=== PATIENT | male | born 1965 | race Two or more races ===

== ENCOUNTER 2018-02-15 05:41 | Emergency (ER) | payer BC, MEDICAID, SELFPAY ==
[~2018-02-15] VITALS: Ht 172.7 cm; Wt 65.0 kg
[~2018-02-15 05:41] MED LIST: ALPR0.257 PO; ATOR10TA70 PO; HYDR12.5 PO; OMEP20CA10 PO; THI100T PO
[2018-02-15 06:36] LABS: BASOPHILS # (AUTO) 0.1 X10'3 (0-0.2); BASOPHILS % (AUTO) 0.9 % (0-1); EOSINOPHILS # (AUTO) 0.3 X10'3 (0-0.9); EOSINOPHILS % (AUTO) 4.3 % (0-6); HEMATOCRIT 37.8 % (42.0-52.0); HEMOGLOBIN 12.8 g/dl (14.0-17.9); LYMPHOCYTES # (AUTO) 3.1 X10'3 (1.1-4.8); LYMPHOCYTES % (AUTO) 48.9 % (21-51); MEAN CORPUSCULAR HGB CONC 33.9 % (33.0-36.5); MEAN CORPUSCULAR VOLUME 88.7 FL (78-98); MEAN PLATELET VOLUME 7.3 FL (7.4-10.4); MONOCYTES # (AUTO) 0.5 X10'3 (0-0.9); MONOCYTES % (AUTO) 7.8 % (2-12); NEUTROPHILS # (AUTO) 2.4 X10'3 (1.8-7.7); NEUTROPHILS % (AUTO) 38.1 % (42-75); PLATELET COUNT 219 X10'3 (140-440); RED BLOOD COUNT 4.26 X10'6 (4.70-6.10); RED CELL DISTRIBUTION WIDTH 19.7 % (11.5-14.5); WHITE BLOOD COUNT 6.4 X10'3 (4.5-11.0)
[2018-02-15 06:38] LABS: CLARITY,URINE Clear (Clear); COLOR,URINE Yellow (Yellow); GLUCOSE, URINE Negative (Neg); KETONES,URINE Negative (Neg); LEUKOCYTE ESTERASE ,URINE Negative (Neg); NITRITES, URINE Negative (Neg); OCCULT BLOOD,URINE Negative (Neg); PROTEIN,URINE Negative (Neg); UROBILINOGEN,URINE 0.2 E.U/dL (0.2-1.0)
[2018-02-15 06:41] LABS: UA COLLECTION TYPE CLN CATCH MIDSTREAM
[2018-02-15 06:47] LABS: INR 1.1 INR
[2018-02-15 06:51] LABS: ALANINE AMINOTRANSFERASE 29 U/L (12-78); ALBUMIN 4.2 G/DL (3.4-5.0); ALBUMIN/GLOBULIN RATIO 1.1 (1.1-1.5); ALKALINE PHOSPHATASE 74 IU/L (46-116); ANION GAP 14 (8-16); ASPARTATE AMINO TRANSFERASE 50 U/L (10-37); BILIRUBIN,TOTAL 1.4 MG/DL (0.1-1.0); BLOOD UREA NITROGEN 5 MG/DL (7-18); BUN/CREATININE RATIO 5.1 (5.4-32.0); CHLORIDE 93 MMOL/L (99-107); CREATININE 0.98 MG/DL (0.60-1.10); ETHANOL 0.257 GM/DL (0.0-0.010); GLUCOSE 93 MG/DL (70-104); LIPASE 159 U/L (73-393); POTASSIUM 3.4 MMOL/L (3.5-5.1); SODIUM 132 MMOL/L (135-145); TOTAL CARBON DIOXIDE 25.4 MMOL/L (24-32); TOTAL PROTEIN 8.2 G/DL (6.4-8.2); eGFR 81 ML/MIN
[2018-02-15] MEDS ORDERED: normal saline 1000ML IV soln IVB ONE (07:10)
[2018-02-15] MEDS ORDERED: ondansetron/PF 4mg/2ml inj IV ONE (07:10)
[2018-02-15 07:54] LABS: ANISOCYTOSIS 2+; PLATELET ESTIMATE NORMAL
[2018-02-15] MEDS ORDERED: chlorproMAZINE 25mg/ml inj. IV ONE (08:05)
[2018-02-15] MEDS ORDERED: ONDA8TAB9 PO (08:31)
[2018-02-15 09:34] VITALS: BP 137/83
== END 2018-02-15 10:29 | disposition home or self-care (01) ==
LOC: ER 05:42
DX: F10.929 Alcohol use, unspecified with intoxication, unspecified (principal); R11.2 Nausea with vomiting, unspecified; R06.6 Hiccough; I10 Essential (primary) hypertension; E78.00 Pure hypercholesterolemia, unspecified; Z90.49 Acquired absence of other specified parts of digestive tract
CPT/HCPCS: 36415; 80053; 80320; 81003; 82948; 83690; 85025; 85610; 93005; 96361; 96374; 96375; 99285; J2405; J3230; J7030

== ENCOUNTER 2018-06-26 01:11 | Emergency (ER) | payer MEDICAID ==
[~2018-06-26] VITALS: Ht 167.6 cm; Wt 60.0 kg
[~2018-06-26 01:11] MED LIST changes: +ONDA8TAB9 PO
[2018-06-26 01:42] LABS: PARTIAL THROMBOPLASTIN TIME 27 SECONDS (22-32); PROTHROMBIN TIME 10.3 SECONDS (9.0-12.0)
[2018-06-26 01:43] LABS: ALANINE AMINOTRANSFERASE 59 U/L (12-78); ALBUMIN/GLOBULIN RATIO 0.9 (1.1-1.5); ALKALINE PHOSPHATASE 136 IU/L (46-116); ANION GAP 16 (8-16); ASPARTATE AMINO TRANSFERASE 78 U/L (10-37); BILIRUBIN,TOTAL 1.7 MG/DL (0.1-1.0); BLOOD UREA NITROGEN 9 MG/DL (7-18); BUN/CREATININE RATIO 9.1 (5.4-32.0); CALCIUM 8.4 MG/DL (8.5-10.1); CHLORIDE 87 MMOL/L (99-107); CREATININE 0.99 MG/DL (0.60-1.10); GLUCOSE 103 MG/DL (70-104); SODIUM 127 MMOL/L (135-145); TOTAL CARBON DIOXIDE 24.4 MMOL/L (24-32); TOTAL PROTEIN 8.4 G/DL (6.4-8.2); eGFR 80 ML/MIN
[2018-06-26 01:46] LABS: POTASSIUM 2.8 MMOL/L (3.5-5.1)
[2018-06-26 01:49] LABS: BASOPHILS % (AUTO) 0.2 % (0-1); EOSINOPHILS # (AUTO) 0.1 X10'3 (0-0.9); EOSINOPHILS % (AUTO) 0.9 % (0-6); HEMATOCRIT 37.3 % (42.0-52.0); HEMOGLOBIN 11.9 g/dl (14.0-17.9); LYMPHOCYTES # (AUTO) 2.4 X10'3 (1.1-4.8); LYMPHOCYTES % (AUTO) 25.3 % (21-51); MEAN CORPUSCULAR HEMOGLOBIN 26.6 PG (27.0-31.0); MEAN CORPUSCULAR HGB CONC 31.9 % (33.0-36.5); MEAN CORPUSCULAR VOLUME 83.4 FL (78-98); MEAN PLATELET VOLUME 7.7 FL (7.4-10.4); MONOCYTES % (AUTO) 10.4 % (2-12); NEUTROPHILS % (AUTO) 63.2 % (42-75); PLATELET COUNT 238 X10'3 (140-440); RED BLOOD COUNT 4.48 X10'6 (4.70-6.10); RED CELL DISTRIBUTION WIDTH 21.1 % (11.5-14.5); WHITE BLOOD COUNT 9.5 X10'3 (4.5-11.0)
[2018-06-26] MEDS ORDERED: magnesium 2GM in 50ml NS 50 ML IV ONE ×2 (02:00→05:10)
[2018-06-26] MEDS ORDERED: potassium 10mEq/100ml NS w/LIDOcaine (10mg/bag) IV ONE ×3 (02:00→05:10)
[2018-06-26 02:11] LABS: MAGNESIUM 1.8 MG/DL (1.5-2.4)
[2018-06-26 02:24] LABS: ETHANOL 0.341 GM/DL (0.0-0.010)
[2018-06-26] MEDS ORDERED: normal saline 1000ml 1,000 ML IV ONE (02:44)
[2018-06-26] MEDS ORDERED: normal saline 1000ML IV soln IVB ONE ×2 (02:45→05:10)
[2018-06-26 02:52] LABS: LIPASE 257 U/L (73-393)
--- NOTE | 2018-06-26 02:57 | NUR ---
PT PURPOSELY PULLED OUT SECOND IV FOR WHICH HE WAS GETTING POTASSIUM AND MAGNESIUM AND FLUIDS. BLOOD WAS FOUND ALL OVER PT AND OVER BED, DUE TO PT ERRATIC BEHAVIOR WILL NOT BE STARTING ANOTHER IV UNTIL PT IS ABLE TO FOLLOW COMMANDS.
--- NOTE | 2018-06-26 03:40 | NUR ---
IV RESTARTED AND SECURED, PT INFORMED OF NEED FOR IV FLUIDS AND ELECTROLYTE REPLACEMENT. PT INFORMED OF THE DETERMENTS OF PULLING OUT IVS.
[2018-06-26] MEDS ORDERED: PHE12.5T PO (05:10)
[2018-06-26] MEDS ORDERED: famotidine/PF 10 mg/ml inj IV ONE (05:10)
[2018-06-26] MEDS ORDERED: POTA20TA19 PO (05:10)
[2018-06-26 05:29] VITALS: BP 130/77
== END 2018-06-26 07:12 | disposition home or self-care (01) ==
LOC: ER 01:13
DX: K29.20 Alcoholic gastritis without bleeding (principal); F10.129 Alcohol abuse with intoxication, unspecified; E87.6 Hypokalemia; E78.00 Pure hypercholesterolemia, unspecified; I10 Essential (primary) hypertension; Z90.49 Acquired absence of other specified parts of digestive tract; Z79.899 Other long term (current) drug therapy; Y90.9 Presence of alcohol in blood, level not specified
CPT/HCPCS: 36415; 71045; 80053; 80320; 83690; 83735; 84484; 85025; 85610; 85730; 93005; 96365; 96366; 96368; 96375; 99284; J3475; J3480; J3490; J7030

== ENCOUNTER 2018-06-30 17:51 | Emergency (ER) | payer MEDICAID ==
[~2018-06-30] VITALS: Ht 172.7 cm; Wt 63.0 kg
[~2018-06-30 17:51] MED LIST changes: +PHE12.5T PO; +POTA20TA19 PO
[2018-06-30 17:56] VITALS: BP 140/89
[2018-06-30] MEDS ORDERED: thiamine 100mg tablet PO ONE (19:25)
[2018-06-30] MEDS ORDERED: dextrose 5%-normal saline 1,000 ML IV SCH (19:25)
[2018-06-30] MEDS ORDERED: multivitamins, therapeutics tablet PO ONE (19:25)
[2018-06-30] MEDS ORDERED: folic acid 1mg tablet PO ONE (19:25)
[2018-06-30] MEDS ORDERED: LORazepam 2 mg/ml vial IV ONE (19:25)
[2018-06-30 20:13] LABS: ALANINE AMINOTRANSFERASE 28 U/L (12-78); ALBUMIN 3.8 G/DL (3.4-5.0); ALKALINE PHOSPHATASE 102 IU/L (46-116); ANION GAP 13 (8-16); ASPARTATE AMINO TRANSFERASE 33 U/L (10-37); BILIRUBIN,TOTAL 0.5 MG/DL (0.1-1.0); BLOOD UREA NITROGEN 3 MG/DL (7-18); BUN/CREATININE RATIO 3.2 (5.4-32.0); CALCIUM 8.9 MG/DL (8.5-10.1); CHLORIDE 101 MMOL/L (99-107); CREATININE 0.94 MG/DL (0.60-1.10); ETHANOL < 0.010 GM/DL (0.0-0.010); GLUCOSE 120 MG/DL (70-104); POTASSIUM 3.4 MMOL/L (3.5-5.1); SODIUM 136 MMOL/L (135-145); TOTAL CARBON DIOXIDE 22.4 MMOL/L (24-32); TOTAL PROTEIN 7.8 G/DL (6.4-8.2); eGFR 85 ML/MIN
[2018-06-30 20:17] LABS: INR 1.1 INR; PROTHROMBIN TIME 10.7 SECONDS (9.0-12.0)
[2018-06-30 21:06] LABS: BASOPHILS % (AUTO) 0.1 % (0-1); EOSINOPHILS % (AUTO) 0 % (0-6); HEMOGLOBIN 11.8 g/dl (14.0-17.9); LYMPHOCYTES # (AUTO) 1.4 X10'3 (1.1-4.8); LYMPHOCYTES % (AUTO) 13.2 % (21-51); MEAN CORPUSCULAR HEMOGLOBIN 28.1 PG (27.0-31.0); MEAN CORPUSCULAR HGB CONC 32.8 % (33.0-36.5); MEAN CORPUSCULAR VOLUME 85.5 FL (78-98); MEAN PLATELET VOLUME 7.9 FL (7.4-10.4); MONOCYTES # (AUTO) 0.5 X10'3 (0-0.9); MONOCYTES % (AUTO) 5.1 % (2-12); NEUTROPHILS # (AUTO) 8.4 X10'3 (1.8-7.7); NEUTROPHILS % (AUTO) 81.6 % (42-75); PLATELET COUNT 219 X10'3 (140-440); RED BLOOD COUNT 4.21 X10'6 (4.70-6.10); RED CELL DISTRIBUTION WIDTH 23.2 % (11.5-14.5); WHITE BLOOD COUNT 10.3 X10'3 (4.5-11.0)
[2018-06-30 22:38] LABS: ANISOCYTOSIS 3+; PLATELET ESTIMATE NORMAL; TOTAL CELLS COUNTED 100
[2018-06-30 22:39] LABS: TARGET CELLS FEW
== END 2018-06-30 22:06 | disposition home or self-care (01) ==
LOC: ER 17:52
DX: E86.0 Dehydration (principal); K56.699 Other intestinal obstruction unspecified as to partial versus complete obstruction; F10.239 Alcohol dependence with withdrawal, unspecified; R53.83 Other fatigue; R10.13 Epigastric pain; F17.200 Nicotine dependence, unspecified, uncomplicated; E78.00 Pure hypercholesterolemia, unspecified; I10 Essential (primary) hypertension; Z90.49 Acquired absence of other specified parts of digestive tract; Z79.899 Other long term (current) drug therapy; Y90.9 Presence of alcohol in blood, level not specified
CPT/HCPCS: 36415; 80053; 80320; 84484; 85025; 85610; 93005; 96361; 96374; 99284; J2060; J7042

== ENCOUNTER 2019-01-30 13:56 | Inpatient (IN) | payer MEDICAID ==
[~2019-01-30] VITALS: Ht 172.7 cm; Wt 56.8 kg
[~2019-01-30 13:56] MED LIST changes: +AMYL1CAP62 PO; -ATOR10TA70 PO; +FOLI1TAB16 PO; -HYDR12.5 PO; +MULT-1179 PO; -OMEP20CA10 PO; -ONDA8TAB9 PO; +PANT40TA4 PO; -PHE12.5T PO; -POTA20TA19 PO; -THI100T PO; +thiamine tablet PO
[2019-01-30] MEDS ORDERED: diltiazem 5mg/ml 5ml inj. IV ONE ×3 (14:05→14:35)
[2019-01-30] MEDS ORDERED: aspirin 81mg tab.chew PO ONE (14:05)
[2019-01-30] MEDS ORDERED: LORazepam 2 mg/ml vial IV ONE ×3 (14:10→15:05)
[2019-01-30 14:18] LABS: BASOPHILS % (AUTO) 0.5 % (0-1); EOSINOPHILS % (AUTO) 0 % (0-6); HEMATOCRIT 41.9 % (42.0-52.0); HEMOGLOBIN 13.6 g/dl (14.0-17.9); LYMPHOCYTES # (AUTO) 1.4 X10'3 (1.1-4.8); LYMPHOCYTES % (AUTO) 19.8 % (21-51); MEAN CORPUSCULAR HEMOGLOBIN 28.6 PG (27.0-31.0); MEAN CORPUSCULAR HGB CONC 32.5 g/dL (33.0-36.5); MEAN PLATELET VOLUME 7.1 FL (7.4-10.4); MONOCYTES # (AUTO) 0.2 X10'3 (0-0.9); MONOCYTES % (AUTO) 3.5 % (2-12); NEUTROPHILS # (AUTO) 5.4 X10'3 (1.8-7.7); NEUTROPHILS % (AUTO) 76.2 % (42-75); PLATELET COUNT 364 X10'3 (140-440); RED BLOOD COUNT 4.77 X10'6 (4.70-6.10); RED CELL DISTRIBUTION WIDTH 19.6 % (11.5-14.5); WHITE BLOOD COUNT 7.1 X10'3 (4.5-11.0)
[2019-01-30] MEDS ORDERED: diltiazem-D5W 125mg/125ml 125 ML IV SCH ×2 (14:35→17:05)
[2019-01-30 14:40] LABS: ALANINE AMINOTRANSFERASE 139 U/L (12-78); ALBUMIN 4.4 G/DL (3.4-5.0); ALKALINE PHOSPHATASE 58 IU/L (46-116); ANION GAP 33 (8-16); ASPARTATE AMINO TRANSFERASE 283 U/L (10-37); BILIRUBIN,TOTAL 0.6 MG/DL (0.1-1.0); BLOOD UREA NITROGEN 16 MG/DL (7-18); BUN/CREATININE RATIO 12.5 (5.4-32.0); CALCIUM 8.9 MG/DL (8.5-10.1); CHLORIDE 97 MMOL/L (99-107); CREATININE 1.28 MG/DL (0.60-1.10); ETHANOL 0.138 GM/DL (0.0-0.010); GLUCOSE 74 MG/DL (70-104); MAGNESIUM 1.7 MG/DL (1.5-2.4); POTASSIUM 3.3 MMOL/L (3.5-5.1); SODIUM 138 MMOL/L (135-145); TOTAL PROTEIN 8.6 G/DL (6.4-8.2); eGFR 59 ML/MIN
[2019-01-30 14:44] LABS: TOTAL CARBON DIOXIDE 7.7 MMOL/L (24-32)
[2019-01-30] MEDS ORDERED: enoxaparin 100mg/ml syringe SUBCUT ONE (14:50)
[2019-01-30] MEDS ORDERED: potassium Cl 10 mEq/100mL bag IV ONE (14:55)
[2019-01-30] MEDS ORDERED: magnesium 2GM in 50ml NS 50 ML IV ONE (14:55)
[2019-01-30] MEDS ORDERED: etomidate 2mg/ml inj. IV ONE (15:00)
[2019-01-30] MEDS ORDERED: diltiazem-NS 100mg/100ml 100 ML IV ONE (15:00)
[2019-01-30] MEDS ORDERED: normal saline 1000ML IV soln IVB ONE (15:05)
[2019-01-30] MEDS ORDERED: fentaNYL/PF 50MCG/1 ML 2ML syringe IV ONE (15:45)
[2019-01-30] MEDS ORDERED: FOLI1TAB16 PO (15:56)
[2019-01-30] MEDS ORDERED: THIA100T73 PO (15:56)
[2019-01-30] MEDS ORDERED: AMYL1CAP62 PO (15:56)
[2019-01-30] MEDS ORDERED: MULT-1085 PO (15:58)
[2019-01-30] MEDS ORDERED: PANT-47 PO (15:58)
[2019-01-30] MEDS ORDERED: haloperidol 5mg tablet PO PRN (16:50)
[2019-01-30] MEDS ORDERED: magnesium 2GM in 50ml NS 50 ML IV PRN (16:50)
[2019-01-30] MEDS ORDERED: haloperidol lactate 5mg/ml inj IM PRN (16:50)
[2019-01-30] MEDS ORDERED: potassium Cl 20 mEq SR tablet PO PRN (16:50)
[2019-01-30] MEDS ORDERED: dextrose 50%-water 50ml dispensing syringe IV PRN (16:50)
[2019-01-30] MEDS ORDERED: magnesium 4gm in 100ml NS 100 ML IV PRN (16:50)
[2019-01-30] MEDS ORDERED: potassium CL 10mEq/100ml bag 100 ML IV PRN ×2 (16:50)
[2019-01-30] MEDS ORDERED: acetaminophen 325mg tablet PO PRN (16:50)
[2019-01-30] MEDS ORDERED: thiamine 100mg/ml 2ml inj. IV ONE (16:50)
[2019-01-30] MEDS ORDERED: magnesium Cl slow-release 64mg tablet PO PRN (16:50)
[2019-01-30] MEDS ORDERED: ondansetron/PF 4mg/2ml inj IV PRN (16:50)
[2019-01-30] MEDS ORDERED: diltiazem-NS 100mg/100ml 100 ML IV SCH (17:11)
[2019-01-30] MEDS: normal saline 1000ml 1,000 ML IV SCH (17:34)
[2019-01-30 17:54] LABS: ALBUMIN 3.8 G/DL (3.4-5.0); ANION GAP 24 (8-16); BLOOD UREA NITROGEN 13 MG/DL (7-18); CALCIUM 7.2 MG/DL (8.5-10.1); CHLORIDE 105 MMOL/L (99-107); CREATININE 1.18 MG/DL (0.60-1.10); GLUCOSE 67 MG/DL (70-104); POTASSIUM 4.9 MMOL/L (3.5-5.1); SODIUM 139 MMOL/L (135-145); eGFR 65 ML/MIN
[2019-01-30 18:03] LABS: TOTAL CARBON DIOXIDE 10.2 MMOL/L (24-32)
[2019-01-30 18:22] LABS: URINE AMPHETAMINE SCREEN NEGATIVE (Neg); URINE BARBITUATE SCREEN NEGATIVE (Neg); URINE BENZODIAZEPINES SCREEN NEGATIVE (Neg); URINE CANNABINOID SCREEN NEGATIVE (Neg); URINE COCAINE SCREEN NEGATIVE (Neg); URINE METHADONE SCREEN NEGATIVE (Neg); URINE OPIATE SCREEN NEGATIVE (Neg); URINE PHENCYCLIDINE SCREEN NEGATIVE (Neg)
[2019-01-30 19:00] VITALS: BP 117/71
--- NOTE | 2019-01-30 19:00 | NUR ---
Patient in room PCU 3027. I have received report from Valeria [facility]U (ER) and had the opportunity to ask questions and assume patient care. Patient is alert and oriented. He arrived by gurney and transported himself into bed. Oriented to room 3027B, Mobile bedside telemetry monitoring placed. Will continue to monitor closely.
[2019-01-30] MEDS: LORazepam 2 mg/ml vial IV PRN ×2 (19:54→22:20)
[2019-01-30 21:00] VITALS: BP 119/74
[2019-01-30] MEDS: diltiazem 30mg tablet PO SCH (22:20)
[2019-01-30 23:00] VITALS: BP 130/79
[2019-01-31] VITALS (8 sets, daily range): BP systolic 103–135; BP diastolic 73–87
[2019-01-31] MEDS: diltiazem 30mg tablet PO SCH ×4 (02:37→20:26)
[2019-01-31 02:42] LABS: BASOPHILS # (AUTO) 0.1 X10'3 (0-0.2); BASOPHILS % (AUTO) 0.7 % (0-1); EOSINOPHILS # (AUTO) 0.1 X10'3 (0-0.9); EOSINOPHILS % (AUTO) 0.8 % (0-6); HEMATOCRIT 31.8 % (42.0-52.0); HEMOGLOBIN 10.5 g/dl (14.0-17.9); LYMPHOCYTES # (AUTO) 3.1 X10'3 (1.1-4.8); MEAN CORPUSCULAR HEMOGLOBIN 28.7 PG (27.0-31.0); MEAN CORPUSCULAR HGB CONC 33.1 g/dL (33.0-36.5); MEAN CORPUSCULAR VOLUME 86.6 FL (78-98); MEAN PLATELET VOLUME 6.9 FL (7.4-10.4); MONOCYTES # (AUTO) 0.8 X10'3 (0-0.9); MONOCYTES % (AUTO) 11.7 % (2-12); NEUTROPHILS # (AUTO) 3.1 X10'3 (1.8-7.7); NEUTROPHILS % (AUTO) 42.8 % (42-75); PLATELET COUNT 262 X10'3 (140-440); RED BLOOD COUNT 3.67 X10'6 (4.70-6.10); WHITE BLOOD COUNT 7.1 X10'3 (4.5-11.0)
[2019-01-31 02:56] LABS: ALBUMIN 3.2 G/DL (3.4-5.0); ANION GAP 10 (8-16); BLOOD UREA NITROGEN 11 MG/DL (7-18); BUN/CREATININE RATIO 10.7 (5.4-32.0); CALCIUM 7.1 MG/DL (8.5-10.1); CHLORIDE 106 MMOL/L (99-107); CREATININE 1.03 MG/DL (0.60-1.10); GLUCOSE 151 MG/DL (70-104); MAGNESIUM 1.6 MG/DL (1.5-2.4); POTASSIUM 3.6 MMOL/L (3.5-5.1); SODIUM 138 MMOL/L (135-145); TOTAL CARBON DIOXIDE 22.4 MMOL/L (24-32); eGFR 76 ML/MIN
[2019-01-31 03:52] LABS: PLATELET ESTIMATE NORMAL
[2019-01-31 03:53] LABS: ANISOCYTOSIS 2+
--- NOTE | 2019-01-31 06:34 | NUR ---
Problems reprioritized. Patient report given, questions answered & plan of care reviewed with Keila SIU and Kay SIU.
[2019-01-31] MEDS: normal saline 1000ml 1,000 ML IV SCH ×3 (06:49→20:27)
--- NOTE | 2019-01-31 07:06 | NUR ---
Patient in room PCU 3027. I have received report from KINZA and had the opportunity to ask questions and assume patient care.
[2019-01-31] MEDS ORDERED: potassium Cl 20 mEq SR tablet PO STA (07:33)
[2019-01-31] MEDS ORDERED: magnesium 2GM in 50ml NS 50 ML IV ONE (07:35)
[2019-01-31] MEDS: K and/or MAG REPLACEMENT MC SCH (07:55)
[2019-01-31] MEDS ORDERED: pantoprazole 40 MG vial IV SCH (08:00)
[2019-01-31] MEDS: aspirin 81mg tablet.DR PO SCH (12:44)
[2019-01-31] MEDS: [UNRECOGNIZED DRUG - OTHER] PO SCH ×2 (13:00→17:46)
[2019-01-31] MEDS ORDERED: PROTEASE PO SCH (13:00)
[2019-01-31] MEDS ORDERED: AMYLASE PO SCH (13:00)
[2019-01-31] MEDS: PROTEASE PO SCH ×2 (13:00→17:46)
[2019-01-31] MEDS: LIPASE PO SCH ×2 (13:00→17:46)
[2019-01-31] MEDS ORDERED: LIPASE PO SCH (13:00)
[2019-01-31] MEDS: AMYLASE PO SCH ×2 (13:00→17:46)
[2019-01-31 14:31] LABS: % IRON SATURATION 93 % (11-46); IRON 348 UG/DL (53-167); TOTAL IRON BINDING CAPACITY 374 UG/DL (259-388)
--- NOTE | 2019-01-31 17:25 | NUR ---
Dr Dumont came to evaluate patient. Dr ordered to start cardizem CD 120mg PO daily starting tomorrow am, and to continue the 30mg cardizem POq6h through tonight and stop before am dose.
--- NOTE | 2019-01-31 18:52 | NUR ---
Problems reprioritized. Patient report given, questions answered & plan of care reviewed with Velia SIU.
[2019-02-01] MEDS: diltiazem 30mg tablet PO SCH (02:00)
[2019-02-01 03:00] VITALS: BP 113/79
[2019-02-01 06:00] VITALS: BP 119/85
[2019-02-01 06:02] LABS: BASOPHILS % (AUTO) 0.8 % (0-1); EOSINOPHILS # (AUTO) 0.1 X10'3 (0-0.9); HEMATOCRIT 30.2 % (42.0-52.0); HEMOGLOBIN 10.3 g/dl (14.0-17.9); LYMPHOCYTES % (AUTO) 43.8 % (21-51); MEAN CORPUSCULAR HEMOGLOBIN 29.1 PG (27.0-31.0); MEAN CORPUSCULAR VOLUME 85.5 FL (78-98); MEAN PLATELET VOLUME 6.9 FL (7.4-10.4); MONOCYTES # (AUTO) 0.5 X10'3 (0-0.9); MONOCYTES % (AUTO) 10.7 % (2-12); NEUTROPHILS # (AUTO) 1.9 X10'3 (1.8-7.7); NEUTROPHILS % (AUTO) 42.7 % (42-75); PLATELET COUNT 242 X10'3 (140-440); RED BLOOD COUNT 3.53 X10'6 (4.70-6.10); RED CELL DISTRIBUTION WIDTH 19.2 % (11.5-14.5); WHITE BLOOD COUNT 4.5 X10'3 (4.5-11.0)
[2019-02-01 06:07] LABS: ALBUMIN 3.2 G/DL (3.4-5.0); ANION GAP 9 (8-16); BLOOD UREA NITROGEN 2 MG/DL (7-18); BUN/CREATININE RATIO 2.8 (5.4-32.0); CALCIUM 7.5 MG/DL (8.5-10.1); CHLORIDE 108 MMOL/L (99-107); CREATININE 0.71 MG/DL (0.60-1.10); GLUCOSE 99 MG/DL (70-104); MAGNESIUM 1.5 MG/DL (1.5-2.4); SODIUM 141 MMOL/L (135-145); TOTAL CARBON DIOXIDE 23.7 MMOL/L (24-32); eGFR > 90 ML/MIN
--- NOTE | 2019-02-01 06:13 | NUR ---
Problems reprioritized. Patient report given, questions answered & plan of care reviewed with SALBADOR Delgado.
--- NOTE | 2019-02-01 06:14 | NUR ---
Patient in room PCU 3027. I have received report from SALBADOR Gunn and had the opportunity to ask questions and assume patient care.
--- NOTE | 2019-02-01 06:29 | NUR ---
Called Dr Narvaez about K of 3.0 will do protocol orders.
[2019-02-01] MEDS: normal saline 1000ml 1,000 ML IV SCH (07:06)
[2019-02-01] MEDS: aspirin 81mg tablet.DR PO SCH (07:14)
[2019-02-01] MEDS: potassium Cl 20 mEq SR tablet PO PRN ×2 (07:15→12:06)
[2019-02-01] MEDS: K and/or MAG REPLACEMENT MC SCH (07:20)
[2019-02-01] MEDS: LIPASE PO SCH (08:00)
[2019-02-01] MEDS ORDERED: multivitamins, therapeutics tablet PO SCH (08:00)
[2019-02-01] MEDS: [UNRECOGNIZED DRUG - OTHER] PO SCH (08:00)
[2019-02-01] MEDS ORDERED: diltiazem CD 120mg capsule (once-daily) PO SCH (08:00)
[2019-02-01] MEDS ORDERED: folic acid 1mg tablet PO SCH (08:00)
[2019-02-01] MEDS ORDERED: pantoprazole 40mg Tablet.DR PO SCH (08:00)
[2019-02-01] MEDS: AMYLASE PO SCH (08:00)
[2019-02-01] MEDS ORDERED: thiamine 100mg tablet PO SCH (08:00)
[2019-02-01] MEDS: PROTEASE PO SCH (08:00)
[2019-02-01] MEDS ORDERED: non-formulary drug (Multivitamin (Multi Vitamin Daily) 1 TAB) PO SCH (08:00)
[2019-02-01 11:00] VITALS: BP 132/89
[2019-02-01] MEDS ORDERED: CARCD120C PO (11:51)
[2019-02-01] MEDS ORDERED: ASPI-1071 PO (11:51)
--- NOTE | 2019-02-01 12:10 | NUR ---
Discussed patient's potassium level of 3.[address] Arboleda and that patient has received the second of the third dose [address] Arboleda said the patient is okay to discharg without finishing the 3rd dose.
--- NOTE | 2019-02-01 13:04 | NUR ---
Discharged IV and tele out. Educated on chest pain and medications. Stable for DC per MD.
--- NOTE | 2019-02-01 13:15 | NUR ---
Called in meds to [address]
[2019-02-01] MEDS ORDERED: LORazepam 1 MG tablet PO PRN (16:50)
[2019-02-01] MEDS ORDERED: LORazepam 2 mg/ml vial IV PRN (16:50)
[2019-02-03] MEDS ORDERED: LORazepam 2 mg/ml vial IV PRN (16:50)
[2019-02-03] MEDS ORDERED: LORazepam 1 MG tablet PO PRN (16:50)
== END 2019-02-01 13:05 | disposition home or self-care (01) | DRG 201 ==
LOC: ER 13:57 → PCU 3S 18:54 → CMPBEDREQ 19:44
PROVIDERS: ADMIT Internal Medicine; ATTEND Internal Medicine
PROC: 5A2204Z Restoration of Cardiac Rhythm, Single (ICD-10-PCS; principal; 2019-01-30)
DX: I48.91 Unspecified atrial fibrillation (principal); D64.9 Anemia, unspecified; E78.00 Pure hypercholesterolemia, unspecified; E78.5 Hyperlipidemia, unspecified; F10.20 Alcohol dependence, uncomplicated; F17.210 Nicotine dependence, cigarettes, uncomplicated; F41.9 Anxiety disorder, unspecified; I10 Essential (primary) hypertension; I48.92 Unspecified atrial flutter; K21.9 Gastro-esophageal reflux disease without esophagitis; Z79.82 Long term (current) use of aspirin; Z79.899 Other long term (current) drug therapy; Z82.49 Family history of ischemic heart disease and other diseases of the circulatory system; Z83.3 Family history of diabetes mellitus; Z90.49 Acquired absence of other specified parts of digestive tract; Z83.42 Family history of familial hypercholesterolemia; Z71.41 Alcohol abuse counseling and surveillance of alcoholic
CPT/HCPCS: 36415; 71045; 80048; 80053; 80305; 80320; 83540; 83550; 83735; 83880; 84484; 85025; 87081; 92960; 93005; 93306; 96365; 96366; 96368; 96372; 96375; 96376; 99152; 99291; C9113; G0378; J1650; J2060; J3010; J3411; J3475; J3480; J3490; J7030

== ENCOUNTER 2019-03-02 17:07 | Emergency (ER) | payer MEDICAID ==
[~2019-03-02] VITALS: Ht 172.7 cm; Wt 60.9 kg
[~2019-03-02 17:07] MED LIST changes: +ASPI-1071 PO; +CARCD120C PO; +MULT-1085 PO; -MULT-1179 PO; +PANT-47 PO; -PANT40TA4 PO; +THIA100T73 PO; -thiamine tablet PO
[2019-03-02] MEDS ORDERED: ketorolac trometh. 30mg/ml inj. IV ONE (18:00)
[2019-03-02] MEDS ORDERED: normal saline 1000ML IV soln IVB ONE ×2 (18:00→18:40)
[2019-03-02] MEDS ORDERED: LORazepam 2 mg/ml vial IV ONE (18:00)
[2019-03-02 18:17] LABS: CLARITY,URINE CLEAR (Clear); COLOR,URINE YELLOW (Yellow); GLUCOSE, URINE NEGATIVE (Neg); KETONES,URINE NEGATIVE (Neg); LEUKOCYTE ESTERASE ,URINE NEGATIVE (Neg); NITRITES, URINE NEGATIVE (Neg); OCCULT BLOOD,URINE NEGATIVE (Neg); PROTEIN,URINE NEGATIVE (Neg); UROBILINOGEN,URINE 0.2 E.U/dL (0.2-1.0)
[2019-03-02 18:19] LABS: UA COLLECTION TYPE VOIDED
[2019-03-02 18:28] LABS: BASOPHILS # (AUTO) 0.1 X10'3 (0-0.2); BASOPHILS % (AUTO) 1.3 % (0-1); EOSINOPHILS % (AUTO) 0.3 % (0-6); HEMATOCRIT 44.4 % (42.0-52.0); HEMOGLOBIN 14.7 g/dl (14.0-17.9); LYMPHOCYTES # (AUTO) 2.5 X10'3 (1.1-4.8); LYMPHOCYTES % (AUTO) 28.5 % (21-51); MEAN CORPUSCULAR HEMOGLOBIN 27.3 PG (27.0-31.0); MEAN CORPUSCULAR HGB CONC 33.2 g/dL (33.0-36.5); MEAN CORPUSCULAR VOLUME 82.3 FL (78-98); MEAN PLATELET VOLUME 8.3 FL (7.4-10.4); MONOCYTES # (AUTO) 0.5 X10'3 (0-0.9); MONOCYTES % (AUTO) 5.8 % (2-12); NEUTROPHILS # (AUTO) 5.6 X10'3 (1.8-7.7); NEUTROPHILS % (AUTO) 64.1 % (42-75); PLATELET COUNT 300 X10'3 (140-440); RED BLOOD COUNT 5.39 X10'6 (4.70-6.10); WHITE BLOOD COUNT 8.8 X10'3 (4.5-11.0)
[2019-03-02 18:33] LABS: ALANINE AMINOTRANSFERASE 42 U/L (12-78); ALBUMIN/GLOBULIN RATIO 1.2 (1.1-1.5); ALKALINE PHOSPHATASE 78 IU/L (46-116); ANION GAP 23 (8-16); ASPARTATE AMINO TRANSFERASE 60 U/L (10-37); BILIRUBIN,TOTAL 1.8 MG/DL (0.1-1.0); BLOOD UREA NITROGEN 17 MG/DL (7-18); BUN/CREATININE RATIO 11.8 (5.4-32.0); CALCIUM 9.6 MG/DL (8.5-10.1); CHLORIDE 90 MMOL/L (99-107); CREATININE 1.44 MG/DL (0.60-1.10); GLUCOSE 88 MG/DL (70-104); POTASSIUM 3.9 MMOL/L (3.5-5.1); SODIUM 132 MMOL/L (135-145); TOTAL CARBON DIOXIDE 18.8 MMOL/L (24-32); TOTAL PROTEIN 9.3 G/DL (6.4-8.2); eGFR 52 ML/MIN
[2019-03-02 18:37] LABS: LIPASE 91 U/L (73-393)
[2019-03-02 18:48] LABS: TROPONIN I < 0.04 NG/ML (0.0-0.05)
[2019-03-02 20:35] VITALS: BP 145/86
== END 2019-03-02 20:41 | disposition home or self-care (01) ==
LOC: ER 17:08
DX: R10.32 Left lower quadrant pain (principal); R10.31 Right lower quadrant pain; E86.0 Dehydration; M25.512 Pain in left shoulder; R00.0 Tachycardia, unspecified; E78.00 Pure hypercholesterolemia, unspecified; I10 Essential (primary) hypertension; F10.99 Alcohol use, unspecified with unspecified alcohol-induced disorder; Z90.49 Acquired absence of other specified parts of digestive tract; Z79.82 Long term (current) use of aspirin; Z79.899 Other long term (current) drug therapy; Y90.9 Presence of alcohol in blood, level not specified
CPT/HCPCS: 80053; 81003; 83690; 84145; 84484; 85025; 85610; 87081; 87880; 93005; 96361; 96374; 96375; 99284; J1885; J2060; J7030

== ENCOUNTER 2019-03-22 13:16 | Inpatient (IN) | payer MEDICAID ==
[~2019-03-22] VITALS: Ht 172.7 cm; Wt 56.9 kg
[2019-03-22] MEDS ORDERED: LORazepam 2 mg/ml vial IV ONE ×3 (14:15→14:55)
[2019-03-22] MEDS ORDERED: aspirin 81mg tab.chew PO ONE (14:20)
[2019-03-22] MEDS ORDERED: diltiazem 5mg/ml 5ml inj. IV ONE (14:20)
[2019-03-22] MEDS ORDERED: normal saline 1000ML IV soln IVB ONE (14:20)
[2019-03-22] MEDS ORDERED: thiamine inj. 100 MG, MVI, adult No.4 with vit. K 10 ML in dextrose 5% water 500ml 489 ML IV ONE ×3 (14:20)
[2019-03-22] MEDS ORDERED: MVI, adult No.4 with vit. K 10 ML in dextrose 5% water 500ml 490 ML IV ONE ×2 (14:24)
[2019-03-22] MEDS ORDERED: thiamine inj. 100 MG in normal saline 100ml IV soln 99 ML IV ONE (14:25)
[2019-03-22 14:30] LABS: HEMOGLOBIN 14.6 g/dl (14.0-17.9); MEAN PLATELET VOLUME 7.7 FL (7.4-10.4); RED CELL DISTRIBUTION WIDTH 22.9 % (11.5-14.5)
[2019-03-22 14:32] LABS: HEMATOCRIT 45.3 % (42.0-52.0); MEAN CORPUSCULAR HEMOGLOBIN 27.8 PG (27.0-31.0); MEAN CORPUSCULAR HGB CONC 32.2 g/dL (33.0-36.5); MEAN CORPUSCULAR VOLUME 86.4 FL (78-98); PLATELET COUNT 325 X10'3 (140-440); RED BLOOD COUNT 5.24 X10'6 (4.70-6.10); WHITE BLOOD COUNT 11.3 X10'3 (4.5-11.0)
[2019-03-22 14:46] LABS: PARTIAL THROMBOPLASTIN TIME 23 SECONDS (22-32)
[2019-03-22 15:05] LABS: TOTAL CELLS COUNTED 100
[2019-03-22 15:10] LABS: ANISOCYTOSIS 3+; PLATELET ESTIMATE NORMAL; STOMATOCYTES 1+; TOXIC VACUOLATION FEW
[2019-03-22 15:14] LABS: ALANINE AMINOTRANSFERASE 48 U/L (12-78); ALBUMIN 5.2 G/DL (3.4-5.0); ALKALINE PHOSPHATASE 72 IU/L (46-116); ANION GAP 44 (8-16); ASPARTATE AMINO TRANSFERASE 77 U/L (10-37); BILIRUBIN,TOTAL 1.7 MG/DL (0.1-1.0); BLOOD UREA NITROGEN 25 MG/DL (7-18); BUN/CREATININE RATIO 10.3 (5.4-32.0); CHLORIDE 78 MMOL/L (99-107); CREATININE 2.42 MG/DL (0.60-1.10); ETHANOL < 0.010 GM/DL (0.0-0.010); GLUCOSE 146 MG/DL (70-104); SODIUM 132 MMOL/L (135-145); TOTAL PROTEIN 10.3 G/DL (6.4-8.2); eGFR 28 ML/MIN
[2019-03-22 15:15] LABS: PHOSPHORUS 10.1 MG/DL (2.3-4.5); POTASSIUM 3.8 MMOL/L (3.5-5.1)
[2019-03-22 15:16] LABS: TOTAL CARBON DIOXIDE 10.2 MMOL/L (24-32)
--- NOTE | 2019-03-22 15:48 | NUR ---
PT REPORTS IMPROVEMENT IN CP AND SOB. TREMORS ARE NO LONGER VISIBLE. PT DENIOES ANY FEELING OF FEVER OR CHILLS.
[2019-03-22] MEDS ORDERED: haloperidol 5mg tablet PO PRN (15:50)
[2019-03-22] MEDS ORDERED: dicyclomine 10 MG capsule PO PRN (15:50)
[2019-03-22] MEDS ORDERED: LORazepam 2 mg/ml vial IV PRN (15:50)
[2019-03-22] MEDS ORDERED: thiamine 100mg/ml 2ml inj. IV ONE (15:50)
[2019-03-22] MEDS ORDERED: acetaminophen 325mg tablet PO PRN (15:50)
[2019-03-22] MEDS ORDERED: loperamide 2mg capsule PO PRN ×2 (15:50)
[2019-03-22] MEDS ORDERED: magnesium hydroxide 30ml (MOM) UD suspension PO PRN (15:50)
[2019-03-22] MEDS ORDERED: HYDROcodone/acetaminophen 5mg/325mg tablet PO PRN (15:50)
[2019-03-22] MEDS ORDERED: dextrose 50%-water 50ml dispensing syringe IV PRN (15:50)
[2019-03-22] MEDS ORDERED: mag hydrox/Alum hydrox/simeth 30ml oral suspension PO PRN ×2 (15:50)
[2019-03-22] MEDS ORDERED: haloperidol lactate 5mg/ml inj IM PRN (15:50)
[2019-03-22] MEDS ORDERED: morphine 2 MG/ML inj. syringe IV PRN ×2 (15:50)
[2019-03-22] MEDS ORDERED: ASPI-611 PO (15:50)
[2019-03-22] MEDS ORDERED: DILT120C91 PO (15:50)
[2019-03-22] MEDS ORDERED: ondansetron/PF 4mg/2ml inj IV PRN (15:50)
[2019-03-22 16:13] LABS: CREATINE KINASE 118 U/L (39-308); LIPASE 180 U/L (73-393)
[2019-03-22 18:00] VITALS: BP 116/83
--- NOTE | 2019-03-22 18:30 | NUR ---
Patient in room PCU 3027. I have received report from Ailin [facility] and had the opportunity to ask questions and assume patient care.
[2019-03-22] MEDS ORDERED: metoclopramide 5 mg/ml inj IV PRN (18:35)
--- NOTE | 2019-03-22 18:40 | NUR ---
Patient admitted to room PCU 3027 from ED. I have received report from salome and had the opportunity to ask questions and assume patient care. pt arrived at 1815, pt stable and tucked in to bed, gave report to Chantel SIU who will be taking over
[2019-03-22] MEDS ORDERED: MULT-1172 PO (19:08)
[2019-03-22] MEDS ORDERED: B12/1TAB3 PO (19:08)
[2019-03-22 20:00] VITALS: BP_SYST 107; BP_SYST 113; BP_SYST 115; BP_DIAS 72; BP_DIAS 77; BP_DIAS 82
[2019-03-22 22:00] VITALS: BP 115/77
[2019-03-23] VITALS (8 sets, daily range): BP systolic 104–119; BP diastolic 64–82
[2019-03-23 03:33] LABS: BASOPHILS # (AUTO) 0.1 X10'3 (0-0.2); BASOPHILS % (AUTO) 0.7 % (0-1); EOSINOPHILS % (AUTO) 0.2 % (0-6); HEMATOCRIT 35.2 % (42.0-52.0); HEMOGLOBIN 11.9 g/dl (14.0-17.9); LYMPHOCYTES # (AUTO) 2.5 X10'3 (1.1-4.8); LYMPHOCYTES % (AUTO) 33.9 % (21-51); MEAN CORPUSCULAR HEMOGLOBIN 28.1 PG (27.0-31.0); MEAN CORPUSCULAR HGB CONC 33.8 g/dL (33.0-36.5); MEAN PLATELET VOLUME 7.5 FL (7.4-10.4); MONOCYTES % (AUTO) 13.8 % (2-12); NEUTROPHILS # (AUTO) 3.8 X10'3 (1.8-7.7); NEUTROPHILS % (AUTO) 51.4 % (42-75); PLATELET COUNT 234 X10'3 (140-440); RED BLOOD COUNT 4.25 X10'6 (4.70-6.10); RED CELL DISTRIBUTION WIDTH 22.7 % (11.5-14.5); WHITE BLOOD COUNT 7.5 X10'3 (4.5-11.0)
[2019-03-23 03:38] LABS: ALANINE AMINOTRANSFERASE 34 U/L (12-78); ALBUMIN 4.1 G/DL (3.4-5.0); ALBUMIN/GLOBULIN RATIO 1.1 (1.1-1.5); ALKALINE PHOSPHATASE 57 IU/L (46-116); ANION GAP 11 (8-16); ASPARTATE AMINO TRANSFERASE 47 U/L (10-37); BILIRUBIN,TOTAL 3.2 MG/DL (0.1-1.0); BLOOD UREA NITROGEN 15 MG/DL (7-18); BUN/CREATININE RATIO 14.2 (5.4-32.0); CHLORIDE 94 MMOL/L (99-107); CREATININE 1.06 MG/DL (0.60-1.10); GLUCOSE 89 MG/DL (70-104); SODIUM 134 MMOL/L (135-145); TOTAL CARBON DIOXIDE 28.9 MMOL/L (24-32); TOTAL PROTEIN 7.8 G/DL (6.4-8.2); eGFR 74 ML/MIN
[2019-03-23 03:44] LABS: POTASSIUM 2.9 MMOL/L (3.5-5.1)
[2019-03-23] MEDS ORDERED: potassium CL 10mEq/100ml bag 100 ML IV PRN (04:05)
[2019-03-23] MEDS ORDERED: potassium Cl 20 mEq SR tablet PO PRN (04:05)
[2019-03-23] MEDS: potassium Cl 20 mEq SR tablet PO PRN ×4 (04:33→20:05)
--- NOTE | 2019-03-23 06:40 | NUR ---
Problems reprioritized. Patient report given, questions answered & plan of care reviewed with Ailin SIU.
[2019-03-23 07:07] LABS: ANISOCYTOSIS 3+; PLATELET ESTIMATE NORMAL
[2019-03-23 07:08] LABS: HYPOCHROMASIA 1+; STOMATOCYTES 2+
[2019-03-23] MEDS: multivitamins, therapeutics tablet PO SCH (07:13)
[2019-03-23] MEDS: thiamine 100mg tablet PO SCH (07:13)
[2019-03-23] MEDS: pantoprazole 40mg Tablet.DR PO SCH (07:13)
[2019-03-23] MEDS: potassium Cl 20mEq in NS 1,000 ML IV SCH ×2 (07:13→16:47)
[2019-03-23] MEDS: folic acid 1mg tablet PO SCH (07:13)
[2019-03-23] MEDS ORDERED: multivitamins, therapeutics tablet PO SCH (08:00)
[2019-03-23] MEDS ORDERED: folic acid 1mg tablet PO SCH (08:00)
[2019-03-23] MEDS ORDERED: thiamine 100mg tablet PO SCH (08:00)
[2019-03-23] MEDS ORDERED: baclofen 10mg tablet PO PRN (09:55)
--- NOTE | 2019-03-23 10:08 | NUR ---
received orders from dr. arroyo to start baclofen prn for hiccups
--- NOTE | 2019-03-23 13:11 | NUR ---
Malnutrition consult, patient presented to ED with c/o hiccupping for about 36 hours after trying to drink EtOH, reports unable to keep food down d/t hiccupping. History of EtOH, 2-4 drinks daily per H&P, takes thiamine, folic acid, and MVI at home. Drinking 100% of full liquid diet. Per documented scale weight history patient did lose a small amount of weight, 5% of body weight in four months, current scale weight 51.6 kg and weight in November was 54.4 kg, not a significant weight difference. Per recent MD note patient feels improved with no more hiccups and receiving treatment for acute SONJA r/t dehydration from poor PO intake form the hiccups, and lactic acidosis, likely discharge in 24 hours per hospitalist. No edema. Normal muscle strength despite low BMI. Does not have criteria met for malnutrition. Addendum: 03/23/19 at [address] Amended: Links added.
--- NOTE | 2019-03-23 18:00 | NUR ---
Patient in room PCU 3027. I have received report from Bonnie [facility]U and had the opportunity to ask questions and assume patient care.
--- NOTE | 2019-03-23 18:31 | NUR ---
Problems reprioritized. Patient report given, questions answered & plan of care reviewed with Ariella SIU.
[2019-03-24 02:00] VITALS: BP_SYST 118; BP_SYST 119; BP_DIAS 81; BP_DIAS 82; BP_DIAS 85
[2019-03-24] MEDS: potassium Cl 20mEq in NS 1,000 ML IV SCH (02:58)
[2019-03-24 06:00] VITALS: BP 117/80
--- NOTE | 2019-03-24 06:21 | NUR ---
Patient in room PCU 3027. I have received report from SALBADOR Krishnan and had the opportunity to ask questions and assume patient care.
--- NOTE | 2019-03-24 06:37 | NUR ---
Problems reprioritized. Patient report given, questions answered & plan of care reviewed with Nazia SIU.
[2019-03-24 06:42] LABS: BASOPHILS % (AUTO) 0.7 % (0-1); EOSINOPHILS # (AUTO) 0.1 X10'3 (0-0.9); EOSINOPHILS % (AUTO) 1.1 % (0-6); HEMATOCRIT 30.3 % (42.0-52.0); HEMOGLOBIN 10.1 g/dl (14.0-17.9); LYMPHOCYTES # (AUTO) 2.4 X10'3 (1.1-4.8); LYMPHOCYTES % (AUTO) 46.6 % (21-51); MEAN CORPUSCULAR HEMOGLOBIN 28.4 PG (27.0-31.0); MEAN CORPUSCULAR HGB CONC 33.3 g/dL (33.0-36.5); MEAN CORPUSCULAR VOLUME 85.3 FL (78-98); MEAN PLATELET VOLUME 7.5 FL (7.4-10.4); MONOCYTES # (AUTO) 0.5 X10'3 (0-0.9); MONOCYTES % (AUTO) 9.7 % (2-12); NEUTROPHILS # (AUTO) 2.1 X10'3 (1.8-7.7); NEUTROPHILS % (AUTO) 41.9 % (42-75); PLATELET COUNT 192 X10'3 (140-440); RED BLOOD COUNT 3.55 X10'6 (4.70-6.10); RED CELL DISTRIBUTION WIDTH 22.3 % (11.5-14.5); WHITE BLOOD COUNT 5.1 X10'3 (4.5-11.0)
[2019-03-24 06:54] LABS: ALANINE AMINOTRANSFERASE 34 U/L (12-78); ALBUMIN 3.3 G/DL (3.4-5.0); ALKALINE PHOSPHATASE 47 IU/L (46-116); ANION GAP 6 (8-16); ASPARTATE AMINO TRANSFERASE 51 U/L (10-37); BILIRUBIN,TOTAL 1.3 MG/DL (0.1-1.0); BLOOD UREA NITROGEN 3 MG/DL (7-18); CALCIUM 8.6 MG/DL (8.5-10.1); CHLORIDE 103 MMOL/L (99-107); GLUCOSE 91 MG/DL (70-104); POTASSIUM 4.5 MMOL/L (3.5-5.1); SODIUM 135 MMOL/L (135-145); TOTAL CARBON DIOXIDE 26.2 MMOL/L (24-32); TOTAL PROTEIN 6.5 G/DL (6.4-8.2)
[2019-03-24 07:01] LABS: CREATININE 0.83 MG/DL (0.60-1.10); eGFR > 90 ML/MIN
[2019-03-24 07:03] LABS: BUN/CREATININE RATIO 3.6 (5.4-32.0)
[2019-03-24 08:00] VITALS: BP_SYST 114; BP_SYST 116; BP_SYST 125; BP_DIAS 82; BP_DIAS 86; BP_DIAS 90
[2019-03-24] MEDS: multivitamins, therapeutics tablet PO SCH (08:19)
[2019-03-24] MEDS: folic acid 1mg tablet PO SCH (08:19)
[2019-03-24] MEDS: pantoprazole 40mg Tablet.DR PO SCH (08:19)
[2019-03-24] MEDS: thiamine 100mg tablet PO SCH (08:19)
[2019-03-24 11:00] VITALS: BP 125/86
--- NOTE | 2019-03-24 11:57 | NUR ---
Stable for discharge per MD orders. All discharge instructions reviewed with patient and all questions answered. No new prescriptions ordered. PIV and desk monitor discontinued. Belongings collected and sent with patient. Patient left in private vehicle with family member. Patient wheeled to lobby by PCT aide.
--- NOTE | 2019-03-24 12:10 | NUR ---
Orientee documentation: I have reviewed and agree with all interventions, assessments performed and documented by Rocio SIU. Addendum: 03/24/19 at 1211 by Alberta Story RN Orientnate Medication Administration: For this medication-pass time frame, all medication were reviewed, dispensed, administered and documented per hospital policy by Rocio SIU.
[2019-03-24] MEDS ORDERED: LORazepam 2 mg/ml vial IV PRN (15:50)
[2019-03-24] MEDS ORDERED: LORazepam 1 MG tablet PO PRN (15:50)
[2019-03-26] MEDS ORDERED: LORazepam 1 MG tablet PO PRN (15:50)
[2019-03-26] MEDS ORDERED: LORazepam 2 mg/ml vial IV PRN (15:50)
== END 2019-03-24 11:56 | disposition home or self-care (01) | DRG 422 ==
LOC: ER 13:17 → ED HOLD 15:46 → PCU 3S 18:28
PROVIDERS: ADMIT Internal Medicine; ATTEND Internal Medicine
DX: E86.0 Dehydration (principal); N17.9 Acute kidney failure, unspecified; E87.2 Acidosis; I48.0 Paroxysmal atrial fibrillation; K76.0 Fatty (change of) liver, not elsewhere classified; E78.00 Pure hypercholesterolemia, unspecified; E87.6 Hypokalemia; F10.20 Alcohol dependence, uncomplicated; K29.20 Alcoholic gastritis without bleeding; R06.6 Hiccough; I10 Essential (primary) hypertension; K21.9 Gastro-esophageal reflux disease without esophagitis; Z79.899 Other long term (current) drug therapy; Z83.3 Family history of diabetes mellitus; Z90.49 Acquired absence of other specified parts of digestive tract; Z83.42 Family history of familial hypercholesterolemia
CPT/HCPCS: 36415; 71045; 74176; 80053; 80320; 82550; 82948; 83605; 83690; 83735; 83880; 84100; 84145; 84484; 85025; 85610; 85730; 87040; 87081; 93005; 96361; 96374; 96375; 96376; 99285; G0378; J2060; J2765; J3411; J3480; J3490; J7060

== ENCOUNTER 2019-05-11 15:33 | Inpatient (IN) | payer MEDICAID ==
[~2019-05-11] VITALS: Ht 172.7 cm; Wt 44.9 kg
[~2019-05-11 15:33] MED LIST changes: -ALPR0.257 PO; -AMYL1CAP62 PO; -ASPI-1071 PO; +B12/1TAB3 PO; -CARCD120C PO; +DILT120C91 PO; +MULT-1172 PO; -THIA100T73 PO
[2019-05-11] MEDS ORDERED: normal saline 1000ML IV soln IVB ONE (16:05)
[2019-05-11] MEDS ORDERED: LORazepam 2 mg/ml vial IV ONE ×2 (16:05→19:10)
[2019-05-11 16:17] LABS: BASOPHILS # (AUTO) 0.1 X10'3 (0-0.2); BASOPHILS % (AUTO) 0.7 % (0-1); EOSINOPHILS % (AUTO) 0.2 % (0-6); HEMATOCRIT 41.2 % (42.0-52.0); HEMOGLOBIN 13.4 g/dl (14.0-17.9); LYMPHOCYTES % (AUTO) 12.6 % (21-51); MEAN CORPUSCULAR HEMOGLOBIN 27.5 PG (27.0-31.0); MEAN CORPUSCULAR HGB CONC 32.5 g/dL (33.0-36.5); MEAN CORPUSCULAR VOLUME 84.7 FL (78-98); MEAN PLATELET VOLUME 6.9 FL (7.4-10.4); MONOCYTES # (AUTO) 0.5 X10'3 (0-0.9); MONOCYTES % (AUTO) 2.9 % (2-12); NEUTROPHILS # (AUTO) 13.1 X10'3 (1.8-7.7); NEUTROPHILS % (AUTO) 83.6 % (42-75); PLATELET COUNT 469 X10'3 (140-440); RED BLOOD COUNT 4.87 X10'6 (4.70-6.10); RED CELL DISTRIBUTION WIDTH 23.1 % (11.5-14.5); WHITE BLOOD COUNT 15.7 X10'3 (4.5-11.0)
--- NOTE | 2019-05-11 16:17 | NUR ---
pt out to ct with driver/refuse collector via [facility]
--- NOTE | 2019-05-11 16:30 | NUR ---
pt returns from ct
[2019-05-11 16:33] LABS: PLATELET ESTIMATE INCREASED
[2019-05-11 16:34] LABS: ANISOCYTOSIS 3+
[2019-05-11 16:40] LABS: ALANINE AMINOTRANSFERASE 40 U/L (12-78); ALBUMIN 4.2 G/DL (3.4-5.0); ALKALINE PHOSPHATASE 70 IU/L (46-116); ANION GAP 26 (8-16); ASPARTATE AMINO TRANSFERASE 66 U/L (10-37); BILIRUBIN,TOTAL 0.6 MG/DL (0.1-1.0); BLOOD UREA NITROGEN 20 MG/DL (7-18); BUN/CREATININE RATIO 15.2 (5.4-32.0); CALCIUM 9.4 MG/DL (8.5-10.1); CHLORIDE 97 MMOL/L (99-107); CREATININE 1.32 MG/DL (0.60-1.10); ETHANOL 0.234 GM/DL (0.0-0.010); GLUCOSE 53 MG/DL (70-104); LIPASE 80 U/L (73-393); POTASSIUM 3.2 MMOL/L (3.5-5.1); SODIUM 138 MMOL/L (135-145); TOTAL PROTEIN 8.6 G/DL (6.4-8.2); eGFR 57 ML/MIN
[2019-05-11 16:41] LABS: TOTAL CARBON DIOXIDE 14.8 MMOL/L (24-32)
[2019-05-11] MEDS ORDERED: Dextrose 10%-water IV solution 1,000 ML IV ONE (16:43)
--- NOTE | 2019-05-11 16:44 | NUR ---
PT HAS RIDE HOME, CALL [phone]
[2019-05-11] MEDS ORDERED: potassium Cl 20 mEq SR tablet PO STA (16:48)
[2019-05-11] MEDS ORDERED: haloperidol 5mg tablet PO PRN (17:05)
[2019-05-11] MEDS ORDERED: HYDROcodone/acetaminophen 5mg/325mg tablet PO PRN (17:05)
[2019-05-11] MEDS ORDERED: metoclopramide 5 mg/ml inj IV PRN (17:05)
[2019-05-11] MEDS ORDERED: mag hydrox/Alum hydrox/simeth 30ml oral suspension PO PRN (17:05)
[2019-05-11] MEDS ORDERED: acetaminophen 325mg tablet PO PRN (17:05)
[2019-05-11] MEDS ORDERED: magnesium hydroxide 30ml (MOM) UD suspension PO PRN (17:05)
[2019-05-11] MEDS ORDERED: ondansetron/PF 4mg/2ml inj IV PRN (17:05)
[2019-05-11] MEDS ORDERED: thiamine 100mg/ml 2ml inj. IV ONE (17:05)
[2019-05-11] MEDS ORDERED: morphine 2 MG/ML inj. syringe IV PRN ×2 (17:05)
[2019-05-11] MEDS ORDERED: dextrose 50%-water 50ml dispensing syringe IV PRN ×2 (17:05→21:50)
[2019-05-11] MEDS ORDERED: haloperidol lactate 5mg/ml inj IM PRN (17:05)
--- NOTE | 2019-05-11 17:13 | NUR ---
PT IS SLEEPING, RESP EVEN AND UNLABORED
--- NOTE | 2019-05-11 17:25 | NUR ---
Note josé miguel in EDM - 05/11/19 at [address] Joshua regarding blood glucose of 37 mg/dL. Obtained verbal order for 1 amp of D50 once stat.
[2019-05-11] MEDS ORDERED: dextrose 50%-water 50ml dispensing syringe IV ONE (17:35)
[2019-05-11] MEDS: LORazepam 2 mg/ml vial IV PRN ×2 (18:55→20:15)
[2019-05-11] MEDS ORDERED: amiodarone 50MG/ML inj IV ONE (19:00)
--- NOTE | 2019-05-11 19:02 | NUR ---
v tach 160 2 mg ativan admin pt in vtach. 210 bpm ordered ekg ER MD notified vagal attemted 150 ml amiodarone 1905 EKG pads applied PT alert denies chest pain HR 175 after rolling patient O2 99%128/89
[2019-05-11] MEDS ORDERED: diltiazem 5mg/ml 5ml inj. IV ONE (19:15)
[2019-05-11] MEDS ORDERED: diltiazem-D5W 125mg/125ml 125 ML IV SCH ×2 (19:15→20:35)
[2019-05-11] MEDS ORDERED: diltiazem-NS 100mg/100ml 100 ML IV SCH (19:18)
--- NOTE | 2019-05-11 19:25 | NUR ---
PT MOVED TO ER BED 2 FROM BED 7. ACCUCHECK 325.
[2019-05-11 19:33] LABS: MAGNESIUM 1.8 MG/DL (1.5-2.4)
[2019-05-11] MEDS: diltiazem-NS 100mg/100ml 100 ML IV SCH (20:38)
--- NOTE | 2019-05-11 21:00 | NUR ---
Patient in room PCU 3023. I have received report from Felipe SIU and had the opportunity to ask questions and assume patient care.
--- NOTE | 2019-05-11 21:10 | NUR ---
Patient arrived to floor at 2110. Heart rate was elevated. EKG collected per MD order and taken to Dr Arboleda to read. MD ordered to keep cardizem drip at 15 and give patient a 250ml bolus of NS the continue NS at 100ml/hr. Vital signs otherwise stable. Patient place on mobile 62 for monitoring. Oriented to room, call light, meal times, medications times, and unit policies. Pt in bed resting comfortably with no distress noted at this time.
[2019-05-11 21:30] VITALS: BP 118/81
[2019-05-11] MEDS ORDERED: normal saline 250ml IV soln 250 ML IV ONE (21:35)
[2019-05-11] MEDS ORDERED: glucagon, human recombinant 1mg kit SUBCUT PRN (21:50)
[2019-05-11] MEDS ORDERED: insulin Lispro (HumaLOG) vial - multi-dose SQ SCH (21:50)
[2019-05-11] MEDS ORDERED: dextrose ORAL solution 15 GM/59 ML bottle PO PRN ×2 (21:50)
[2019-05-11] MEDS ORDERED: MESSAGE TO PHARMACY PO ONE (21:50)
[2019-05-11] MEDS: normal saline 1000ml 1,000 ML IV SCH (22:07)
[2019-05-11 22:41] LABS: HEMOGLOBIN A1C 5.5 % (4.5-6.2)
[2019-05-11 23:00] VITALS: BP 117/74
[2019-05-12] VITALS (8 sets, daily range): BP systolic 109–132; BP diastolic 66–92
[2019-05-12] MEDS: diltiazem-NS 100mg/100ml 100 ML IV SCH (02:16)
--- NOTE | 2019-05-12 02:23 | NUR ---
Pts heart rate was sustaining in the 80s. Called MD to notify her, MD ordered to decrease cardizem drip to 10ml/hr.
[2019-05-12 04:13] LABS: BASOPHILS # (AUTO) 0.1 X10'3 (0-0.2); EOSINOPHILS # (AUTO) 0.1 X10'3 (0-0.9); EOSINOPHILS % (AUTO) 1.3 % (0-6); HEMATOCRIT 34.1 % (42.0-52.0); HEMOGLOBIN 11.4 g/dl (14.0-17.9); LYMPHOCYTES # (AUTO) 2.6 X10'3 (1.1-4.8); MEAN CORPUSCULAR HEMOGLOBIN 27.8 PG (27.0-31.0); MEAN CORPUSCULAR HGB CONC 33.5 g/dL (33.0-36.5); MEAN PLATELET VOLUME 6.8 FL (7.4-10.4); MONOCYTES # (AUTO) 1.2 X10'3 (0-0.9); MONOCYTES % (AUTO) 11.3 % (2-12); NEUTROPHILS # (AUTO) 6.4 X10'3 (1.8-7.7); NEUTROPHILS % (AUTO) 61.4 % (42-75); PLATELET COUNT 371 X10'3 (140-440); RED BLOOD COUNT 4.11 X10'6 (4.70-6.10); RED CELL DISTRIBUTION WIDTH 22.1 % (11.5-14.5); WHITE BLOOD COUNT 10.4 X10'3 (4.5-11.0)
[2019-05-12 04:27] LABS: ALANINE AMINOTRANSFERASE 32 U/L (12-78); ALBUMIN 3.5 G/DL (3.4-5.0); ALBUMIN/GLOBULIN RATIO 0.9 (1.1-1.5); ALKALINE PHOSPHATASE 55 IU/L (46-116); ANION GAP 14 (8-16); ASPARTATE AMINO TRANSFERASE 47 U/L (10-37); BLOOD UREA NITROGEN 17 MG/DL (7-18); BUN/CREATININE RATIO 18.5 (5.4-32.0); CALCIUM 8.3 MG/DL (8.5-10.1); CHLORIDE 101 MMOL/L (99-107); CREATININE 0.92 MG/DL (0.60-1.10); GLUCOSE 69 MG/DL (70-104); SODIUM 137 MMOL/L (135-145); TOTAL CARBON DIOXIDE 22.3 MMOL/L (24-32); TOTAL PROTEIN 7.3 G/DL (6.4-8.2); eGFR 87 ML/MIN
--- NOTE | 2019-05-12 06:27 | NUR ---
Problems reprioritized. Patient report given, questions answered & plan of care reviewed with Pam SIU.
--- NOTE | 2019-05-12 06:30 | NUR ---
Patient in room PCU 3028X. I have received report from Karen SIU and had the opportunity to ask questions and assume patient care.
[2019-05-12] MEDS ORDERED: MVI, adult No.4 with vit. K 10 ML in dextrose 5% water 500ml 500 ML IV SCH ×2 (08:00)
[2019-05-12] MEDS ORDERED: folic acid 1mg tablet PO SCH (08:00)
[2019-05-12] MEDS ORDERED: folic acid inj. 2 MG, thiamine inj. 100 MG in dextrose 5% water 500ml 500 ML IV SCH (08:00)
[2019-05-12] MEDS: multivitamins, therapeutics tablet PO SCH (08:01)
[2019-05-12] MEDS: thiamine 100mg tablet PO SCH (08:02)
[2019-05-12] MEDS: normal saline 1000ml 1,000 ML IV SCH ×2 (08:03→18:00)
[2019-05-12 08:58] LABS: CREATINE KINASE 61 U/L (39-308)
[2019-05-12] MEDS: diltiazem CD 120mg capsule (once-daily) PO SCH (09:42)
--- NOTE | 2019-05-12 13:34 | NUR ---
Received in report that Dr Nkechi SENIOR told NOC nurse that the morning 0800 am blood glucose will be the first accucheck for the protocol. AM blood glucose 71, and 1200 was 160. Patient has not met protocol yet
--- NOTE | 2019-05-12 18:22 | NUR ---
Problems reprioritized. Patient report given, questions answered & plan of care reviewed with Kay SIU. Pt stable at time of discharge
--- NOTE | 2019-05-12 18:32 | NUR ---
Patient in room PCU 3023C. I have received report from SALBADOR Orozco and had the opportunity to ask questions and assume patient care. Patient awake for bedside report. NS infusing at 100 mL/hr per provider order. On mobile 62 and is in NSR. Will continue to monitor closely.
[2019-05-12] MEDS ORDERED: temazepam 15mg capsule PO PRN (19:30)
[2019-05-12] MEDS ORDERED: insulin glargine (Lantus) pen - multi-dose SQ SCH (21:00)
[2019-05-13 03:00] VITALS: BP 116/80
[2019-05-13] MEDS: normal saline 1000ml 1,000 ML IV SCH (03:45)
[2019-05-13 05:25] LABS: BASOPHILS % (AUTO) 0.7 % (0-1); EOSINOPHILS # (AUTO) 0.2 X10'3 (0-0.9); EOSINOPHILS % (AUTO) 2.4 % (0-6); HEMATOCRIT 32.2 % (42.0-52.0); HEMOGLOBIN 10.7 g/dl (14.0-17.9); LYMPHOCYTES # (AUTO) 2.2 X10'3 (1.1-4.8); MEAN CORPUSCULAR HEMOGLOBIN 27.7 PG (27.0-31.0); MEAN CORPUSCULAR HGB CONC 33.2 g/dL (33.0-36.5); MEAN CORPUSCULAR VOLUME 83.5 FL (78-98); MEAN PLATELET VOLUME 7.2 FL (7.4-10.4); MONOCYTES # (AUTO) 0.6 X10'3 (0-0.9); NEUTROPHILS # (AUTO) 3.7 X10'3 (1.8-7.7); NEUTROPHILS % (AUTO) 54.9 % (42-75); PLATELET COUNT 303 X10'3 (140-440); RED BLOOD COUNT 3.86 X10'6 (4.70-6.10); RED CELL DISTRIBUTION WIDTH 22.5 % (11.5-14.5); WHITE BLOOD COUNT 6.7 X10'3 (4.5-11.0)
[2019-05-13 05:38] LABS: ALANINE AMINOTRANSFERASE 21 U/L (12-78); ALBUMIN 3.3 G/DL (3.4-5.0); ALKALINE PHOSPHATASE 54 IU/L (46-116); ANION GAP 9 (8-16); ASPARTATE AMINO TRANSFERASE 30 U/L (10-37); BILIRUBIN,TOTAL 1.1 MG/DL (0.1-1.0); BLOOD UREA NITROGEN 6 MG/DL (7-18); BUN/CREATININE RATIO 7.2 (5.4-32.0); CALCIUM 8.8 MG/DL (8.5-10.1); CHLORIDE 104 MMOL/L (99-107); CREATININE 0.83 MG/DL (0.60-1.10); GLUCOSE 107 MG/DL (70-104); POTASSIUM 3.1 MMOL/L (3.5-5.1); SODIUM 139 MMOL/L (135-145); TOTAL CARBON DIOXIDE 26.4 MMOL/L (24-32); TOTAL PROTEIN 6.7 G/DL (6.4-8.2); eGFR > 90 ML/MIN
--- NOTE | 2019-05-13 06:25 | NUR ---
Problems reprioritized. Patient report given, questions answered & plan of care reviewed with SALBADOR Orozco.
--- NOTE | 2019-05-13 06:27 | NUR ---
Patient in room PCU 3022F. I have received report from Kay SIU and had the opportunity to ask questions and assume patient care. Pt is currently getting new IV placed by another RN
[2019-05-13 06:30] VITALS: BP 129/82
[2019-05-13] MEDS ORDERED: magnesium Cl slow-release 64mg tablet PO PRN (07:20)
[2019-05-13] MEDS ORDERED: potassium CL 10mEq/100ml bag 100 ML IV PRN (07:20)
[2019-05-13] MEDS ORDERED: potassium Cl 20 mEq SR tablet PO PRN ×2 (07:20)
[2019-05-13] MEDS ORDERED: magnesium 4gm in 100ml NS 100 ML IV PRN (07:20)
[2019-05-13] MEDS: diltiazem CD 120mg capsule (once-daily) PO SCH (07:28)
[2019-05-13] MEDS: thiamine 100mg tablet PO SCH (07:29)
[2019-05-13] MEDS: multivitamins, therapeutics tablet PO SCH (07:29)
[2019-05-13 08:00] VITALS: BP 118/80
[2019-05-13] MEDS ORDERED: multivitamins, therapeutics tablet PO SCH (08:00)
[2019-05-13] MEDS ORDERED: B6 PO SCH (08:00)
[2019-05-13] MEDS ORDERED: LEVOMEFOLATE CALCIUM PO SCH (08:00)
[2019-05-13] MEDS ORDERED: B12 PO SCH (08:00)
[2019-05-13] MEDS ORDERED: pantoprazole 40mg Tablet.DR PO SCH (08:00)
[2019-05-13] MEDS ORDERED: MULTIVIT-MIN/FERROUS GLUCONATE 9 MG/15 ML LIQUID PO SCH (08:00)
[2019-05-13] MEDS ORDERED: folic acid 1mg tablet PO SCH (08:00)
[2019-05-13] MEDS ORDERED: DILT120C91 PO (08:46)
[2019-05-13 09:27] LABS: ANISOCYTOSIS 3+; PLATELET ESTIMATE NORMAL
[2019-05-13 09:28] LABS: HYPOCHROMASIA 1+
[2019-05-13 09:30] LABS: POIKILOCYTOSIS FEW; POLYCHROMASIA FEW
--- NOTE | 2019-05-13 10:30 | NUR ---
Per MD, patient stable for discharge. Discharge packed printed and provided to patient. Discharge instructions given, and all questions answered. No new prescriptions written by MD. Patient disconnected from mobile and IV removed with catheter intact. Patient escorted via wheelchair out of hospital, accompanied by family and staff. Driven home via private vehicle
[2019-05-13] MEDS ORDERED: LORazepam 1 MG tablet PO PRN (17:05)
[2019-05-13] MEDS ORDERED: LORazepam 2 mg/ml vial IV PRN (17:05)
[2019-05-15] MEDS ORDERED: LORazepam 2 mg/ml vial IV PRN (17:05)
[2019-05-15] MEDS ORDERED: LORazepam 1 MG tablet PO PRN (17:05)
== END 2019-05-13 10:30 | disposition home or self-care (01) | DRG 422 ==
LOC: ER 15:34 → ED HOLD 17:10 → PCU 3S 20:56
PROVIDERS: ADMIT Internal Medicine; ATTEND Internal Medicine
DX: E86.0 Dehydration (principal); N17.9 Acute kidney failure, unspecified; E87.2 Acidosis; I48.0 Paroxysmal atrial fibrillation; E78.00 Pure hypercholesterolemia, unspecified; N28.1 Cyst of kidney, acquired; D64.9 Anemia, unspecified; E87.6 Hypokalemia; E16.2 Hypoglycemia, unspecified; F10.239 Alcohol dependence with withdrawal, unspecified; K21.9 Gastro-esophageal reflux disease without esophagitis; I10 Essential (primary) hypertension; N20.0 Calculus of kidney; Z79.899 Other long term (current) drug therapy; Z83.3 Family history of diabetes mellitus; Z90.49 Acquired absence of other specified parts of digestive tract; Z81.1 Family history of alcohol abuse and dependence; Z83.42 Family history of familial hypercholesterolemia
CPT/HCPCS: 36415; 71045; 74176; 80053; 80320; 82550; 82948; 83036; 83690; 83735; 84100; 84484; 85025; 87081; 93005; 96374; 99285; G0378; J0282; J1630; J1815; J2060; J3411; J3490; J7030; J7050; J7060

== ENCOUNTER 2019-08-21 10:33 | Inpatient (IN) | payer MEDICAID ==
[~2019-08-21] VITALS: Ht 162.6 cm; Wt 50.0 kg
[2019-08-21] VITALS (7 sets, daily range): BP systolic 123–139; BP diastolic 69–93
[~2019-08-21 10:33] MED LIST changes: +AMYL1CAP62 PO; +MAGN400C PO; -MULT-1085 PO
[2019-08-21] MEDS ORDERED: diltiazem-D5W 125mg/125ml 125 ML IV SCH (10:40)
[2019-08-21] MEDS ORDERED: aspirin 81mg tab.chew PO ONE (10:40)
[2019-08-21] MEDS ORDERED: diltiazem 5mg/ml 5ml inj. IV ONE (10:40)
--- NOTE | 2019-08-21 10:40 | NUR ---
Pt wretched to vomit, had an episode of SVT in the 190's. HR then went into sinus tach in the 120's with a pressure of 116/66.
[2019-08-21] MEDS: diltiazem-NS 100mg/100ml 100 ML IV SCH (10:43)
[2019-08-21] MEDS ORDERED: normal saline 1000ML IV soln IV ONE (11:45)
[2019-08-21] MEDS ORDERED: pantoprazole 40 MG vial IV ONE (11:45)
[2019-08-21] MEDS ORDERED: thiamine 100mg/ml 2ml inj. IV ONE ×2 (11:55→14:50)
[2019-08-21] MEDS ORDERED: folic acid 1mg/0.2ml inj IV ONE (11:55)
[2019-08-21 12:31] LABS: ALANINE AMINOTRANSFERASE 29 U/L (12-78); ALBUMIN 4.2 G/DL (3.4-5.0); ALBUMIN/GLOBULIN RATIO 1.1 (1.1-1.5); ALKALINE PHOSPHATASE 77 IU/L (46-116); ANION GAP 42 (8-16); ASPARTATE AMINO TRANSFERASE 56 U/L (10-37); BILIRUBIN,TOTAL 0.9 MG/DL (0.1-1.0); BLOOD UREA NITROGEN 25 MG/DL (7-18); BUN/CREATININE RATIO 7.4 (5.4-32.0); CALCIUM 8.2 MG/DL (8.5-10.1); CHLORIDE 92 MMOL/L (99-107); CREATININE 3.36 MG/DL (0.60-1.10); GLUCOSE 134 MG/DL (70-104); SODIUM 141 MMOL/L (135-145); TOTAL PROTEIN 8.2 G/DL (6.4-8.2); eGFR 19 ML/MIN
[2019-08-21 12:32] LABS: POTASSIUM 3.9 MMOL/L (3.5-5.1)
[2019-08-21 12:34] LABS: BASOPHILS % (AUTO) 0.4 % (0-1); EOSINOPHILS % (AUTO) 0 % (0-6); HEMATOCRIT 39.5 % (42.0-52.0); HEMOGLOBIN 12.4 g/dl (14.0-17.9); LYMPHOCYTES # (AUTO) 0.8 X10'3 (1.1-4.8); LYMPHOCYTES % (AUTO) 6.5 % (21-51); MEAN CORPUSCULAR HGB CONC 31.5 g/dL (33.0-36.5); MEAN PLATELET VOLUME 7.3 FL (7.4-10.4); MONOCYTES # (AUTO) 1.6 X10'3 (0-0.9); MONOCYTES % (AUTO) 12.7 % (2-12); NEUTROPHILS # (AUTO) 10.3 X10'3 (1.8-7.7); NEUTROPHILS % (AUTO) 80.4 % (42-75); PLATELET COUNT 263 X10'3 (140-440); RED CELL DISTRIBUTION WIDTH 21.6 % (11.5-14.5); WHITE BLOOD COUNT 12.8 X10'3 (4.5-11.0)
[2019-08-21 12:34] LABS: TOTAL CARBON DIOXIDE 7.4 MMOL/L (24-32)
[2019-08-21] MEDS ORDERED: pantoprazole 40MG/NS 100ML BAG 100 ML IV ONE (12:42)
--- NOTE | 2019-08-21 12:47 | NUR ---
Pt to GI lab
[2019-08-21 13:32] LABS: ANISOCYTOSIS 3+; PLATELET ESTIMATE NORMAL
[2019-08-21] MEDS ORDERED: LIDOcaine Viscous 15ml cup ONE (13:47)
[2019-08-21] MEDS ORDERED: fentaNYL/PF 50MCG/1 ML 2ML syringe ONE (13:47)
[2019-08-21] MEDS ORDERED: MIDAZolam 5mg/5ml vial ONE (13:47)
--- NOTE | 2019-08-21 14:05 | NUR ---
pt still in GI lab
[2019-08-21] MEDS ORDERED: normal saline 1000ml 1,000 ML IV SCH (14:46)
[2019-08-21] MEDS ORDERED: mag hydrox/Alum hydrox/simeth 30ml oral suspension PO PRN (14:50)
[2019-08-21] MEDS ORDERED: haloperidol 5mg tablet PO PRN (14:50)
[2019-08-21] MEDS ORDERED: HYDROcodone/acetaminophen 5mg/325mg tablet PO PRN (14:50)
[2019-08-21] MEDS ORDERED: ondansetron/PF 4mg/2ml inj IV PRN (14:50)
[2019-08-21] MEDS ORDERED: dextrose 50%-water 50ml dispensing syringe IV PRN (14:50)
[2019-08-21] MEDS ORDERED: morphine 2 MG/ML inj. syringe IV PRN ×2 (14:50)
[2019-08-21] MEDS ORDERED: magnesium hydroxide 30ml (MOM) UD suspension PO PRN (14:50)
[2019-08-21] MEDS ORDERED: LORazepam 2 mg/ml vial IV PRN (14:50)
[2019-08-21] MEDS ORDERED: haloperidol lactate 5mg/ml inj IM PRN (14:50)
[2019-08-21] MEDS ORDERED: acetaminophen 325mg tablet PO PRN ×2 (14:50)
[2019-08-21] MEDS: pantoprazole 40MG/NS 100ML BAG 100 ML IV SCH ×2 (14:58→20:07)
[2019-08-21] MEDS: metoclopramide 5 mg/ml inj IV SCH ×2 (14:59→20:07)
[2019-08-21 15:11] LABS: ABG BASE EXCESS -11.5 mmol/L (-2.0-3.0); ABG HCO3 12.4 mmol/L (22.0-26.0); ABG OXYGEN SATURATION 96.7 % (95-98); ABG PCO2 (T) 23.1 mmHg (35.0-45.0); ABG PH (T) 7.348 (7.350-7.450); ABG PO2 (T) 98.8 mmHg (83-108); ALLEN'S TEST POSITIVE; FCOHb 0.3 % (0.5-1.5); FMetHb 0.3 % (0.3-1.12); FO2Hb 96.1 % (94-100); TOTAL HEMOGLOBIN 11.4 G/dl (14.0-17.9)
--- NOTE | 2019-08-21 16:11 | NUR ---
Patient in room ED 8. I have received report from GHANSHYAM SIU and had the opportunity to ask questions and assume patient care.
[2019-08-21 16:25] LABS: HEMATOCRIT 33.7 % (42.0-52.0); MEAN CORPUSCULAR HEMOGLOBIN 27.4 PG (27.0-31.0); MEAN CORPUSCULAR HGB CONC 32.6 g/dL (33.0-36.5); MEAN CORPUSCULAR VOLUME 84.1 FL (78-98); MEAN PLATELET VOLUME 7.2 FL (7.4-10.4); PLATELET COUNT 203 X10'3 (140-440); RED BLOOD COUNT 4.01 X10'6 (4.70-6.10); RED CELL DISTRIBUTION WIDTH 20.9 % (11.5-14.5)
[2019-08-21 16:30] LABS: WHITE BLOOD COUNT 8.6 X10'3 (4.5-11.0)
--- NOTE | 2019-08-21 17:13 | NUR ---
LACTIC ACID 5.3 CRITICAL LAB CALLED AND ORDERS OBTAINED
[2019-08-21] MEDS ORDERED: normal saline 1000ml 1,000 ML IV ONE (17:15)
[2019-08-21] MEDS: normal saline 1000ml 1,000 ML IV SCH (18:10)
--- NOTE | 2019-08-21 18:29 | NUR ---
Problems reprioritized. Patient report given, questions answered & plan of care reviewed with TERESA SIU.
[2019-08-21] MEDS: pantoprazole 40mg Tablet.DR PO SCH (20:00)
[2019-08-21] MEDS: HYDROcodone/acetaminophen 10/325mg tab PO PRN (20:07)
[2019-08-21] MEDS: LIPASE/PROTEASE/AMYLASE 4,200 unit CAPSULE.DR PO SCH (20:07)
[2019-08-22] VITALS: BP 114/64
[2019-08-22] MEDS: pantoprazole 40MG/NS 100ML BAG 100 ML IV SCH ×2 (00:28→05:50)
[2019-08-22] MEDS: normal saline 1000ml 1,000 ML IV SCH ×4 (00:28→19:31)
[2019-08-22] MEDS: metoclopramide 5 mg/ml inj IV SCH ×4 (02:17→19:32)
[2019-08-22 06:07] LABS: BASOPHILS % (AUTO) 0.2 % (0-1); EOSINOPHILS % (AUTO) 0 % (0-6); HEMATOCRIT 24.5 % (42.0-52.0); HEMOGLOBIN 8.2 g/dl (14.0-17.9); LYMPHOCYTES # (AUTO) 1.4 X10'3 (1.1-4.8); LYMPHOCYTES % (AUTO) 23.2 % (21-51); MEAN CORPUSCULAR HEMOGLOBIN 27.6 PG (27.0-31.0); MEAN CORPUSCULAR HGB CONC 33.4 g/dL (33.0-36.5); MEAN CORPUSCULAR VOLUME 82.7 FL (78-98); MEAN PLATELET VOLUME 7.3 FL (7.4-10.4); MONOCYTES # (AUTO) 0.6 X10'3 (0-0.9); MONOCYTES % (AUTO) 10.4 % (2-12); NEUTROPHILS # (AUTO) 4.1 X10'3 (1.8-7.7); NEUTROPHILS % (AUTO) 66.2 % (42-75); PLATELET COUNT 139 X10'3 (140-440); RED BLOOD COUNT 2.96 X10'6 (4.70-6.10); RED CELL DISTRIBUTION WIDTH 20.8 % (11.5-14.5); WHITE BLOOD COUNT 6.2 X10'3 (4.5-11.0)
--- NOTE | 2019-08-22 06:37 | NUR ---
Problems reprioritized. Patient report given, questions answered & plan of care reviewed with SALBADOR Turner.
[2019-08-22] MEDS: diltiazem-NS 100mg/100ml 100 ML IV SCH (06:43)
--- NOTE | 2019-08-22 06:53 | NUR ---
Patient in room SYLVIA 357. I have received report from SALBADOR Hall and had the opportunity to ask questions and assume patient care.
[2019-08-22 07:19] LABS: BASOPHILS % (AUTO) 0.2 % (0-1); EOSINOPHILS % (AUTO) 0 % (0-6); HEMATOCRIT 23.8 % (42.0-52.0); HEMOGLOBIN 7.9 g/dl (14.0-17.9); LYMPHOCYTES # (AUTO) 1.7 X10'3 (1.1-4.8); LYMPHOCYTES % (AUTO) 27.4 % (21-51); MEAN CORPUSCULAR HEMOGLOBIN 27.4 PG (27.0-31.0); MEAN CORPUSCULAR HGB CONC 33.2 g/dL (33.0-36.5); MEAN CORPUSCULAR VOLUME 82.4 FL (78-98); MEAN PLATELET VOLUME 7.3 FL (7.4-10.4); MONOCYTES # (AUTO) 0.7 X10'3 (0-0.9); MONOCYTES % (AUTO) 11.7 % (2-12); NEUTROPHILS # (AUTO) 3.7 X10'3 (1.8-7.7); NEUTROPHILS % (AUTO) 60.7 % (42-75); PLATELET COUNT 133 X10'3 (140-440); RED BLOOD COUNT 2.89 X10'6 (4.70-6.10); RED CELL DISTRIBUTION WIDTH 20.8 % (11.5-14.5)
[2019-08-22 07:24] LABS: ALBUMIN 2.8 G/DL (3.4-5.0); ANION GAP 11 (8-16); BLOOD UREA NITROGEN 16 MG/DL (7-18); BUN/CREATININE RATIO 12.6 (5.4-32.0); CALCIUM 6.6 MG/DL (8.5-10.1); CHLORIDE 105 MMOL/L (99-107); CREATININE 1.27 MG/DL (0.60-1.10); GLUCOSE 112 MG/DL (70-104); SODIUM 139 MMOL/L (135-145); TOTAL CARBON DIOXIDE 23.4 MMOL/L (24-32); eGFR 60 ML/MIN
[2019-08-22 07:29] LABS: POTASSIUM 2.8 MMOL/L (3.5-5.1)
[2019-08-22 08:00] VITALS: BP_SYST 100; BP_SYST 102; BP_SYST 105; BP_SYST 94; BP_DIAS 56; BP_DIAS 62; BP_DIAS 64; BP_DIAS 66
[2019-08-22] MEDS ORDERED: B6 PO SCH (08:00)
[2019-08-22] MEDS ORDERED: LEVOMEFOLATE CALCIUM PO SCH (08:00)
[2019-08-22] MEDS ORDERED: B12 PO SCH (08:00)
[2019-08-22] MEDS ORDERED: magnesium Cl slow-release 64mg tablet PO PRN (08:30)
[2019-08-22] MEDS ORDERED: potassium Cl 20 mEq SR tablet PO PRN (08:30)
[2019-08-22] MEDS ORDERED: potassium CL 10mEq/100ml bag 100 ML IV PRN (08:30)
[2019-08-22] MEDS ORDERED: magnesium 2GM in 50ml NS 50 ML IV PRN (08:30)
[2019-08-22] MEDS ORDERED: magnesium 4gm in 100ml NS 100 ML IV PRN (08:30)
[2019-08-22] MEDS: thiamine 100mg tablet PO SCH (09:04)
[2019-08-22] MEDS: potassium Cl 20 mEq SR tablet PO PRN ×3 (09:04→17:25)
[2019-08-22] MEDS: multivitamins, therapeutics tablet PO SCH (09:05)
[2019-08-22] MEDS: pantoprazole 40mg Tablet.DR PO SCH ×2 (09:05→20:36)
[2019-08-22] MEDS: folic acid 1mg tablet PO SCH (09:05)
[2019-08-22] MEDS: LIPASE/PROTEASE/AMYLASE 4,200 unit CAPSULE.DR PO SCH ×3 (09:06→20:37)
[2019-08-22] MEDS: K and/or MAG REPLACEMENT MC SCH ×2 (09:13→20:00)
[2019-08-22 10:10] LABS: ANISOCYTOSIS 3+; MICROCYTOSIS 1+; PLATELET ESTIMATE DECREASED
[2019-08-22 11:04] LABS: ANISOCYTOSIS 3+; PLATELET ESTIMATE DECREASED
[2019-08-22 12:00] VITALS: BP 93/59
[2019-08-22] MEDS: baclofen 10mg tablet PO SCH ×2 (12:48→20:36)
[2019-08-22 18:16] LABS: HEMATOCRIT 24.2 % (42.0-52.0); HEMOGLOBIN 8.2 g/dl (14.0-17.9); MEAN CORPUSCULAR HGB CONC 33.7 g/dL (33.0-36.5); MEAN CORPUSCULAR VOLUME 83.1 FL (78-98); MEAN PLATELET VOLUME 7.1 FL (7.4-10.4); PLATELET COUNT 121 X10'3 (140-440); RED BLOOD COUNT 2.92 X10'6 (4.70-6.10); WHITE BLOOD COUNT 5.3 X10'3 (4.5-11.0)
--- NOTE | 2019-08-22 18:49 | NUR ---
Problems reprioritized. Patient report given, questions answered & plan of care reviewed with SALBADOR Law.
--- NOTE | 2019-08-22 18:50 | NUR ---
Patient in room SYLVIA 357. I have received report from ARVIN SIU and had the opportunity to ask questions and assume patient care.
[2019-08-22 20:00] VITALS: BP 99/69
[2019-08-22] MEDS: HYDROcodone/acetaminophen 10/325mg tab PO PRN (20:39)
[2019-08-23] VITALS: BP_SYST 102; BP_SYST 107; BP_SYST 109; BP_DIAS 70; BP_DIAS 71; BP_DIAS 72
[2019-08-23] MEDS: HYDROcodone/acetaminophen 10/325mg tab PO PRN ×2 (01:45→08:57)
[2019-08-23] MEDS: metoclopramide 5 mg/ml inj IV SCH ×2 (01:46→08:56)
[2019-08-23] MEDS: diltiazem-NS 100mg/100ml 100 ML IV SCH (02:43)
[2019-08-23] MEDS: normal saline 1000ml 1,000 ML IV SCH ×2 (03:46→09:15)
--- NOTE | 2019-08-23 06:21 | NUR ---
Problems reprioritized. Patient report given, questions answered & plan of care reviewed with TACO RN.
[2019-08-23 06:30] VITALS: BP 103/65
--- NOTE | 2019-08-23 06:30 | NUR ---
Patient in room SYLVIA 357. I have received report from Gayle Araujo RN and had the opportunity to ask questions and assume patient care.
[2019-08-23 06:59] LABS: BASOPHILS % (AUTO) 0.4 % (0-1); EOSINOPHILS % (AUTO) 0.5 % (0-6); HEMATOCRIT 24.4 % (42.0-52.0); HEMOGLOBIN 8.1 g/dl (14.0-17.9); LYMPHOCYTES # (AUTO) 2.5 X10'3 (1.1-4.8); LYMPHOCYTES % (AUTO) 46.1 % (21-51); MEAN CORPUSCULAR HEMOGLOBIN 27.7 PG (27.0-31.0); MEAN CORPUSCULAR HGB CONC 33.1 g/dL (33.0-36.5); MEAN CORPUSCULAR VOLUME 83.5 FL (78-98); MEAN PLATELET VOLUME 7.2 FL (7.4-10.4); MONOCYTES # (AUTO) 0.5 X10'3 (0-0.9); MONOCYTES % (AUTO) 8.7 % (2-12); NEUTROPHILS # (AUTO) 2.4 X10'3 (1.8-7.7); NEUTROPHILS % (AUTO) 44.3 % (42-75); PLATELET COUNT 119 X10'3 (140-440); RED BLOOD COUNT 2.92 X10'6 (4.70-6.10); WHITE BLOOD COUNT 5.4 X10'3 (4.5-11.0)
[2019-08-23 07:13] LABS: ALBUMIN 2.9 G/DL (3.4-5.0); ANION GAP 8 (8-16); BLOOD UREA NITROGEN 3 MG/DL (7-18); BUN/CREATININE RATIO 3.1 (5.4-32.0); CALCIUM 7.2 MG/DL (8.5-10.1); CHLORIDE 107 MMOL/L (99-107); CREATININE 0.98 MG/DL (0.60-1.10); GLUCOSE 91 MG/DL (70-104); SODIUM 141 MMOL/L (135-145); TOTAL CARBON DIOXIDE 26.4 MMOL/L (24-32); eGFR 80 ML/MIN
[2019-08-23 07:26] LABS: POTASSIUM 2.9 MMOL/L (3.5-5.1)
[2019-08-23] MEDS: K and/or MAG REPLACEMENT MC SCH (07:27)
[2019-08-23] MEDS: multivitamins, therapeutics tablet PO SCH (08:55)
[2019-08-23] MEDS: potassium Cl 20 mEq SR tablet PO PRN (08:55)
[2019-08-23] MEDS: pantoprazole 40mg Tablet.DR PO SCH (08:55)
[2019-08-23] MEDS: thiamine 100mg tablet PO SCH (08:56)
[2019-08-23] MEDS: baclofen 10mg tablet PO SCH (08:56)
[2019-08-23] MEDS: LIPASE/PROTEASE/AMYLASE 4,200 unit CAPSULE.DR PO SCH (08:56)
[2019-08-23] MEDS: folic acid 1mg tablet PO SCH (08:56)
[2019-08-23] MEDS ORDERED: METO5TAB85 PO (09:01)
[2019-08-23] MEDS ORDERED: PANT40TA4 PO (09:01)
[2019-08-23 10:08] LABS: ANISOCYTOSIS 3+; HYPOCHROMASIA 1+; PLATELET ESTIMATE DECREASED; POLYCHROMASIA FEW
[2019-08-23 10:09] LABS: STOMATOCYTES 1+
--- NOTE | 2019-08-23 11:00 | NUR ---
DC inst provided to pt. IV x2 DC'd, tips intact. All belongings sent w/pt. Pt ambulated to front lobby.
[2019-08-23] MEDS ORDERED: LORazepam 2 mg/ml vial IV PRN (14:50)
[2019-08-23] MEDS ORDERED: LORazepam 1 MG tablet PO PRN (14:50)
[2019-08-25] MEDS ORDERED: LORazepam 1 MG tablet PO PRN (14:50)
[2019-08-25] MEDS ORDERED: LORazepam 2 mg/ml vial IV PRN (14:50)
[2019-08-28 13:50] LABS: OCCULT BLOOD STOOL POSITIVE (Neg)
== END 2019-08-23 11:03 | disposition home or self-care (01) | DRG 242 ==
LOC: ER 10:34 → ED HOLD 14:46 → SUR 3N 16:22
PROVIDERS: ADMIT Internal Medicine; ATTEND Internal Medicine
PROC: 0DJ08ZZ Inspection of Upper Intestinal Tract, Via Natural or Artificial Opening Endoscopic (ICD-10-PCS; principal; 2019-08-21)
DX: K22.11 Ulcer of esophagus with bleeding (principal); N17.9 Acute kidney failure, unspecified; E87.2 Acidosis; D62 Acute posthemorrhagic anemia; I48.0 Paroxysmal atrial fibrillation; E86.0 Dehydration; E11.9 Type 2 diabetes mellitus without complications; K21.0 Gastro-esophageal reflux disease with esophagitis; E87.6 Hypokalemia; F10.20 Alcohol dependence, uncomplicated; E78.00 Pure hypercholesterolemia, unspecified; E78.5 Hyperlipidemia, unspecified; I10 Essential (primary) hypertension; Z83.3 Family history of diabetes mellitus
CPT/HCPCS: 36415; 36600; 43235; 71045; 80048; 80053; 82272; 82803; 83605; 83880; 84484; 85018; 85025; 85027; 85610; 86885; 86900; 86901; 86920; 87081; 93005; 96361; 96374; 96375; 99152; 99285; A4620; C9113; G0378; J2250; J2270; J2405; J2765; J3010; J3411; J3490; J7030

== ENCOUNTER 2019-09-25 15:58 | Inpatient (IN) | payer MEDICAID ==
[~2019-09-25] VITALS: Ht 172.7 cm; Wt 51.9 kg
[~2019-09-25 15:58] MED LIST changes: -DILT120C91 PO; -MAGN400C PO; +METO5TAB85 PO; -PANT-47 PO; +PANT40TA4 PO
[2019-09-25] MEDS ORDERED: ondansetron/PF 4mg/2ml inj IV ONE (16:30)
[2019-09-25] MEDS ORDERED: ketorolac trometh. 30mg/ml inj. IV ONE (16:30)
[2019-09-25] MEDS ORDERED: normal saline 1000ML IV soln IVB ONE ×2 (16:30→17:25)
[2019-09-25 16:57] LABS: BASOPHILS % (AUTO) 0.4 % (0-1); EOSINOPHILS % (AUTO) 0.4 % (0-6); HEMATOCRIT 37.5 % (42.0-52.0); HEMOGLOBIN 12.2 g/dl (14.0-17.9); LYMPHOCYTES # (AUTO) 1.5 X10'3 (1.1-4.8); LYMPHOCYTES % (AUTO) 15.5 % (21-51); MEAN CORPUSCULAR HGB CONC 32.5 g/dL (33.0-36.5); MEAN CORPUSCULAR VOLUME 86.2 FL (78-98); MONOCYTES # (AUTO) 0.6 X10'3 (0-0.9); MONOCYTES % (AUTO) 6.2 % (2-12); NEUTROPHILS # (AUTO) 7.7 X10'3 (1.8-7.7); NEUTROPHILS % (AUTO) 77.5 % (42-75); PLATELET COUNT 242 X10'3 (140-440); RED BLOOD COUNT 4.35 X10'6 (4.70-6.10); RED CELL DISTRIBUTION WIDTH 22.8 % (11.5-14.5); WHITE BLOOD COUNT 9.9 X10'3 (4.5-11.0)
[2019-09-25 17:07] LABS: ALANINE AMINOTRANSFERASE 24 U/L (12-78); ALBUMIN 4.2 G/DL (3.4-5.0); ALBUMIN/GLOBULIN RATIO 0.9 (1.1-1.5); ALKALINE PHOSPHATASE 62 IU/L (46-116); ANION GAP 23 (8-16); ASPARTATE AMINO TRANSFERASE 33 U/L (10-37); BILIRUBIN,TOTAL 1.3 MG/DL (0.1-1.0); BLOOD UREA NITROGEN 10 MG/DL (7-18); BUN/CREATININE RATIO 8.8 (5.4-32.0); CALCIUM 8.7 MG/DL (8.5-10.1); CHLORIDE 96 MMOL/L (99-107); CREATININE 1.13 MG/DL (0.60-1.10); GLUCOSE 117 MG/DL (70-104); LIPASE 1376 U/L (73-393); POTASSIUM 3.4 MMOL/L (3.5-5.1); SODIUM 137 MMOL/L (135-145); TOTAL PROTEIN 8.7 G/DL (6.4-8.2); eGFR 68 ML/MIN
[2019-09-25] MEDS ORDERED: HYDROcodone/acetaminophen 5mg/325mg tablet PO ONE (17:25)
[2019-09-25 17:33] LABS: ANISOCYTOSIS 3+; PLATELET ESTIMATE NORMAL
[2019-09-25 17:34] LABS: HYPOCHROMASIA 1+; POLYCHROMASIA 1+
[2019-09-25 17:35] LABS: ELLIPTOCYTES FEW
[2019-09-25 17:36] LABS: TARGET CELLS FEW
[2019-09-25 17:49] LABS: CLARITY,URINE CLEAR (Clear); COLOR,URINE YELLOW (Yellow); GLUCOSE, URINE NEGATIVE (Neg); KETONES,URINE 15 mg/dl (Neg); LEUKOCYTE ESTERASE ,URINE NEGATIVE (Neg); NITRITES, URINE NEGATIVE (Neg); OCCULT BLOOD,URINE NEGATIVE (Neg); PH,URINE 6.5 (4.8-8.0); PROTEIN,URINE NEGATIVE (Neg); UROBILINOGEN,URINE 0.2 E.U/dL (0.2-1.0)
[2019-09-25 17:51] LABS: UA COLLECTION TYPE VOIDED
[2019-09-25] MEDS ORDERED: dextrose 5%-1/2 normal saline 1,000 ML IV ONE (18:00)
--- NOTE | 2019-09-25 18:40 | NUR ---
Patient is resting in bed and is in no distress. Patient updated on POC.
--- NOTE | 2019-09-25 19:15 | NUR ---
DR. WHEELER VERBALIZED PATIENT CAN HAVE ICE CHIPS PRIOR TO HOSPITALIST ASSESSMENT FOR ADMITTING PATIENT
[2019-09-25] MEDS ORDERED: magnesium 4gm in 100ml NS 100 ML IV PRN (19:40)
[2019-09-25] MEDS ORDERED: potassium Cl 20 mEq SR tablet PO PRN ×2 (19:40)
[2019-09-25] MEDS ORDERED: HYDROcodone/acetaminophen 5mg/325mg tablet PO PRN (19:40)
[2019-09-25] MEDS ORDERED: thiamine 100mg/ml 2ml inj. IV ONE (19:40)
[2019-09-25] MEDS ORDERED: potassium CL 10mEq/100ml bag 100 ML IV PRN (19:40)
[2019-09-25] MEDS ORDERED: magnesium 2GM in 50ml NS 50 ML IV PRN (19:40)
[2019-09-25] MEDS ORDERED: ondansetron/PF 4mg/2ml inj IV PRN (19:40)
[2019-09-25] MEDS ORDERED: dextrose 50%-water 50ml dispensing syringe IV PRN (19:40)
[2019-09-25] MEDS ORDERED: magnesium Cl slow-release 64mg tablet PO PRN (19:40)
--- NOTE | 2019-09-25 20:10 | NUR ---
Received report from Bernabe SIU from ED. Patient up to floor via gurney. Patient able to walk to bed with assistance. Bed locked & low, call light placed within reach.
[2019-09-25 20:45] VITALS: BP 121/81
[2019-09-25] MEDS: morphine 2 MG/ML inj. syringe IV PRN (21:15)
[2019-09-25] MEDS: normal saline 1000ml 1,000 ML IV SCH (21:50)
[2019-09-25] MEDS: potassium CL 10mEq/100ml bag 100 ML IV PRN ×2 (21:55→23:50)
[2019-09-25] MEDS: K and/or MAG REPLACEMENT MC SCH (21:55)
[2019-09-25] MEDS: pantoprazole 40 MG vial IV SCH (23:05)
[2019-09-25] MEDS: HYDROmorphone 1 mg/ml syringe IV PRN (23:06)
[2019-09-26] MEDS: potassium CL 10mEq/100ml bag 100 ML IV PRN ×2 (00:51→01:51)
[2019-09-26 02:00] VITALS: BP 149/83
[2019-09-26] MEDS: HYDROmorphone 1 mg/ml syringe IV PRN ×5 (02:45→23:42)
[2019-09-26] MEDS: normal saline 1000ml 1,000 ML IV SCH ×3 (04:43→17:14)
[2019-09-26 05:57] LABS: BASOPHILS % (AUTO) 0.1 % (0-1); EOSINOPHILS % (AUTO) 0.1 % (0-6); HEMATOCRIT 30.6 % (42.0-52.0); HEMOGLOBIN 10.1 g/dl (14.0-17.9); LYMPHOCYTES # (AUTO) 0.9 X10'3 (1.1-4.8); LYMPHOCYTES % (AUTO) 8.4 % (21-51); MEAN CORPUSCULAR HEMOGLOBIN 28.2 PG (27.0-31.0); MEAN CORPUSCULAR VOLUME 85.6 FL (78-98); MONOCYTES # (AUTO) 0.9 X10'3 (0-0.9); NEUTROPHILS # (AUTO) 9.2 X10'3 (1.8-7.7); NEUTROPHILS % (AUTO) 83.4 % (42-75); PLATELET COUNT 188 X10'3 (140-440); RED BLOOD COUNT 3.57 X10'6 (4.70-6.10); RED CELL DISTRIBUTION WIDTH 22.4 % (11.5-14.5)
[2019-09-26 06:00] VITALS: BP 150/99
[2019-09-26 06:24] LABS: ALANINE AMINOTRANSFERASE 19 U/L (12-78); ALBUMIN 3.5 G/DL (3.4-5.0); ALKALINE PHOSPHATASE 57 IU/L (46-116); ANION GAP 16 (8-16); ASPARTATE AMINO TRANSFERASE 29 U/L (10-37); BILIRUBIN,TOTAL 1.4 MG/DL (0.1-1.0); BLOOD UREA NITROGEN 7 MG/DL (7-18); CALCIUM 7.8 MG/DL (8.5-10.1); CHLORIDE 100 MMOL/L (99-107); CREATININE 0.88 MG/DL (0.60-1.10); GLUCOSE 117 MG/DL (70-104); MAGNESIUM 1.2 MG/DL (1.5-2.4); POTASSIUM 3.7 MMOL/L (3.5-5.1); SODIUM 136 MMOL/L (135-145); TOTAL CARBON DIOXIDE 19.9 MMOL/L (24-32); TOTAL PROTEIN 6.9 G/DL (6.4-8.2); eGFR > 90 ML/MIN
--- NOTE | 2019-09-26 06:29 | NUR ---
Problems reprioritized. Patient report given, questions answered & plan of care reviewed with Chantale SIU.
[2019-09-26 07:07] LABS: ANISOCYTOSIS 3+; PLATELET ESTIMATE NORMAL
[2019-09-26] MEDS: K and/or MAG REPLACEMENT MC SCH ×2 (08:00→20:00)
[2019-09-26] MEDS ORDERED: thiamine 100mg tablet PO SCH (08:00)
[2019-09-26] MEDS ORDERED: folic acid 1mg tablet PO SCH (08:00)
[2019-09-26] MEDS ORDERED: multivitamins, therapeutics tablet PO SCH (08:00)
[2019-09-26] MEDS: pantoprazole 40 MG vial IV SCH (08:16)
--- NOTE | 2019-09-26 10:16 | NUR ---
Pt with low BMI. Pt denies wt loss or decreased appetite in malnutrition risk screen with RN. Current scaled wt is stable with scaled wt hx. Pt currently NPO. Pt with no documented decrease in muscle strength or edema. No concerns for malnutrition at this time. Will continue to follow. Addendum: 09/26/19 at [address] Amended: Links added.
[2019-09-26 11:00] VITALS: BP 155/99
[2019-09-26] MEDS ORDERED: MVI, adult No.4 with vit. K 10 ML in dextrose 5% water 500ml 500 ML IV SCH ×2 (12:00)
[2019-09-26] MEDS ORDERED: folic acid 1mg/0.2ml inj IV SCH (12:00)
[2019-09-26] MEDS ORDERED: thiamine inj. 100 MG in normal saline 100ml IV soln 100 ML IV SCH (12:00)
[2019-09-26 15:00] VITALS: BP 135/97
[2019-09-26 18:00] VITALS: BP 120/73
--- NOTE | 2019-09-26 18:39 | NUR ---
Patient in room PCU 3012. I have received report from SALBADOR Kenyon and had the opportunity to ask questions and assume patient care.
[2019-09-26 22:00] VITALS: BP 122/86
[2019-09-27] MEDS: normal saline 1000ml 1,000 ML IV SCH ×4 (01:14→20:40)
[2019-09-27 02:00] VITALS: BP 126/63
[2019-09-27] MEDS: morphine 2 MG/ML inj. syringe IV PRN (03:11)
[2019-09-27 06:00] VITALS: BP 126/84
--- NOTE | 2019-09-27 06:00 | NUR ---
Patient in room PCU 3012. I have received report from Fiona SIU and had the opportunity to ask questions and assume patient care.
[2019-09-27 06:07] LABS: BASOPHILS % (AUTO) 0.3 % (0-1); EOSINOPHILS # (AUTO) 0.1 X10'3 (0-0.9); EOSINOPHILS % (AUTO) 1.3 % (0-6); HEMATOCRIT 30.6 % (42.0-52.0); HEMOGLOBIN 9.9 g/dl (14.0-17.9); LYMPHOCYTES # (AUTO) 1.7 X10'3 (1.1-4.8); LYMPHOCYTES % (AUTO) 20.3 % (21-51); MEAN CORPUSCULAR HGB CONC 32.4 g/dL (33.0-36.5); MEAN CORPUSCULAR VOLUME 86.5 FL (78-98); MEAN PLATELET VOLUME 7.3 FL (7.4-10.4); MONOCYTES # (AUTO) 0.6 X10'3 (0-0.9); MONOCYTES % (AUTO) 7.7 % (2-12); NEUTROPHILS % (AUTO) 70.4 % (42-75); PLATELET COUNT 172 X10'3 (140-440); RED BLOOD COUNT 3.54 X10'6 (4.70-6.10); RED CELL DISTRIBUTION WIDTH 22.2 % (11.5-14.5); WHITE BLOOD COUNT 8.5 X10'3 (4.5-11.0)
--- NOTE | 2019-09-27 06:18 | NUR ---
Problems reprioritized. Patient report given, questions answered & plan of care reviewed with SALBADOR Kenyon.
[2019-09-27 06:21] LABS: ALANINE AMINOTRANSFERASE 13 U/L (12-78); ALBUMIN 3.3 G/DL (3.4-5.0); ALBUMIN/GLOBULIN RATIO 0.9 (1.1-1.5); ALKALINE PHOSPHATASE 55 IU/L (46-116); ANION GAP 10 (8-16); ASPARTATE AMINO TRANSFERASE 23 U/L (10-37); BILIRUBIN,TOTAL 1.2 MG/DL (0.1-1.0); CALCIUM 7.5 MG/DL (8.5-10.1); CHLORIDE 103 MMOL/L (99-107); GLUCOSE 98 MG/DL (70-104); MAGNESIUM 2.5 MG/DL (1.5-2.4); SODIUM 139 MMOL/L (135-145); TOTAL PROTEIN 6.8 G/DL (6.4-8.2)
[2019-09-27 06:31] LABS: BLOOD UREA NITROGEN 3 MG/DL (7-18); BUN/CREATININE RATIO 3.7 (5.4-32.0); CREATININE 0.82 MG/DL (0.60-1.10); eGFR > 90 ML/MIN
[2019-09-27] MEDS: K and/or MAG REPLACEMENT MC SCH ×2 (08:00→20:00)
[2019-09-27] MEDS: HYDROmorphone 1 mg/ml syringe IV PRN ×2 (08:13→20:33)
[2019-09-27] MEDS: pantoprazole 40 MG vial IV SCH (08:13)
[2019-09-27] MEDS: potassium CL 10mEq/100ml bag 100 ML IV PRN (08:15)
[2019-09-27 11:00] VITALS: BP 105/85
[2019-09-27] MEDS ORDERED: folic acid 1mg tablet PO SCH ×2 (12:36)
[2019-09-27] MEDS ORDERED: multivitamins, therapeutics tablet PO SCH (12:39)
[2019-09-27] MEDS ORDERED: thiamine 100mg tablet PO SCH (12:40)
[2019-09-27 15:00] VITALS: BP 140/93
[2019-09-27 18:00] VITALS: BP 138/84
--- NOTE | 2019-09-27 18:32 | NUR ---
Patient in room PCU 3012. I have received report from Tyson, and had the opportunity to ask questions and assume patient care.
--- NOTE | 2019-09-27 18:50 | NUR ---
Problems reprioritized. Patient report given, questions answered & plan of care reviewed with Javon SIU.
--- NOTE | 2019-09-27 19:24 | NUR ---
Called Dr. Richardson regarding the patient complaining of Insomnia. Got the order for Temazepam 15 mg PO Once. No other orders were given at this time.
[2019-09-27] MEDS ORDERED: temazepam 15mg capsule PO ONE (19:25)
[2019-09-27 22:00] VITALS: BP 137/93
[2019-09-28] MEDS: HYDROmorphone 1 mg/ml syringe IV PRN ×2 (00:29→04:50)
[2019-09-28 02:00] VITALS: BP 138/89
[2019-09-28] MEDS: normal saline 1000ml 1,000 ML IV SCH (02:28)
[2019-09-28 06:00] VITALS: BP 142/89
[2019-09-28 06:01] LABS: BASOPHILS % (AUTO) 0.4 % (0-1); EOSINOPHILS # (AUTO) 0.2 X10'3 (0-0.9); EOSINOPHILS % (AUTO) 3.2 % (0-6); HEMATOCRIT 27.1 % (42.0-52.0); HEMOGLOBIN 8.8 g/dl (14.0-17.9); LYMPHOCYTES # (AUTO) 2.1 X10'3 (1.1-4.8); MEAN CORPUSCULAR HEMOGLOBIN 28.5 PG (27.0-31.0); MEAN CORPUSCULAR HGB CONC 32.4 g/dL (33.0-36.5); MEAN CORPUSCULAR VOLUME 87.9 FL (78-98); MEAN PLATELET VOLUME 7.4 FL (7.4-10.4); MONOCYTES # (AUTO) 0.5 X10'3 (0-0.9); MONOCYTES % (AUTO) 8.4 % (2-12); NEUTROPHILS # (AUTO) 3.6 X10'3 (1.8-7.7); PLATELET COUNT 151 X10'3 (140-440); RED BLOOD COUNT 3.08 X10'6 (4.70-6.10); RED CELL DISTRIBUTION WIDTH 22.7 % (11.5-14.5); WHITE BLOOD COUNT 6.5 X10'3 (4.5-11.0)
--- NOTE | 2019-09-28 06:11 | NUR ---
Problems reprioritized. Patient report given Tyson, questions answered & plan of care reviewed with .
[2019-09-28 06:31] LABS: ANISOCYTOSIS 3+; HYPOCHROMASIA 1+; LARGE PLATELETS FEW; PLATELET ESTIMATE NORMAL; POLYCHROMASIA FEW
[2019-09-28 06:40] LABS: ALANINE AMINOTRANSFERASE 12 U/L (12-78); ALBUMIN 2.8 G/DL (3.4-5.0); ALBUMIN/GLOBULIN RATIO 0.8 (1.1-1.5); ALKALINE PHOSPHATASE 48 IU/L (46-116); ANION GAP 8 (8-16); ASPARTATE AMINO TRANSFERASE 15 U/L (10-37); BILIRUBIN,TOTAL 0.5 MG/DL (0.1-1.0); BLOOD UREA NITROGEN 5 MG/DL (7-18); BUN/CREATININE RATIO 5.8 (5.4-32.0); CALCIUM 8.5 MG/DL (8.5-10.1); CHLORIDE 107 MMOL/L (99-107); CREATININE 0.86 MG/DL (0.60-1.10); GLUCOSE 115 MG/DL (70-104); MAGNESIUM 1.6 MG/DL (1.5-2.4); POTASSIUM 3.8 MMOL/L (3.5-5.1); SODIUM 139 MMOL/L (135-145); TOTAL PROTEIN 6.3 G/DL (6.4-8.2); eGFR > 90 ML/MIN
--- NOTE | 2019-09-28 06:45 | NUR ---
Patient in room PCU 3012. I have received report from Javon SIU and had the opportunity to ask questions and assume patient care.
[2019-09-28] MEDS: K and/or MAG REPLACEMENT MC SCH (07:25)
[2019-09-28] MEDS ORDERED: pantoprazole 40mg Tablet.DR PO SCH (07:30)
[2019-09-28] MEDS ORDERED: thiamine tablet PO (09:25)
[2019-09-28] MEDS ORDERED: HYDR-4383 PO (09:25)
[2019-09-28] MEDS ORDERED: PANT40TA4 PO (09:25)
[2019-09-28 11:00] VITALS: BP 151/89
--- NOTE | 2019-09-28 12:00 | NUR ---
Per MD orders, patient stable for discharge home. Discharge packet reviewed with patient at bedside and all questions answered to patient satisfaction. All belongings sent with patient. New prescriptions called in to pharmacy of preference. PIV discontinued; cannula intact. Ambulated to private vehicle accompanied by aide.
--- NOTE | 2019-09-28 14:48 | NUR ---
Attempted x2 to call patient regarding written prescription for [place] 5/325. Inbox is full.
--- NOTE | 2019-09-28 14:52 | NUR ---
PAGER ID: [phone] MESSAGE: [id number] Jaida Roth Left without written prescription for [place] . Unable to contact and voicemail is full. Can we send an e-script to Colby Luque on [employer]? Dana [phone]
== END 2019-09-28 12:11 | disposition home or self-care (01) | DRG 282 ==
LOC: ER 15:59 → ED HOLD 19:37 → PCU 3S 20:33
PROVIDERS: ADMIT Internal Medicine; ATTEND Internal Medicine
DX: K85.90 Acute pancreatitis without necrosis or infection, unspecified (principal); E87.2 Acidosis; E78.00 Pure hypercholesterolemia, unspecified; I48.0 Paroxysmal atrial fibrillation; K86.1 Other chronic pancreatitis; F10.20 Alcohol dependence, uncomplicated; I10 Essential (primary) hypertension; K21.9 Gastro-esophageal reflux disease without esophagitis; Z90.49 Acquired absence of other specified parts of digestive tract; Z79.899 Other long term (current) drug therapy
CPT/HCPCS: 36415; 80053; 81003; 82948; 83605; 83690; 83735; 85025; 87081; 96361; 96374; 96375; 99285; C9113; G0378; J1170; J1885; J2270; J2405; J3411; J3475; J3480; J3490; J7030; J7060

== ENCOUNTER 2019-10-24 21:55 | Inpatient (IN) | payer MEDICAID ==
[~2019-10-24] VITALS: Ht 172.7 cm; Wt 55.5 kg
[~2019-10-24 21:55] MED LIST changes: -B12/1TAB3 PO; +HYDR-4383 PO; -METO5TAB85 PO; +thiamine tablet PO
[2019-10-24] MEDS ORDERED: ondansetron/PF 4mg/2ml inj IV ONE (22:30)
[2019-10-24] MEDS ORDERED: normal saline 1000ML IV soln IVB ONE (22:30)
[2019-10-24 22:54] LABS: BASOPHILS # (AUTO) 0.1 X10'3 (0-0.2); BASOPHILS % (AUTO) 0.5 % (0-1); EOSINOPHILS % (AUTO) 0 % (0-6); HEMATOCRIT 37.7 % (42.0-52.0); LYMPHOCYTES # (AUTO) 2.2 X10'3 (1.1-4.8); LYMPHOCYTES % (AUTO) 18.4 % (21-51); MEAN CORPUSCULAR HEMOGLOBIN 27.2 PG (27.0-31.0); MEAN CORPUSCULAR HGB CONC 31.8 g/dL (33.0-36.5); MEAN CORPUSCULAR VOLUME 85.8 FL (78-98); MONOCYTES # (AUTO) 0.7 X10'3 (0-0.9); MONOCYTES % (AUTO) 5.5 % (2-12); NEUTROPHILS # (AUTO) 9.1 X10'3 (1.8-7.7); NEUTROPHILS % (AUTO) 75.6 % (42-75); PLATELET COUNT 391 X10'3 (140-440); RED CELL DISTRIBUTION WIDTH 22.8 % (11.5-14.5); WHITE BLOOD COUNT 12.1 X10'3 (4.5-11.0)
[2019-10-24] MEDS: morphine 4 MG/ML inj SYRINge IV PRN (23:00)
[2019-10-24 23:06] LABS: ALANINE AMINOTRANSFERASE 32 U/L (12-78); ALBUMIN 4.6 G/DL (3.4-5.0); ALBUMIN/GLOBULIN RATIO 1.1 (1.1-1.5); ALKALINE PHOSPHATASE 71 IU/L (46-116); ANION GAP 33 (8-16); ASPARTATE AMINO TRANSFERASE 38 U/L (10-37); BILIRUBIN,TOTAL 1.2 MG/DL (0.1-1.0); BLOOD UREA NITROGEN 21 MG/DL (7-18); CALCIUM 9.8 MG/DL (8.5-10.1); CHLORIDE 92 MMOL/L (99-107); GLUCOSE 60 MG/DL (70-104); LIPASE 60 U/L (73-393); POTASSIUM 3.4 MMOL/L (3.5-5.1); SODIUM 133 MMOL/L (135-145); TOTAL PROTEIN 8.7 G/DL (6.4-8.2); eGFR 53 ML/MIN
[2019-10-24 23:11] LABS: TOTAL CARBON DIOXIDE 7.8 MMOL/L (24-32)
[2019-10-24] MEDS ORDERED: metroNIDAZOLE-Flagyl 500mg/NS 100 ML IV STA (23:13)
[2019-10-24 23:15] LABS: PLATELET ESTIMATE NORMAL
[2019-10-24 23:17] LABS: ANISOCYTOSIS 2+; POLYCHROMASIA 1+
[2019-10-25] VITALS (8 sets, daily range): BP systolic 110–134; BP diastolic 71–92
[2019-10-25] MEDS ORDERED: dextrose 50%-water 50ml dispensing syringe IV ONE (00:50)
[2019-10-25] MEDS ORDERED: ciprofloxacin lact 400MG/200ML 200 ML IV SCH (00:51)
[2019-10-25 01:15] LABS: CLARITY,URINE CLEAR (Clear); COLOR,URINE STRAW (Yellow); GLUCOSE, URINE NEGATIVE (Neg); KETONES,URINE 15 mg/dl (Neg); LEUKOCYTE ESTERASE ,URINE NEGATIVE (Neg); NITRITES, URINE NEGATIVE (Neg); OCCULT BLOOD,URINE TRACE-INTACT (Neg); PH,URINE 5.5 (4.8-8.0); PROTEIN,URINE NEGATIVE (Neg); UROBILINOGEN,URINE 0.2 E.U/dL (0.2-1.0)
[2019-10-25 01:20] LABS: UA COLLECTION TYPE FOLEY CATH
[2019-10-25 01:22] LABS: RBC,URINE NONE SEEN /HPF (0-2); WBC,URINE 0-4 /HPF (0-4)
[2019-10-25 01:23] LABS: BACTERIA,URINE NONE SEEN /HPF (Neg); SQUAMOUS EPITHELIAL CELL,UR FEW /LPF (FEW); TRANSITIONAL EPI CELLS,URINE MODERATE /HPF; YEAST MANY /HPF (NEGATIVE)
[2019-10-25] MEDS ORDERED: dextrose 50%-water 50ml dispensing syringe IV PRN ×3 (03:00→21:15)
[2019-10-25] MEDS ORDERED: HYDROcodone/acetaminophen 5mg/325mg tablet PO PRN (03:00)
[2019-10-25] MEDS ORDERED: cloNIDine 0.1 mg tablet PO PRN (03:00)
[2019-10-25] MEDS ORDERED: haloperidol 5mg tablet PO PRN (03:00)
[2019-10-25] MEDS ORDERED: dicyclomine 10 MG capsule PO PRN (03:00)
[2019-10-25] MEDS ORDERED: thiamine 100mg/ml 2ml inj. IV ONE (03:00)
[2019-10-25] MEDS ORDERED: acetaminophen 325mg tablet PO PRN ×2 (03:00)
[2019-10-25] MEDS ORDERED: morphine 2 MG/ML inj. syringe IV PRN ×2 (03:00)
[2019-10-25] MEDS ORDERED: loperamide 2mg capsule PO PRN ×2 (03:00)
[2019-10-25] MEDS ORDERED: mag hydrox/Alum hydrox/simeth 30ml oral suspension PO PRN ×2 (03:00)
[2019-10-25] MEDS ORDERED: ondansetron/PF 4mg/2ml inj IV PRN (03:00)
[2019-10-25] MEDS ORDERED: magnesium hydroxide 30ml (MOM) UD suspension PO PRN (03:00)
[2019-10-25] MEDS ORDERED: haloperidol lactate 5mg/ml inj IM PRN (03:00)
[2019-10-25] MEDS ORDERED: LORazepam 2 mg/ml vial IV PRN (03:00)
[2019-10-25] MEDS: normal saline 1000ml 1,000 ML IV SCH ×4 (03:13→23:55)
[2019-10-25] MEDS: morphine 4 MG/ML inj SYRINge IV PRN (03:14)
--- NOTE | 2019-10-25 03:30 | NUR ---
Patient in room PCU 3025. I have received report from Gina SIU and had the opportunity to ask questions and assume patient care.
--- NOTE | 2019-10-25 06:15 | NUR ---
Problems reprioritized. Patient report given, questions answered & plan of care reviewed with Fatou SIU.
--- NOTE | 2019-10-25 06:20 | NUR ---
Patient in room PCU 3025. I have received report from SALBADOR Jones and had the opportunity to ask questions and assume patient care. Patient resting comfortably, introduced myself, asked if he needed anything, nothing needed at this time, and informed I will be back to check on him.
[2019-10-25] MEDS: thiamine 100mg tablet PO SCH (07:41)
[2019-10-25] MEDS: folic acid 1mg tablet PO SCH (07:41)
[2019-10-25] MEDS: LIPASE/PROTEASE/AMYLASE 4,200 unit CAPSULE.DR PO SCH ×3 (07:41→19:36)
[2019-10-25] MEDS: pantoprazole 40mg Tablet.DR PO SCH (07:41)
[2019-10-25] MEDS: multivitamins, therapeutics tablet PO SCH (07:41)
[2019-10-25] MEDS: HYDROcodone/acetaminophen 10/325mg tab PO PRN ×4 (07:49→23:44)
--- NOTE | 2019-10-25 08:56 | NUR ---
Paged Respiratory regarding ABG ordered Re: Fabiana Roth Rm [id number] Pt has ABG ordered. Thank you [phone]
[2019-10-25 09:26] LABS: ABG BASE EXCESS -6.7 mmol/L (-2.0-3.0); ABG HCO3 17.9 mmol/L (22.0-26.0); ABG OXYGEN SATURATION 96.2 % (95-98); ABG PCO2 (T) 32.3 mmHg (35.0-45.0); ABG PH (T) 7.362 (7.350-7.450); ALLEN'S TEST POSITIVE; FCOHb 0.2 % (0.5-1.5); FMetHb 0.3 % (0.3-1.12); FO2Hb 95.7 % (94-100); TOTAL HEMOGLOBIN 9.7 G/dl (14.0-17.9)
--- NOTE | 2019-10-25 10:22 | NUR ---
Pt with low BMI of 17.4 however current scaled weight is stable with scaled weight hx, and even +7 kg since April of last year. Pt just admitted today, pending physical assessment and completion of malnutrition risk screen with RN. At last visit pt denied wt loss or decreased appetite during malnutrition risk screen 09/24 and was with 100% PO intake, though on a clear liquid diet. Pt currently on a full liquid diet, pending first meal. Pt with EtOH hx, currently receiving routine Thiamine, Folic acid, and MVI. Will continue to follow and monitor need for nutrition intervention. Addendum: 10/25/19 at [address] Amended: Links added.
[2019-10-25] MEDS ORDERED: magnesium 4gm in 100ml NS 100 ML IV PRN (13:50)
[2019-10-25] MEDS ORDERED: potassium Cl 20 mEq SR tablet PO PRN (13:50)
[2019-10-25] MEDS ORDERED: magnesium Cl slow-release 64mg tablet PO PRN (13:50)
[2019-10-25] MEDS ORDERED: potassium CL 10mEq/100ml bag 100 ML IV PRN ×2 (13:50)
[2019-10-25] MEDS ORDERED: magnesium 2GM in 50ml NS 50 ML IV PRN (13:50)
[2019-10-25] MEDS: potassium Cl 20 mEq SR tablet PO PRN ×3 (15:04→23:45)
--- NOTE | 2019-10-25 18:43 | NUR ---
Problems reprioritized. Patient report given, questions answered & plan of care reviewed with SALBADOR Puentes. All patient needs met at this time.
--- NOTE | 2019-10-25 18:43 | NUR ---
Patient in room PCU 3025. I have received report from Fatou Gee RN and had the opportunity to ask questions and assume patient care.
[2019-10-25] MEDS: K and/or MAG REPLACEMENT MC SCH (19:45)
[2019-10-25] MEDS ORDERED: pneumococcal 23-VAL P-sac vacc 25 mcg/0.5ml vial IMVAC ONE (20:00)
--- NOTE | 2019-10-25 21:06 | NUR ---
PAGER ID: [phone] MESSAGE: [phone] Gonzalez R: Dx : abdominal pain; hx chronic alcoholism, chronic pancreatitis. Pt is not yet in Hyperglycemic protocol. Do you want to order accucheck q6h? Thanks!
[2019-10-25] MEDS ORDERED: dextrose ORAL solution 15 GM/59 ML bottle PO PRN ×2 (21:15)
[2019-10-25] MEDS ORDERED: glucagon, human recombinant 1mg kit SUBCUT PRN (21:15)
[2019-10-25] MEDS ORDERED: insulin Lispro (HumaLOG) vial - multi-dose SQ SCH (21:15)
[2019-10-25 21:44] LABS: HEMOGLOBIN A1C 6.7 % (4.5-6.2)
[2019-10-26 02:00] VITALS: BP 123/82
[2019-10-26] MEDS: HYDROcodone/acetaminophen 10/325mg tab PO PRN ×3 (05:03→13:50)
[2019-10-26] MEDS: normal saline 1000ml 1,000 ML IV SCH (05:06)
[2019-10-26 06:00] VITALS: BP 136/74
[2019-10-26 06:25] LABS: HEMATOCRIT 26.7 % (42.0-52.0); HEMOGLOBIN 8.6 g/dl (14.0-17.9); MEAN CORPUSCULAR HEMOGLOBIN 27.2 PG (27.0-31.0); MEAN CORPUSCULAR VOLUME 84.5 FL (78-98); MONOCYTES # (AUTO) 0.3 X10'3 (0-0.9); MONOCYTES % (AUTO) 6.1 % (2-12); WHITE BLOOD COUNT 4.7 X10'3 (4.5-11.0)
[2019-10-26 06:27] LABS: BASOPHILS % (AUTO) 0.6 % (0-1); EOSINOPHILS # (AUTO) 0.3 X10'3 (0-0.9); EOSINOPHILS % (AUTO) 5.5 % (0-6); LYMPHOCYTES # (AUTO) 1.9 X10'3 (1.1-4.8); LYMPHOCYTES % (AUTO) 41.2 % (21-51); MEAN CORPUSCULAR HGB CONC 32.1 g/dL (33.0-36.5); NEUTROPHILS # (AUTO) 2.2 X10'3 (1.8-7.7); NEUTROPHILS % (AUTO) 46.6 % (42-75); PLATELET COUNT 245 X10'3 (140-440); RED BLOOD COUNT 3.15 X10'6 (4.70-6.10); RED CELL DISTRIBUTION WIDTH 22.5 % (11.5-14.5)
--- NOTE | 2019-10-26 06:39 | NUR ---
Problems reprioritized. Patient report given, questions answered & plan of care reviewed with SALBADOR Pedraza.
[2019-10-26 06:41] LABS: ALBUMIN 2.9 G/DL (3.4-5.0); ANION GAP 8 (8-16); BLOOD UREA NITROGEN 6 MG/DL (7-18); BUN/CREATININE RATIO 7.1 (5.4-32.0); CALCIUM 8.1 MG/DL (8.5-10.1); CHLORIDE 108 MMOL/L (99-107); CREATININE 0.85 MG/DL (0.60-1.10); GLUCOSE 108 MG/DL (70-104); MAGNESIUM 1.3 MG/DL (1.5-2.4); POTASSIUM 3.9 MMOL/L (3.5-5.1); SODIUM 140 MMOL/L (135-145); TOTAL CARBON DIOXIDE 24.1 MMOL/L (24-32); eGFR > 90 ML/MIN
[2019-10-26] MEDS: pantoprazole 40mg Tablet.DR PO SCH (07:32)
[2019-10-26] MEDS: folic acid 1mg tablet PO SCH (07:32)
[2019-10-26] MEDS: thiamine 100mg tablet PO SCH (07:32)
[2019-10-26] MEDS: LIPASE/PROTEASE/AMYLASE 4,200 unit CAPSULE.DR PO SCH ×2 (07:32→13:50)
[2019-10-26] MEDS: multivitamins, therapeutics tablet PO SCH (07:32)
[2019-10-26] MEDS: K and/or MAG REPLACEMENT MC SCH (08:00)
[2019-10-26] MEDS ORDERED: HYDR-4383 PO (12:41)
[2019-10-26] MEDS ORDERED: insulin glargine (Lantus) pen - multi-dose SQ SCH (21:00)
[2019-10-27] MEDS ORDERED: LORazepam 1 MG tablet PO PRN (03:00)
[2019-10-27] MEDS ORDERED: LORazepam 2 mg/ml vial IV PRN (03:00)
[2019-10-29] MEDS ORDERED: LORazepam 1 MG tablet PO PRN (03:00)
[2019-10-29] MEDS ORDERED: LORazepam 2 mg/ml vial IV PRN (03:00)
== END 2019-10-26 16:25 | disposition home or self-care (01) | DRG 243 ==
LOC: ER 21:57 → PCU 3S 10-25 02:57 → UNDOADMIN 10-25 03:06 → ED HOLD 10-25 03:06 → PCU 3S 10-25 03:50
PROVIDERS: ADMIT Internal Medicine; ATTEND Family Medicine
DX: K21.0 Gastro-esophageal reflux disease with esophagitis (principal); N17.9 Acute kidney failure, unspecified; E87.2 Acidosis; I48.0 Paroxysmal atrial fibrillation; K86.1 Other chronic pancreatitis; E87.1 Hypo-osmolality and hyponatremia; E86.0 Dehydration; E78.00 Pure hypercholesterolemia, unspecified; I10 Essential (primary) hypertension; E87.6 Hypokalemia; Z83.3 Family history of diabetes mellitus; Z90.49 Acquired absence of other specified parts of digestive tract
CPT/HCPCS: 36415; 36600; 74176; 80048; 80053; 81001; 82803; 82948; 83036; 83605; 83690; 83735; 85018; 85025; 87040; 87081; 87088; 90732; 99285; G0378; J0744; J1815; J2060; J2270; J2405; J3411; J3490; J7030

== ENCOUNTER 2019-11-19 11:44 | Emergency (ER) | payer MEDICAID ==
[~2019-11-19] VITALS: Ht 172.7 cm; Wt 70.0 kg
[2019-11-19 12:38] LABS: BASOPHILS # (AUTO) 0.1 X10'3 (0-0.2); BASOPHILS % (AUTO) 1.2 % (0-1); EOSINOPHILS # (AUTO) 0.1 X10'3 (0-0.9); EOSINOPHILS % (AUTO) 0.9 % (0-6); HEMATOCRIT 38.1 % (42.0-52.0); HEMOGLOBIN 11.8 g/dl (14.0-17.9); LYMPHOCYTES # (AUTO) 2.1 X10'3 (1.1-4.8); MEAN CORPUSCULAR HEMOGLOBIN 25.2 PG (27.0-31.0); MEAN CORPUSCULAR HGB CONC 31.1 g/dL (33.0-36.5); MEAN PLATELET VOLUME 7.2 FL (7.4-10.4); MONOCYTES # (AUTO) 0.4 X10'3 (0-0.9); MONOCYTES % (AUTO) 5.9 % (2-12); NEUTROPHILS # (AUTO) 3.8 X10'3 (1.8-7.7); PLATELET COUNT 382 X10'3 (140-440); RED BLOOD COUNT 4.71 X10'6 (4.70-6.10); WHITE BLOOD COUNT 6.5 X10'3 (4.5-11.0)
[2019-11-19 13:00] LABS: ALANINE AMINOTRANSFERASE 39 U/L (12-78); ALBUMIN 4.7 G/DL (3.4-5.0); ALBUMIN/GLOBULIN RATIO 1.1 (1.1-1.5); ALKALINE PHOSPHATASE 65 IU/L (46-116); ANION GAP 25 (8-16); ASPARTATE AMINO TRANSFERASE 52 U/L (10-37); BILIRUBIN,TOTAL 2.1 MG/DL (0.1-1.0); BLOOD UREA NITROGEN 18 MG/DL (7-18); BUN/CREATININE RATIO 12.9 (5.4-32.0); CALCIUM 9.9 MG/DL (8.5-10.1); CHLORIDE 92 MMOL/L (99-107); GLUCOSE 142 MG/DL (70-104); LIPASE 63 U/L (73-393); POTASSIUM 3.7 MMOL/L (3.5-5.1); SODIUM 133 MMOL/L (135-145); TOTAL CARBON DIOXIDE 15.9 MMOL/L (24-32); TOTAL PROTEIN 8.9 G/DL (6.4-8.2); eGFR 53 ML/MIN
[2019-11-19 13:05] LABS: ANISOCYTOSIS 3+; PLATELET ESTIMATE NORMAL
[2019-11-19] MEDS ORDERED: ondansetron/PF 4mg/2ml inj IV ONE (13:15)
[2019-11-19] MEDS ORDERED: normal saline 1000ML IV soln IVB ONE (13:15)
[2019-11-19] MEDS: morphine 4 MG/ML inj SYRINge IV PRN ×2 (13:40→14:49)
[2019-11-19 15:01] VITALS: BP 142/92
== END 2019-11-19 15:03 | disposition home or self-care (01) ==
LOC: ER 11:45
DX: K86.1 Other chronic pancreatitis (principal); K29.20 Alcoholic gastritis without bleeding; F10.10 Alcohol abuse, uncomplicated; G89.29 Other chronic pain; E78.00 Pure hypercholesterolemia, unspecified; I10 Essential (primary) hypertension; Z90.49 Acquired absence of other specified parts of digestive tract; Z79.899 Other long term (current) drug therapy; Y90.0 Blood alcohol level of less than 20 mg/100 ml
CPT/HCPCS: 36415; 80053; 80320; 83690; 85025; 96361; 96374; 96375; 96376; 99284; J2270; J2405; J7030

== ENCOUNTER 2019-12-11 02:00 | Inpatient (IN) | payer MEDICAID ==
[~2019-12-11] VITALS: Ht 172.7 cm; Wt 55.9 kg
[2019-12-11] MEDS ORDERED: normal saline 1000ml 1,000 ML IV ONE ×2 (02:35→03:15)
[2019-12-11] MEDS ORDERED: LIDOcaine Viscous 15ml cup MM ONE (02:35)
[2019-12-11] MEDS ORDERED: mag hydrox/Alum hydrox/simeth 30ml oral suspension PO ONE (02:35)
[2019-12-11] MEDS ORDERED: ondansetron/PF 4mg/2ml inj IV ONE (02:35)
[2019-12-11] MEDS ORDERED: famotidine/PF 10 mg/ml inj IV ONE (02:35)
[2019-12-11 02:36] LABS: BASOPHILS % (AUTO) 0.2 % (0-1); EOSINOPHILS % (AUTO) 0.4 % (0-6); HEMATOCRIT 37.2 % (42.0-52.0); HEMOGLOBIN 11.6 g/dl (14.0-17.9); LYMPHOCYTES # (AUTO) 0.9 X10'3 (1.1-4.8); LYMPHOCYTES % (AUTO) 11.6 % (21-51); MEAN CORPUSCULAR HEMOGLOBIN 25.3 PG (27.0-31.0); MEAN CORPUSCULAR HGB CONC 31.3 g/dL (33.0-36.5); MEAN PLATELET VOLUME 6.7 FL (7.4-10.4); MONOCYTES # (AUTO) 0.5 X10'3 (0-0.9); MONOCYTES % (AUTO) 6.3 % (2-12); NEUTROPHILS # (AUTO) 6.7 X10'3 (1.8-7.7); NEUTROPHILS % (AUTO) 81.5 % (42-75); PLATELET COUNT 277 X10'3 (140-440); RED BLOOD COUNT 4.59 X10'6 (4.70-6.10); RED CELL DISTRIBUTION WIDTH 25.4 % (11.5-14.5); WHITE BLOOD COUNT 8.2 X10'3 (4.5-11.0)
[2019-12-11 02:37] LABS: CLARITY,URINE CLEAR (Clear); COLOR,URINE YELLOW (Yellow); GLUCOSE, URINE NEGATIVE (Neg); KETONES,URINE >=80 mg/dl (Neg); LEUKOCYTE ESTERASE ,URINE NEGATIVE (Neg); NITRITES, URINE NEGATIVE (Neg); OCCULT BLOOD,URINE TRACE-INTACT (Neg); PROTEIN,URINE TRACE mg/dl (Neg); UROBILINOGEN,URINE 0.2 E.U/dL (0.2-1.0)
[2019-12-11 02:41] LABS: UA COLLECTION TYPE CLN CATCH MIDSTREAM
[2019-12-11 02:42] LABS: BACTERIA,URINE NONE SEEN /HPF (Neg); RBC,URINE 0-2 /HPF (0-2); SQUAMOUS EPITHELIAL CELL,UR FEW /LPF (FEW); WBC,URINE NONE SEEN /HPF (0-4)
[2019-12-11 02:52] LABS: ALANINE AMINOTRANSFERASE 24 U/L (12-78); ALBUMIN/GLOBULIN RATIO 1.1 (1.1-1.5); ALKALINE PHOSPHATASE 62 IU/L (46-116); AMYLASE 145 U/L (25-115); ANION GAP 25 (8-16); ASPARTATE AMINO TRANSFERASE 39 U/L (10-37); BILIRUBIN,TOTAL 1.8 MG/DL (0.1-1.0); BLOOD UREA NITROGEN 12 MG/DL (7-18); BUN/CREATININE RATIO 8.9 (5.4-32.0); CALCIUM 9.5 MG/DL (8.5-10.1); CHLORIDE 90 MMOL/L (99-107); CREATININE 1.35 MG/DL (0.60-1.10); ETHANOL < 0.010 GM/DL (0.0-0.010); GLUCOSE 125 MG/DL (70-104); LIPASE 1405 U/L (73-393); POTASSIUM 3.5 MMOL/L (3.5-5.1); SODIUM 131 MMOL/L (135-145); TOTAL CARBON DIOXIDE 16.3 MMOL/L (24-32); TOTAL PROTEIN 9.6 G/DL (6.4-8.2); eGFR 55 ML/MIN
[2019-12-11 03:09] LABS: ANISOCYTOSIS 3+; PLATELET ESTIMATE NORMAL
[2019-12-11] MEDS ORDERED: morphine 4 MG/ML inj SYRINge IV ONE (03:15)
[2019-12-11] MEDS ORDERED: potassium CL 10mEq/100ml bag 100 ML IV PRN ×2 (03:55)
[2019-12-11] MEDS ORDERED: thiamine inj. 100 MG in normal saline 100ml IV soln 100 ML IV ONE (03:55)
[2019-12-11] MEDS ORDERED: magnesium 4gm in 100ml NS 100 ML IV PRN (03:55)
[2019-12-11] MEDS ORDERED: haloperidol lactate 5mg/ml inj IM PRN (03:55)
[2019-12-11] MEDS ORDERED: haloperidol 5mg tablet PO PRN (03:55)
[2019-12-11] MEDS ORDERED: magnesium Cl slow-release 64mg tablet PO PRN (03:55)
[2019-12-11] MEDS ORDERED: magnesium 2GM in 50ml NS 50 ML IV PRN (03:55)
[2019-12-11] MEDS ORDERED: THIA100T73 PO (04:06)
[2019-12-11] MEDS ORDERED: PANT-47 PO (04:09)
[2019-12-11] MEDS: ondansetron/PF 4mg/2ml inj IV PRN ×3 (04:33→20:01)
[2019-12-11] MEDS: normal saline 1000ml 1,000 ML IV SCH ×3 (04:34→20:05)
[2019-12-11 05:19] VITALS: BP 136/89
[2019-12-11] MEDS: LORazepam 2 mg/ml vial IV PRN ×3 (05:31→21:44)
--- NOTE | 2019-12-11 06:13 | NUR ---
Patient in room ORTHO 4011. I have received report from SALBADOR Fuentes and had the opportunity to ask questions and assume patient care.
--- NOTE | 2019-12-11 06:27 | NUR ---
Problems reprioritized. Patient report given, questions answered & plan of care reviewed with SALBADOR Sullivan.
[2019-12-11 07:00] VITALS: BP 139/87
[2019-12-11] MEDS: pantoprazole 40 MG vial IV SCH (07:49)
[2019-12-11] MEDS ORDERED: folic acid inj. 2 MG, thiamine inj. 100 MG, MVI, adult No.4 with vit. K 10 ML in dextro... IV SCH ×4 (08:00)
[2019-12-11] MEDS: LIPASE/PROTEASE/AMYLASE 4,200 unit CAPSULE.DR PO SCH ×3 (08:00→20:24)
[2019-12-11] MEDS: folic acid 1mg tablet PO SCH (08:00)
[2019-12-11] MEDS ORDERED: multivitamins, therapeutics tablet PO SCH (08:00)
[2019-12-11] MEDS: multivitamins, therapeutics tablet PO SCH (08:00)
[2019-12-11] MEDS: thiamine 100mg tablet PO SCH (08:00)
[2019-12-11] MEDS: K and/or MAG REPLACEMENT MC SCH ×2 (08:00→19:10)
[2019-12-11] MEDS: morphine 2 MG/ML inj. syringe IV PRN ×2 (08:57→20:25)
[2019-12-11] MEDS: proCHLORperazine 10 MG/2 ml inj IV PRN ×2 (08:58→15:17)
--- NOTE | 2019-12-11 09:33 | NUR ---
During physical assessment patient reported that he has not voided "since last night" when assessing genitourinary assessment. Patient denies urge to void or bladder discomfort. Bladder scan shows patient has 895ML in bladder. Dr Cotton paged: [phone]- Gonzalez, R- patient has not voided since last night. has no urge to void or bladder discomfort but bladder scan shows 895ml. Ok to straight cath? thank you- vikki [phone]
[2019-12-11 10:49] VITALS: BP 147/88
--- NOTE | 2019-12-11 11:17 | NUR ---
Encouraged patient to ambulate and to try to void. Patient able to void 650ml bladder scanner shows post void residual or 431ml. Patient requesting to wait another "hour or two" and trying to void again before straight cath.
--- NOTE | 2019-12-11 15:19 | NUR ---
Patient able to void 450ml.
[2019-12-11 18:00] VITALS: BP 146/86
--- NOTE | 2019-12-11 18:25 | NUR ---
Patient in room ORTHO 4011. I have received report from Laurie SIU and had the opportunity to ask questions and assume patient care.
--- NOTE | 2019-12-11 18:33 | NUR ---
Problems reprioritized. Patient report given, questions answered & plan of care reviewed with SALBADOR Meaz.
--- NOTE | 2019-12-11 21:25 | NUR ---
Holly called for ELLA Noble in 190's. see rapid report
[2019-12-11] MEDS ORDERED: diltiazem 5mg/ml 5ml inj. IV ONE (21:30)
[2019-12-11] MEDS ORDERED: metoprolol tartrate 25mg tablet PO ONE (21:30)
[2019-12-12 06:00] VITALS: BP 131/78
--- NOTE | 2019-12-12 06:25 | NUR ---
Problems reprioritized. Patient report given, questions answered & plan of care reviewed with Randa SIU.
--- NOTE | 2019-12-12 07:06 | NUR ---
Patient in room ORTHO 4011. I have received report from Ellie SIU and had the opportunity to ask questions and assume patient care.
[2019-12-12 07:40] LABS: BASOPHILS % (AUTO) 0.2 % (0-1); EOSINOPHILS % (AUTO) 0.3 % (0-6); HEMOGLOBIN 9.7 g/dl (14.0-17.9); LYMPHOCYTES # (AUTO) 0.9 X10'3 (1.1-4.8); LYMPHOCYTES % (AUTO) 14.4 % (21-51); MEAN CORPUSCULAR HEMOGLOBIN 25.7 PG (27.0-31.0); MEAN CORPUSCULAR HGB CONC 32.3 g/dL (33.0-36.5); MEAN CORPUSCULAR VOLUME 79.6 FL (78-98); MEAN PLATELET VOLUME 6.9 FL (7.4-10.4); MONOCYTES # (AUTO) 0.6 X10'3 (0-0.9); MONOCYTES % (AUTO) 9.7 % (2-12); NEUTROPHILS # (AUTO) 4.9 X10'3 (1.8-7.7); NEUTROPHILS % (AUTO) 75.4 % (42-75); PLATELET COUNT 194 X10'3 (140-440); RED BLOOD COUNT 3.77 X10'6 (4.70-6.10); RED CELL DISTRIBUTION WIDTH 25.1 % (11.5-14.5); WHITE BLOOD COUNT 6.5 X10'3 (4.5-11.0)
[2019-12-12] MEDS: K and/or MAG REPLACEMENT MC SCH ×2 (08:00→20:00)
[2019-12-12 08:10] LABS: ALANINE AMINOTRANSFERASE 14 U/L (12-78); ALBUMIN 3.5 G/DL (3.4-5.0); ALBUMIN/GLOBULIN RATIO 0.9 (1.1-1.5); ALKALINE PHOSPHATASE 45 IU/L (46-116); ANION GAP 13 (8-16); ASPARTATE AMINO TRANSFERASE 20 U/L (10-37); BLOOD UREA NITROGEN 2 MG/DL (7-18); BUN/CREATININE RATIO 2.2 (5.4-32.0); CALCIUM 8.7 MG/DL (8.5-10.1); CHLORIDE 100 MMOL/L (99-107); GLUCOSE 124 MG/DL (70-104); MAGNESIUM 1.7 MG/DL (1.5-2.4); SODIUM 133 MMOL/L (135-145); TOTAL CARBON DIOXIDE 20.2 MMOL/L (24-32); TOTAL PROTEIN 7.3 G/DL (6.4-8.2); eGFR 89 ML/MIN
[2019-12-12 08:11] LABS: PHOSPHORUS 0.7 MG/DL (2.3-4.5); POTASSIUM 2.7 MMOL/L (3.5-5.1)
[2019-12-12] MEDS: folic acid 1mg tablet PO SCH (08:11)
[2019-12-12] MEDS: thiamine 100mg tablet PO SCH (08:11)
[2019-12-12] MEDS: pantoprazole 40 MG vial IV SCH (08:11)
[2019-12-12] MEDS: multivitamins, therapeutics tablet PO SCH (08:11)
[2019-12-12] MEDS: LIPASE/PROTEASE/AMYLASE 4,200 unit CAPSULE.DR PO SCH ×3 (08:12→20:14)
[2019-12-12] MEDS: LORazepam 2 mg/ml vial IV PRN ×3 (08:27→20:15)
[2019-12-12] MEDS: potassium Cl 20 mEq SR tablet PO PRN ×3 (08:31→20:14)
[2019-12-12 09:22] LABS: ANISOCYTOSIS 3+; MICROCYTOSIS 1+; PLATELET ESTIMATE NORMAL
[2019-12-12 09:24] LABS: HYPOCHROMASIA 2+
[2019-12-12 09:25] LABS: ELLIPTOCYTES FEW; SCHISTOCYTES FEW
[2019-12-12 10:00] VITALS: BP 116/78
[2019-12-12] MEDS: Neutra Phos packet PO PRN ×2 (14:01→20:14)
[2019-12-12] MEDS: normal saline 1000ml 1,000 ML IV SCH ×3 (14:03→22:33)
[2019-12-12 18:00] VITALS: BP_SYST 125; BP_SYST 128; BP_DIAS 89
--- NOTE | 2019-12-12 18:10 | NUR ---
Problems reprioritized. Patient report given, questions answered & plan of care reviewed with Ellie SIU.
--- NOTE | 2019-12-12 18:15 | NUR ---
Patient in room ORTHO 4011. I have received report from Randa SIU and had the opportunity to ask questions and assume patient care.
[2019-12-12 22:00] VITALS: BP 124/82
[2019-12-12] MEDS: morphine 2 MG/ML inj. syringe IV PRN (22:27)
[2019-12-13] MEDS: LORazepam 2 mg/ml vial IV PRN (03:25)
[2019-12-13] MEDS ORDERED: LORazepam 1 MG tablet PO PRN (03:55)
[2019-12-13] MEDS ORDERED: LORazepam 2 mg/ml vial IV PRN (03:55)
[2019-12-13] MEDS: Neutra Phos packet PO PRN ×2 (04:58→08:37)
[2019-12-13 06:00] VITALS: BP 124/90
--- NOTE | 2019-12-13 06:20 | NUR ---
Patient in room ORTHO 4011A. I have received report from SALBADOR GALAN and had the opportunity to ask questions and assume patient care.
--- NOTE | 2019-12-13 06:22 | NUR ---
Problems reprioritized. Patient report given, questions answered & plan of care reviewed with Kassandra SIU.
[2019-12-13 06:44] LABS: BASOPHILS % (AUTO) 0.4 % (0-1); EOSINOPHILS # (AUTO) 0.1 X10'3 (0-0.9); EOSINOPHILS % (AUTO) 1.7 % (0-6); HEMATOCRIT 28.5 % (42.0-52.0); HEMOGLOBIN 9.1 g/dl (14.0-17.9); LYMPHOCYTES # (AUTO) 1.6 X10'3 (1.1-4.8); LYMPHOCYTES % (AUTO) 31.3 % (21-51); MEAN CORPUSCULAR HEMOGLOBIN 25.4 PG (27.0-31.0); MEAN CORPUSCULAR VOLUME 79.6 FL (78-98); MONOCYTES # (AUTO) 0.5 X10'3 (0-0.9); MONOCYTES % (AUTO) 10.3 % (2-12); NEUTROPHILS # (AUTO) 2.8 X10'3 (1.8-7.7); NEUTROPHILS % (AUTO) 56.3 % (42-75); PLATELET COUNT 183 X10'3 (140-440); RED BLOOD COUNT 3.58 X10'6 (4.70-6.10); RED CELL DISTRIBUTION WIDTH 25.6 % (11.5-14.5)
[2019-12-13 06:58] LABS: ALANINE AMINOTRANSFERASE 13 U/L (12-78); ALBUMIN 3.2 G/DL (3.4-5.0); ALBUMIN/GLOBULIN RATIO 0.9 (1.1-1.5); ALKALINE PHOSPHATASE 44 IU/L (46-116); ANION GAP 9 (8-16); ASPARTATE AMINO TRANSFERASE 19 U/L (10-37); BILIRUBIN,TOTAL 0.7 MG/DL (0.1-1.0); BLOOD UREA NITROGEN 2 MG/DL (7-18); BUN/CREATININE RATIO 2.7 (5.4-32.0); CALCIUM 9.2 MG/DL (8.5-10.1); CHLORIDE 104 MMOL/L (99-107); CREATININE 0.75 MG/DL (0.60-1.10); GLUCOSE 132 MG/DL (70-104); MAGNESIUM 1.5 MG/DL (1.5-2.4); PHOSPHORUS 1.4 MG/DL (2.3-4.5); POTASSIUM 3.3 MMOL/L (3.5-5.1); SODIUM 137 MMOL/L (135-145); TOTAL CARBON DIOXIDE 24.1 MMOL/L (24-32); TOTAL PROTEIN 6.8 G/DL (6.4-8.2); eGFR > 90 ML/MIN
[2019-12-13 07:37] LABS: ANISOCYTOSIS 3+; MICROCYTOSIS 1+; PLATELET ESTIMATE NORMAL
[2019-12-13 07:38] LABS: HYPOCHROMASIA 1+
[2019-12-13 07:39] LABS: ELLIPTOCYTES FEW; SCHISTOCYTES FEW
[2019-12-13] MEDS: K and/or MAG REPLACEMENT MC SCH (08:00)
[2019-12-13] MEDS: normal saline 1000ml 1,000 ML IV SCH (08:33)
[2019-12-13] MEDS: pantoprazole 40 MG vial IV SCH (08:35)
[2019-12-13] MEDS: thiamine 100mg tablet PO SCH (08:35)
[2019-12-13] MEDS: multivitamins, therapeutics tablet PO SCH (08:36)
[2019-12-13] MEDS: folic acid 1mg tablet PO SCH (08:37)
[2019-12-13] MEDS: LIPASE/PROTEASE/AMYLASE 4,200 unit CAPSULE.DR PO SCH ×2 (08:37→12:53)
[2019-12-13] MEDS: potassium Cl 20 mEq SR tablet PO PRN (08:38)
[2019-12-13] MEDS: morphine 2 MG/ML inj. syringe IV PRN (08:38)
[2019-12-13] MEDS: ondansetron/PF 4mg/2ml inj IV PRN (08:54)
[2019-12-13 10:00] VITALS: BP 127/82
[2019-12-13] MEDS ORDERED: HYDROcodone/acetaminophen 5mg/325mg tablet PO PRN (11:25)
--- NOTE | 2019-12-13 15:20 | NUR ---
PATIENT APPROPRIATE AND STABLE FOR DISCHARGE, IV TAKEN OUT, TELE REMOVED, EDUCATION GIVEN, ALL BELONGINGS SENT WITH PATIENT, PATIENT TAKEN TO LOBBY TO AN AWAITING CAR WHERE FAMILY MEMBER WILL TAKE PATIENT HOME
[2019-12-14] MEDS ORDERED: pantoprazole 40mg Tablet.DR PO SCH (07:30)
[2019-12-15] MEDS ORDERED: LORazepam 1 MG tablet PO PRN (03:55)
[2019-12-15] MEDS ORDERED: LORazepam 2 mg/ml vial IV PRN (03:55)
== END 2019-12-13 15:27 | disposition home or self-care (01) | DRG 282 ==
LOC: ER 02:00 → ED HOLD 03:55 → UNDOADMIN 03:55 → ORTHO 4S 05:00 → ED HOLD 05:00
PROVIDERS: ADMIT Family Medicine; ATTEND Family Medicine
DX: K85.90 Acute pancreatitis without necrosis or infection, unspecified (principal); E87.8 Other disorders of electrolyte and fluid balance, not elsewhere classified; E83.39 Other disorders of phosphorus metabolism; K86.1 Other chronic pancreatitis; F10.10 Alcohol abuse, uncomplicated; Y90.9 Presence of alcohol in blood, level not specified; E78.00 Pure hypercholesterolemia, unspecified; E78.5 Hyperlipidemia, unspecified; E87.6 Hypokalemia; I10 Essential (primary) hypertension; Z90.49 Acquired absence of other specified parts of digestive tract; Z82.49 Family history of ischemic heart disease and other diseases of the circulatory system; Z83.3 Family history of diabetes mellitus
CPT/HCPCS: 36415; 80053; 80320; 81001; 82150; 82948; 83605; 83690; 83735; 84100; 85025; 87081; 96361; 96374; 96375; 97116; 97161; 97530; 99285; C9113; G0378; J0780; J2060; J2270; J2405; J3411; J3490; J7030; J7060

== ENCOUNTER 2019-12-20 18:16 | Inpatient (IN) | payer MEDICAID ==
[~2019-12-20] VITALS: Ht 172.7 cm; Wt 53.0 kg
[~2019-12-20 18:16] MED LIST changes: -HYDR-4383 PO; +PANT-47 PO; -PANT40TA4 PO; +THIA100T73 PO; -thiamine tablet PO
[2019-12-20 18:54] LABS: BASOPHILS # (AUTO) 0.1 X10'3 (0-0.2); BASOPHILS % (AUTO) 1.6 % (0-1); EOSINOPHILS # (AUTO) 0.1 X10'3 (0-0.9); EOSINOPHILS % (AUTO) 1.5 % (0-6); HEMATOCRIT 36.3 % (42.0-52.0); HEMOGLOBIN 11.7 g/dl (14.0-17.9); LYMPHOCYTES # (AUTO) 2.2 X10'3 (1.1-4.8); LYMPHOCYTES % (AUTO) 48.9 % (21-51); MEAN CORPUSCULAR HEMOGLOBIN 25.7 PG (27.0-31.0); MEAN CORPUSCULAR HGB CONC 32.2 g/dL (33.0-36.5); MEAN CORPUSCULAR VOLUME 79.9 FL (78-98); MONOCYTES # (AUTO) 0.7 X10'3 (0-0.9); MONOCYTES % (AUTO) 15.6 % (2-12); NEUTROPHILS # (AUTO) 1.5 X10'3 (1.8-7.7); NEUTROPHILS % (AUTO) 32.4 % (42-75); PLATELET COUNT 297 X10'3 (140-440); RED BLOOD COUNT 4.54 X10'6 (4.70-6.10); RED CELL DISTRIBUTION WIDTH 26.2 % (11.5-14.5); WHITE BLOOD COUNT 4.5 X10'3 (4.5-11.0)
[2019-12-20] MEDS ORDERED: normal saline 1000ML IV soln IV ONE (18:55)
[2019-12-20] MEDS ORDERED: LORazepam 2 mg/ml vial IV ONE ×3 (18:55→19:40)
--- NOTE | 2019-12-20 19:02 | NUR ---
HAVING A DIFFICULT TIME GETTING EKG R/T TREMORS. PT MEDICATED.
[2019-12-20 19:06] LABS: PARTIAL THROMBOPLASTIN TIME 25 SECONDS (22-32)
[2019-12-20 19:08] LABS: ALANINE AMINOTRANSFERASE 22 U/L (12-78); ALBUMIN 4.6 G/DL (3.4-5.0); ALKALINE PHOSPHATASE 57 IU/L (46-116); ANION GAP 18 (8-16); ASPARTATE AMINO TRANSFERASE 34 U/L (10-37); BILIRUBIN,TOTAL 0.9 MG/DL (0.1-1.0); BLOOD UREA NITROGEN 12 MG/DL (7-18); BUN/CREATININE RATIO 10.7 (5.4-32.0); CALCIUM 9.7 MG/DL (8.5-10.1); CHLORIDE 93 MMOL/L (99-107); CREATININE 1.12 MG/DL (0.60-1.10); ETHANOL 0.149 GM/DL (0.0-0.010); GLUCOSE 112 MG/DL (70-104); LIPASE 145 U/L (73-393); MAGNESIUM 1.5 MG/DL (1.5-2.4); POTASSIUM 3.6 MMOL/L (3.5-5.1); SODIUM 131 MMOL/L (135-145); eGFR 69 ML/MIN
--- NOTE | 2019-12-20 19:29 | NUR ---
SECOND LITER OF NS STARTED. FIRST LITER OF NS INFUSED. PT IS STILL SHAKING PRN.
[2019-12-20 19:45] LABS: ABG BASE EXCESS -8.4 mmol/L (-2.0-2.0); ABG HCO3 16.6 mmol/L (22.0-26.0); ABG OXYGEN SATURATION 96.4 % (94-97); ABG PCO2 (T) 31.5 mmHg (35.0-48.0); ABG PO2 (T) 96.8 mmHg (75.0-100.0); ALLEN'S TEST POSITIVE; FMetHb 0.2 % (0.0-1.5); FO2Hb 94.3 % (94-97); PATIENT TEMPERATURE 36.4; TOTAL HEMOGLOBIN 10.6 G/dl (14.0-18.0)
[2019-12-20 19:46] LABS: ANISOCYTOSIS 3+; ELLIPTOCYTES FEW; HYPOCHROMASIA 1+; MICROCYTOSIS 1+; PLATELET ESTIMATE NORMAL; SCHISTOCYTES FEW; TEAR DROP CELLS FEW
--- NOTE | 2019-12-20 19:46 | NUR ---
DR FOLEY WAS IN THE ROOM WHEN I ADM THE ATIVAN, AT THAT TIME THE PATIENT WAS SHAKING BADLY AND SO THE PT DID RECEIVE ATIVAN 2 MG TOTAL THE MD SAID TO GIVE 2 MG TOTAL. 3 WARMED BLANKETS WERE PLACED ONTO THE PATIENT. CURRENTLY, THE PT IS ASLEEP AND NO TREMORS. WILL CONTINUE TO MONITOR.
[2019-12-20] MEDS: normal saline 1000ml 1,000 ML IV SCH (20:21)
[2019-12-20] MEDS ORDERED: ondansetron/PF 4mg/2ml inj IV PRN (20:25)
[2019-12-20] MEDS ORDERED: potassium CL 10mEq/100ml bag 100 ML IV PRN ×2 (20:25)
[2019-12-20] MEDS ORDERED: mag hydrox/Alum hydrox/simeth 30ml oral suspension PO PRN (20:25)
[2019-12-20] MEDS ORDERED: potassium Cl 20 mEq SR tablet PO PRN (20:25)
[2019-12-20] MEDS ORDERED: magnesium hydroxide 30ml (MOM) UD suspension PO PRN (20:25)
[2019-12-20] MEDS ORDERED: acetaminophen 325mg tablet PO PRN (20:25)
[2019-12-20] MEDS ORDERED: thiamine inj. 100 MG in normal saline 100ml IV soln 100 ML IV ONE (20:25)
[2019-12-20] MEDS ORDERED: thiamine inj. 100 MG, magnesium sulf injection 2 GM, MVI, adult No.4 with vit. K 10 ML ... IV ONE ×4 (20:30)
[2019-12-20 20:31] LABS: CLARITY,URINE CLEAR (Clear); COLOR,URINE YELLOW (Yellow); GLUCOSE, URINE NEGATIVE (Neg); KETONES,URINE NEGATIVE (Neg); LEUKOCYTE ESTERASE ,URINE NEGATIVE (Neg); NITRITES, URINE NEGATIVE (Neg); OCCULT BLOOD,URINE NEGATIVE (Neg); PH,URINE 6.5 (4.8-8.0); PROTEIN,URINE NEGATIVE (Neg); UROBILINOGEN,URINE 0.2 E.U/dL (0.2-1.0)
--- NOTE | 2019-12-20 20:45 | NUR ---
Received report from Yolie SIU from ED. Patient arrived at 2054 on gurney, saline locked, room air, vss, no signs of distress will continue to monitor
[2019-12-20 20:46] LABS: UA COLLECTION TYPE CLN CATCH MIDSTREAM
[2019-12-20] MEDS: LIPASE/PROTEASE/AMYLASE 16,800 UNIT CAPSULE.DR PO SCH (21:26)
[2019-12-20 21:36] VITALS: BP 120/87
[2019-12-21] VITALS: BP 150/60
[2019-12-21] MEDS: LORazepam 2 mg/ml vial IV PRN ×3 (04:44→12:51)
[2019-12-21 04:52] LABS: BASOPHILS % (AUTO) 0.5 % (0-1); EOSINOPHILS % (AUTO) 0.6 % (0-6); HEMATOCRIT 28.3 % (42.0-52.0); LYMPHOCYTES # (AUTO) 0.7 X10'3 (1.1-4.8); LYMPHOCYTES % (AUTO) 12.2 % (21-51); MEAN CORPUSCULAR HEMOGLOBIN 25.3 PG (27.0-31.0); MEAN CORPUSCULAR HGB CONC 31.8 g/dL (33.0-36.5); MEAN CORPUSCULAR VOLUME 79.4 FL (78-98); MEAN PLATELET VOLUME 6.3 FL (7.4-10.4); MONOCYTES # (AUTO) 0.4 X10'3 (0-0.9); MONOCYTES % (AUTO) 7.5 % (2-12); NEUTROPHILS # (AUTO) 4.4 X10'3 (1.8-7.7); NEUTROPHILS % (AUTO) 79.2 % (42-75); PLATELET COUNT 224 X10'3 (140-440); RED BLOOD COUNT 3.56 X10'6 (4.70-6.10); RED CELL DISTRIBUTION WIDTH 25.9 % (11.5-14.5); WHITE BLOOD COUNT 5.6 X10'3 (4.5-11.0)
[2019-12-21] MEDS: normal saline 1000ml 1,000 ML IV SCH ×2 (05:42→15:15)
--- NOTE | 2019-12-21 06:00 | NUR ---
Patient in room SYLVIA 346. I have received report from SALBADOR Jorge and had the opportunity to ask questions and assume patient care.
--- NOTE | 2019-12-21 06:24 | NUR ---
Problems reprioritized. Patient report given, questions answered & plan of care reviewed with Cas SIU.
[2019-12-21] MEDS: heparin, porcine 5000 units/ml vial SQ SCH ×2 (06:41→19:49)
--- NOTE | 2019-12-21 06:42 | NUR ---
Ge held, patient h&h dropping, will address with . Addendum: 12/21/19 at 1820 by Cas Olivia RN was made aware and okayed.
[2019-12-21 07:00] VITALS: BP 113/65
[2019-12-21] MEDS: pantoprazole 40mg Tablet.DR PO SCH (07:14)
[2019-12-21] MEDS: LIPASE/PROTEASE/AMYLASE 16,800 UNIT CAPSULE.DR PO SCH ×3 (07:14→20:22)
[2019-12-21] MEDS: thiamine 100mg tablet PO SCH (07:14)
[2019-12-21 07:54] LABS: ALANINE AMINOTRANSFERASE 19 U/L (12-78); ALBUMIN 3.4 G/DL (3.4-5.0); ALBUMIN/GLOBULIN RATIO 0.9 (1.1-1.5); ALKALINE PHOSPHATASE 44 IU/L (46-116); ANION GAP 12 (8-16); ASPARTATE AMINO TRANSFERASE 25 U/L (10-37); BLOOD UREA NITROGEN 7 MG/DL (7-18); BUN/CREATININE RATIO 7.2 (5.4-32.0); CHLORIDE 100 MMOL/L (99-107); CREATININE 0.97 MG/DL (0.60-1.10); GLUCOSE 127 MG/DL (70-104); POTASSIUM 3.1 MMOL/L (3.5-5.1); SODIUM 134 MMOL/L (135-145); TOTAL CARBON DIOXIDE 21.6 MMOL/L (24-32); eGFR 81 ML/MIN
[2019-12-21] MEDS: K and/or MAG REPLACEMENT MC SCH ×2 (08:43→20:00)
[2019-12-21 11:00] VITALS: BP 95/58
--- NOTE | 2019-12-21 11:00 | NUR ---
Pt with low BMI of 17.8 however current scaled weight is stable with scaled weight hx, documented with scaled weights of 51.9 kg taken 09/24 and 55 kg taken 10/24. Pt just admitted today, pending completion of malnutrition risk screen with RN. At last visit pt denied wt loss or decreased appetite during malnutrition risk screen 12/10 and was with 100% PO intake, on liquid and regular diet. No documented decrease in muscle strength or edema. Pt currently on a clear liquid diet, pending first meal. Pt with EtOH and pancreatitis hx, currently receiving routine Thiamine, Folic acid, MVI, and Pancreaze. Will continue to follow closely and monitor need for nutrition intervention. Addendum: 12/21/19 at [address] Amended: Links added.
[2019-12-21] MEDS: potassium Cl 20 mEq SR tablet PO PRN ×2 (12:51→23:58)
[2019-12-21 18:00] VITALS: BP 119/70
--- NOTE | 2019-12-21 18:00 | NUR ---
Patient in room SYLVIA 346. I have received report from Cas SIU and had the opportunity to ask questions and assume patient care.
[2019-12-21] MEDS: HYDROcodone/acetaminophen 5mg/325mg tablet PO PRN (21:13)
[2019-12-22 00:08] VITALS: BP 106/72
[2019-12-22] MEDS: normal saline 1000ml 1,000 ML IV SCH ×2 (01:08→11:18)
[2019-12-22] MEDS: HYDROcodone/acetaminophen 5mg/325mg tablet PO PRN ×6 (01:10→23:48)
[2019-12-22] MEDS: potassium Cl 20 mEq SR tablet PO PRN ×4 (04:01→21:40)
[2019-12-22 05:21] LABS: BASOPHILS % (AUTO) 0.4 % (0-1); EOSINOPHILS # (AUTO) 0.1 X10'3 (0-0.9); EOSINOPHILS % (AUTO) 1.5 % (0-6); HEMATOCRIT 27.2 % (42.0-52.0); HEMOGLOBIN 8.5 g/dl (14.0-17.9); LYMPHOCYTES # (AUTO) 2.4 X10'3 (1.1-4.8); LYMPHOCYTES % (AUTO) 29.4 % (21-51); MEAN CORPUSCULAR HEMOGLOBIN 25.3 PG (27.0-31.0); MEAN CORPUSCULAR HGB CONC 31.3 g/dL (33.0-36.5); MEAN CORPUSCULAR VOLUME 80.8 FL (78-98); MEAN PLATELET VOLUME 7.2 FL (7.4-10.4); MONOCYTES # (AUTO) 0.6 X10'3 (0-0.9); MONOCYTES % (AUTO) 6.9 % (2-12); NEUTROPHILS # (AUTO) 4.9 X10'3 (1.8-7.7); NEUTROPHILS % (AUTO) 61.8 % (42-75); PLATELET COUNT 217 X10'3 (140-440); RED BLOOD COUNT 3.37 X10'6 (4.70-6.10)
[2019-12-22 05:46] LABS: ALANINE AMINOTRANSFERASE 14 U/L (12-78); ALBUMIN 2.8 G/DL (3.4-5.0); ALBUMIN/GLOBULIN RATIO 0.8 (1.1-1.5); ALKALINE PHOSPHATASE 44 IU/L (46-116); ANION GAP 8 (8-16); ASPARTATE AMINO TRANSFERASE 16 U/L (10-37); BLOOD UREA NITROGEN 2 MG/DL (7-18); BUN/CREATININE RATIO 2.1 (5.4-32.0); CALCIUM 8.3 MG/DL (8.5-10.1); CHLORIDE 104 MMOL/L (99-107); CREATININE 0.97 MG/DL (0.60-1.10); GLUCOSE 103 MG/DL (70-104); POTASSIUM 3.3 MMOL/L (3.5-5.1); SODIUM 137 MMOL/L (135-145); TOTAL CARBON DIOXIDE 25.5 MMOL/L (24-32); TOTAL PROTEIN 6.2 G/DL (6.4-8.2); eGFR 81 ML/MIN
[2019-12-22 05:50] LABS: ANISOCYTOSIS 3+; PLATELET ESTIMATE NORMAL
[2019-12-22 05:51] LABS: HYPOCHROMASIA 1+
[2019-12-22 05:52] LABS: MICROCYTOSIS 1+
--- NOTE | 2019-12-22 05:53 | NUR ---
Problems reprioritized. Patient report given, questions answered & plan of care reviewed with Cas SIU.
--- NOTE | 2019-12-22 06:00 | NUR ---
Patient in room SYLVIA 346. I have received report from SALBADOR Jorge and had the opportunity to ask questions and assume patient care.
[2019-12-22] MEDS: K and/or MAG REPLACEMENT MC SCH ×2 (06:48→19:51)
[2019-12-22 07:00] VITALS: BP 126/77
[2019-12-22] MEDS: thiamine 100mg tablet PO SCH (07:22)
[2019-12-22] MEDS: pantoprazole 40mg Tablet.DR PO SCH (07:23)
[2019-12-22] MEDS: LIPASE/PROTEASE/AMYLASE 16,800 UNIT CAPSULE.DR PO SCH ×3 (07:23→20:12)
[2019-12-22] MEDS: heparin, porcine 5000 units/ml vial SQ SCH ×2 (07:24→20:13)
[2019-12-22 11:00] VITALS: BP 133/86
[2019-12-22] MEDS ORDERED: multivitamins, therapeutics tablet PO ONE (12:10)
[2019-12-22] MEDS ORDERED: folic acid 1mg tablet PO ONE (12:10)
[2019-12-22] MEDS: dextrose 5%-normal saline 1,000 ML IV SCH ×2 (12:27→21:23)
[2019-12-22 12:37] LABS: LIPASE 85 U/L (73-393)
--- NOTE | 2019-12-22 18:18 | NUR ---
Patient in room SYLVIA 346. I have received report from Cas SIU and had the opportunity to ask questions and assume patient care.
--- NOTE | 2019-12-22 18:39 | NUR ---
Problems reprioritized. Patient report given, questions answered & plan of care reviewed with SALBADOR Schwartz.
[2019-12-22 20:00] VITALS: BP 127/79
[2019-12-22] MEDS ORDERED: LORazepam 1 MG tablet PO PRN (20:25)
[2019-12-22] MEDS ORDERED: LORazepam 2 mg/ml vial IV PRN (20:25)
[2019-12-22 22:00] VITALS: BP 127/79
[2019-12-23] VITALS: BP 125/83
--- NOTE | 2019-12-23 06:08 | NUR ---
Problems reprioritized. Patient report given, questions answered & plan of care reviewed with Yuliana SIU.
--- NOTE | 2019-12-23 06:10 | NUR ---
Patient in room SYLVIA 346. I have received report from SALBADOR FREEDMAN and had the opportunity to ask questions and assume patient care.
[2019-12-23 06:12] LABS: BASOPHILS % (AUTO) 0.7 % (0-1); EOSINOPHILS # (AUTO) 0.1 X10'3 (0-0.9); EOSINOPHILS % (AUTO) 2.4 % (0-6); HEMATOCRIT 25.5 % (42.0-52.0); HEMOGLOBIN 8.1 g/dl (14.0-17.9); LYMPHOCYTES # (AUTO) 2.6 X10'3 (1.1-4.8); LYMPHOCYTES % (AUTO) 42.3 % (21-51); MEAN CORPUSCULAR HGB CONC 31.8 g/dL (33.0-36.5); MEAN CORPUSCULAR VOLUME 81.6 FL (78-98); MEAN PLATELET VOLUME 7.1 FL (7.4-10.4); MONOCYTES # (AUTO) 0.3 X10'3 (0-0.9); MONOCYTES % (AUTO) 5.3 % (2-12); NEUTROPHILS % (AUTO) 49.3 % (42-75); PLATELET COUNT 228 X10'3 (140-440); RED BLOOD COUNT 3.12 X10'6 (4.70-6.10); RED CELL DISTRIBUTION WIDTH 26.6 % (11.5-14.5); WHITE BLOOD COUNT 6.1 X10'3 (4.5-11.0)
[2019-12-23 06:43] LABS: ALANINE AMINOTRANSFERASE 11 U/L (12-78); ALBUMIN 2.6 G/DL (3.4-5.0); ALBUMIN/GLOBULIN RATIO 0.7 (1.1-1.5); ALKALINE PHOSPHATASE 39 IU/L (46-116); ANION GAP 8 (8-16); ASPARTATE AMINO TRANSFERASE 14 U/L (10-37); BILIRUBIN,TOTAL 0.3 MG/DL (0.1-1.0); BLOOD UREA NITROGEN 1 MG/DL (7-18); BUN/CREATININE RATIO 1.2 (5.4-32.0); CALCIUM 8.6 MG/DL (8.5-10.1); CHLORIDE 106 MMOL/L (99-107); CREATININE 0.85 MG/DL (0.60-1.10); GLUCOSE 135 MG/DL (70-104); POTASSIUM 3.8 MMOL/L (3.5-5.1); SODIUM 139 MMOL/L (135-145); TOTAL CARBON DIOXIDE 24.8 MMOL/L (24-32); TOTAL PROTEIN 6.3 G/DL (6.4-8.2); eGFR > 90 ML/MIN
[2019-12-23 06:57] LABS: ANISOCYTOSIS 2+; ELLIPTOCYTES 1+; HYPOCHROMASIA 1+; PLATELET ESTIMATE NORMAL
[2019-12-23 07:00] VITALS: BP 122/76
[2019-12-23] MEDS: K and/or MAG REPLACEMENT MC SCH (08:00)
[2019-12-23] MEDS ORDERED: folic acid 1mg tablet PO SCH (08:00)
[2019-12-23] MEDS ORDERED: multivitamins, therapeutics tablet PO SCH (08:00)
[2019-12-23] MEDS: LIPASE/PROTEASE/AMYLASE 16,800 UNIT CAPSULE.DR PO SCH (08:15)
[2019-12-23] MEDS: pantoprazole 40mg Tablet.DR PO SCH (08:16)
[2019-12-23] MEDS: heparin, porcine 5000 units/ml vial SQ SCH (08:16)
[2019-12-23] MEDS: thiamine 100mg tablet PO SCH (08:16)
[2019-12-23] MEDS: dextrose 5%-normal saline 1,000 ML IV SCH (08:20)
[2019-12-23] MEDS: HYDROcodone/acetaminophen 5mg/325mg tablet PO PRN (08:21)
[2019-12-23] MEDS ORDERED: LORA-269 PO (10:49)
[2019-12-23 11:00] VITALS: BP 133/90
--- NOTE | 2019-12-23 12:34 | NUR ---
PATIENT STABLE AND APPROPRIATE FOR DISCHARGE, IV TAKEN OUT, EDUCATION GIVEN, INFORMATION ABOUT ALCOHOL REHAB GIVEN BY PAYLOADER OPERATOR, MEDS E-SCRIPTED TO PREFERRED PHARMACY, ALL BELONGINGS SENT WITH PATIENT,PATIENT TAKEN TO LOBBY BY WHEELCHAIR TO AN AWAITING CAR WHERE FAMILY MEMBER WILL TAKE PATIENT HOME
[2019-12-24] MEDS ORDERED: LORazepam 1 MG tablet PO PRN (20:25)
== END 2019-12-23 12:41 | disposition home or self-care (01) | DRG 422 ==
LOC: ER 18:17 → ED HOLD 20:21 → SUR 3N 20:50
PROVIDERS: ADMIT Internal Medicine; ATTEND Family Medicine
DX: E86.0 Dehydration (principal); I10 Essential (primary) hypertension; I48.91 Unspecified atrial fibrillation; E78.00 Pure hypercholesterolemia, unspecified; E87.6 Hypokalemia; K86.1 Other chronic pancreatitis; F10.239 Alcohol dependence with withdrawal, unspecified; E87.2 Acidosis; Z90.49 Acquired absence of other specified parts of digestive tract; Z71.41 Alcohol abuse counseling and surveillance of alcoholic
CPT/HCPCS: 36415; 36600; 71045; 80053; 80320; 81003; 82803; 82948; 83605; 83690; 83735; 84100; 84145; 84484; 85018; 85025; 85610; 85730; 87081; 93005; 99285; G0378; J1644; J2060; J3411; J3475; J7030; J7042; J7060

== ENCOUNTER 2019-12-30 23:36 | Inpatient (IN) | payer MEDICAID ==
[~2019-12-30] VITALS: Ht 172.7 cm; Wt 43.5 kg
[~2019-12-30 23:36] MED LIST changes: +LORA-269 PO
[2019-12-31 00:05] LABS: BASOPHILS # (AUTO) 0.1 X10'3 (0-0.2); EOSINOPHILS # (AUTO) 0.1 X10'3 (0-0.9); EOSINOPHILS % (AUTO) 1.6 % (0-6); HEMATOCRIT 39.6 % (42.0-52.0); HEMOGLOBIN 12.9 g/dl (14.0-17.9); LYMPHOCYTES # (AUTO) 2.6 X10'3 (1.1-4.8); LYMPHOCYTES % (AUTO) 49.1 % (21-51); MEAN CORPUSCULAR HEMOGLOBIN 25.6 PG (27.0-31.0); MEAN CORPUSCULAR HGB CONC 32.4 g/dL (33.0-36.5); MEAN CORPUSCULAR VOLUME 79.1 FL (78-98); MEAN PLATELET VOLUME 6.7 FL (7.4-10.4); MONOCYTES # (AUTO) 0.5 X10'3 (0-0.9); MONOCYTES % (AUTO) 9.5 % (2-12); NEUTROPHILS % (AUTO) 38.8 % (42-75); PLATELET COUNT 457 X10'3 (140-440); RED BLOOD COUNT 5.01 X10'6 (4.70-6.10); RED CELL DISTRIBUTION WIDTH 26.8 % (11.5-14.5); WHITE BLOOD COUNT 5.3 X10'3 (4.5-11.0)
[2019-12-31 00:26] LABS: ANISOCYTOSIS 2+; ELLIPTOCYTES FEW; HYPOCHROMASIA 1+; PLATELET ESTIMATE NORMAL
[2019-12-31 00:31] LABS: ALANINE AMINOTRANSFERASE 34 U/L (12-78); ALBUMIN 4.3 G/DL (3.4-5.0); ALBUMIN/GLOBULIN RATIO 0.9 (1.1-1.5); ALKALINE PHOSPHATASE 57 IU/L (46-116); ANION GAP 18 (8-16); ASPARTATE AMINO TRANSFERASE 42 U/L (10-37); BILIRUBIN,TOTAL 0.9 MG/DL (0.1-1.0); BLOOD UREA NITROGEN 14 MG/DL (7-18); BUN/CREATININE RATIO 10.4 (5.4-32.0); CALCIUM 9.3 MG/DL (8.5-10.1); CHLORIDE 99 MMOL/L (99-107); CREATININE 1.35 MG/DL (0.60-1.10); GLUCOSE 139 MG/DL (70-104); LIPASE 100 U/L (73-393); POTASSIUM 3.7 MMOL/L (3.5-5.1); SODIUM 138 MMOL/L (135-145); TOTAL CARBON DIOXIDE 20.8 MMOL/L (24-32); TOTAL PROTEIN 9.1 G/DL (6.4-8.2); eGFR 55 ML/MIN
[2019-12-31] MEDS ORDERED: normal saline 1000ML IV soln IVB ONE ×2 (00:50→01:30)
[2019-12-31] MEDS ORDERED: ondansetron/PF 4mg/2ml inj IV ONE (00:50)
[2019-12-31] MEDS: morphine 4 MG/ML inj SYRINge IV PRN ×8 (01:10→19:56)
[2019-12-31] MEDS ORDERED: magnesium hydroxide 30ml (MOM) UD suspension PO PRN (02:10)
[2019-12-31] MEDS ORDERED: mag hydrox/Alum hydrox/simeth 30ml oral suspension PO PRN (02:10)
[2019-12-31] MEDS ORDERED: potassium CL 10mEq/100ml bag 100 ML IV PRN ×2 (02:10)
[2019-12-31] MEDS ORDERED: LORazepam 2 mg/ml vial IV PRN (02:10)
[2019-12-31] MEDS ORDERED: thiamine 100mg/ml 2ml inj. IV ONE (02:10)
[2019-12-31] MEDS ORDERED: metoclopramide 5 mg/ml inj IV PRN (02:10)
[2019-12-31] MEDS ORDERED: potassium Cl 20 mEq SR tablet PO PRN ×2 (02:10)
[2019-12-31] MEDS ORDERED: haloperidol lactate 5mg/ml inj IM PRN (02:10)
[2019-12-31] MEDS ORDERED: acetaminophen 325mg tablet PO PRN (02:10)
[2019-12-31] MEDS ORDERED: dextrose 50%-water 50ml dispensing syringe IV PRN (02:10)
[2019-12-31] MEDS ORDERED: haloperidol 5mg tablet PO PRN (02:10)
[2019-12-31] MEDS ORDERED: ondansetron/PF 4mg/2ml inj IV PRN (02:10)
[2019-12-31] MEDS ORDERED: LORA-269 PO (02:18)
[2019-12-31] MEDS: normal saline 1000ml 1,000 ML IV SCH ×3 (03:39→21:09)
[2019-12-31] MEDS: pantoprazole 40 MG vial IV SCH ×2 (03:45→08:14)
[2019-12-31 04:06] LABS: CLARITY,URINE CLEAR (Clear); COLOR,URINE YELLOW (Yellow); GLUCOSE, URINE NEGATIVE (Neg); KETONES,URINE NEGATIVE (Neg); LEUKOCYTE ESTERASE ,URINE NEGATIVE (Neg); NITRITES, URINE NEGATIVE (Neg); OCCULT BLOOD,URINE NEGATIVE (Neg); PROTEIN,URINE NEGATIVE (Neg); UROBILINOGEN,URINE 0.2 E.U/dL (0.2-1.0)
[2019-12-31 04:08] LABS: UA COLLECTION TYPE URINAL
--- NOTE | 2019-12-31 05:00 | NUR ---
Received report from SALBADOR Puente.
[2019-12-31 05:11] VITALS: BP 118/82
--- NOTE | 2019-12-31 05:35 | NUR ---
PAGER ID: [phone] MESSAGE: [phone] pt Gonzalez BAUMAN there is no diet order, should he get breakfast?
--- NOTE | 2019-12-31 06:13 | NUR ---
Problems reprioritized. Patient report given, questions answered & plan of care reviewed with SALBADOR Patten.
--- NOTE | 2019-12-31 06:42 | NUR ---
Patient in room PCU 3027. I have received report from Pilar SIU and had the opportunity to ask questions and assume patient care.
[2019-12-31 07:00] VITALS: BP 119/81
--- NOTE | 2019-12-31 07:13 | NUR ---
To Sulema PAGER ID: [phone] MESSAGE: Patient Gonzalez [phone]. Critical Lab - Lactic 5.5, improving from prior 7.6, 6.5. Thx Earline VEGA [phone]
[2019-12-31] MEDS: LIPASE/PROTEASE/AMYLASE 16,800 UNIT CAPSULE.DR PO SCH ×3 (08:08→21:08)
[2019-12-31] MEDS: metoclopramide 5 mg/ml inj IV SCH ×3 (08:14→19:55)
[2019-12-31] MEDS: thiamine inj. 100 MG, magnesium sulf injection 2 GM, MVI, adult No.4 with vit. K 10 ML ... IV SCH ×4 (08:15)
[2019-12-31] MEDS: K and/or MAG REPLACEMENT MC SCH ×2 (08:20→20:00)
[2019-12-31 11:00] VITALS: BP 122/77
[2019-12-31 15:00] VITALS: BP 130/88
[2019-12-31 18:00] VITALS: BP 146/82
--- NOTE | 2019-12-31 18:20 | NUR ---
Patient in room PCU 3027. I have received report from Earline SIU and had the opportunity to ask questions and assume patient care.
--- NOTE | 2019-12-31 18:50 | NUR ---
Problems reprioritized. Patient report given, questions answered & plan of care reviewed with SALBADOR Mera. Patient stable at transfer of care.
[2019-12-31] MEDS ORDERED: temazepam 15mg capsule PO PRN (21:00)
[2019-12-31 22:00] VITALS: BP 132/89
[2020-01-01] MEDS: morphine 4 MG/ML inj SYRINge IV PRN ×2 (00:07→08:43)
[2020-01-01] MEDS: metoclopramide 5 mg/ml inj IV SCH ×2 (01:32→08:13)
[2020-01-01 02:00] VITALS: BP 123/83
[2020-01-01 05:29] LABS: BASOPHILS % (AUTO) 0.4 % (0-1); EOSINOPHILS # (AUTO) 0.2 X10'3 (0-0.9); EOSINOPHILS % (AUTO) 2.2 % (0-6); HEMATOCRIT 26.9 % (42.0-52.0); HEMOGLOBIN 8.6 g/dl (14.0-17.9); LYMPHOCYTES # (AUTO) 2.5 X10'3 (1.1-4.8); LYMPHOCYTES % (AUTO) 31.1 % (21-51); MEAN CORPUSCULAR HEMOGLOBIN 25.7 PG (27.0-31.0); MEAN CORPUSCULAR HGB CONC 31.9 g/dL (33.0-36.5); MEAN CORPUSCULAR VOLUME 80.4 FL (78-98); MEAN PLATELET VOLUME 6.9 FL (7.4-10.4); MONOCYTES # (AUTO) 0.6 X10'3 (0-0.9); MONOCYTES % (AUTO) 7.3 % (2-12); NEUTROPHILS # (AUTO) 4.7 X10'3 (1.8-7.7); PLATELET COUNT 294 X10'3 (140-440); RED BLOOD COUNT 3.35 X10'6 (4.70-6.10); RED CELL DISTRIBUTION WIDTH 25.8 % (11.5-14.5); WHITE BLOOD COUNT 7.9 X10'3 (4.5-11.0)
[2020-01-01 05:44] LABS: ALANINE AMINOTRANSFERASE 22 U/L (12-78); ALBUMIN 2.9 G/DL (3.4-5.0); ALBUMIN/GLOBULIN RATIO 0.9 (1.1-1.5); ALKALINE PHOSPHATASE 42 IU/L (46-116); ANION GAP 9 (8-16); ASPARTATE AMINO TRANSFERASE 28 U/L (10-37); BILIRUBIN,TOTAL 1.1 MG/DL (0.1-1.0); BLOOD UREA NITROGEN 4 MG/DL (7-18); BUN/CREATININE RATIO 4.8 (5.4-32.0); CALCIUM 7.6 MG/DL (8.5-10.1); CHLORIDE 106 MMOL/L (99-107); CREATININE 0.83 MG/DL (0.60-1.10); GLUCOSE 110 MG/DL (70-104); POTASSIUM 3.2 MMOL/L (3.5-5.1); SODIUM 139 MMOL/L (135-145); TOTAL CARBON DIOXIDE 23.6 MMOL/L (24-32); TOTAL PROTEIN 6.1 G/DL (6.4-8.2); eGFR > 90 ML/MIN
--- NOTE | 2020-01-01 06:17 | NUR ---
Patient in room PCU 3027. I have received report from Ines SIU and had the opportunity to ask questions and assume patient care.
--- NOTE | 2020-01-01 06:20 | NUR ---
Problems reprioritized. Patient report given, questions answered & plan of care reviewed with Melinda SIU.
[2020-01-01 06:37] LABS: ANISOCYTOSIS 3+; HYPOCHROMASIA 1+; PLATELET ESTIMATE NORMAL
[2020-01-01 07:00] VITALS: BP 119/72
[2020-01-01] MEDS: K and/or MAG REPLACEMENT MC SCH (08:00)
[2020-01-01] MEDS: thiamine inj. 100 MG, magnesium sulf injection 2 GM, MVI, adult No.4 with vit. K 10 ML ... IV SCH ×4 (08:13)
[2020-01-01] MEDS: pantoprazole 40 MG vial IV SCH (08:13)
[2020-01-01] MEDS: normal saline 1000ml 1,000 ML IV SCH (08:14)
[2020-01-01] MEDS: LIPASE/PROTEASE/AMYLASE 16,800 UNIT CAPSULE.DR PO SCH (08:14)
[2020-01-01] MEDS ORDERED: METO-292 PO (09:24)
--- NOTE | 2020-01-01 10:38 | NUR ---
Patient was discharged to home. He was picked up by his brother. His PIV was removed with cannula intact. RX was called into [facility] on [address] in [place]. Discharge instructions were reviewed with the patient he verbalized understanding of all instructions. He was advised to quit drinking. Patient was alert, oriented and appropriate at time of discharge.
[2020-01-02] MEDS ORDERED: LORazepam 2 mg/ml vial IV PRN (02:10)
[2020-01-02] MEDS ORDERED: LORazepam 1 MG tablet PO PRN (02:10)
[2020-01-04] MEDS ORDERED: LORazepam 2 mg/ml vial IV PRN (02:10)
[2020-01-04] MEDS ORDERED: LORazepam 1 MG tablet PO PRN (02:10)
== END 2020-01-01 10:30 | disposition home or self-care (01) | DRG 282 ==
LOC: ER 23:37 → ED HOLD 12-31 02:08 → PCU 3S 12-31 04:49
PROVIDERS: ADMIT Family Medicine; ATTEND Internal Medicine
DX: K85.90 Acute pancreatitis without necrosis or infection, unspecified (principal); E11.9 Type 2 diabetes mellitus without complications; E78.00 Pure hypercholesterolemia, unspecified; E87.2 Acidosis; F10.20 Alcohol dependence, uncomplicated; I10 Essential (primary) hypertension; I48.0 Paroxysmal atrial fibrillation; N17.9 Acute kidney failure, unspecified; K21.9 Gastro-esophageal reflux disease without esophagitis; R06.6 Hiccough; E86.0 Dehydration
CPT/HCPCS: 36415; 80053; 81003; 83605; 83690; 85025; 87081; 96374; 96375; 97116; 97161; 97530; 99285; C9113; G0378; J2270; J2405; J2765; J3411; J3475; J7030; J7060

== ENCOUNTER 2020-01-16 01:33 | Emergency (ER) | payer MEDICAID ==
[~2020-01-16] VITALS: Ht 172.7 cm; Wt 55.9 kg
[~2020-01-16 01:33] MED LIST changes: +METO-292 PO
[2020-01-16 02:18] LABS: BASOPHILS # (AUTO) 0.1 X10'3 (0-0.2); EOSINOPHILS # (AUTO) 0.1 X10'3 (0-0.9); LYMPHOCYTES # (AUTO) 2.8 X10'3 (1.1-4.8); NEUTROPHILS # (AUTO) 1.2 X10'3 (1.8-7.7)
[2020-01-16 02:20] LABS: BASOPHILS % (AUTO) 1.8 % (0-1); EOSINOPHILS % (AUTO) 2.7 % (0-6); HEMATOCRIT 37.4 % (42.0-52.0); LYMPHOCYTES % (AUTO) 58.6 % (21-51); MEAN CORPUSCULAR HEMOGLOBIN 25.3 PG (27.0-31.0); MEAN CORPUSCULAR HGB CONC 32.2 g/dL (33.0-36.5); MEAN CORPUSCULAR VOLUME 78.6 FL (78-98); MONOCYTES # (AUTO) 0.5 X10'3 (0-0.9); MONOCYTES % (AUTO) 11.4 % (2-12); NEUTROPHILS % (AUTO) 25.5 % (42-75); PLATELET COUNT 315 X10'3 (140-440); RED BLOOD COUNT 4.76 X10'6 (4.70-6.10); RED CELL DISTRIBUTION WIDTH 26.5 % (11.5-14.5); WHITE BLOOD COUNT 4.7 X10'3 (4.5-11.0)
[2020-01-16 02:34] LABS: ALANINE AMINOTRANSFERASE 36 U/L (12-78); ALBUMIN 4.2 G/DL (3.4-5.0); ALBUMIN/GLOBULIN RATIO 0.9 (1.1-1.5); ALKALINE PHOSPHATASE 54 IU/L (46-116); ANION GAP 22 (8-16); ASPARTATE AMINO TRANSFERASE 59 U/L (10-37); BLOOD UREA NITROGEN 12 MG/DL (7-18); CALCIUM 9.1 MG/DL (8.5-10.1); CHLORIDE 97 MMOL/L (99-107); CREATININE 1.09 MG/DL (0.60-1.10); GLUCOSE 128 MG/DL (70-104); POTASSIUM 3.3 MMOL/L (3.5-5.1); SODIUM 137 MMOL/L (135-145); TOTAL CARBON DIOXIDE 17.6 MMOL/L (24-32); TOTAL PROTEIN 8.8 G/DL (6.4-8.2); eGFR 71 ML/MIN
[2020-01-16 02:42] LABS: LIPASE 72 U/L (73-393); TROPONIN I < 0.04 NG/ML (0.0-0.05)
[2020-01-16 02:46] LABS: ETHANOL 0.303 GM/DL (0.0-0.010)
[2020-01-16] MEDS ORDERED: normal saline 1000ML IV soln IVB ONE ×2 (03:05→06:40)
[2020-01-16] MEDS ORDERED: morphine 4 MG/ML inj SYRINge IV ONE (03:05)
[2020-01-16] MEDS ORDERED: ondansetron/PF 4mg/2ml inj IV ONE (03:05)
[2020-01-16] MEDS ORDERED: pantoprazole 40 MG vial IV ONE (03:05)
[2020-01-16] MEDS ORDERED: phenobarbital inj 260 MG in normal saline 100ml IV soln 100 ML IV ONE (06:40)
[2020-01-16] MEDS ORDERED: thiamine 100mg tablet PO ONE (06:40)
[2020-01-16] MEDS ORDERED: magnesium oxide 400mg tablet PO ONE (06:40)
[2020-01-16 06:54] LABS: ALBUMIN 3.3 G/DL (3.4-5.0); ANION GAP 16 (8-16); BLOOD UREA NITROGEN 12 MG/DL (7-18); CALCIUM 7.8 MG/DL (8.5-10.1); CHLORIDE 104 MMOL/L (99-107); CREATININE 0.86 MG/DL (0.60-1.10); GLUCOSE 117 MG/DL (70-104); POTASSIUM 3.5 MMOL/L (3.5-5.1); SODIUM 139 MMOL/L (135-145); TOTAL CARBON DIOXIDE 19.5 MMOL/L (24-32); eGFR > 90 ML/MIN
[2020-01-16 08:54] VITALS: BP 129/85
== END 2020-01-16 08:56 | disposition home or self-care (01) ==
LOC: ER 01:34
DX: R10.12 Left upper quadrant pain (principal); R11.10 Vomiting, unspecified; K86.0 Alcohol-induced chronic pancreatitis; I48.91 Unspecified atrial fibrillation; E78.00 Pure hypercholesterolemia, unspecified; I10 Essential (primary) hypertension; Z90.49 Acquired absence of other specified parts of digestive tract; Z72.89 Other problems related to lifestyle; Z79.899 Other long term (current) drug therapy
CPT/HCPCS: 36415; 71045; 80048; 80053; 80320; 83690; 83880; 84484; 85025; 93005; 96361; 96374; 96375; 99285; C9113; J2270; J2405; J7030

== ENCOUNTER 2020-02-05 19:52 | Emergency (ER) | payer MEDICAID ==
[~2020-02-05] VITALS: Ht 172.7 cm; Wt 55.0 kg
[2020-02-05 20:25] LABS: EOSINOPHILS # (AUTO) 0.1 X10'3 (0-0.9); EOSINOPHILS % (AUTO) 2.1 % (0-6); MEAN PLATELET VOLUME 6.8 FL (7.4-10.4); RED CELL DISTRIBUTION WIDTH 25.4 % (11.5-14.5)
[2020-02-05 20:27] LABS: BASOPHILS % (AUTO) 0.5 % (0-1); HEMATOCRIT 40.1 % (42.0-52.0); HEMOGLOBIN 12.6 g/dl (14.0-17.9); LYMPHOCYTES # (AUTO) 2.9 X10'3 (1.1-4.8); LYMPHOCYTES % (AUTO) 55.9 % (21-51); MEAN CORPUSCULAR HEMOGLOBIN 24.9 PG (27.0-31.0); MEAN CORPUSCULAR HGB CONC 31.6 g/dL (33.0-36.5); MEAN CORPUSCULAR VOLUME 79.1 FL (78-98); MONOCYTES # (AUTO) 0.4 X10'3 (0-0.9); MONOCYTES % (AUTO) 8.1 % (2-12); NEUTROPHILS # (AUTO) 1.7 X10'3 (1.8-7.7); NEUTROPHILS % (AUTO) 33.4 % (42-75); PLATELET COUNT 321 X10'3 (140-440); RED BLOOD COUNT 5.07 X10'6 (4.70-6.10); WHITE BLOOD COUNT 5.2 X10'3 (4.5-11.0)
[2020-02-05] MEDS ORDERED: LORazepam 2 mg/ml vial IV ONE (20:30)
[2020-02-05] MEDS ORDERED: ondansetron/PF 4mg/2ml inj IV ONE (20:30)
[2020-02-05] MEDS ORDERED: folic acid 1mg/0.2ml inj IV ONE (20:30)
[2020-02-05] MEDS ORDERED: thiamine 100mg/ml 2ml inj. IV ONE (20:30)
[2020-02-05] MEDS ORDERED: normal saline 1000ML IV soln IVB ONE ×2 (20:30→23:00)
[2020-02-05] MEDS ORDERED: potassium Cl 10 mEq/100mL bag IV ONE (20:30)
[2020-02-05 20:41] LABS: ALANINE AMINOTRANSFERASE 26 U/L (12-78); ALBUMIN 4.5 G/DL (3.4-5.0); ALBUMIN/GLOBULIN RATIO 0.9 (1.1-1.5); ALKALINE PHOSPHATASE 57 IU/L (46-116); ANION GAP 21 (8-16); ASPARTATE AMINO TRANSFERASE 55 U/L (10-37); BLOOD UREA NITROGEN 13 MG/DL (7-18); BUN/CREATININE RATIO 11.6 (5.4-32.0); CALCIUM 9.2 MG/DL (8.5-10.1); CHLORIDE 95 MMOL/L (99-107); CREATININE 1.12 MG/DL (0.60-1.10); GLUCOSE 117 MG/DL (70-104); POTASSIUM 3.2 MMOL/L (3.5-5.1); SODIUM 136 MMOL/L (135-145); TOTAL CARBON DIOXIDE 20.4 MMOL/L (24-32); TOTAL PROTEIN 9.6 G/DL (6.4-8.2); eGFR 69 ML/MIN
[2020-02-05 20:46] LABS: ANISOCYTOSIS 3+; ELLIPTOCYTES FEW; PLATELET ESTIMATE NORMAL; TOTAL CELLS COUNTED 100
[2020-02-05 20:48] LABS: LIPASE 64 U/L (73-393); TROPONIN I < 0.04 NG/ML (0.0-0.05)
--- NOTE | 2020-02-05 20:55 | NUR ---
LA 7.7, WENDY VIVAR AND RN,JUSTINA, UPDATED.
--- NOTE | 2020-02-05 21:13 | NUR ---
relieving RN for break, pt is resting quietly on gurney, resp even and unlabored,1st liter NS infusing w/o
[2020-02-05 22:26] LABS: ABG BASE EXCESS -8.4 mmol/L (-2.0-2.0); ABG OXYGEN SATURATION 95.3 % (94-97); ABG PCO2 (T) 29.7 mmHg (35.0-48.0); ABG PO2 (T) 94.8 mmHg (75.0-100.0); FCOHb 0.7 % (0.0-3.9); FMetHb 0.2 % (0.0-1.5); FO2Hb 94.4 % (94-97); PATIENT TEMPERATURE 37.1; TOTAL HEMOGLOBIN 10.4 G/dl (14.0-18.0)
--- NOTE | 2020-02-05 23:20 | NUR ---
pt back from ct
--- NOTE | 2020-02-06 01:08 | NUR ---
LA 6.8, DR. RAY AND PRIMARY RN, ERLIN, AWARE
--- NOTE | 2020-02-06 02:53 | NUR ---
PATIENT PO CHALLENGE WAS ABLE TO DRINK 240mL OF WATER WITHOUT N,V VERBALIZED " THIS IS GOOD."
[2020-02-06 03:06] VITALS: BP 136/94
== END 2020-02-06 03:12 | disposition home or self-care (01) ==
LOC: ER 19:52
DX: F10.129 Alcohol abuse with intoxication, unspecified (principal); K29.20 Alcoholic gastritis without bleeding; R11.2 Nausea with vomiting, unspecified; I48.91 Unspecified atrial fibrillation; E78.00 Pure hypercholesterolemia, unspecified; I10 Essential (primary) hypertension; Z90.49 Acquired absence of other specified parts of digestive tract; Z79.899 Other long term (current) drug therapy; Y90.0 Blood alcohol level of less than 20 mg/100 ml
CPT/HCPCS: 36415; 36600; 71045; 74176; 80053; 80320; 82803; 83605; 83690; 83880; 84484; 85007; 85018; 85025; 93005; 96365; 96366; 96375; 99285; J2060; J2405; J3411; J3480; J3490; J7030

== ENCOUNTER 2020-02-15 14:28 | Inpatient (IN) | payer MEDICAID ==
[~2020-02-15] VITALS: Ht 172.7 cm; Wt 55.9 kg
[~2020-02-15 14:28] MED LIST changes: -AMYL1CAP62 PO; -METO-292 PO; -PANT-47 PO
[2020-02-15 15:38] LABS: BASOPHILS % (AUTO) 0.8 % (0-1); EOSINOPHILS % (AUTO) 0 % (0-6); HEMATOCRIT 37.7 % (42.0-52.0); HEMOGLOBIN 11.8 g/dl (14.0-17.9); LYMPHOCYTES # (AUTO) 1.3 X10'3 (1.1-4.8); LYMPHOCYTES % (AUTO) 23.1 % (21-51); MEAN CORPUSCULAR HEMOGLOBIN 25.2 PG (27.0-31.0); MEAN CORPUSCULAR HGB CONC 31.2 g/dL (33.0-36.5); MEAN CORPUSCULAR VOLUME 80.6 FL (78-98); MEAN PLATELET VOLUME 7.2 FL (7.4-10.4); MONOCYTES # (AUTO) 0.3 X10'3 (0-0.9); MONOCYTES % (AUTO) 4.7 % (2-12); NEUTROPHILS # (AUTO) 3.9 X10'3 (1.8-7.7); NEUTROPHILS % (AUTO) 71.4 % (42-75); PLATELET COUNT 304 X10'3 (140-440); RED BLOOD COUNT 4.68 X10'6 (4.70-6.10); RED CELL DISTRIBUTION WIDTH 24.7 % (11.5-14.5); WHITE BLOOD COUNT 5.4 X10'3 (4.5-11.0)
[2020-02-15 15:53] LABS: ALANINE AMINOTRANSFERASE 23 U/L (12-78); ALBUMIN 4.4 G/DL (3.4-5.0); ALKALINE PHOSPHATASE 56 IU/L (46-116); ANION GAP 30 (8-16); ASPARTATE AMINO TRANSFERASE 47 U/L (10-37); BILIRUBIN,TOTAL 0.9 MG/DL (0.1-1.0); BLOOD UREA NITROGEN 16 MG/DL (7-18); BUN/CREATININE RATIO 14.5 (5.4-32.0); CALCIUM 9.2 MG/DL (8.5-10.1); CHLORIDE 88 MMOL/L (99-107); GLUCOSE 71 MG/DL (70-104); LIPASE 69 U/L (73-393); POTASSIUM 3.1 MMOL/L (3.5-5.1); SODIUM 132 MMOL/L (135-145); TOTAL PROTEIN 8.8 G/DL (6.4-8.2); eGFR 70 ML/MIN
[2020-02-15 15:57] LABS: ANISOCYTOSIS 3+; HYPOCHROMASIA 1+; MICROCYTOSIS 1+; PLATELET ESTIMATE NORMAL
[2020-02-15 16:03] LABS: TOTAL CARBON DIOXIDE 13.7 MMOL/L (24-32)
[2020-02-15] MEDS ORDERED: potassium Cl 20 mEq SR tablet PO ONE (16:15)
[2020-02-15] MEDS ORDERED: acetaminophen 1,000mg/100ml IV 100 ML IV STA (16:17)
[2020-02-15] MEDS ORDERED: pantoprazole 40 MG vial IV ONE (16:20)
[2020-02-15] MEDS ORDERED: normal saline 1000ML IV soln IVB ONE (16:20)
[2020-02-15] MEDS ORDERED: ondansetron/PF 4mg/2ml inj IV ONE (16:20)
--- NOTE | 2020-02-15 16:20 | NUR ---
called pharmacy about tylenol iv, requested to speak with dr greene. dr greene spoke with pharmacist. awaiting medication
[2020-02-15 18:05] LABS: PO2 MIXED VENOUS (TEMP COR) 41.4 mmHg (35-46)
[2020-02-15 18:50] LABS: CLARITY,URINE CLEAR (Clear); COLOR,URINE YELLOW (Yellow); GLUCOSE, URINE NEGATIVE (Neg); KETONES,URINE 40 mg/dl (Neg); LEUKOCYTE ESTERASE ,URINE NEGATIVE (Neg); NITRITES, URINE NEGATIVE (Neg); OCCULT BLOOD,URINE NEGATIVE (Neg); PROTEIN,URINE NEGATIVE (Neg); UROBILINOGEN,URINE 0.2 E.U/dL (0.2-1.0)
[2020-02-15 18:51] LABS: UA COLLECTION TYPE URINAL
--- NOTE | 2020-02-15 19:14 | NUR ---
dr Rangel received venous blood gas results
[2020-02-15] MEDS ORDERED: potassium CL 10mEq/100ml bag 100 ML IV PRN ×2 (19:40)
[2020-02-15] MEDS ORDERED: acetaminophen 325mg tablet PO PRN (19:40)
[2020-02-15] MEDS ORDERED: magnesium 4gm in 100ml NS 100 ML IV PRN (19:40)
[2020-02-15] MEDS ORDERED: magnesium 2GM in 50ml NS 50 ML IV PRN (19:40)
[2020-02-15] MEDS ORDERED: mag hydrox/Alum hydrox/simeth 30ml oral suspension PO PRN (19:40)
[2020-02-15] MEDS ORDERED: magnesium Cl slow-release 64mg tablet PO PRN (19:40)
[2020-02-15] MEDS ORDERED: potassium Cl 20 mEq SR tablet PO PRN ×2 (19:40)
[2020-02-15] MEDS ORDERED: ondansetron/PF 4mg/2ml inj IV PRN (19:40)
[2020-02-15] MEDS: K and/or MAG REPLACEMENT MC SCH (20:00)
[2020-02-15] MEDS: docusate sod 100mg capsule PO SCH (20:00)
[2020-02-15] MEDS ORDERED: HYDR-3686 PO (20:04)
[2020-02-15] MEDS ORDERED: HYDR12.55 PO (20:04)
[2020-02-15] MEDS ORDERED: MAGN250T29 PO (20:04)
[2020-02-15] MEDS ORDERED: POTA8CAP20 PO (20:04)
[2020-02-15] MEDS ORDERED: ATOR10TA PO (20:04)
[2020-02-15] MEDS: normal saline 1000ml 1,000 ML IV SCH (20:14)
--- NOTE | 2020-02-16 | NUR ---
PT AMBULATED TO BATHROOM FOR BOWEL MOVEMENT, EH ACCOUNT SERVICES ASSOCIATE ASSISTED
[2020-02-16] MEDS: normal saline 1000ml 1,000 ML IV SCH ×5 (00:37→20:06)
[2020-02-16] MEDS ORDERED: hydrOXYzine 25 MG tablet PO PRN (03:05)
[2020-02-16] MEDS ORDERED: pantoprazole 40 MG vial IV ONE (03:05)
[2020-02-16] MEDS ORDERED: morphine 4 MG/ML inj SYRINge IV ONE (05:45)
[2020-02-16] MEDS ORDERED: morphine 2 MG/ML inj. syringe IV ONE (05:50)
[2020-02-16 07:49] LABS: BASOPHILS % (AUTO) 0.8 % (0-1); EOSINOPHILS # (AUTO) 0.1 X10'3 (0-0.9); EOSINOPHILS % (AUTO) 1.6 % (0-6); HEMATOCRIT 27.4 % (42.0-52.0); HEMOGLOBIN 8.7 g/dl (14.0-17.9); LYMPHOCYTES # (AUTO) 1.7 X10'3 (1.1-4.8); MEAN CORPUSCULAR HEMOGLOBIN 25.2 PG (27.0-31.0); MEAN CORPUSCULAR HGB CONC 31.7 g/dL (33.0-36.5); MEAN CORPUSCULAR VOLUME 79.5 FL (78-98); MEAN PLATELET VOLUME 6.9 FL (7.4-10.4); MONOCYTES # (AUTO) 0.7 X10'3 (0-0.9); NEUTROPHILS # (AUTO) 2.4 X10'3 (1.8-7.7); NEUTROPHILS % (AUTO) 47.6 % (42-75); PLATELET COUNT 227 X10'3 (140-440); RED BLOOD COUNT 3.45 X10'6 (4.70-6.10); RED CELL DISTRIBUTION WIDTH 23.7 % (11.5-14.5)
[2020-02-16 07:52] LABS: ALBUMIN 3.4 G/DL (3.4-5.0); ANION GAP 14 (8-16); BLOOD UREA NITROGEN 8 MG/DL (7-18); BUN/CREATININE RATIO 9.1 (5.4-32.0); CALCIUM 7.8 MG/DL (8.5-10.1); CHLORIDE 101 MMOL/L (99-107); CREATININE 0.88 MG/DL (0.60-1.10); GLUCOSE 74 MG/DL (70-104); MAGNESIUM 1.5 MG/DL (1.5-2.4); POTASSIUM 3.6 MMOL/L (3.5-5.1); SODIUM 134 MMOL/L (135-145); TOTAL CARBON DIOXIDE 18.6 MMOL/L (24-32); eGFR > 90 ML/MIN
[2020-02-16] MEDS: K and/or MAG REPLACEMENT MC SCH ×2 (08:00→20:00)
[2020-02-16] MEDS: docusate sod 100mg capsule PO SCH ×2 (08:07→20:00)
[2020-02-16] MEDS: thiamine 100mg tablet PO SCH (08:07)
[2020-02-16] MEDS: atorvastatin 10mg tablet PO SCH (08:07)
[2020-02-16] MEDS: magnesium oxide 400mg tablet PO SCH (08:07)
[2020-02-16] MEDS: multivitamins, therapeutics tablet PO SCH (08:08)
[2020-02-16] MEDS: folic acid 1mg tablet PO SCH (08:08)
[2020-02-16] MEDS ORDERED: thiamine inj. 100 MG in normal saline 100ml IV soln 100 ML IV ONE (08:10)
[2020-02-16] MEDS ORDERED: haloperidol lactate 5mg/ml inj IM PRN (08:10)
[2020-02-16] MEDS ORDERED: haloperidol 5mg tablet PO PRN (08:10)
[2020-02-16] MEDS ORDERED: LORazepam 2 mg/ml vial IV PRN (08:10)
[2020-02-16 08:26] LABS: TOTAL CELLS COUNTED 100
[2020-02-16 08:28] LABS: ANISOCYTOSIS 3+; HYPOCHROMASIA 1+; MICROCYTOSIS 1+; PLATELET ESTIMATE NORMAL; POLYCHROMASIA FEW; STOMATOCYTES FEW
[2020-02-16 08:46] LABS: ABG BASE EXCESS -9.1 mmol/L (-2.0-2.0); ABG HCO3 14.8 mmol/L (22.0-26.0); ABG OXYGEN SATURATION 96.6 % (94-97); ABG PCO2 (T) 25.7 mmHg (35.0-48.0); ALLEN'S TEST POSITIVE; FCOHb 0.5 % (0.0-3.9); FMetHb 0.3 % (0.0-1.5); FO2Hb 95.8 % (94-97); TOTAL HEMOGLOBIN 10.1 G/dl (14.0-18.0)
[2020-02-16 13:33] LABS: HEMATOCRIT 28.8 % (42.0-52.0); HEMOGLOBIN 9.1 g/dl (14.0-17.9); MEAN CORPUSCULAR HEMOGLOBIN 25.1 PG (27.0-31.0); MEAN CORPUSCULAR HGB CONC 31.6 g/dL (33.0-36.5); MEAN CORPUSCULAR VOLUME 79.5 FL (78-98); MEAN PLATELET VOLUME 7.2 FL (7.4-10.4); PLATELET COUNT 244 X10'3 (140-440); RED BLOOD COUNT 3.62 X10'6 (4.70-6.10); RED CELL DISTRIBUTION WIDTH 24.3 % (11.5-14.5); WHITE BLOOD COUNT 5.1 X10'3 (4.5-11.0)
[2020-02-16 15:00] VITALS: BP 123/79
--- NOTE | 2020-02-16 15:36 | NUR ---
Page Sent promotional table spacer PAGER ID: [phone] MESSAGE: [id number] Gonzalez. Patient c/o 9/10 abdominal pain, NO pain meds ordered. Patient requesting medication. Melinda [id number]
[2020-02-16] MEDS ORDERED: HYDROmorphone inj. 0.5 MG/0.5 ML DISP.SYRIN IV PRN (15:40)
[2020-02-16] MEDS: HYDROmorphone 1 mg/ml syringe IV PRN ×2 (16:00→20:02)
[2020-02-16] MEDS: diatr meglu/diatrizoate 30ml oral sol.-(3 dose) bottle PO SCH ×3 (16:00→21:58)
[2020-02-16 17:29] LABS: HEMATOCRIT 26.7 % (42.0-52.0); HEMOGLOBIN 8.6 g/dl (14.0-17.9); MEAN CORPUSCULAR HEMOGLOBIN 25.6 PG (27.0-31.0); MEAN CORPUSCULAR HGB CONC 32.2 g/dL (33.0-36.5); MEAN CORPUSCULAR VOLUME 79.4 FL (78-98); MEAN PLATELET VOLUME 6.9 FL (7.4-10.4); PLATELET COUNT 224 X10'3 (140-440); RED BLOOD COUNT 3.37 X10'6 (4.70-6.10); RED CELL DISTRIBUTION WIDTH 23.8 % (11.5-14.5); WHITE BLOOD COUNT 3.9 X10'3 (4.5-11.0)
[2020-02-16 18:00] VITALS: BP 123/76
--- NOTE | 2020-02-16 18:00 | NUR ---
Problems reprioritized. Patient report given, questions answered & plan of care reviewed with Mary SIU.
--- NOTE | 2020-02-16 18:49 | NUR ---
Patient in room PCU 3018. I have received report from JOAN SIU and had the opportunity to ask questions and assume patient care.
[2020-02-16] MEDS ORDERED: iohexol 300mg/ml 100ml inj. ONE (21:55)
[2020-02-16 22:00] VITALS: BP 122/80
--- NOTE | 2020-02-16 22:02 | NUR ---
TO CT FOR ABDOMENAL SCAN ORDERED VIA W/C
[2020-02-17] MEDS: HYDROmorphone 1 mg/ml syringe IV PRN ×3 (00:03→12:16)
[2020-02-17] MEDS: normal saline 1000ml 1,000 ML IV SCH ×2 (01:33→07:06)
[2020-02-17 02:00] VITALS: BP 117/71
[2020-02-17 06:00] VITALS: BP 127/90
[2020-02-17 06:01] LABS: BASOPHILS % (AUTO) 0.9 % (0-1); EOSINOPHILS # (AUTO) 0.1 X10'3 (0-0.9); EOSINOPHILS % (AUTO) 3.4 % (0-6); HEMATOCRIT 26.1 % (42.0-52.0); HEMOGLOBIN 8.4 g/dl (14.0-17.9); LYMPHOCYTES % (AUTO) 45.6 % (21-51); MEAN CORPUSCULAR HEMOGLOBIN 25.6 PG (27.0-31.0); MEAN PLATELET VOLUME 7.2 FL (7.4-10.4); MONOCYTES # (AUTO) 0.4 X10'3 (0-0.9); MONOCYTES % (AUTO) 10.2 % (2-12); NEUTROPHILS # (AUTO) 1.7 X10'3 (1.8-7.7); NEUTROPHILS % (AUTO) 39.9 % (42-75); PLATELET COUNT 221 X10'3 (140-440); RED BLOOD COUNT 3.27 X10'6 (4.70-6.10); WHITE BLOOD COUNT 4.3 X10'3 (4.5-11.0)
[2020-02-17 06:13] LABS: ALANINE AMINOTRANSFERASE 15 U/L (12-78); ALBUMIN 3.1 G/DL (3.4-5.0); ALKALINE PHOSPHATASE 42 IU/L (46-116); ANION GAP 9 (8-16); ASPARTATE AMINO TRANSFERASE 32 U/L (10-37); BILIRUBIN,TOTAL 1.3 MG/DL (0.1-1.0); BLOOD UREA NITROGEN 2 MG/DL (7-18); BUN/CREATININE RATIO 2.9 (5.4-32.0); CALCIUM 8.3 MG/DL (8.5-10.1); CHLORIDE 106 MMOL/L (99-107); CREATININE 0.69 MG/DL (0.60-1.10); GLUCOSE 102 MG/DL (70-104); LIPASE 75 U/L (73-393); MAGNESIUM 1.4 MG/DL (1.5-2.4); PHOSPHORUS 1.5 MG/DL (2.3-4.5); SODIUM 139 MMOL/L (135-145); TOTAL CARBON DIOXIDE 23.7 MMOL/L (24-32); TOTAL PROTEIN 6.3 G/DL (6.4-8.2); eGFR > 90 ML/MIN
[2020-02-17 06:23] LABS: POTASSIUM 3.2 MMOL/L (3.5-5.1)
--- NOTE | 2020-02-17 06:29 | NUR ---
Problems reprioritized. Patient report given, questions answered & plan of care reviewed with LILLY SIU.
[2020-02-17] MEDS: magnesium oxide 400mg tablet PO SCH (07:11)
[2020-02-17] MEDS: folic acid 1mg tablet PO SCH (07:11)
[2020-02-17] MEDS: atorvastatin 10mg tablet PO SCH (07:11)
[2020-02-17] MEDS: thiamine 100mg tablet PO SCH (07:12)
[2020-02-17] MEDS: multivitamins, therapeutics tablet PO SCH (07:12)
[2020-02-17 07:14] LABS: PLATELET ESTIMATE NORMAL
[2020-02-17 07:15] LABS: ANISOCYTOSIS 2+
[2020-02-17] MEDS: K and/or MAG REPLACEMENT MC SCH (07:47)
[2020-02-17] MEDS: docusate sod 100mg capsule PO SCH (07:47)
[2020-02-17] MEDS ORDERED: folic acid inj. 2 MG, thiamine inj. 100 MG, MVI, adult No.4 with vit. K 10 ML in dextro... IV SCH ×4 (08:00)
[2020-02-17] MEDS ORDERED: phenazopyridine 100mg tablet PO SCH (09:55)
[2020-02-17] MEDS ORDERED: tamsulosin 0.4mg capsule PO ONE (09:55)
[2020-02-17 10:00] VITALS: BP 139/87
[2020-02-17] MEDS ORDERED: POTA8CAP20 PO (11:16)
[2020-02-17] MEDS ORDERED: PHEN-716 PO (11:16)
--- NOTE | 2020-02-17 12:27 | NUR ---
Patient stable for discharge per MD orders. All discharge instructions and education reviewed with patient and all questions answered. New prescriptions e-transmitted to preferred pharmacy. PIV discontinued, dressing CDI, patient tolerated well, tip intact. Tele monitor #53 removed and returned to [employer]. All known belongings sent with patient. Patient wheeled to PMV driven by family.
[2020-02-18] MEDS ORDERED: LORazepam 1 MG tablet PO PRN (08:10)
[2020-02-18] MEDS ORDERED: LORazepam 2 mg/ml vial IV PRN (08:10)
[2020-02-20] MEDS ORDERED: LORazepam 1 MG tablet PO PRN (08:10)
[2020-02-20] MEDS ORDERED: LORazepam 2 mg/ml vial IV PRN (08:10)
== END 2020-02-17 12:27 | disposition home or self-care (01) | DRG 425 ==
LOC: ER 14:29 → ED HOLD 19:37 → UNDOADMIN 19:37 → ED HOLD 02-16 08:04 → PCU 3S 02-16 11:45
PROVIDERS: ADMIT Family Medicine; ATTEND Family Medicine
PROC: BW211ZZ Computerized Tomography (CT Scan) of Abdomen and Pelvis using Low Osmolar Contrast (ICD-10-PCS; principal; 2020-02-16)
DX: E87.2 Acidosis (principal); E78.5 Hyperlipidemia, unspecified; F41.9 Anxiety disorder, unspecified; Z79.899 Other long term (current) drug therapy; Z87.442 Personal history of urinary calculi; I48.0 Paroxysmal atrial fibrillation; E87.1 Hypo-osmolality and hyponatremia; N28.1 Cyst of kidney, acquired; F10.10 Alcohol abuse, uncomplicated; Y90.9 Presence of alcohol in blood, level not specified
CPT/HCPCS: 36415; 36600; 74177; 80048; 80053; 81003; 82800; 82803; 82810; 82948; 83605; 83690; 83735; 84100; 85007; 85008; 85018; 85025; 85027; 85610; 87081; 99285; C9113; G0378; J0131; J1170; J2270; J2405; J3411; J7030; Q9963; Q9967

== ENCOUNTER 2020-03-04 11:52 | Inpatient (IN) | payer MEDICAID ==
[~2020-03-04] VITALS: Ht 172.7 cm; Wt 56.8 kg
[~2020-03-04 11:52] MED LIST changes: +ATOR10TA PO; +HYDR-3686 PO; -LORA-269 PO; +MAGN250T29 PO; +PHEN-716 PO; +POTA8CAP20 PO
[2020-03-04 13:34] LABS: ALANINE AMINOTRANSFERASE 23 U/L (12-78); ALBUMIN 4.5 G/DL (3.4-5.0); ALKALINE PHOSPHATASE 57 IU/L (46-116); ANION GAP 23 (8-16); ASPARTATE AMINO TRANSFERASE 41 U/L (10-37); BILIRUBIN,TOTAL 1.4 MG/DL (0.1-1.0); BLOOD UREA NITROGEN 16 MG/DL (7-18); BUN/CREATININE RATIO 16.3 (5.4-32.0); CHLORIDE 96 MMOL/L (99-107); CREATININE 0.98 MG/DL (0.60-1.10); GLUCOSE 86 MG/DL (70-104); LIPASE < 50 U/L (73-393); POTASSIUM 3.4 MMOL/L (3.5-5.1); SODIUM 138 MMOL/L (135-145); TOTAL CARBON DIOXIDE 19.5 MMOL/L (24-32); TOTAL PROTEIN 8.9 G/DL (6.4-8.2); eGFR 80 ML/MIN
[2020-03-04 14:00] LABS: CALCIUM 9.2 MG/DL (8.5-10.1)
[2020-03-04 14:23] LABS: BASOPHILS # (AUTO) 0.1 X10'3 (0-0.2); BASOPHILS % (AUTO) 1.2 % (0-1); EOSINOPHILS % (AUTO) 0.6 % (0-6); HEMATOCRIT 36.2 % (42.0-52.0); HEMOGLOBIN 11.3 g/dl (14.0-17.9); LYMPHOCYTES # (AUTO) 1.6 X10'3 (1.1-4.8); LYMPHOCYTES % (AUTO) 24.6 % (21-51); MEAN CORPUSCULAR HEMOGLOBIN 24.9 PG (27.0-31.0); MEAN CORPUSCULAR HGB CONC 31.3 g/dL (33.0-36.5); MEAN CORPUSCULAR VOLUME 79.7 FL (78-98); MEAN PLATELET VOLUME 6.8 FL (7.4-10.4); MONOCYTES # (AUTO) 0.4 X10'3 (0-0.9); MONOCYTES % (AUTO) 5.8 % (2-12); NEUTROPHILS # (AUTO) 4.3 X10'3 (1.8-7.7); NEUTROPHILS % (AUTO) 67.8 % (42-75); PLATELET COUNT 284 X10'3 (140-440); RED BLOOD COUNT 4.54 X10'6 (4.70-6.10); RED CELL DISTRIBUTION WIDTH 26.6 % (11.5-14.5); WHITE BLOOD COUNT 6.4 X10'3 (4.5-11.0)
[2020-03-04 14:52] LABS: ANISOCYTOSIS 3+; MICROCYTOSIS 1+; PLATELET ESTIMATE NORMAL
[2020-03-04 14:53] LABS: LARGE PLATELETS FEW; POLYCHROMASIA FEW
[2020-03-04] MEDS ORDERED: ondansetron/PF 4mg/2ml inj IV ONE (15:05)
[2020-03-04] MEDS ORDERED: morphine 4 MG/ML inj SYRINge IV ONE (15:05)
[2020-03-04] MEDS ORDERED: normal saline 1000ml 1,000 ML IV ONE ×3 (15:05→16:10)
[2020-03-04] MEDS ORDERED: folic acid 1mg/0.2ml inj IV ONE (15:20)
[2020-03-04] MEDS ORDERED: LORazepam 2 mg/ml vial IV ONE (15:20)
[2020-03-04] MEDS ORDERED: thiamine 100mg/ml 2ml inj. IV ONE (15:20)
--- NOTE | 2020-03-04 15:45 | NUR ---
PT IS RESTING QUIETLY ON GURNEY, RESP EVEN AND UNLABORED
--- NOTE | 2020-03-04 16:02 | NUR ---
pt to CT
[2020-03-04 16:06] LABS: ABG BASE EXCESS -11.7 mmol/L (-2.0-2.0); ABG HCO3 13.3 mmol/L (22.0-26.0); ABG OXYGEN SATURATION 94.3 % (94-97); ABG PCO2 (T) 27.5 mmHg (35.0-48.0); ABG PO2 (T) 88.5 mmHg (75.0-100.0); ALLEN'S TEST POSITIVE; FCOHb 1.3 % (0.0-3.9); FMetHb 0.3 % (0.0-1.5); FO2Hb 92.8 % (94-97); TOTAL HEMOGLOBIN 10.9 G/dl (14.0-18.0)
--- NOTE | 2020-03-04 16:31 | NUR ---
pt moved to Room 10, report to Ryann SIU
[2020-03-04] MEDS ORDERED: magnesium hydroxide 30ml (MOM) UD suspension PO PRN (17:50)
[2020-03-04] MEDS ORDERED: haloperidol lactate 5mg/ml inj IM PRN (17:50)
[2020-03-04] MEDS ORDERED: magnesium 4gm in 100ml NS 100 ML IV PRN (17:50)
[2020-03-04] MEDS ORDERED: ondansetron/PF 4mg/2ml inj IV PRN (17:50)
[2020-03-04] MEDS ORDERED: thiamine inj. 100 MG in normal saline 100ml IV soln 100 ML IV ONE (17:50)
[2020-03-04] MEDS ORDERED: LORazepam 2 mg/ml vial IV PRN (17:50)
[2020-03-04] MEDS ORDERED: mag hydrox/Alum hydrox/simeth 30ml oral suspension PO PRN (17:50)
[2020-03-04] MEDS ORDERED: haloperidol 5mg tablet PO PRN (17:50)
[2020-03-04] MEDS ORDERED: potassium CL 10mEq/100ml bag 100 ML IV PRN ×2 (17:50)
[2020-03-04] MEDS: K and/or MAG REPLACEMENT MC SCH (20:00)
[2020-03-04] MEDS ORDERED: phenazopyridine 100mg tablet PO SCH (21:00)
[2020-03-04] MEDS: enoxaparin 40mg/0.4ml syringe SQ SCH (21:20)
[2020-03-04] MEDS: acetaminophen 325mg tablet PO PRN (21:21)
[2020-03-04] MEDS: sodium bicarbonate (8.4%) inj. 100 MEQ in dextrose 5%-water 1,000 ML IV SCH (21:22)
[2020-03-04 22:00] VITALS: BP_SYST 125; BP_SYST 136; BP_DIAS 74; BP_DIAS 80
[2020-03-05 02:00] VITALS: BP 132/77
[2020-03-05] MEDS: sodium bicarbonate (8.4%) inj. 100 MEQ in dextrose 5%-water 1,000 ML IV SCH ×2 (04:50→08:31)
[2020-03-05 05:34] LABS: BASOPHILS % (AUTO) 0.9 % (0-1); EOSINOPHILS # (AUTO) 0.1 X10'3 (0-0.9); EOSINOPHILS % (AUTO) 2.2 % (0-6); LYMPHOCYTES # (AUTO) 1.8 X10'3 (1.1-4.8); LYMPHOCYTES % (AUTO) 38.5 % (21-51); MEAN CORPUSCULAR HEMOGLOBIN 25.1 PG (27.0-31.0); MEAN CORPUSCULAR HGB CONC 31.8 g/dL (33.0-36.5); MEAN CORPUSCULAR VOLUME 78.9 FL (78-98); MEAN PLATELET VOLUME 6.8 FL (7.4-10.4); MONOCYTES # (AUTO) 0.5 X10'3 (0-0.9); MONOCYTES % (AUTO) 9.7 % (2-12); NEUTROPHILS # (AUTO) 2.3 X10'3 (1.8-7.7); NEUTROPHILS % (AUTO) 48.7 % (42-75); PLATELET COUNT 212 X10'3 (140-440); RED BLOOD COUNT 3.17 X10'6 (4.70-6.10); WHITE BLOOD COUNT 4.7 X10'3 (4.5-11.0)
[2020-03-05 06:15] LABS: ALANINE AMINOTRANSFERASE 20 U/L (12-78); ALBUMIN 3.2 G/DL (3.4-5.0); ALKALINE PHOSPHATASE 38 IU/L (46-116); ANION GAP 10 (8-16); ASPARTATE AMINO TRANSFERASE 25 U/L (10-37); BILIRUBIN,TOTAL 1.6 MG/DL (0.1-1.0); BLOOD UREA NITROGEN 10 MG/DL (7-18); BUN/CREATININE RATIO 11.6 (5.4-32.0); CALCIUM 7.4 MG/DL (8.5-10.1); CHLORIDE 100 MMOL/L (99-107); CREATININE 0.86 MG/DL (0.60-1.10); GLUCOSE 105 MG/DL (70-104); LIPASE < 50 U/L (73-393); MAGNESIUM 1.1 MG/DL (1.5-2.4); PHOSPHORUS 1.8 MG/DL (2.3-4.5); SODIUM 135 MMOL/L (135-145); TOTAL CARBON DIOXIDE 24.7 MMOL/L (24-32); TOTAL PROTEIN 6.3 G/DL (6.4-8.2); eGFR > 90 ML/MIN
--- NOTE | 2020-03-05 06:15 | NUR ---
Patient in room MED 310. I have received report from SALBADOR Jorge and had the opportunity to ask questions and assume patient care.
[2020-03-05 06:24] LABS: POTASSIUM 2.9 MMOL/L (3.5-5.1)
[2020-03-05 07:00] VITALS: BP 134/87
[2020-03-05 07:12] LABS: ANISOCYTOSIS 3+; LARGE PLATELETS FEW; MICROCYTOSIS 1+; PLATELET ESTIMATE NORMAL; POLYCHROMASIA FEW; SCHISTOCYTES FEW
[2020-03-05] MEDS: thiamine inj. 100 MG, MVI, adult No.4 with vit. K 10 ML in dextrose 5% water 500ml 500 ML IV SCH ×3 (08:00)
[2020-03-05] MEDS ORDERED: magnesium oxide 400mg tablet PO SCH (08:00)
[2020-03-05] MEDS ORDERED: folic acid 1mg/0.2ml inj IV SCH (08:00)
[2020-03-05] MEDS: K and/or MAG REPLACEMENT MC SCH ×2 (08:35→20:00)
[2020-03-05] MEDS: folic acid 1mg tablet PO SCH (08:36)
[2020-03-05] MEDS: atorvastatin 10mg tablet PO SCH (08:36)
[2020-03-05] MEDS: thiamine 100mg tablet PO SCH (08:36)
[2020-03-05] MEDS: multivitamins, therapeutics tablet PO SCH (08:36)
[2020-03-05] MEDS: potassium Cl 20 mEq SR tablet PO PRN ×3 (08:37→21:12)
[2020-03-05 11:00] VITALS: BP 139/89
--- NOTE | 2020-03-05 12:32 | NUR ---
Malnutrition consult. Pt admitted with EtOH, receiving withdrawal protocol, abdominal pain with bilateral nephrolithiasis, h/o HTN, Chronic pancreatitis (lipase normal), hypokalemia receiving replacement, lactic acidosis per H&P note. First malnutrition consult patient declined loss in wt or appetite, then states 2-13 lb recent wt loss and poor appetite. Poor appetite likely r/t nausea and abdominal pain. Current weight 56.82 kg standing scale. Per documented wt history, no recent weight loss. No edema. No malnutrition at this time. Will follow. Addendum: 03/05/20 at [address] Amended: Links added.
[2020-03-05 15:00] VITALS: BP 128/90
[2020-03-05] MEDS: acetaminophen 325mg tablet PO PRN (16:25)
[2020-03-05 18:00] VITALS: BP 144/94
--- NOTE | 2020-03-05 18:30 | NUR ---
Problems reprioritized. Patient report given, questions answered & plan of care reviewed edwin Gilliam .
[2020-03-05] MEDS: tamsulosin 0.4mg capsule PO SCH ×2 (18:40→21:14)
[2020-03-05] MEDS ORDERED: CefTRIAXone 2gm/D5W 50ml 50 ML IV ONE (18:45)
--- NOTE | 2020-03-05 19:00 | NUR ---
Patient in room MED 310. I have received report from Destinee SIU and had the opportunity to ask questions and assume patient care.
[2020-03-05] MEDS: enoxaparin 40mg/0.4ml syringe SQ SCH (20:00)
--- NOTE | 2020-03-05 20:00 | NUR ---
CALLED MD FOR LACTIC ACID RESULTS, CRITICAL AT 4.3, NS ORDERED AT 100, LACTIC ACID LEVEL AT 0001 03/06
[2020-03-05] MEDS: magnesium 2GM in 50ml NS 50 ML IV PRN (21:12)
[2020-03-05] MEDS ORDERED: normal saline 1000ml 1,000 ML IV SCH (21:20)
--- NOTE | 2020-03-05 21:41 | NUR ---
PAGER ID: [phone] MESSAGE: [id number] ROBERT-HAS ONGOING ABDOMINAL/VISCERAL PAIN, ONLY ACETAMINOPHEN FOR PAIN. MAY WE GET ADDITIONAL PAIN MED FOR 8/9 OF 10 PAIN? CAN WE ALSO GET SLEEP MED AND/OR ATIVAN FOR ANXIETY/SLEEP? MICHAEL WARE ACCE [phone]
[2020-03-05] MEDS ORDERED: LORazepam 1 MG tablet PO PRN (21:45)
[2020-03-05] MEDS ORDERED: LORazepam 2 mg/ml vial IV PRN ×4 (21:45)
[2020-03-05 22:00] VITALS: BP 135/86
[2020-03-05] MEDS ORDERED: morphine 2 MG/ML inj. syringe IV PRN (22:05)
[2020-03-05] MEDS: morphine 2 MG/ML inj. syringe IV PRN (23:05)
--- NOTE | 2020-03-05 23:05 | NUR ---
Scanner not working at all, for all med administrations on this patient. had to submit unscheduled administration to document. informed rechargerSALBADOR Schwartz.
[2020-03-06 01:37] LABS: ALANINE AMINOTRANSFERASE 19 U/L (12-78); ALBUMIN 3.3 G/DL (3.4-5.0); ALKALINE PHOSPHATASE 42 IU/L (46-116); ANION GAP 10 (8-16); ASPARTATE AMINO TRANSFERASE 22 U/L (10-37); BILIRUBIN,TOTAL 1.2 MG/DL (0.1-1.0); BLOOD UREA NITROGEN 3 MG/DL (7-18); BUN/CREATININE RATIO 3.9 (5.4-32.0); CALCIUM 8.6 MG/DL (8.5-10.1); CHLORIDE 102 MMOL/L (99-107); CREATININE 0.76 MG/DL (0.60-1.10); GLUCOSE 97 MG/DL (70-104); LIPASE < 50 U/L (73-393); MAGNESIUM 1.2 MG/DL (1.5-2.4); PHOSPHORUS 1.3 MG/DL (2.3-4.5); POTASSIUM 3.2 MMOL/L (3.5-5.1); SODIUM 137 MMOL/L (135-145); TOTAL CARBON DIOXIDE 25.5 MMOL/L (24-32); TOTAL PROTEIN 6.6 G/DL (6.4-8.2); eGFR > 90 ML/MIN
[2020-03-06 02:00] VITALS: BP 125/80
[2020-03-06] MEDS: morphine 2 MG/ML inj. syringe IV PRN (03:22)
[2020-03-06 05:50] LABS: BASOPHILS % (AUTO) 0.8 % (0-1); EOSINOPHILS # (AUTO) 0.2 X10'3 (0-0.9); EOSINOPHILS % (AUTO) 4.6 % (0-6); HEMATOCRIT 27.4 % (42.0-52.0); HEMOGLOBIN 8.8 g/dl (14.0-17.9); LYMPHOCYTES # (AUTO) 1.6 X10'3 (1.1-4.8); LYMPHOCYTES % (AUTO) 36.7 % (21-51); MEAN CORPUSCULAR HEMOGLOBIN 25.6 PG (27.0-31.0); MEAN CORPUSCULAR HGB CONC 32.1 g/dL (33.0-36.5); MEAN CORPUSCULAR VOLUME 79.9 FL (78-98); MONOCYTES # (AUTO) 0.3 X10'3 (0-0.9); MONOCYTES % (AUTO) 6.6 % (2-12); NEUTROPHILS # (AUTO) 2.2 X10'3 (1.8-7.7); NEUTROPHILS % (AUTO) 51.3 % (42-75); PLATELET COUNT 206 X10'3 (140-440); RED BLOOD COUNT 3.44 X10'6 (4.70-6.10); RED CELL DISTRIBUTION WIDTH 25.9 % (11.5-14.5); WHITE BLOOD COUNT 4.4 X10'3 (4.5-11.0)
[2020-03-06 06:00] VITALS: BP 132/79
--- NOTE | 2020-03-06 06:24 | NUR ---
Patient in room MED 310. I have received report from edwin perales and had the opportunity to ask questions and assume patient care.
--- NOTE | 2020-03-06 07:01 | NUR ---
Problems reprioritized. Patient report given, questions answered & plan of care reviewed with kelechi SIU.
[2020-03-06] MEDS: K and/or MAG REPLACEMENT MC SCH (07:19)
[2020-03-06 07:56] LABS: ANISOCYTOSIS 3+; MICROCYTOSIS 1+; PLATELET ESTIMATE NORMAL; POLYCHROMASIA FEW
[2020-03-06 07:57] LABS: HYPOCHROMASIA 1+; LARGE PLATELETS FEW; POIKILOCYTOSIS FEW
[2020-03-06] MEDS: thiamine inj. 100 MG, MVI, adult No.4 with vit. K 10 ML in dextrose 5% water 500ml 500 ML IV SCH ×3 (08:00)
[2020-03-06] MEDS: atorvastatin 10mg tablet PO SCH (08:11)
[2020-03-06] MEDS: folic acid 1mg tablet PO SCH (08:11)
[2020-03-06] MEDS: thiamine 100mg tablet PO SCH (08:12)
[2020-03-06] MEDS: multivitamins, therapeutics tablet PO SCH (08:12)
[2020-03-06] MEDS: potassium Cl 20 mEq SR tablet PO PRN ×2 (08:13→13:28)
[2020-03-06 10:00] VITALS: BP 128/87
[2020-03-06] MEDS ORDERED: tamsulosin capsule PO (13:01)
[2020-03-06] MEDS ORDERED: PHOS250T2 PO (13:02)
[2020-03-06] MEDS ORDERED: CIPR-259 PO (13:02)
[2020-03-06] MEDS: magnesium 2GM in 50ml NS 50 ML IV PRN (13:28)
[2020-03-06 14:00] VITALS: BP 140/87
--- NOTE | 2020-03-06 15:45 | NUR ---
reviewed all discharge instructions with pt,prescriptions confirmed at [facility] in [place],written information provided on all new meds,SL dc'd from [facility],site clear,pt aware of need to f/u with PMD pt given information on AAA,pt dc'd via w/c with all belongings
[2020-03-06] MEDS ORDERED: LORazepam 2 mg/ml vial IV PRN (17:50)
[2020-03-06] MEDS ORDERED: LORazepam 1 MG tablet PO PRN (17:50)
[2020-03-07] MEDS ORDERED: LORazepam 1 MG tablet PO PRN (21:45)
[2020-03-07] MEDS ORDERED: LORazepam 2 mg/ml vial IV PRN (21:45)
[2020-03-08] MEDS ORDERED: LORazepam 2 mg/ml vial IV PRN (17:50)
[2020-03-08] MEDS ORDERED: LORazepam 1 MG tablet PO PRN (17:50)
[2020-03-09] MEDS ORDERED: LORazepam 2 mg/ml vial IV PRN (21:45)
[2020-03-09] MEDS ORDERED: LORazepam 1 MG tablet PO PRN (21:45)
== END 2020-03-06 16:53 | disposition home or self-care (01) | DRG 463 ==
LOC: ER 11:53 → ED HOLD 17:48 → MED 3N 19:45
PROVIDERS: ADMIT Family Medicine; ATTEND Family Medicine
DX: N30.20 Other chronic cystitis without hematuria (principal); E11.9 Type 2 diabetes mellitus without complications; E78.00 Pure hypercholesterolemia, unspecified; E78.5 Hyperlipidemia, unspecified; E83.39 Other disorders of phosphorus metabolism; E83.42 Hypomagnesemia; E87.2 Acidosis; E87.6 Hypokalemia; F10.20 Alcohol dependence, uncomplicated; I10 Essential (primary) hypertension; I48.20 Chronic atrial fibrillation, unspecified; K86.1 Other chronic pancreatitis; Z82.49 Family history of ischemic heart disease and other diseases of the circulatory system; Z83.3 Family history of diabetes mellitus; Z87.442 Personal history of urinary calculi
CPT/HCPCS: 36415; 36600; 74176; 80053; 80320; 82803; 82948; 83605; 83690; 83735; 84100; 85008; 85018; 85025; 85610; 87081; 93005; 97116; 97161; 97530; 99285; G0378; J0696; J1650; J2060; J2270; J2405; J3411; J3475; J3490; J7030; J7060

== ENCOUNTER 2020-04-24 14:34 | Emergency (ER) | payer MEDICAID ==
[~2020-04-24] VITALS: Ht 172.7 cm; Wt 55.9 kg
[~2020-04-24 14:34] MED LIST changes: -PHEN-716 PO; +PHOS250T2 PO; -POTA8CAP20 PO; +tamsulosin capsule PO
[2020-04-24] MEDS ORDERED: ibuprofen tablet 400 MG TABLET PO ONE (16:40)
[2020-04-24] MEDS ORDERED: dicyclomine 10 MG capsule PO ONE (16:40)
[2020-04-24] MEDS ORDERED: LIDOcaine Viscous 15ml cup MM ONE (16:40)
[2020-04-24] MEDS ORDERED: mag hydrox/Alum hydrox/simeth 30ml oral suspension PO ONE (16:40)
[2020-04-24] MEDS ORDERED: pantoprazole 40mg Tablet.DR PO ONE (16:40)
[2020-04-24] MEDS ORDERED: ondansetron 4mg rapidly disintigrating tab PO ONE (16:40)
[2020-04-24 17:40] LABS: BASOPHILS # (AUTO) 0.1 X10'3 (0-0.2); BASOPHILS % (AUTO) 0.6 % (0-1); EOSINOPHILS % (AUTO) 0 % (0-6); LYMPHOCYTES # (AUTO) 2.7 X10'3 (1.1-4.8); LYMPHOCYTES % (AUTO) 16.6 % (21-51); MEAN PLATELET VOLUME 7.2 FL (7.4-10.4); MONOCYTES % (AUTO) 6.1 % (2-12); NEUTROPHILS # (AUTO) 12.6 X10'3 (1.8-7.7); NEUTROPHILS % (AUTO) 76.7 % (42-75); PLATELET COUNT 354 X10'3 (140-440); WHITE BLOOD COUNT 16.4 X10'3 (4.5-11.0)
[2020-04-24 17:54] LABS: ALANINE AMINOTRANSFERASE 18 U/L (12-78); ALBUMIN 4.6 G/DL (3.4-5.0); ALKALINE PHOSPHATASE 102 IU/L (46-116); ANION GAP 27 (8-16); ASPARTATE AMINO TRANSFERASE 31 U/L (10-37); CHLORIDE 93 MMOL/L (99-107); CREATININE 1.37 MG/DL (0.60-1.10); GLUCOSE 91 MG/DL (70-104); LIPASE < 50 U/L (73-393); POTASSIUM 3.5 MMOL/L (3.5-5.1); SODIUM 135 MMOL/L (135-145); TOTAL PROTEIN 9.2 G/DL (6.4-8.2); eGFR 55 ML/MIN
[2020-04-24 17:55] LABS: BUN/CREATININE RATIO 13.1 (5.4-32.0)
[2020-04-24 17:57] LABS: HEMATOCRIT 39.1 % (42.0-52.0); HEMOGLOBIN 12.1 g/dl (14.0-17.9); MEAN CORPUSCULAR HEMOGLOBIN 22.7 PG (27.0-31.0); MEAN CORPUSCULAR HGB CONC 30.8 g/dL (33.0-36.5); MEAN CORPUSCULAR VOLUME 73.7 FL (78-98)
[2020-04-24 18:12] LABS: BLOOD UREA NITROGEN 18 MG/DL (7-18); TOTAL CARBON DIOXIDE 14.6 MMOL/L (24-32)
[2020-04-24] MEDS ORDERED: normal saline 1000ML IV soln IVB ONE (18:20)
[2020-04-24 18:48] LABS: ANISOCYTOSIS 3+; MICROCYTOSIS 1+; PLATELET ESTIMATE NORMAL
[2020-04-24 18:49] LABS: HYPOCHROMASIA 1+
[2020-04-24 19:11] LABS: ABG BASE EXCESS -8.7 mmol/L (-2.0-2.0); ABG HCO3 13.2 mmol/L (22.0-26.0); ABG OXYGEN SATURATION 97.2 % (94-97); ABG PCO2 (T) 19.6 mmHg (35.0-48.0); ABG PO2 (T) 99.8 mmHg (75.0-100.0); FCOHb 1.2 % (0.0-3.9); FMetHb 0.3 % (0.0-1.5); FO2Hb 95.7 % (94-97); TOTAL HEMOGLOBIN 11.8 G/dl (14.0-18.0)
[2020-04-24 21:52] LABS: ALBUMIN 3.7 G/DL (3.4-5.0); ANION GAP 17 (8-16); CALCIUM 8.4 MG/DL (8.5-10.1); CHLORIDE 96 MMOL/L (99-107); CREATININE 0.95 MG/DL (0.60-1.10); GLUCOSE 112 MG/DL (70-104); POTASSIUM 3.6 MMOL/L (3.5-5.1); SODIUM 133 MMOL/L (135-145); TOTAL CARBON DIOXIDE 20.5 MMOL/L (24-32); eGFR 83 ML/MIN
[2020-04-24 21:54] LABS: BLOOD UREA NITROGEN 19 MG/DL (7-18)
[2020-04-24 22:20] VITALS: BP 144/81
== END 2020-04-24 22:17 | disposition home or self-care (01) ==
LOC: ER 14:35
DX: R10.13 Epigastric pain (principal); F10.129 Alcohol abuse with intoxication, unspecified; R22.2 Localized swelling, mass and lump, trunk; E78.00 Pure hypercholesterolemia, unspecified; I10 Essential (primary) hypertension; I48.91 Unspecified atrial fibrillation; I49.9 Cardiac arrhythmia, unspecified; K85.90 Acute pancreatitis without necrosis or infection, unspecified; Z79.899 Other long term (current) drug therapy; Y90.9 Presence of alcohol in blood, level not specified
CPT/HCPCS: 36415; 36600; 71045; 80048; 80053; 80320; 82803; 83690; 84484; 85018; 85025; 93005; 96360; 96361; 99285; J7030; 85008

== ENCOUNTER 2020-05-14 12:34 | Emergency (ER) | payer MEDICAID ==
[~2020-05-14] VITALS: Ht 172.7 cm; Wt 55.9 kg
[2020-05-14 13:29] LABS: BASOPHILS # (AUTO) 0.1 X10'3 (0-0.2); BASOPHILS % (AUTO) 1.3 % (0-1); EOSINOPHILS # (AUTO) 0.1 X10'3 (0-0.9); EOSINOPHILS % (AUTO) 0.6 % (0-6); LYMPHOCYTES # (AUTO) 2.5 X10'3 (1.1-4.8); LYMPHOCYTES % (AUTO) 29.5 % (21-51); MEAN PLATELET VOLUME 7.1 FL (7.4-10.4); MONOCYTES # (AUTO) 0.7 X10'3 (0-0.9); MONOCYTES % (AUTO) 8.8 % (2-12); NEUTROPHILS # (AUTO) 5.1 X10'3 (1.8-7.7); NEUTROPHILS % (AUTO) 59.8 % (42-75); PLATELET COUNT 365 X10'3 (140-440); RED BLOOD COUNT 4.78 X10'6 (4.70-6.10); RED CELL DISTRIBUTION WIDTH 26.4 % (11.5-14.5); WHITE BLOOD COUNT 8.5 X10'3 (4.5-11.0)
[2020-05-14 13:49] LABS: ALANINE AMINOTRANSFERASE 32 U/L (12-78); ALBUMIN 4.1 G/DL (3.4-5.0); ALKALINE PHOSPHATASE 82 IU/L (46-116); ANION GAP 26 (8-16); ASPARTATE AMINO TRANSFERASE 53 U/L (10-37); BILIRUBIN,TOTAL 0.9 MG/DL (0.1-1.0); BLOOD UREA NITROGEN 19 MG/DL (7-18); BUN/CREATININE RATIO 17.3 (5.4-32.0); CHLORIDE 99 MMOL/L (99-107); GLUCOSE 75 MG/DL (70-104); SODIUM 142 MMOL/L (135-145); TOTAL CARBON DIOXIDE 17.1 MMOL/L (24-32); TOTAL PROTEIN 8.2 G/DL (6.4-8.2); eGFR 70 ML/MIN
[2020-05-14 13:54] LABS: POTASSIUM 2.9 MMOL/L (3.5-5.1)
[2020-05-14 13:57] LABS: HEMATOCRIT 32.5 % (42.0-52.0); HEMOGLOBIN 10.4 g/dl (14.0-17.9); MEAN CORPUSCULAR HEMOGLOBIN 23.4 PG (27.0-31.0); MEAN CORPUSCULAR VOLUME 73.2 FL (78-98)
[2020-05-14] MEDS ORDERED: potassium 10mEq/100ml NS w/LIDOcaine (10mg/bag) IV ONE (14:10)
[2020-05-14] MEDS ORDERED: potassium Cl 10 mEq/100mL bag IV ONE (14:15)
[2020-05-14] MEDS ORDERED: magnesium oxide 400mg tablet PO ONE (14:15)
[2020-05-14] MEDS ORDERED: POTA20TA19 PO (14:23)
[2020-05-14 14:48] LABS: ANISOCYTOSIS 3+; ELLIPTOCYTES FEW; MICROCYTOSIS 1+
[2020-05-14 14:50] LABS: HYPOCHROMASIA 1+; PLATELET ESTIMATE NORMAL
[2020-05-14 14:51] LABS: POLYCHROMASIA FEW; ROULEAUX 1+
[2020-05-14 14:52] LABS: SCHISTOCYTES FEW
[2020-05-14] MEDS ORDERED: mag hydrox/Alum hydrox/simeth 30ml oral suspension PO ONE (15:15)
[2020-05-14] MEDS ORDERED: sucralfate 1gm/10ml UD suspension PO ONE (15:15)
[2020-05-14] MEDS ORDERED: LIDOcaine Viscous 15ml cup MM ONE (15:15)
[2020-05-14] MEDS ORDERED: ondansetron/PF 4mg/2ml inj IV ONE (16:05)
[2020-05-14 16:24] VITALS: BP 124/75
--- NOTE | 2020-05-14 17:33 | NUR ---
PTS BROTHER CALLED STATING PT LEFT RX HERE UPON DC. K-DUR 20MEQ 1 PO BID #6 NO REFILL PER PRINTED RX FROM DR Mark CALLED TO [facility] ON [address].
[2020-05-15] MEDS ORDERED: ONDA4TAB6 PO (02:45)
[2020-05-15] MEDS ORDERED: POTA10TA36 PO (03:07)
== END 2020-05-14 16:14 | disposition home or self-care (01) ==
LOC: ER 12:34
DX: G89.29 Other chronic pain (principal); R10.9 Unspecified abdominal pain; R07.89 Other chest pain; E87.6 Hypokalemia; K86.0 Alcohol-induced chronic pancreatitis; I48.91 Unspecified atrial fibrillation; E78.00 Pure hypercholesterolemia, unspecified; I10 Essential (primary) hypertension; Z90.49 Acquired absence of other specified parts of digestive tract; Z72.89 Other problems related to lifestyle; Z79.899 Other long term (current) drug therapy
CPT/HCPCS: 36415; 71045; 80053; 83880; 84484; 85008; 85025; 93005; 96365; 96375; 99285; J2405; J3480

== ENCOUNTER 2020-05-14 20:14 | Emergency (ER) | payer MEDICAID ==
[~2020-05-14] VITALS: Ht 172.7 cm; Wt 53.8 kg
[~2020-05-14 20:14] MED LIST changes: +POTA20TA19 PO
[2020-05-14] MEDS ORDERED: famotidine/PF 10 mg/ml inj IV ONE (22:15)
[2020-05-14] MEDS ORDERED: normal saline 1000ML IV soln IVB ONE ×2 (22:15→23:15)
[2020-05-14] MEDS ORDERED: metoclopramide 5 mg/ml inj IV ONE (22:15)
[2020-05-14] MEDS ORDERED: LORazepam 2 mg/ml vial IV ONE (22:15)
[2020-05-14 22:47] LABS: MEAN PLATELET VOLUME 7.4 FL (7.4-10.4)
[2020-05-14 22:48] LABS: BASOPHILS # (AUTO) 0.1 X10'3 (0-0.2); BASOPHILS % (AUTO) 0.5 % (0-1); EOSINOPHILS % (AUTO) 0 % (0-6); LYMPHOCYTES # (AUTO) 1.4 X10'3 (1.1-4.8); LYMPHOCYTES % (AUTO) 10.4 % (21-51); MONOCYTES # (AUTO) 1.1 X10'3 (0-0.9); MONOCYTES % (AUTO) 7.7 % (2-12); NEUTROPHILS # (AUTO) 11.2 X10'3 (1.8-7.7); NEUTROPHILS % (AUTO) 81.4 % (42-75); PLATELET COUNT 364 X10'3 (140-440)
[2020-05-14 23:01] LABS: ALANINE AMINOTRANSFERASE 31 U/L (12-78); ALBUMIN 4.6 G/DL (3.4-5.0); ALKALINE PHOSPHATASE 97 IU/L (46-116); ANION GAP 32 (8-16); ASPARTATE AMINO TRANSFERASE 59 U/L (10-37); BLOOD UREA NITROGEN 24 MG/DL (7-18); BUN/CREATININE RATIO 15.3 (5.4-32.0); CALCIUM 9.3 MG/DL (8.5-10.1); CHLORIDE 98 MMOL/L (99-107); CREATININE 1.57 MG/DL (0.60-1.10); GLUCOSE 150 MG/DL (70-104); LIPASE < 50 U/L (73-393); POTASSIUM 4.3 MMOL/L (3.5-5.1); SODIUM 140 MMOL/L (135-145); TOTAL PROTEIN 9.1 G/DL (6.4-8.2); eGFR 47 ML/MIN
[2020-05-14 23:02] LABS: HEMOGLOBIN 11.7 g/dl (14.0-17.9); RED BLOOD COUNT 4.91 X10'6 (4.70-6.10); WHITE BLOOD COUNT 13.4 X10'3 (4.5-11.0)
[2020-05-14 23:03] LABS: MEAN CORPUSCULAR HEMOGLOBIN 23.9 PG (27.0-31.0); MEAN CORPUSCULAR HGB CONC 31.6 g/dL (33.0-36.5); MEAN CORPUSCULAR VOLUME 75.5 FL (78-98)
[2020-05-14 23:04] LABS: ANISOCYTOSIS 3+; ELLIPTOCYTES FEW; HYPOCHROMASIA 1+; PLATELET ESTIMATE NORMAL; TOTAL CARBON DIOXIDE 10.5 MMOL/L (24-32)
--- NOTE | 2020-05-15 01:40 | NUR ---
po challenge given. pt tolerated approx half cup water with no vomiting but had some retching after
[2020-05-15 01:42] VITALS: BP 141/91
[2020-05-15] MEDS ORDERED: ONDA4TAB6 PO (02:45)
[2020-05-15] MEDS ORDERED: ondansetron/PF 4mg/2ml inj IV ONE (02:55)
[2020-05-15] MEDS ORDERED: POTA10TA36 PO (03:07)
== END 2020-05-15 03:13 | disposition home or self-care (01) ==
LOC: ER 20:14
DX: R10.13 Epigastric pain (principal); R11.10 Vomiting, unspecified; I48.91 Unspecified atrial fibrillation; I10 Essential (primary) hypertension; E78.00 Pure hypercholesterolemia, unspecified; Z90.49 Acquired absence of other specified parts of digestive tract; Z79.899 Other long term (current) drug therapy
CPT/HCPCS: 36415; 80053; 83690; 85008; 85025; 96361; 96374; 96375; 99285; J2060; J2405; J2765; J3490; J7030

== ENCOUNTER 2020-06-02 23:12 | Inpatient (IN) | payer MEDICAID ==
[~2020-06-02] VITALS: Ht 172.7 cm; Wt 65.0 kg
[~2020-06-02 23:12] MED LIST changes: +ONDA4TAB6 PO; +POTA10TA36 PO; -POTA20TA19 PO
[2020-06-02] MEDS ORDERED: folic acid 1mg/0.2ml inj IV ONE (23:30)
[2020-06-02] MEDS ORDERED: thiamine 100mg/ml 2ml inj. IV ONE (23:30)
[2020-06-02] MEDS ORDERED: magnesium 2GM in 50ml NS 50 ML IV ONE (23:30)
[2020-06-02] MEDS ORDERED: LORazepam 2 mg/ml vial IV ONE (23:30)
[2020-06-03 00:07] LABS: BASOPHILS # (AUTO) 0.1 X10'3 (0-0.2); BASOPHILS % (AUTO) 1.4 % (0-1); EOSINOPHILS % (AUTO) 0.1 % (0-6); HEMATOCRIT 31.8 % (42.0-52.0); LYMPHOCYTES # (AUTO) 2.2 X10'3 (1.1-4.8); LYMPHOCYTES % (AUTO) 37.9 % (21-51); MEAN CORPUSCULAR HGB CONC 31.4 g/dL (33.0-36.5); MEAN CORPUSCULAR VOLUME 73.4 FL (78-98); MEAN PLATELET VOLUME 7.1 FL (7.4-10.4); MONOCYTES % (AUTO) 16.6 % (2-12); NEUTROPHILS # (AUTO) 2.5 X10'3 (1.8-7.7); PLATELET COUNT 430 X10'3 (140-440); RED BLOOD COUNT 4.32 X10'6 (4.70-6.10); WHITE BLOOD COUNT 5.8 X10'3 (4.5-11.0)
[2020-06-03 00:30] LABS: ALANINE AMINOTRANSFERASE 15 U/L (12-78); ALBUMIN 3.7 G/DL (3.4-5.0); ALBUMIN/GLOBULIN RATIO 0.9 (1.1-1.5); ALKALINE PHOSPHATASE 70 IU/L (46-116); ANION GAP 25 (8-16); ASPARTATE AMINO TRANSFERASE 24 U/L (10-37); BILIRUBIN,TOTAL 0.5 MG/DL (0.1-1.0); BLOOD UREA NITROGEN 13 MG/DL (7-18); BUN/CREATININE RATIO 7.6 (5.4-32.0); CALCIUM 8.9 MG/DL (8.5-10.1); CHLORIDE 99 MMOL/L (99-107); CREATININE 1.72 MG/DL (0.60-1.10); ETHANOL 0.208 GM/DL (0.0-0.010); GLUCOSE 194 MG/DL (70-104); MAGNESIUM 1.5 MG/DL (1.5-2.4); PHOSPHORUS 2.4 MG/DL (2.3-4.5); SODIUM 138 MMOL/L (135-145); eGFR 42 ML/MIN
[2020-06-03 00:32] LABS: POTASSIUM 2.8 MMOL/L (3.5-5.1)
[2020-06-03 00:33] LABS: TOTAL CARBON DIOXIDE 14.2 MMOL/L (24-32)
[2020-06-03] MEDS ORDERED: potassium 10mEq/100ml NS w/LIDOcaine (10mg/bag) IV SCH (00:35)
[2020-06-03] MEDS ORDERED: potassium Cl 20 mEq SR tablet PO ONE (00:35)
[2020-06-03] MEDS ORDERED: normal saline 1000ML IV soln IVB ONE (00:35)
--- NOTE | 2020-06-03 00:40 | NUR ---
edmd rebecca made aware of pt blood pressure trending low at 81/44 and 84/40. per rebecca, new orders will be placed for fluid recuscitation and admission
[2020-06-03] MEDS: potassium Cl 20mEq in NS 1,000 ML IV SCH ×2 (00:45→13:42)
[2020-06-03] MEDS ORDERED: magnesium hydroxide 30ml (MOM) UD suspension PO PRN (00:45)
[2020-06-03] MEDS ORDERED: potassium Cl 20 mEq SR tablet PO PRN ×2 (00:45)
[2020-06-03] MEDS ORDERED: HYDROmorphone inj. 0.5 MG/0.5 ML DISP.SYRIN IV PRN (00:45)
[2020-06-03] MEDS ORDERED: haloperidol 5mg tablet PO PRN (00:45)
[2020-06-03] MEDS ORDERED: LORazepam 2 mg/ml vial IV PRN (00:45)
[2020-06-03] MEDS ORDERED: potassium Cl 40MEQ/1/2NS 520ml 520 ML IV PRN ×2 (00:45)
[2020-06-03] MEDS ORDERED: mag hydrox/Alum hydrox/simeth 30ml oral suspension PO PRN (00:45)
[2020-06-03] MEDS ORDERED: dextrose 50%-water 50ml dispensing syringe IV PRN (00:45)
[2020-06-03] MEDS ORDERED: magnesium Cl slow-release 64mg tablet PO PRN (00:45)
[2020-06-03] MEDS ORDERED: magnesium 4gm in 100ml NS 100 ML IV PRN (00:45)
[2020-06-03] MEDS ORDERED: haloperidol lactate 5mg/ml inj IM PRN (00:45)
[2020-06-03] MEDS ORDERED: ondansetron/PF 4mg/2ml inj IV PRN (00:45)
[2020-06-03] MEDS ORDERED: acetaminophen 325mg tablet PO PRN ×2 (00:45)
[2020-06-03] MEDS ORDERED: magnesium 2GM in 50ml NS 50 ML IV PRN (00:45)
[2020-06-03] MEDS: potassium CL 10mEq/100ml bag 100 ML IV SCH ×2 (00:56→03:17)
[2020-06-03 00:58] LABS: HYPOCHROMASIA 1+; PLATELET ESTIMATE NORMAL; POIKILOCYTOSIS 3+; TOTAL CELLS COUNTED 100
[2020-06-03 01:04] LABS: LIPASE 94 U/L (73-393)
--- NOTE | 2020-06-03 01:08 | NUR ---
TRIED TO CALL REPORT AND THEY HAVE TO FIND A RN THAT IS TAKING PT WILL CALL BACK
[2020-06-03 01:11] LABS: ABG BASE EXCESS -8.9 mmol/L (-2.0-2.0); ABG HCO3 12.6 mmol/L (22.0-26.0); ABG OXYGEN SATURATION 97.9 % (94-97); ABG PCO2 (T) 17.2 mmHg (35.0-48.0); ABG PO2 (T) 117.5 mmHg (75.0-100.0); ALLEN'S TEST POSITIVE; FCOHb 0.4 % (0.0-3.9); FMetHb 0.2 % (0.0-1.5); FO2Hb 97.3 % (94-97); TOTAL HEMOGLOBIN 9.7 G/dl (14.0-18.0)
--- NOTE | 2020-06-03 01:20 | NUR ---
Patient transferred from ED on [facility] Transferred to bed. Safety measures in place, bed in low and locked position. Call light and personal items within reach. Will continue to monitor for remainder of shift.
[2020-06-03] MEDS ORDERED: fentaNYL/PF 50MCG/1 ML 2ML syringe IV ONE (01:40)
[2020-06-03 02:15] VITALS: BP 94/51
--- NOTE | 2020-06-03 06:41 | NUR ---
Problems reprioritized. Patient report given, questions answered & plan of care reviewed with SALBADOR Caputo. VSS. Medications adminsitered as ordered. Safety measures in place, bed in low and locked position. Call light and personal items within reach. Will continue to monitor for remainder of shift.
[2020-06-03 07:00] VITALS: BP 108/71
[2020-06-03 07:28] LABS: BASOPHILS % (AUTO) 0.2 % (0-1); EOSINOPHILS % (AUTO) 0 % (0-6); HEMATOCRIT 27.4 % (42.0-52.0); HEMOGLOBIN 8.6 g/dl (14.0-17.9); LYMPHOCYTES # (AUTO) 1.5 X10'3 (1.1-4.8); LYMPHOCYTES % (AUTO) 15.7 % (21-51); MEAN CORPUSCULAR HEMOGLOBIN 23.2 PG (27.0-31.0); MEAN CORPUSCULAR HGB CONC 31.4 g/dL (33.0-36.5); MEAN CORPUSCULAR VOLUME 73.8 FL (78-98); MEAN PLATELET VOLUME 7.2 FL (7.4-10.4); MONOCYTES # (AUTO) 0.6 X10'3 (0-0.9); MONOCYTES % (AUTO) 6.9 % (2-12); NEUTROPHILS # (AUTO) 7.2 X10'3 (1.8-7.7); NEUTROPHILS % (AUTO) 77.2 % (42-75); PLATELET COUNT 311 X10'3 (140-440); RED BLOOD COUNT 3.71 X10'6 (4.70-6.10); RED CELL DISTRIBUTION WIDTH 28.9 % (11.5-14.5); WHITE BLOOD COUNT 9.4 X10'3 (4.5-11.0)
[2020-06-03 07:36] LABS: ALANINE AMINOTRANSFERASE 12 U/L (12-78); ALBUMIN/GLOBULIN RATIO 0.8 (1.1-1.5); ALKALINE PHOSPHATASE 55 IU/L (46-116); ANION GAP 16 (8-16); ASPARTATE AMINO TRANSFERASE 14 U/L (10-37); BILIRUBIN,TOTAL 0.4 MG/DL (0.1-1.0); BLOOD UREA NITROGEN 12 MG/DL (7-18); BUN/CREATININE RATIO 8.8 (5.4-32.0); CALCIUM 8.1 MG/DL (8.5-10.1); CHLORIDE 106 MMOL/L (99-107); CREATININE 1.36 MG/DL (0.60-1.10); GLUCOSE 203 MG/DL (70-104); MAGNESIUM 2.5 MG/DL (1.5-2.4); POTASSIUM 3.8 MMOL/L (3.5-5.1); SODIUM 138 MMOL/L (135-145); TOTAL CARBON DIOXIDE 15.6 MMOL/L (24-32); TOTAL PROTEIN 6.6 G/DL (6.4-8.2); eGFR 55 ML/MIN
[2020-06-03] MEDS: pantoprazole 40 MG vial IV SCH (07:37)
[2020-06-03] MEDS: famotidine 20mg tablet PO SCH ×2 (07:38→20:17)
[2020-06-03] MEDS: folic acid 1mg tablet PO SCH (07:38)
[2020-06-03] MEDS: multivitamins, therapeutics tablet PO SCH (07:38)
[2020-06-03] MEDS: HYDROcodone/acetaminophen 10/325mg tab PO PRN ×3 (07:39→20:18)
[2020-06-03] MEDS: K and/or MAG REPLACEMENT MC SCH ×2 (08:00→19:27)
[2020-06-03] MEDS: thiamine 100mg tablet PO SCH (08:00)
[2020-06-03] MEDS ORDERED: thiamine inj. 100 MG, MVI, adult No.4 with vit. K 10 ML in dextrose 5% water 500ml 500 ML IV SCH ×3 (08:00)
[2020-06-03] MEDS ORDERED: thiamine inj. 100 MG, magnesium sulf injection 2 GM, MVI, adult No.4 with vit. K 10 ML ... IV SCH ×8 (08:00→21:52)
[2020-06-03 10:01] LABS: ELLIPTOCYTES FEW; HYPOCHROMASIA 1+; MICROCYTOSIS 1+; PLATELET ESTIMATE NORMAL; POIKILOCYTOSIS 3+
--- NOTE | 2020-06-03 12:35 | NUR ---
Malnutrition consult, multiple previous admission for EtOH drinking 1/2 vodka daily. No weight loss per documented wt history. no edema. Having n/v, clear liquid diet, not eating well at the current time r/t emesis. Admitted with SONJA, EtOH gastritis, h/o chronic pancreatitis. Confused, unable for bedside interview. Per previous admission usually begins eating well after n/v has resolved. Addendum: 06/03/20 at [address] Amended: Links added.
--- NOTE | 2020-06-03 13:06 | NUR ---
PAGER ID: [phone] MESSAGE: [id number]. would you like the patient to have the fluids with K running? K was 3.8, Thanks, Patito
[2020-06-03 17:00] VITALS: BP 151/98
[2020-06-03 18:00] VITALS: BP 137/91
[2020-06-03 22:00] VITALS: BP 134/96
--- NOTE | 2020-06-03 22:16 | NUR ---
Patient in room PCU 3017. I have received report from SALBADOR Caputo and had the opportunity to ask questions and assume patient care.
[2020-06-04] MEDS: potassium Cl 20mEq in NS 1,000 ML IV SCH ×2 (00:25→06:45)
[2020-06-04] MEDS: temazepam 15mg capsule PO PRN ×2 (00:33→21:30)
[2020-06-04] MEDS: HYDROcodone/acetaminophen 10/325mg tab PO PRN ×4 (00:33→20:02)
[2020-06-04 02:00] VITALS: BP 141/94
--- NOTE | 2020-06-04 02:55 | NUR ---
Paged Dr. Wagoner. RE: Fabiana Roth RM [id number]. I - 7 beat run of [facility]. Asymptomatic. Jaxon [phone]
--- NOTE | 2020-06-04 06:19 | NUR ---
Problems reprioritized. Patient report given, questions answered & plan of care reviewed with SALBADOR Caputo. VSS. Care plan followed, safety measures in place. Bed in low and locked position. Call light and personal items within reach. Will continue to monitor for remainder of shift.
[2020-06-04 06:51] VITALS: BP 129/82
[2020-06-04] MEDS: pantoprazole 40 MG vial IV SCH (07:03)
[2020-06-04] MEDS: famotidine 20mg tablet PO SCH ×2 (07:04→19:14)
[2020-06-04] MEDS: folic acid 1mg tablet PO SCH (07:04)
[2020-06-04] MEDS: multivitamins, therapeutics tablet PO SCH (07:04)
[2020-06-04] MEDS: thiamine 100mg tablet PO SCH (07:05)
[2020-06-04 07:34] LABS: BASOPHILS % (AUTO) 0.9 % (0-1); EOSINOPHILS # (AUTO) 0.1 X10'3 (0-0.9); EOSINOPHILS % (AUTO) 1.1 % (0-6); HEMATOCRIT 23.6 % (42.0-52.0); HEMOGLOBIN 7.3 g/dl (14.0-17.9); LYMPHOCYTES # (AUTO) 2.6 X10'3 (1.1-4.8); LYMPHOCYTES % (AUTO) 54.3 % (21-51); MEAN CORPUSCULAR HEMOGLOBIN 23.1 PG (27.0-31.0); MEAN CORPUSCULAR HGB CONC 31.2 g/dL (33.0-36.5); MEAN PLATELET VOLUME 7.2 FL (7.4-10.4); MONOCYTES # (AUTO) 0.3 X10'3 (0-0.9); MONOCYTES % (AUTO) 6.3 % (2-12); NEUTROPHILS # (AUTO) 1.8 X10'3 (1.8-7.7); NEUTROPHILS % (AUTO) 37.4 % (42-75); PLATELET COUNT 268 X10'3 (140-440); RED BLOOD COUNT 3.18 X10'6 (4.70-6.10); RED CELL DISTRIBUTION WIDTH 27.5 % (11.5-14.5); WHITE BLOOD COUNT 4.8 X10'3 (4.5-11.0)
[2020-06-04 07:45] LABS: ALANINE AMINOTRANSFERASE 13 U/L (12-78); ALBUMIN 2.8 G/DL (3.4-5.0); ALBUMIN/GLOBULIN RATIO 0.8 (1.1-1.5); ALKALINE PHOSPHATASE 59 IU/L (46-116); ANION GAP 9 (8-16); ASPARTATE AMINO TRANSFERASE 17 U/L (10-37); BILIRUBIN,TOTAL 0.8 MG/DL (0.1-1.0); BLOOD UREA NITROGEN 6 MG/DL (7-18); BUN/CREATININE RATIO 5.7 (5.4-32.0); CALCIUM 8.2 MG/DL (8.5-10.1); CHLORIDE 108 MMOL/L (99-107); CREATININE 1.06 MG/DL (0.60-1.10); GLUCOSE 132 MG/DL (70-104); MAGNESIUM 1.6 MG/DL (1.5-2.4); PHOSPHORUS 2.5 MG/DL (2.3-4.5); POTASSIUM 4.2 MMOL/L (3.5-5.1); SODIUM 138 MMOL/L (135-145); TOTAL CARBON DIOXIDE 20.9 MMOL/L (24-32); TOTAL PROTEIN 6.1 G/DL (6.4-8.2); eGFR 73 ML/MIN
[2020-06-04] MEDS: K and/or MAG REPLACEMENT MC SCH ×2 (08:00→19:16)
[2020-06-04 11:00] VITALS: BP 143/101
[2020-06-04 12:39] LABS: BANDS% (MANUAL) 0 % (0-10); TOTAL CELLS COUNTED 200
[2020-06-04 12:40] LABS: BASOPHILS % (MANUAL) 0 % (0-1); PLATELET ESTIMATE NORMAL
[2020-06-04 12:43] LABS: ANISOCYTOSIS 3+; HYPOCHROMASIA 1+; MICROCYTOSIS 1+
[2020-06-04 12:44] LABS: ELLIPTOCYTES 1+; POLYCHROMASIA FEW; SCHISTOCYTES FEW; STOMATOCYTES FEW; TEAR DROP CELLS FEW
[2020-06-04 12:46] LABS: SMUDGE CELLS 1+
[2020-06-04] MEDS ORDERED: hyDRALAzine 10mg tablet PO SCH (13:00)
[2020-06-04 13:29] LABS: % IRON SATURATION 35 % (11-46); IRON 128 UG/DL (53-167); TOTAL IRON BINDING CAPACITY 366 UG/DL (259-388)
[2020-06-04 15:00] VITALS: BP 133/85
[2020-06-04] MEDS: HYDROcodone/acetaminophen 5mg/325mg tablet PO PRN (15:53)
[2020-06-04 16:14] LABS: OCCULT BLOOD STOOL NEGATIVE (Neg)
[2020-06-04 18:00] VITALS: BP 140/85
--- NOTE | 2020-06-04 18:37 | NUR ---
Patient in room PCU 3017. I have received report from Patito SIU and had the opportunity to ask questions and assume patient care.
[2020-06-04] MEDS: hyDRALAzine 10mg tablet PO SCH (19:15)
[2020-06-04 22:00] VITALS: BP 140/83
[2020-06-05] MEDS: HYDROcodone/acetaminophen 5mg/325mg tablet PO PRN ×2 (00:08→04:09)
[2020-06-05] MEDS ORDERED: LORazepam 2 mg/ml vial IV PRN (00:45)
[2020-06-05] MEDS ORDERED: LORazepam 1 MG tablet PO PRN (00:45)
[2020-06-05 02:00] VITALS: BP 139/85
[2020-06-05 02:31] LABS: BASOPHILS % (AUTO) 0.9 % (0-1); EOSINOPHILS # (AUTO) 0.2 X10'3 (0-0.9); EOSINOPHILS % (AUTO) 3.6 % (0-6); HEMATOCRIT 24.5 % (42.0-52.0); HEMOGLOBIN 7.4 g/dl (14.0-17.9); LYMPHOCYTES # (AUTO) 2.5 X10'3 (1.1-4.8); LYMPHOCYTES % (AUTO) 48.1 % (21-51); MEAN CORPUSCULAR HEMOGLOBIN 22.4 PG (27.0-31.0); MEAN CORPUSCULAR HGB CONC 30.5 g/dL (33.0-36.5); MEAN CORPUSCULAR VOLUME 73.4 FL (78-98); MEAN PLATELET VOLUME 7.1 FL (7.4-10.4); MONOCYTES # (AUTO) 0.3 X10'3 (0-0.9); MONOCYTES % (AUTO) 6.5 % (2-12); NEUTROPHILS # (AUTO) 2.1 X10'3 (1.8-7.7); NEUTROPHILS % (AUTO) 40.9 % (42-75); PLATELET COUNT 304 X10'3 (140-440); RED BLOOD COUNT 3.33 X10'6 (4.70-6.10); RED CELL DISTRIBUTION WIDTH 27.7 % (11.5-14.5); WHITE BLOOD COUNT 5.1 X10'3 (4.5-11.0)
[2020-06-05 02:47] LABS: ALANINE AMINOTRANSFERASE 14 U/L (12-78); ALBUMIN/GLOBULIN RATIO 0.9 (1.1-1.5); ALKALINE PHOSPHATASE 63 IU/L (46-116); ANION GAP 8 (8-16); ASPARTATE AMINO TRANSFERASE 19 U/L (10-37); BILIRUBIN,TOTAL 0.5 MG/DL (0.1-1.0); BLOOD UREA NITROGEN 5 MG/DL (7-18); BUN/CREATININE RATIO 5.1 (5.4-32.0); CALCIUM 8.7 MG/DL (8.5-10.1); CHLORIDE 106 MMOL/L (99-107); CREATININE 0.99 MG/DL (0.60-1.10); GLUCOSE 126 MG/DL (70-104); MAGNESIUM 1.6 MG/DL (1.5-2.4); POTASSIUM 4.1 MMOL/L (3.5-5.1); SODIUM 138 MMOL/L (135-145); TOTAL CARBON DIOXIDE 24.1 MMOL/L (24-32); TOTAL PROTEIN 6.4 G/DL (6.4-8.2); eGFR 79 ML/MIN
[2020-06-05 04:02] LABS: ANISOCYTOSIS 3+; MICROCYTOSIS 1+; PLATELET ESTIMATE NORMAL
[2020-06-05 04:05] LABS: HYPOCHROMASIA 1+
[2020-06-05 04:06] LABS: ELLIPTOCYTES 1+; POLYCHROMASIA FEW; TEAR DROP CELLS FEW
[2020-06-05 06:00] VITALS: BP 139/88
--- NOTE | 2020-06-05 06:35 | NUR ---
Problems reprioritized. Patient report given, questions answered & plan of care reviewed with Mari SIU.
--- NOTE | 2020-06-05 06:36 | NUR ---
Patient in room PCU 3017. I have received report from An SIU and had the opportunity to ask questions and assume patient care.
[2020-06-05] MEDS: K and/or MAG REPLACEMENT MC SCH (08:00)
[2020-06-05] MEDS: multivitamins, therapeutics tablet PO SCH (08:50)
[2020-06-05] MEDS: thiamine 100mg tablet PO SCH (08:50)
[2020-06-05] MEDS: folic acid 1mg tablet PO SCH (08:50)
[2020-06-05] MEDS: famotidine 20mg tablet PO SCH (08:51)
[2020-06-05] MEDS: hyDRALAzine 10mg tablet PO SCH ×2 (08:51→13:43)
[2020-06-05] MEDS: HYDROcodone/acetaminophen 10/325mg tab PO PRN (08:58)
[2020-06-05 11:00] VITALS: BP 142/92
[2020-06-05] MEDS ORDERED: NALT50TA PO (12:16)
[2020-06-05] MEDS ORDERED: naltrexone 50mg tablet PO ONE (12:20)
[2020-06-05] MEDS ORDERED: PANT-47 PO (12:22)
[2020-06-05 13:43] VITALS: BP_SYST 142
--- NOTE | 2020-06-05 14:00 | NUR ---
PT REFUSED REGULAR FOOD TRAY.
--- NOTE | 2020-06-05 14:15 | NUR ---
phoned Pharmacy again. Pt needs Naltrexone prior to d/c. They will bring up now.
--- NOTE | 2020-06-05 15:52 | NUR ---
PT STABLE AND APPROPRIATE FOR D/C. PIV D/C'D WITH CANNULA INTACT. REVIEWED WITH PT ALL D/C INSTRUCTIONS/MEDS WITH PT GIVEN OPPORTUNITY TO ASK QUESTIONS, ANSWERS PROVIDED AND PT VERBALIZING UNDERSTANDING. PRESCRIPTIONS ESCRIPTED TO PHARMACY OF CHOICE. PT TO CALL PCP AND SCHEDLE F/U APPT FOR 2 WEEKS. PT TO CALL PCP WITH ANY QUESTIONS/CONCERNS OR S/SX OF COMPLICATIONS OR RETURN TO NEAREST ED. ESCORTED TO FRONT LOBBY BY HOSPITAL STAFF WITH ALL PERSONAL BELONGINGS. D/C'D HOME IN PRIVATE VEHICLE DRIVE BY FRIEND.
[2020-06-07] MEDS ORDERED: LORazepam 1 MG tablet PO PRN (00:45)
[2020-06-07] MEDS ORDERED: LORazepam 2 mg/ml vial IV PRN (00:45)
== END 2020-06-05 15:25 | disposition home or self-care (01) | DRG 469 ==
LOC: ER 23:13 → ED HOLD 06-03 00:43 → PCU 3S 06-03 01:55
PROVIDERS: ADMIT Family Medicine; ATTEND Internal Medicine
DX: N17.9 Acute kidney failure, unspecified (principal); E87.6 Hypokalemia; D63.8 Anemia in other chronic diseases classified elsewhere; E11.22 Type 2 diabetes mellitus with diabetic chronic kidney disease; E78.00 Pure hypercholesterolemia, unspecified; E78.5 Hyperlipidemia, unspecified; E87.2 Acidosis; F10.239 Alcohol dependence with withdrawal, unspecified; I12.9 Hypertensive chronic kidney disease with stage 1 through stage 4 chronic kidney disease, or unspecified chronic kidney disease; I48.0 Paroxysmal atrial fibrillation; K21.00 Gastro-esophageal reflux disease with esophagitis, without bleeding; K86.1 Other chronic pancreatitis; N18.9 Chronic kidney disease, unspecified; Z82.49 Family history of ischemic heart disease and other diseases of the circulatory system
CPT/HCPCS: 36415; 36600; 71045; 80053; 80320; 82272; 82803; 82948; 83540; 83550; 83690; 83735; 83880; 84100; 84484; 85007; 85008; 85018; 85025; 87081; 93005; 96374; 96375; 97116; 97161; 99285; C9113; G0378; J1170; J2060; J2405; J3411; J3475; J3480; J7030; J7060

== ENCOUNTER 2020-06-23 16:25 | Emergency (ER) | payer MEDICAID ==
[~2020-06-23] VITALS: Ht 172.7 cm; Wt 54.5 kg
[~2020-06-23 16:25] MED LIST changes: +NALT50TA PO; -ONDA4TAB6 PO; +PANT-47 PO; -tamsulosin capsule PO
[2020-06-23 18:55] LABS: BASOPHILS # (AUTO) 0.1 X10'3 (0-0.2); EOSINOPHILS % (AUTO) 0.2 % (0-6); HEMATOCRIT 38.5 % (42.0-52.0); HEMOGLOBIN 11.4 g/dl (14.0-17.9); LYMPHOCYTES # (AUTO) 2.7 X10'3 (1.1-4.8); LYMPHOCYTES % (AUTO) 21.5 % (21-51); MEAN CORPUSCULAR HEMOGLOBIN 21.3 PG (27.0-31.0); MEAN CORPUSCULAR HGB CONC 29.7 g/dL (33.0-36.5); MEAN CORPUSCULAR VOLUME 71.8 FL (78-98); MEAN PLATELET VOLUME 8.5 FL (7.4-10.4); MONOCYTES # (AUTO) 0.7 X10'3 (0-0.9); MONOCYTES % (AUTO) 5.8 % (2-12); NEUTROPHILS # (AUTO) 8.9 X10'3 (1.8-7.7); NEUTROPHILS % (AUTO) 71.5 % (42-75); PLATELET COUNT 351 X10'3 (140-440); RED BLOOD COUNT 5.36 X10'6 (4.70-6.10); RED CELL DISTRIBUTION WIDTH 28.3 % (11.5-14.5); WHITE BLOOD COUNT 12.4 X10'3 (4.5-11.0)
[2020-06-23] MEDS ORDERED: LORazepam 2 mg/ml vial IV ONE (19:05)
[2020-06-23 19:42] LABS: ALANINE AMINOTRANSFERASE 19 U/L (12-78); ALBUMIN 3.8 G/DL (3.4-5.0); ALBUMIN/GLOBULIN RATIO 0.7 (1.1-1.5); ALKALINE PHOSPHATASE 83 IU/L (46-116); ANION GAP 28 (8-16); ASPARTATE AMINO TRANSFERASE 30 U/L (10-37); BILIRUBIN,TOTAL 1.1 MG/DL (0.1-1.0); BLOOD UREA NITROGEN 23 MG/DL (7-18); BUN/CREATININE RATIO 21.1 (5.4-32.0); CALCIUM 10.7 MG/DL (8.5-10.1); CHLORIDE 98 MMOL/L (99-107); CREATININE 1.09 MG/DL (0.60-1.10); ETHANOL 0.153 GM/DL (0.0-0.010); GLUCOSE 85 MG/DL (70-104); LIPASE < 50 U/L (73-393); POTASSIUM 4.1 MMOL/L (3.5-5.1); SODIUM 141 MMOL/L (135-145); TOTAL CARBON DIOXIDE 15.5 MMOL/L (24-32); TOTAL PROTEIN 9.4 G/DL (6.4-8.2); eGFR 71 ML/MIN
--- NOTE | 2020-06-23 20:03 | NUR ---
ATTEMPTED IV X 2, DRYWALLER LOGAN AWARE
[2020-06-23] MEDS: ondansetron/PF 4mg/2ml inj IV ONE (20:19)
[2020-06-23] MEDS: morphine 10mg/ml inj. IV ONE (20:20)
[2020-06-23] MEDS: normal saline 1000ML IV soln IVB ONE ×2 (20:20→21:58)
[2020-06-23] MEDS: pantoprazole 40 MG vial IV ONE (20:45)
[2020-06-23] MEDS: diphenhydrAMINE 50 mg/ml inj IV ONE (20:46)
[2020-06-23] MEDS: haloperidol lactate 5mg/ml inj IM ONE (20:46)
[2020-06-23] MEDS: LORazepam 2 mg/ml vial IV ONE (20:47)
[2020-06-23] MEDS ORDERED: PROC-8 PO (20:58)
--- NOTE | 2020-06-23 22:05 | NUR ---
rahel wheat does not need a urine sample
--- NOTE | 2020-06-23 22:16 | NUR ---
discussed patient's current hr of 114 with rahel wheat. pa is ok with sending patient home with a hr in the one hundred teens, but not 122
[2020-06-23 22:47] VITALS: BP 125/75
== END 2020-06-23 22:30 | disposition home or self-care (01) ==
LOC: ER 16:25
DX: R10.12 Left upper quadrant pain (principal); R10.84 Generalized abdominal pain; F10.129 Alcohol abuse with intoxication, unspecified; I48.91 Unspecified atrial fibrillation; E78.00 Pure hypercholesterolemia, unspecified; I10 Essential (primary) hypertension; Z90.89 Acquired absence of other organs; Z72.89 Other problems related to lifestyle; Z79.899 Other long term (current) drug therapy; Y90.6 Blood alcohol level of 120-199 mg/100 ml
CPT/HCPCS: 36415; 74176; 80053; 80320; 83690; 85025; 96361; 96372; 96374; 96375; 99285; C9113; J1200; J1630; J2060; J2270; J2405; J7030

== ENCOUNTER 2020-07-06 23:53 | Emergency (ER) | payer MEDICAID ==
[~2020-07-06] VITALS: Ht 172.7 cm; Wt 65.9 kg
[~2020-07-06 23:53] MED LIST changes: +PROC-8 PO
[2020-07-07] MEDS ORDERED: ondansetron/PF 4mg/2ml inj IV ONE (00:10)
[2020-07-07] MEDS ORDERED: normal saline 1000ML IV soln IVB ONE (00:10)
[2020-07-07] MEDS: morphine 4 MG/ML inj SYRINge IV PRN ×2 (00:15→00:48)
[2020-07-07] MEDS ORDERED: sucralfate 1gm/10ml UD suspension PO STA (00:22)
[2020-07-07] MEDS ORDERED: LIDOcaine Viscous 15ml cup MM ONE (00:25)
[2020-07-07] MEDS ORDERED: mag hydrox/Alum hydrox/simeth 30ml oral suspension PO ONE (00:25)
[2020-07-07 00:38] LABS: LYMPHOCYTES # (AUTO) 2.7 X10'3 (1.1-4.8); WHITE BLOOD COUNT 4.4 X10'3 (4.5-11.0)
[2020-07-07 00:40] LABS: EOSINOPHILS % (AUTO) 0.6 % (0-6); LYMPHOCYTES % (AUTO) 61.9 % (21-51); MEAN CORPUSCULAR HEMOGLOBIN 21.7 PG (27.0-31.0); MEAN CORPUSCULAR HGB CONC 30.5 g/dL (33.0-36.5); MEAN CORPUSCULAR VOLUME 71.1 FL (78-98); MEAN PLATELET VOLUME 6.7 FL (7.4-10.4); MONOCYTES # (AUTO) 0.4 X10'3 (0-0.9); MONOCYTES % (AUTO) 8.8 % (2-12); NEUTROPHILS # (AUTO) 1.2 X10'3 (1.8-7.7); NEUTROPHILS % (AUTO) 27.7 % (42-75); PLATELET COUNT 323 X10'3 (140-440); RED BLOOD COUNT 4.63 X10'6 (4.70-6.10); RED CELL DISTRIBUTION WIDTH 29.4 % (11.5-14.5)
[2020-07-07 00:54] LABS: ALANINE AMINOTRANSFERASE 22 U/L (12-78); ALBUMIN 4.1 G/DL (3.4-5.0); ALKALINE PHOSPHATASE 75 IU/L (46-116); ANION GAP 16 (8-16); ANISOCYTOSIS 3+; ASPARTATE AMINO TRANSFERASE 42 U/L (10-37); BILIRUBIN,TOTAL 0.9 MG/DL (0.1-1.0); BLOOD UREA NITROGEN 12 MG/DL (7-18); BUN/CREATININE RATIO 11.3 (5.4-32.0); CALCIUM 8.9 MG/DL (8.5-10.1); CHLORIDE 105 MMOL/L (99-107); CREATININE 1.06 MG/DL (0.60-1.10); ELLIPTOCYTES 1+; GLUCOSE 120 MG/DL (70-104); LIPASE < 50 U/L (73-393); PLATELET ESTIMATE NORMAL; SCHISTOCYTES FEW; SODIUM 146 MMOL/L (135-145); TOTAL CARBON DIOXIDE 25.4 MMOL/L (24-32); TOTAL CELLS COUNTED 100; TOTAL PROTEIN 8.2 G/DL (6.4-8.2); eGFR 73 ML/MIN
[2020-07-07 00:56] LABS: ETHANOL 0.338 GM/DL (0.0-0.010)
[2020-07-07 01:41] LABS: TROPONIN I < 0.04 NG/ML (0.0-0.05)
[2020-07-07] MEDS ORDERED: POTASSIUM BICARB 20meq eff tab 20 MEQ TABLET.EFF PO ONE (03:15)
[2020-07-07 03:41] VITALS: BP 113/79
== END 2020-07-07 03:44 | disposition home or self-care (01) ==
LOC: ER 23:54
DX: F10.129 Alcohol abuse with intoxication, unspecified (principal); M79.18 Myalgia, other site; E87.6 Hypokalemia; R07.89 Other chest pain; R11.10 Vomiting, unspecified; R10.10 Upper abdominal pain, unspecified; I48.91 Unspecified atrial fibrillation; E78.00 Pure hypercholesterolemia, unspecified; I10 Essential (primary) hypertension; Z90.49 Acquired absence of other specified parts of digestive tract; Z72.89 Other problems related to lifestyle; Z79.899 Other long term (current) drug therapy; Y90.0 Blood alcohol level of less than 20 mg/100 ml
CPT/HCPCS: 36415; 71045; 80053; 80320; 83690; 84484; 85007; 85025; 93005; 96361; 96374; 96375; 96376; 99285; J2270; J2405; J7030

== ENCOUNTER 2020-07-22 19:05 | Emergency (ER) | payer MEDICAID ==
[~2020-07-22] VITALS: Ht 172.7 cm; Wt 59.1 kg
[2020-07-22 19:14] VITALS: BP 107/63
--- NOTE | 2020-07-22 19:58 | NUR ---
PT ABLE TO AMBULATED FROM W/C TO BED WITH NO DIFFICULTY AND NO ASSISTANCE.
[2020-07-22 20:34] LABS: ALANINE AMINOTRANSFERASE 20 U/L (12-78); ALBUMIN 4.3 G/DL (3.4-5.0); ALBUMIN/GLOBULIN RATIO 0.9 (1.1-1.5); ALKALINE PHOSPHATASE 83 IU/L (46-116); AMYLASE 92 U/L (25-115); ANION GAP 25 (8-16); ASPARTATE AMINO TRANSFERASE 30 U/L (10-37); BILIRUBIN,TOTAL 0.7 MG/DL (0.1-1.0); BLOOD UREA NITROGEN 21 MG/DL (7-18); BUN/CREATININE RATIO 17.2 (5.4-32.0); CALCIUM 9.7 MG/DL (8.5-10.1); CHLORIDE 94 MMOL/L (99-107); CREATININE 1.22 MG/DL (0.60-1.10); GLUCOSE 87 MG/DL (70-104); LIPASE < 50 U/L (73-393); SODIUM 134 MMOL/L (135-145); TOTAL CARBON DIOXIDE 15.5 MMOL/L (24-32); TOTAL PROTEIN 9.2 G/DL (6.4-8.2); eGFR 62 ML/MIN
[2020-07-22] MEDS ORDERED: ONDA4TAB6 PO (20:58)
[2020-07-22] MEDS ORDERED: ondansetron/PF 4mg/2ml inj IV ONE (21:00)
[2020-07-22] MEDS ORDERED: normal saline 1000ML IV soln IVB ONE (21:00)
[2020-07-22 21:14] LABS: ETHANOL 0.175 GM/DL (0.0-0.010); MAGNESIUM 1.9 MG/DL (1.5-2.4)
[2020-07-22] MEDS ORDERED: acetaminophen 325mg tablet PO ONE (21:15)
[2020-07-26] MEDS ORDERED: INSU100I31 SQ (12:04)
[2020-07-26] MEDS ORDERED: COR3.125T PO (12:04)
[2020-07-26] MEDS ORDERED: PEN1DIS.78 SQ (12:04)
[2020-07-26] MEDS ORDERED: PANT-47 PO (12:04)
== END 2020-07-22 22:22 | disposition home or self-care (01) ==
LOC: ER 19:06
DX: K52.9 Noninfective gastroenteritis and colitis, unspecified (principal); I13.10 Hypertensive heart and chronic kidney disease without heart failure, with stage 1 through stage 4 chronic kidney disease, or unspecified chronic kidney disease; N18.9 Chronic kidney disease, unspecified; Z90.49 Acquired absence of other specified parts of digestive tract; F10.129 Alcohol abuse with intoxication, unspecified; Y90.0 Blood alcohol level of less than 20 mg/100 ml; Z79.899 Other long term (current) drug therapy
CPT/HCPCS: 36415; 80053; 80320; 82150; 83690; 83735; 93005; 96361; 96374; 99284; J2405; J7030

== ENCOUNTER 2020-11-07 13:17 | Inpatient (IN) | payer MEDICAID ==
[~2020-11-07] VITALS: Ht 172.7 cm; Wt 52.9 kg
[~2020-11-07 13:17] MED LIST changes: +COR3.125T PO; +INSU100I31 SQ; -NALT50TA PO; +ONDA4TAB6 PO; +PEN1DIS.78 SQ; -PHOS250T2 PO; -POTA10TA36 PO; -PROC-8 PO
[2020-11-07 14:04] LABS: EOSINOPHILS # (AUTO) 0.1 X10'3 (0-0.9); EOSINOPHILS % (AUTO) 3.8 % (0-6); HEMOGLOBIN 9.2 g/dl (14.0-17.9); LYMPHOCYTES # (AUTO) 1.3 X10'3 (1.1-4.8); MEAN CORPUSCULAR HEMOGLOBIN 23.9 PG (27.0-31.0); MEAN CORPUSCULAR HGB CONC 31.7 g/dL (33.0-36.5); MEAN CORPUSCULAR VOLUME 75.4 FL (78-98); MEAN PLATELET VOLUME 6.7 FL (7.4-10.4); MONOCYTES # (AUTO) 0.3 X10'3 (0-0.9); MONOCYTES % (AUTO) 10.5 % (2-12); NEUTROPHILS # (AUTO) 1.6 X10'3 (1.8-7.7); NEUTROPHILS % (AUTO) 46.7 % (42-75); PLATELET COUNT 197 X10'3 (140-440); RED BLOOD COUNT 3.85 X10'6 (4.70-6.10); RED CELL DISTRIBUTION WIDTH 26.4 % (11.5-14.5); WHITE BLOOD COUNT 3.3 X10'3 (4.5-11.0)
[2020-11-07 14:12] LABS: ALANINE AMINOTRANSFERASE 17 U/L (12-78); ALBUMIN 3.9 G/DL (3.4-5.0); ALBUMIN/GLOBULIN RATIO 1.1 (1.1-1.5); ALKALINE PHOSPHATASE 52 IU/L (46-116); ANION GAP 19 (8-16); ASPARTATE AMINO TRANSFERASE 23 U/L (10-37); BILIRUBIN,TOTAL 0.8 MG/DL (0.1-1.0); BLOOD UREA NITROGEN 10 MG/DL (7-18); BUN/CREATININE RATIO 8.9 (5.4-32.0); CALCIUM 8.9 MG/DL (8.5-10.1); CHLORIDE 105 MMOL/L (99-107); CREATININE 1.12 MG/DL (0.60-1.10); GLUCOSE 97 MG/DL (70-104); LIPASE 371 U/L (73-393); POTASSIUM 3.2 MMOL/L (3.5-5.1); SODIUM 144 MMOL/L (135-145); TOTAL CARBON DIOXIDE 19.7 MMOL/L (24-32); TOTAL PROTEIN 7.4 G/DL (6.4-8.2); TROPONIN I < 0.04 NG/ML (0.0-0.05); eGFR 69 ML/MIN
[2020-11-07 14:19] LABS: ANISOCYTOSIS 3+; HYPOCHROMASIA 1+; PLATELET ESTIMATE NORMAL; POLYCHROMASIA FEW
[2020-11-07 14:20] LABS: ELLIPTOCYTES FEW; MICROCYTOSIS 1+; TEAR DROP CELLS 1+
[2020-11-07 14:23] LABS: CLARITY,URINE CLEAR (Clear); COLOR,URINE YELLOW (Yellow); GLUCOSE, URINE NEGATIVE (Neg); KETONES,URINE 15 mg/dl (Neg); LEUKOCYTE ESTERASE ,URINE NEGATIVE (Neg); NITRITES, URINE NEGATIVE (Neg); OCCULT BLOOD,URINE NEGATIVE (Neg); PROTEIN,URINE NEGATIVE (Neg); UROBILINOGEN,URINE 0.2 E.U/dL (0.2-1.0)
[2020-11-07] MEDS ORDERED: normal saline 1000ml 1,000 ML IV ONE ×3 (14:25→18:25)
[2020-11-07 14:26] LABS: UA COLLECTION TYPE CLN CATCH MIDSTREAM
[2020-11-07] MEDS ORDERED: oxyCODONE/APAP 5-325mg tablet PO ONE (14:35)
[2020-11-07] MEDS ORDERED: iohexol 300mg/ml 100ml inj. ONE (14:41)
[2020-11-07] MEDS: dextrose 5%-normal saline 1,000 ML IV SCH ×2 (15:25→17:05)
[2020-11-07] MEDS ORDERED: morphine 4 MG/ML inj SYRINge IV ONE ×3 (17:10→22:30)
[2020-11-07 22:14] LABS: ALBUMIN 3.6 G/DL (3.4-5.0); ANION GAP 14 (8-16); BLOOD UREA NITROGEN 7 MG/DL (7-18); CALCIUM 7.2 MG/DL (8.5-10.1); CHLORIDE 110 MMOL/L (99-107); GLUCOSE 87 MG/DL (70-104); POTASSIUM 3.5 MMOL/L (3.5-5.1); SODIUM 145 MMOL/L (135-145); TOTAL CARBON DIOXIDE 21.1 MMOL/L (24-32); eGFR 78 ML/MIN
[2020-11-07] MEDS ORDERED: HYDROcodone/acetaminophen 5mg/325mg tablet PO PRN (23:25)
[2020-11-07] MEDS ORDERED: LORazepam 2 mg/ml vial IV PRN (23:25)
[2020-11-07] MEDS ORDERED: potassium Cl 40MEQ/1/2NS 520ml 520 ML IV PRN ×2 (23:25)
[2020-11-07] MEDS: normal saline 1000ml 1,000 ML IV SCH (23:25)
[2020-11-07] MEDS ORDERED: morphine 2 MG/ML inj. syringe IV PRN (23:25)
[2020-11-07] MEDS ORDERED: magnesium 2GM in 50ml NS 50 ML IV PRN (23:25)
[2020-11-07] MEDS ORDERED: haloperidol 5mg tablet PO PRN (23:25)
[2020-11-07] MEDS ORDERED: mag hydrox/Alum hydrox/simeth 30ml oral suspension PO PRN (23:25)
[2020-11-07] MEDS ORDERED: ondansetron/PF 4mg/2ml inj IV PRN (23:25)
[2020-11-07] MEDS ORDERED: thiamine 100mg/ml 2ml inj. IV ONE (23:25)
[2020-11-07] MEDS ORDERED: haloperidol lactate 5mg/ml inj IM PRN (23:25)
[2020-11-07] MEDS ORDERED: magnesium hydroxide 30ml (MOM) UD suspension PO PRN (23:25)
[2020-11-07] MEDS ORDERED: magnesium 4gm in 100ml NS 100 ML IV PRN (23:25)
[2020-11-07] MEDS ORDERED: dextrose 50%-water 50ml dispensing syringe IV PRN (23:25)
[2020-11-07] MEDS ORDERED: acetaminophen 325mg tablet PO PRN ×2 (23:25)
--- NOTE | 2020-11-07 23:32 | NUR ---
relieving RN for break, pt is resting quietly in dark room, c/o LLQ abd pain 02/19, medicated per MD order
--- NOTE | 2020-11-07 23:36 | NUR ---
pt asking for water, he is aware of NPO status, offered pt mouth swab
[2020-11-08] MEDS ORDERED: metroNIDAZOLE-Flagyl 500mg/NS 100 ML IV SCH
[2020-11-08] MEDS ORDERED: METO-292 PO (00:43)
[2020-11-08] MEDS ORDERED: FLO0.4C PO (00:52)
--- NOTE | 2020-11-08 01:02 | NUR ---
Patient in room ED 3. I have received report from Gaby SIU and had the opportunity to ask questions and assume patient care.
[2020-11-08] MEDS: dextrose 5%-normal saline 1,000 ML IV SCH (01:45)
[2020-11-08] MEDS: metroNIDAZOLE-Flagyl 500mg/NS 100 ML IV SCH ×3 (01:49→16:52)
[2020-11-08 01:50] VITALS: BP 145/83
[2020-11-08] MEDS: morphine 2 MG/ML inj. syringe IV PRN ×4 (02:00→20:01)
[2020-11-08] MEDS: temazepam 15mg capsule PO PRN (03:50)
[2020-11-08 06:00] VITALS: BP 126/79
--- NOTE | 2020-11-08 06:08 | NUR ---
Patient in room ORTHO 4009. I have received report from Ania SIU and had the opportunity to ask questions and assume patient care.
--- NOTE | 2020-11-08 06:17 | NUR ---
Problems reprioritized. Patient report given, questions answered & plan of care reviewed with Randa SIU.
[2020-11-08] MEDS ORDERED: CARV3.122 PO (06:44)
[2020-11-08] MEDS ORDERED: PANT40TA54 PO (06:44)
[2020-11-08 07:00] LABS: BASOPHILS # (AUTO) 0.1 X10'3 (0-0.2); BASOPHILS % (AUTO) 1.3 % (0-1); EOSINOPHILS # (AUTO) 0.1 X10'3 (0-0.9); EOSINOPHILS % (AUTO) 3.1 % (0-6); HEMOGLOBIN 7.9 g/dl (14.0-17.9); LYMPHOCYTES # (AUTO) 1.7 X10'3 (1.1-4.8); LYMPHOCYTES % (AUTO) 42.6 % (21-51); MEAN CORPUSCULAR HEMOGLOBIN 24.2 PG (27.0-31.0); MEAN CORPUSCULAR HGB CONC 31.8 g/dL (33.0-36.5); MEAN CORPUSCULAR VOLUME 76.2 FL (78-98); MEAN PLATELET VOLUME 6.7 FL (7.4-10.4); MONOCYTES # (AUTO) 0.4 X10'3 (0-0.9); MONOCYTES % (AUTO) 9.4 % (2-12); NEUTROPHILS # (AUTO) 1.7 X10'3 (1.8-7.7); NEUTROPHILS % (AUTO) 43.6 % (42-75); PLATELET COUNT 158 X10'3 (140-440); RED BLOOD COUNT 3.28 X10'6 (4.70-6.10); RED CELL DISTRIBUTION WIDTH 25.1 % (11.5-14.5)
[2020-11-08 07:20] LABS: ALANINE AMINOTRANSFERASE 14 U/L (12-78); ALBUMIN 3.2 G/DL (3.4-5.0); ALKALINE PHOSPHATASE 42 IU/L (46-116); ANION GAP 16 (8-16); ASPARTATE AMINO TRANSFERASE 17 U/L (10-37); BILIRUBIN,TOTAL 0.9 MG/DL (0.1-1.0); BLOOD UREA NITROGEN 5 MG/DL (7-18); BUN/CREATININE RATIO 6.2 (5.4-32.0); CALCIUM 7.2 MG/DL (8.5-10.1); CHLORIDE 106 MMOL/L (99-107); CREATININE 0.81 MG/DL (0.60-1.10); GLUCOSE 91 MG/DL (70-104); MAGNESIUM 1.5 MG/DL (1.5-2.4); SODIUM 143 MMOL/L (135-145); TOTAL CARBON DIOXIDE 21.4 MMOL/L (24-32); TOTAL PROTEIN 6.4 G/DL (6.4-8.2); eGFR > 90 ML/MIN
[2020-11-08 07:23] LABS: POTASSIUM 2.9 MMOL/L (3.5-5.1)
--- NOTE | 2020-11-08 07:32 | NUR ---
PAGER ID: [phone] MESSAGE: Gonzalez Jung 9B- FYI Critical K 2.9 Thank you. Randa
[2020-11-08] MEDS: pantoprazole 40mg Tablet.DR PO SCH (07:40)
[2020-11-08] MEDS: potassium Cl 20 mEq SR tablet PO PRN ×3 (07:41→20:06)
[2020-11-08] MEDS: K and/or MAG REPLACEMENT MC SCH ×2 (08:00→21:28)
[2020-11-08] MEDS: heparin, porcine 5000 units/ml vial SQ SCH ×2 (08:00→20:01)
[2020-11-08] MEDS: normal saline 1000ml 1,000 ML IV SCH ×2 (09:25→20:00)
[2020-11-08] MEDS: ciprofloxacin lact 400MG/200ML 200 ML IV SCH ×2 (09:27→20:01)
[2020-11-08 11:00] VITALS: BP 127/81
--- NOTE | 2020-11-08 11:22 | NUR ---
Malnutrition Consult: Pt admit DX acute colitis, diarrhea, nausea, and HTN w/ hx chronic heavy etoh per EMR. Hx new DM DX July 2020 admit A1C 7.7; pending new A1C this admit w/ GLU WNL. AISLINN d/w RN regarding routine thiamin, folic, MVI for etoh if MD agreeable. Pt seen by RD reports unsure of UBW, unsure of wt loss vs wt loss timeline. Pt does have visible mild temporal wasting present however no further overt signs of muscle/fat wasting evident. Pt has no significant weakness, no edema, appears WD/WN per MD note, and has scaled wt hx fluctuating from 52-65kg past 6 months admits inconsistent. Pt lacks minimum two malnutrition criteria at this time. Will monitor for further criteria this admit. Addendum: 11/08/20 at [address] Amended: Links added.
[2020-11-08] MEDS ORDERED: FENO48TA9 PO (13:17)
[2020-11-08] MEDS: HYDROcodone/acetaminophen 10/325mg tab PO PRN ×2 (16:56→21:51)
[2020-11-08 18:00] VITALS: BP 130/91
--- NOTE | 2020-11-08 18:38 | NUR ---
Patient in room ORTHO 4009B. I have received report from SALBADOR Tolentino and had the opportunity to ask questions and assume patient care. Patient resting comfortably in bed with even and unlabored respirations. In no apparent distress. Call light and items of frequent use within reach.
--- NOTE | 2020-11-08 18:46 | NUR ---
Problems reprioritized. Patient report given, questions answered & plan of care reviewed with Yen SIU.
[2020-11-08 19:55] VITALS: BP 130/91
[2020-11-08 22:00] VITALS: BP 140/83
[2020-11-09] MEDS: metroNIDAZOLE-Flagyl 500mg/NS 100 ML IV SCH ×3 (00:27→15:46)
[2020-11-09] MEDS: morphine 2 MG/ML inj. syringe IV PRN ×6 (00:27→22:00)
[2020-11-09] MEDS: HYDROcodone/acetaminophen 10/325mg tab PO PRN ×4 (02:39→19:49)
[2020-11-09] MEDS: LORazepam 1 MG tablet PO PRN ×2 (04:38→21:59)
[2020-11-09 05:00] VITALS: BP 141/84
[2020-11-09 05:28] LABS: BASOPHILS % (AUTO) 1.4 % (0-1); EOSINOPHILS # (AUTO) 0.1 X10'3 (0-0.9); EOSINOPHILS % (AUTO) 3.9 % (0-6); HEMATOCRIT 27.4 % (42.0-52.0); HEMOGLOBIN 8.5 g/dl (14.0-17.9); LYMPHOCYTES # (AUTO) 1.7 X10'3 (1.1-4.8); LYMPHOCYTES % (AUTO) 48.1 % (21-51); MEAN CORPUSCULAR HEMOGLOBIN 24.2 PG (27.0-31.0); MEAN CORPUSCULAR HGB CONC 30.9 g/dL (33.0-36.5); MEAN CORPUSCULAR VOLUME 78.3 FL (78-98); MONOCYTES # (AUTO) 0.4 X10'3 (0-0.9); MONOCYTES % (AUTO) 10.4 % (2-12); NEUTROPHILS # (AUTO) 1.3 X10'3 (1.8-7.7); NEUTROPHILS % (AUTO) 36.2 % (42-75); PLATELET COUNT 140 X10'3 (140-440); RED BLOOD COUNT 3.49 X10'6 (4.70-6.10); WHITE BLOOD COUNT 3.6 X10'3 (4.5-11.0)
[2020-11-09 05:31] LABS: ALBUMIN 3.2 G/DL (3.4-5.0); ALKALINE PHOSPHATASE 45 IU/L (46-116); ANION GAP 9 (8-16); ASPARTATE AMINO TRANSFERASE 21 U/L (10-37); BILIRUBIN,TOTAL 0.8 MG/DL (0.1-1.0); BLOOD UREA NITROGEN 2 MG/DL (7-18); BUN/CREATININE RATIO 2.1 (5.4-32.0); CALCIUM 7.9 MG/DL (8.5-10.1); CHLORIDE 105 MMOL/L (99-107); CREATININE 0.95 MG/DL (0.60-1.10); GLUCOSE 123 MG/DL (70-104); MAGNESIUM 1.2 MG/DL (1.5-2.4); POTASSIUM 3.4 MMOL/L (3.5-5.1); SODIUM 138 MMOL/L (135-145); TOTAL CARBON DIOXIDE 24.5 MMOL/L (24-32); TOTAL PROTEIN 6.5 G/DL (6.4-8.2); eGFR 83 ML/MIN
[2020-11-09 05:42] LABS: ALANINE AMINOTRANSFERASE 13 U/L (12-78)
--- NOTE | 2020-11-09 06:15 | NUR ---
received report from edwin pritchard
--- NOTE | 2020-11-09 06:28 | NUR ---
Problems reprioritized. Patient report given, questions answered & plan of care reviewed with SALBADOR Silva.
[2020-11-09] MEDS: K and/or MAG REPLACEMENT MC SCH ×2 (08:00→19:49)
[2020-11-09 08:05] LABS: ANISOCYTOSIS 3+; MICROCYTOSIS 1+; PLATELET ESTIMATE NORMAL
[2020-11-09 08:06] LABS: ELLIPTOCYTES 1+
[2020-11-09 08:07] LABS: POLYCHROMASIA FEW
[2020-11-09] MEDS: ciprofloxacin lact 400MG/200ML 200 ML IV SCH ×2 (08:26→19:49)
[2020-11-09] MEDS: potassium Cl 20 mEq SR tablet PO PRN ×3 (08:28→16:35)
[2020-11-09] MEDS: magnesium Cl slow-release 64mg tablet PO PRN ×2 (08:28→12:35)
[2020-11-09] MEDS: pantoprazole 40mg Tablet.DR PO SCH (08:28)
[2020-11-09] MEDS: heparin, porcine 5000 units/ml vial SQ SCH ×2 (08:31→19:50)
[2020-11-09] MEDS: normal saline 1000ml 1,000 ML IV SCH ×2 (08:39→16:41)
[2020-11-09 10:00] VITALS: BP 138/83
[2020-11-09 17:00] VITALS: BP 139/94
--- NOTE | 2020-11-09 18:16 | NUR ---
gave report to edwin pritchard
--- NOTE | 2020-11-09 18:18 | NUR ---
Patient in room ORTHO 4009B. I have received report from SALBADOR Silva and had the opportunity to ask questions and assume patient care.
[2020-11-09 22:00] VITALS: BP 128/53
[2020-11-10] MEDS: metroNIDAZOLE-Flagyl 500mg/NS 100 ML IV SCH ×2 (00:28→08:01)
[2020-11-10] MEDS: HYDROcodone/acetaminophen 10/325mg tab PO PRN ×3 (01:22→10:38)
[2020-11-10] MEDS: temazepam 15mg capsule PO PRN (01:23)
[2020-11-10] MEDS: morphine 2 MG/ML inj. syringe IV PRN ×2 (03:48→07:53)
[2020-11-10] MEDS: normal saline 1000ml 1,000 ML IV SCH ×2 (03:51→11:25)
[2020-11-10 06:00] VITALS: BP 129/76
--- NOTE | 2020-11-10 06:13 | NUR ---
Problems reprioritized. Patient report given, questions answered & plan of care reviewed with SALBADOR Silva.
--- NOTE | 2020-11-10 06:15 | NUR ---
received report from edwin pritchard
[2020-11-10 06:50] LABS: BASOPHILS % (AUTO) 0.9 % (0-1); EOSINOPHILS # (AUTO) 0.2 X10'3 (0-0.9); EOSINOPHILS % (AUTO) 5.3 % (0-6); HEMATOCRIT 26.9 % (42.0-52.0); HEMOGLOBIN 8.4 g/dl (14.0-17.9); LYMPHOCYTES # (AUTO) 1.8 X10'3 (1.1-4.8); LYMPHOCYTES % (AUTO) 51.6 % (21-51); MEAN CORPUSCULAR HEMOGLOBIN 24.2 PG (27.0-31.0); MEAN CORPUSCULAR HGB CONC 31.3 g/dL (33.0-36.5); MEAN CORPUSCULAR VOLUME 77.4 FL (78-98); MONOCYTES # (AUTO) 0.4 X10'3 (0-0.9); MONOCYTES % (AUTO) 10.1 % (2-12); NEUTROPHILS # (AUTO) 1.1 X10'3 (1.8-7.7); NEUTROPHILS % (AUTO) 32.1 % (42-75); PLATELET COUNT 150 X10'3 (140-440); RED BLOOD COUNT 3.48 X10'6 (4.70-6.10); RED CELL DISTRIBUTION WIDTH 25.2 % (11.5-14.5); WHITE BLOOD COUNT 3.5 X10'3 (4.5-11.0)
[2020-11-10 07:12] LABS: ALANINE AMINOTRANSFERASE 10 U/L (12-78); ALBUMIN 3.2 G/DL (3.4-5.0); ALKALINE PHOSPHATASE 42 IU/L (46-116); ANION GAP 11 (8-16); ASPARTATE AMINO TRANSFERASE 17 U/L (10-37); BILIRUBIN,TOTAL 0.5 MG/DL (0.1-1.0); BLOOD UREA NITROGEN 1 MG/DL (7-18); BUN/CREATININE RATIO 1.1 (5.4-32.0); CALCIUM 8.5 MG/DL (8.5-10.1); CHLORIDE 106 MMOL/L (99-107); CREATININE 0.94 MG/DL (0.60-1.10); GLUCOSE 115 MG/DL (70-104); MAGNESIUM 1.3 MG/DL (1.5-2.4); POTASSIUM 3.9 MMOL/L (3.5-5.1); SODIUM 141 MMOL/L (135-145); TOTAL CARBON DIOXIDE 23.7 MMOL/L (24-32); TOTAL PROTEIN 6.5 G/DL (6.4-8.2); eGFR 84 ML/MIN
[2020-11-10 07:32] LABS: TOTAL CELLS COUNTED 100
[2020-11-10 07:34] LABS: ANISOCYTOSIS 3+; LARGE PLATELETS FEW; PLATELET ESTIMATE NORMAL
[2020-11-10 07:35] LABS: POLYCHROMASIA 1+
[2020-11-10] MEDS: magnesium Cl slow-release 64mg tablet PO PRN (07:55)
[2020-11-10] MEDS: pantoprazole 40mg Tablet.DR PO SCH (07:55)
[2020-11-10] MEDS: heparin, porcine 5000 units/ml vial SQ SCH (07:56)
[2020-11-10] MEDS: K and/or MAG REPLACEMENT MC SCH (08:00)
[2020-11-10] MEDS: ciprofloxacin lact 400MG/200ML 200 ML IV SCH (08:59)
[2020-11-10 10:00] VITALS: BP 141/82
[2020-11-10] MEDS ORDERED: CIPR-202 PO (10:37)
[2020-11-10] MEDS ORDERED: METR-159 PO (10:37)
--- NOTE | 2020-11-10 13:29 | NUR ---
PT D/C WITH INSTRUCTIONS, UNDERSTANDING OF INSTRUCTIONS, AND W/ALL BELONGINGS WALKING OUT TO PRIVATE VEHICLE TO GO HOME AND F/U W/PCP
[2020-11-10] MEDS ORDERED: HYDR-3965 PO (13:59)
== END 2020-11-10 13:15 | disposition home or self-care (01) | DRG 248 ==
LOC: ER 13:18 → ED HOLD 23:24 → ORTHO 4S 11-08 01:44
PROVIDERS: ADMIT Internal Medicine; ATTEND Family Medicine
PROC: BW211ZZ Computerized Tomography (CT Scan) of Abdomen and Pelvis using Low Osmolar Contrast (ICD-10-PCS; principal; 2020-11-07)
DX: A04.9 Bacterial intestinal infection, unspecified (principal); E87.2 Acidosis; K70.9 Alcoholic liver disease, unspecified; D63.8 Anemia in other chronic diseases classified elsewhere; E78.00 Pure hypercholesterolemia, unspecified; E78.5 Hyperlipidemia, unspecified; E87.6 Hypokalemia; F10.20 Alcohol dependence, uncomplicated; I10 Essential (primary) hypertension; I48.91 Unspecified atrial fibrillation; K86.0 Alcohol-induced chronic pancreatitis; M25.512 Pain in left shoulder; Z90.49 Acquired absence of other specified parts of digestive tract; Z81.1 Family history of alcohol abuse and dependence; Z83.42 Family history of familial hypercholesterolemia; Z71.41 Alcohol abuse counseling and surveillance of alcoholic
CPT/HCPCS: 36415; 74177; 80048; 80053; 81003; 82948; 83605; 83690; 83735; 84484; 85007; 85008; 85025; 87040; 87081; 93005; 97116; 97161; 97530; 99285; G0378; J0744; J1644; J2270; J3411; J3490; J7030; J7042; Q9967

== ENCOUNTER 2020-12-10 09:21 | Emergency (ER) | payer MEDICAID ==
[~2020-12-10] VITALS: Ht 167.6 cm; Wt 49.0 kg
[~2020-12-10 09:21] MED LIST changes: +CIPR-202 PO; -COR3.125T PO; +FENO48TA9 PO; +HYDR-3965 PO; -INSU100I31 SQ; +METR-159 PO; -ONDA4TAB6 PO; -PANT-47 PO; +PANT40TA54 PO; -PEN1DIS.78 SQ
[2020-12-10] MEDS ORDERED: normal saline 1000ml 1,000 ML IV ONE ×2 (10:15→11:25)
[2020-12-10] MEDS ORDERED: ondansetron/PF 4mg/2ml inj IV ONE ×2 (10:15→16:05)
[2020-12-10] MEDS ORDERED: morphine 4 MG/ML inj SYRINge IV ONE ×2 (10:15→16:05)
[2020-12-10 10:42] LABS: BASOPHILS # (AUTO) 0.1 X10'3 (0-0.2); BASOPHILS % (AUTO) 1.8 % (0-1); EOSINOPHILS # (AUTO) 0.1 X10'3 (0-0.9); EOSINOPHILS % (AUTO) 2.2 % (0-6); HEMOGLOBIN 9.8 g/dl (14.0-17.9); LYMPHOCYTES # (AUTO) 1.2 X10'3 (1.1-4.8); LYMPHOCYTES % (AUTO) 27.6 % (21-51); MEAN CORPUSCULAR HEMOGLOBIN 25.1 PG (27.0-31.0); MEAN CORPUSCULAR HGB CONC 31.5 g/dL (33.0-36.5); MEAN CORPUSCULAR VOLUME 79.8 FL (78-98); MEAN PLATELET VOLUME 6.8 FL (7.4-10.4); MONOCYTES # (AUTO) 0.4 X10'3 (0-0.9); MONOCYTES % (AUTO) 7.9 % (2-12); NEUTROPHILS # (AUTO) 2.7 X10'3 (1.8-7.7); NEUTROPHILS % (AUTO) 60.5 % (42-75); PLATELET COUNT 222 X10'3 (140-440); RED BLOOD COUNT 3.89 X10'6 (4.70-6.10); RED CELL DISTRIBUTION WIDTH 29.8 % (11.5-14.5); WHITE BLOOD COUNT 4.5 X10'3 (4.5-11.0)
[2020-12-10 10:53] LABS: PARTIAL THROMBOPLASTIN TIME 22 SECONDS (22-32)
[2020-12-10 11:01] LABS: ALANINE AMINOTRANSFERASE 19 U/L (12-78); ALBUMIN/GLOBULIN RATIO 1.1 (1.1-1.5); ALKALINE PHOSPHATASE 52 IU/L (46-116); ANION GAP 19 (8-16); ASPARTATE AMINO TRANSFERASE 37 U/L (10-37); BILIRUBIN,TOTAL 1.9 MG/DL (0.1-1.0); BLOOD UREA NITROGEN 13 MG/DL (7-18); BUN/CREATININE RATIO 14.9 (5.4-32.0); CALCIUM 8.1 MG/DL (8.5-10.1); CHLORIDE 101 MMOL/L (99-107); CREATININE 0.87 MG/DL (0.60-1.10); GLUCOSE 83 MG/DL (70-104); LIPASE 139 U/L (73-393); POTASSIUM 3.5 MMOL/L (3.5-5.1); SODIUM 139 MMOL/L (135-145); TOTAL CARBON DIOXIDE 18.8 MMOL/L (24-32); TOTAL PROTEIN 7.6 G/DL (6.4-8.2); eGFR > 90 ML/MIN
[2020-12-10 11:28] LABS: ANISOCYTOSIS 3+; PLATELET ESTIMATE NORMAL
[2020-12-10 11:29] LABS: HYPOCHROMASIA 1+; MICROCYTOSIS 1+; TARGET CELLS 1+
[2020-12-10 11:30] LABS: POLYCHROMASIA 1+
[2020-12-10] MEDS ORDERED: iohexol 350MG/ML 100ml bottle IV ONE (11:37)
[2020-12-10 11:42] LABS: ETHANOL 0.086 GM/DL (0.0-0.010)
[2020-12-10] MEDS ORDERED: dextrose 5%-1/2 normal saline 1,000 ML IV ONE (12:45)
[2020-12-10 13:16] LABS: ALBUMIN 3.7 G/DL (3.4-5.0); ANION GAP 19 (8-16); BLOOD UREA NITROGEN 11 MG/DL (7-18); BUN/CREATININE RATIO 14.3 (5.4-32.0); CALCIUM 7.4 MG/DL (8.5-10.1); CHLORIDE 104 MMOL/L (99-107); CREATININE 0.77 MG/DL (0.60-1.10); GLUCOSE 75 MG/DL (70-104); SODIUM 140 MMOL/L (135-145); TOTAL CARBON DIOXIDE 17.5 MMOL/L (24-32); eGFR > 90 ML/MIN
[2020-12-10 14:56] LABS: CLARITY,URINE CLEAR (Clear); COLOR,URINE STRAW (Yellow); GLUCOSE, URINE NEGATIVE (Neg); KETONES,URINE 15 mg/dl (Neg); LEUKOCYTE ESTERASE ,URINE NEGATIVE (Neg); NITRITES, URINE NEGATIVE (Neg); OCCULT BLOOD,URINE NEGATIVE (Neg); PROTEIN,URINE NEGATIVE (Neg); UROBILINOGEN,URINE 0.2 E.U/dL (0.2-1.0)
[2020-12-10 14:58] LABS: UA COLLECTION TYPE NON-SPECIFIED
[2020-12-10] MEDS ORDERED: ONDA4TAB6 PO (16:22)
[2020-12-10 16:43] VITALS: BP 146/76
== END 2020-12-10 16:45 | disposition home or self-care (01) ==
LOC: ER 09:21
DX: E87.2 Acidosis (principal); R10.9 Unspecified abdominal pain; R11.2 Nausea with vomiting, unspecified; F10.10 Alcohol abuse, uncomplicated; Y90.8 Blood alcohol level of 240 mg/100 ml or more; E78.00 Pure hypercholesterolemia, unspecified; I10 Essential (primary) hypertension; E11.9 Type 2 diabetes mellitus without complications; Z79.899 Other long term (current) drug therapy
CPT/HCPCS: 36415; 74174; 80048; 80053; 80320; 81003; 83605; 83690; 85008; 85025; 85610; 85730; 93005; 96361; 96365; 96366; 96375; 96376; 99285; J2270; J2405; J7030; Q9967

== ENCOUNTER → 2020-12-17 | Emergency (ER) | payer MEDICAID ==
[~2020-12-17] VITALS: Ht 172.7 cm; Wt 49.6 kg
[~2020-12-17] MED LIST changes: -CIPR-202 PO; -HYDR-3965 PO; -METR-159 PO; +ONDA4TAB6 PO
[2020-12-17 16:30] VITALS: BP 108/82
[2020-12-17 17:14] LABS: BASOPHILS # (AUTO) 0.1 X10'3 (0-0.2); BASOPHILS % (AUTO) 1.7 % (0-1); EOSINOPHILS # (AUTO) 0.2 X10'3 (0-0.9); EOSINOPHILS % (AUTO) 3.7 % (0-6); HEMATOCRIT 34.7 % (42.0-52.0); HEMOGLOBIN 10.9 g/dl (14.0-17.9); LYMPHOCYTES # (AUTO) 1.8 X10'3 (1.1-4.8); LYMPHOCYTES % (AUTO) 44.1 % (21-51); MEAN CORPUSCULAR HEMOGLOBIN 25.1 PG (27.0-31.0); MEAN CORPUSCULAR HGB CONC 31.3 g/dL (33.0-36.5); MEAN CORPUSCULAR VOLUME 80.1 FL (78-98); MEAN PLATELET VOLUME 7.1 FL (7.4-10.4); MONOCYTES # (AUTO) 0.2 X10'3 (0-0.9); MONOCYTES % (AUTO) 5.7 % (2-12); NEUTROPHILS # (AUTO) 1.8 X10'3 (1.8-7.7); NEUTROPHILS % (AUTO) 44.8 % (42-75); PLATELET COUNT 287 X10'3 (140-440); RED BLOOD COUNT 4.33 X10'6 (4.70-6.10); RED CELL DISTRIBUTION WIDTH 30.6 % (11.5-14.5); WHITE BLOOD COUNT 4.1 X10'3 (4.5-11.0)
[2020-12-17 17:34] LABS: ALANINE AMINOTRANSFERASE 35 U/L (12-78); ALBUMIN 4.3 G/DL (3.4-5.0); ALBUMIN/GLOBULIN RATIO 1.1 (1.1-1.5); ALKALINE PHOSPHATASE 52 IU/L (46-116); AMYLASE 88 U/L (25-115); ANION GAP 21 (8-16); ASPARTATE AMINO TRANSFERASE 77 U/L (10-37); BILIRUBIN,TOTAL 1.2 MG/DL (0.1-1.0); BLOOD UREA NITROGEN 13 MG/DL (7-18); BUN/CREATININE RATIO 13.7 (5.4-32.0); CALCIUM 8.2 MG/DL (8.5-10.1); CHLORIDE 102 MMOL/L (99-107); CREATININE 0.95 MG/DL (0.60-1.10); GLUCOSE 81 MG/DL (70-104); LIPASE 241 U/L (73-393); POTASSIUM 3.3 MMOL/L (3.5-5.1); SODIUM 141 MMOL/L (135-145); TOTAL CARBON DIOXIDE 17.7 MMOL/L (24-32); TOTAL PROTEIN 8.3 G/DL (6.4-8.2); eGFR 83 ML/MIN
[2020-12-17 17:48] LABS: TROPONIN I < 0.04 NG/ML (0.0-0.05)
[2020-12-17 17:49] LABS: ANISOCYTOSIS 3+; ELLIPTOCYTES FEW; HYPOCHROMASIA 1+; PLATELET ESTIMATE NORMAL; POLYCHROMASIA 1+
--- NOTE | 2020-12-17 19:56 | NUR ---
PT NOT IN LOBBY - CALLED NUMBER ON RECORD AND WAS TOLD THAT HE WAS "SLEEPING" ASKED INDIVIDUAL WHO ANSWERED THE PHONE TO PLEASE HAVE HIM CALL THE ER WHEN HE AWAKES.
== END | disposition left against medical advice (07) ==
LOC: ER 16:20
DX: R10.9 Unspecified abdominal pain (principal); Z53.21 Procedure and treatment not carried out due to patient leaving prior to being seen by health care provider
CPT/HCPCS: 36415; 80053; 82150; 83605; 83690; 84484; 85008; 85025

== ENCOUNTER 2020-12-31 20:15 | Inpatient (IN) | payer MEDICAID ==
[~2020-12-31] VITALS: Ht 172.7 cm; Wt 65.9 kg
[2020-12-31 20:51] LABS: BASOPHILS # (AUTO) 0.1 X10'3 (0-0.2); BASOPHILS % (AUTO) 1.3 % (0-1); EOSINOPHILS # (AUTO) 0.2 X10'3 (0-0.9); EOSINOPHILS % (AUTO) 1.4 % (0-6); HEMATOCRIT 36.4 % (42.0-52.0); HEMOGLOBIN 11.5 g/dl (14.0-17.9); LYMPHOCYTES # (AUTO) 2.9 X10'3 (1.1-4.8); LYMPHOCYTES % (AUTO) 27.7 % (21-51); MEAN CORPUSCULAR HGB CONC 31.7 g/dL (33.0-36.5); MEAN CORPUSCULAR VOLUME 82.1 FL (78-98); MEAN PLATELET VOLUME 6.8 FL (7.4-10.4); MONOCYTES # (AUTO) 0.6 X10'3 (0-0.9); MONOCYTES % (AUTO) 5.3 % (2-12); NEUTROPHILS # (AUTO) 6.7 X10'3 (1.8-7.7); NEUTROPHILS % (AUTO) 64.3 % (42-75); PLATELET COUNT 275 X10'3 (140-440); RED BLOOD COUNT 4.43 X10'6 (4.70-6.10); RED CELL DISTRIBUTION WIDTH 30.7 % (11.5-14.5); WHITE BLOOD COUNT 10.5 X10'3 (4.5-11.0)
[2020-12-31 21:17] LABS: ALANINE AMINOTRANSFERASE 26 U/L (12-78); ALBUMIN 4.6 G/DL (3.4-5.0); ALBUMIN/GLOBULIN RATIO 1.2 (1.1-1.5); ALKALINE PHOSPHATASE 55 IU/L (46-116); ANION GAP 31 (8-16); ASPARTATE AMINO TRANSFERASE 69 U/L (10-37); BILIRUBIN,TOTAL 0.9 MG/DL (0.1-1.0); BLOOD UREA NITROGEN 14 MG/DL (7-18); BUN/CREATININE RATIO 13.5 (5.4-32.0); CALCIUM 8.5 MG/DL (8.5-10.1); CHLORIDE 96 MMOL/L (99-107); CREATININE 1.04 MG/DL (0.60-1.10); GLUCOSE 59 MG/DL (70-104); LIPASE 405 U/L (73-393); SODIUM 139 MMOL/L (135-145); TOTAL PROTEIN 8.5 G/DL (6.4-8.2); eGFR 75 ML/MIN
[2020-12-31 21:24] LABS: TOTAL CARBON DIOXIDE 12.3 MMOL/L (24-32)
[2020-12-31] MEDS ORDERED: dextrose ORAL solution 15 GM/59 ML bottle ONE (21:27)
--- NOTE | 2020-12-31 21:37 | NUR ---
PT TAKEN TO ER BED 17 FOR CARE AFTER LAB CALLED WITH CRITICAL LEVELS, GLUCOSE OF 59. ACCUCHECK DONE, WAS 49. PT HAD ORAL GLUCOSE DOSE, IV BEING PLACED, MD NOTIFIED.
[2020-12-31] MEDS ORDERED: dextrose ORAL solution 15 GM/59 ML bottle PO ONE (21:40)
--- NOTE | 2020-12-31 21:50 | NUR ---
Pt vomiting glucose and juice given earlier. Md Sweet notified pt's condition
[2020-12-31] MEDS ORDERED: ondansetron/PF 4mg/2ml inj IV ONE (22:00)
[2020-12-31] MEDS ORDERED: dextrose 50%-water 50ml dispensing syringe IV ONE (22:00)
[2020-12-31] MEDS ORDERED: normal saline 1000ML IV soln IVB ONE ×2 (22:00→22:05)
--- NOTE | 2020-12-31 22:00 | NUR ---
Pt in room 17 for iv placement, attempt x4. Pt moved to room 8, report given to Anthony SUI. Md Sweet notified BS 49, orders placed. Md WHEELER at bedside & Kassandra SIU for US placement and assessment. Addendum: 12/31/20 at 2239 by PTROTTIER First interaction with pt in room 17 for iv placement, attempt x4. Pt moved to room 8, report given to Anthony SIU. Md Sweet notified BS 49, orders placed. Md WHEELER at bedside & Kassandra SIU for US placement and assessment.
[2020-12-31 22:38] LABS: ANISOCYTOSIS 3+; BURR CELLS 1+; HYPOCHROMASIA 2+; PLATELET ESTIMATE NORMAL; POIKILOCYTOSIS 1+; SCHISTOCYTES 1+
[2020-12-31] MEDS ORDERED: metoclopramide 5 mg/ml inj IV ONE (22:40)
[2020-12-31] MEDS ORDERED: diphenhydrAMINE 50 mg/ml inj IV ONE (22:40)
[2020-12-31] MEDS ORDERED: magnesium 2GM in 50ml NS 50 ML IV ONE (22:40)
[2020-12-31] MEDS ORDERED: LORazepam 2 mg/ml vial IV ONE (22:40)
[2020-12-31] MEDS: potassium CL 10mEq/100ml bag 100 ML IV SCH ×2 (22:40→23:40)
--- NOTE | 2020-12-31 22:44 | NUR ---
Md Ohlfs at bedside notified HR 155/ min. Orders placed and bedside RN Anthony notified.
--- NOTE | 2020-12-31 22:56 | NUR ---
Pt HR 200/min SVT, Ohlfs notified and at bedside at this time
[2020-12-31] MEDS ORDERED: diltiazem 5mg/ml 5ml inj. IV ONE (23:20)
[2020-12-31 23:23] LABS: MAGNESIUM 1.3 MG/DL (1.5-2.4); PHOSPHORUS 4.3 MG/DL (2.3-4.5)
--- NOTE | 2020-12-31 23:41 | NUR ---
5mg diltiazem administered SIVP. Dr. Reyes at bedside. No change in HR or rhythm. Verbal order received to give another 5 mg IV with same result. Verbal order to give another 5 mg received and administered, with no change. Final order received for another 10 of diltiazem, with no change in HR or rhythm.
[2021-01-01] MEDS ORDERED: adenosine 3mg/ml 2ml vial IV ONE (00:20)
[2021-01-01] MEDS ORDERED: diltiazem 5mg/ml 5ml inj. IV ONE ×2 (00:20→00:45)
[2021-01-01] MEDS ORDERED: dextrose 5%-1/2 normal saline 1,000 ML IV ONE ×2 (00:45→03:25)
[2021-01-01] MEDS ORDERED: metoprolol tartrate 1mg/ml inj IV ONE (01:10)
[2021-01-01] MEDS ORDERED: LORazepam 2 mg/ml vial IV ONE (01:10)
[2021-01-01] MEDS ORDERED: diphenhydrAMINE 50 mg/ml inj IV PRN (02:05)
[2021-01-01] MEDS ORDERED: potassium Cl 40MEQ/1/2NS 520ml 520 ML IV PRN ×2 (02:05)
[2021-01-01] MEDS ORDERED: acetaminophen 325mg tablet PO PRN ×2 (02:05)
[2021-01-01] MEDS ORDERED: magnesium hydroxide 30ml (MOM) UD suspension PO PRN (02:05)
[2021-01-01] MEDS ORDERED: dextrose 50%-water 50ml dispensing syringe IV PRN (02:05)
[2021-01-01] MEDS ORDERED: acetaminophen 650mg rectal suppository RC PRN (02:05)
[2021-01-01] MEDS ORDERED: thiamine 100mg/ml 2ml inj. IV ONE (02:05)
[2021-01-01] MEDS ORDERED: morphine 2 MG/ML inj. syringe IV PRN (02:05)
[2021-01-01] MEDS ORDERED: ondansetron 4mg rapidly disintigrating tab PO PRN (02:05)
[2021-01-01] MEDS ORDERED: ondansetron/PF 4mg/2ml inj IV PRN (02:05)
[2021-01-01] MEDS ORDERED: haloperidol lactate 5mg/ml inj IM PRN (02:05)
[2021-01-01] MEDS ORDERED: HYDROcodone/acetaminophen 5mg/325mg tablet PO PRN (02:05)
[2021-01-01] MEDS ORDERED: magnesium 2GM in 50ml NS 50 ML IV PRN (02:05)
[2021-01-01] MEDS: normal saline 1000ml 1,000 ML IV SCH ×3 (02:05→22:05)
[2021-01-01] MEDS ORDERED: diphenhydrAMINE 25mg capsule PO PRN (02:05)
[2021-01-01] MEDS ORDERED: magnesium 4gm in 100ml NS 100 ML IV PRN (02:05)
[2021-01-01] MEDS ORDERED: HYDROmorphone inj. 0.5 MG/0.5 ML DISP.SYRIN IV PRN (02:05)
[2021-01-01] MEDS ORDERED: bisacodyl 10mg suppository rectal RC PRN (02:05)
[2021-01-01] MEDS ORDERED: haloperidol 5mg tablet PO PRN (02:05)
[2021-01-01] MEDS ORDERED: heparin 10,000 units/1 ML INJ IV ONE (02:15)
[2021-01-01] MEDS ORDERED: heparin 10,000 units/1 ML INJ IV PRN (02:15)
[2021-01-01] MEDS ORDERED: heparin 25,000 UNIT/250ml bag 250 ML IV SCH (02:15)
--- NOTE | 2021-01-01 02:15 | NUR ---
Pt converted to NSR at this time. Pt denies any CP. Pt was asleep during conversion. Stated his chest feels different than earlier.
[2021-01-01 02:53] LABS: CLARITY,URINE CLEAR (Clear); COLOR,URINE YELLOW (Yellow); GLUCOSE, URINE NEGATIVE (Neg); KETONES,URINE 40 mg/dl (Neg); LEUKOCYTE ESTERASE ,URINE NEGATIVE (Neg); NITRITES, URINE NEGATIVE (Neg); OCCULT BLOOD,URINE TRACE-INTACT (Neg); PH,URINE 5.5 (4.8-8.0); PROTEIN,URINE NEGATIVE (Neg); UROBILINOGEN,URINE 0.2 E.U/dL (0.2-1.0)
[2021-01-01 03:03] LABS: ABG BASE EXCESS -19.1 mmol/L (-2.0-2.0); ABG OXYGEN SATURATION 94.9 % (94-97); ABG PCO2 (T) 23.1 mmHg (35.0-48.0); ABG PO2 (T) 97.8 mmHg (75.0-100.0); FCOHb 0.7 % (0.0-3.9); FMetHb 0.3 % (0.0-1.5); TOTAL HEMOGLOBIN 11.4 G/dl (14.0-18.0)
[2021-01-01 03:06] LABS: ETHANOL 0.111 GM/DL (0.0-0.010)
[2021-01-01 03:07] LABS: CREATINE KINASE 110 U/L (39-308); D-DIMER 1.88 MG/L FEU (0-0.50); PARTIAL THROMBOPLASTIN TIME 20 SECONDS (22-32)
--- NOTE | 2021-01-01 03:30 | NUR ---
Call placed to Dr. Jama about ABG results and critical lactic acid per lab. New order received for fluids with bicarb. Pharmacy aware.
[2021-01-01 03:38] LABS: UA COLLECTION TYPE CLN CATCH MIDSTREAM
[2021-01-01 03:39] LABS: BACTERIA,URINE NONE SEEN /HPF (Neg); RBC,URINE 0-2 /HPF (0-2); SQUAMOUS EPITHELIAL CELL,UR NONE SEEN /LPF (FEW); WBC,URINE NONE SEEN /HPF (0-4)
[2021-01-01 03:44] LABS: BASOPHILS # (AUTO) 0.1 X10'3 (0-0.2); EOSINOPHILS % (AUTO) 0 % (0-6); MEAN PLATELET VOLUME 7.6 FL (7.4-10.4); WHITE BLOOD COUNT 14.6 X10'3 (4.5-11.0)
[2021-01-01 03:51] LABS: BASOPHILS % (AUTO) 0.4 % (0-1); LYMPHOCYTES # (AUTO) 1.6 X10'3 (1.1-4.8); MONOCYTES % (AUTO) 6.8 % (2-12); NEUTROPHILS # (AUTO) 11.9 X10'3 (1.8-7.7); NEUTROPHILS % (AUTO) 81.8 % (42-75); PLATELET COUNT 244 X10'3 (140-440); RED CELL DISTRIBUTION WIDTH 30.2 % (11.5-14.5)
[2021-01-01] MEDS: SODIUM BICARBONATE IV SCH ×3 (04:12→20:57)
[2021-01-01] MEDS: DEXTROSE 5% IV SCH ×3 (04:12→20:57)
[2021-01-01] MEDS: 1/2 NORMAL SALINE IV SCH ×3 (04:12→20:57)
[2021-01-01 04:13] LABS: HEMATOCRIT 36.5 % (42.0-52.0); HEMOGLOBIN 11.4 g/dl (14.0-17.9)
[2021-01-01 04:14] LABS: MEAN CORPUSCULAR HEMOGLOBIN 26.6 PG (27.0-31.0); MEAN CORPUSCULAR HGB CONC 31.3 g/dL (33.0-36.5); MEAN CORPUSCULAR VOLUME 85.1 FL (78-98)
[2021-01-01 04:25] LABS: HEMOGLOBIN A1C 5.8 % (4.5-6.2)
[2021-01-01] MEDS ORDERED: LIDOcaine 2% 10ml TOPICAL JELLY (Urojet) TP ONE (04:45)
[2021-01-01 05:14] LABS: ALANINE AMINOTRANSFERASE 23 U/L (12-78); ALBUMIN 3.9 G/DL (3.4-5.0); ALKALINE PHOSPHATASE 54 IU/L (46-116); ANION GAP 28 (8-16); ASPARTATE AMINO TRANSFERASE 67 U/L (10-37); BILIRUBIN,TOTAL 0.6 MG/DL (0.1-1.0); BLOOD UREA NITROGEN 11 MG/DL (7-18); BUN/CREATININE RATIO 10.4 (5.4-32.0); CALCIUM 6.4 MG/DL (8.5-10.1); CHLORIDE 102 MMOL/L (99-107); CREATININE 1.06 MG/DL (0.60-1.10); GLUCOSE 90 MG/DL (70-104); POTASSIUM 4.4 MMOL/L (3.5-5.1); SODIUM 139 MMOL/L (135-145); TOTAL PROTEIN 7.7 G/DL (6.4-8.2); eGFR 73 ML/MIN
[2021-01-01 05:16] LABS: TOTAL CARBON DIOXIDE 9.1 MMOL/L (24-32)
--- NOTE | 2021-01-01 05:36 | NUR ---
Call placed to Dr. Jama about orders for NGT and snow, as well as the heparin drip. Pt refusing both NGT and snow until MD explained the reasons for both. Per Dr. Jama, just chart that pt refused. When asked about the heparin drip after pt had already converted, he stated "let the pharmacist decide what they want to do." Call placed to pharmacist. SQ heparin will be the treatment of choice at this time. Other orders dc'd by pharmacist.
[2021-01-01] MEDS ORDERED: sodium bicarbonate (8.4%) inj. 1 MEQ/ML ML IV ONE (05:50)
[2021-01-01] MEDS: LORazepam 2 mg/ml vial IV PRN (06:40)
[2021-01-01 07:15] VITALS: BP 147/83
[2021-01-01] MEDS: docusate sod 100mg capsule PO SCH ×2 (08:00→20:50)
[2021-01-01] MEDS: K and/or MAG REPLACEMENT MC SCH ×2 (08:00→20:00)
[2021-01-01] MEDS: pantoprazole 40 MG vial IV SCH ×2 (09:17→20:50)
[2021-01-01] MEDS: heparin, porcine 5000 units/ml vial SQ SCH ×2 (09:17→20:52)
[2021-01-01] MEDS ORDERED: METO25TA6 PO (10:39)
[2021-01-01] MEDS: morphine 2 MG/ML inj. syringe IV PRN ×3 (10:43→23:18)
[2021-01-01 11:00] VITALS: BP 145/87
--- NOTE | 2021-01-01 15:31 | NUR ---
DM/Malnutrition consults: Pt hx new DM DX July this year A1C 7.7 now down to 5 this admit not appropriate for DM ed. Pt has normal strength, no edema, and scaled wt hx +4.8kg since prior July admit this year. Does not meet minimum malnutrition criteria at this time. Will continue to monitor. Addendum: 01/01/21 at [address] Amended: Links added.
[2021-01-01 17:35] VITALS: BP 144/97
[2021-01-01 18:00] VITALS: BP 141/84
--- NOTE | 2021-01-01 18:39 | NUR ---
Problems reprioritized. Patient report given, questions answered & plan of care reviewed with prudence rn.
--- NOTE | 2021-01-01 18:58 | NUR ---
Patient in room PCU 3013. I have received report from CANDY SIU and had the opportunity to ask questions and assume patient care.
[2021-01-01 19:45] LABS: ALBUMIN 3.5 G/DL (3.4-5.0); ANION GAP 10 (8-16); BLOOD UREA NITROGEN 10 MG/DL (7-18); BUN/CREATININE RATIO 11.5 (5.4-32.0); CALCIUM 6.5 MG/DL (8.5-10.1); CHLORIDE 104 MMOL/L (99-107); CREATININE 0.87 MG/DL (0.60-1.10); GLUCOSE 150 MG/DL (70-104); SODIUM 140 MMOL/L (135-145); TOTAL CARBON DIOXIDE 26.3 MMOL/L (24-32); eGFR > 90 ML/MIN
[2021-01-01 19:49] LABS: POTASSIUM 2.8 MMOL/L (3.5-5.1)
[2021-01-01] MEDS: potassium Cl 20 mEq SR tablet PO PRN (20:50)
[2021-01-01] MEDS: HYDROcodone/acetaminophen 10/325mg tab PO PRN (20:50)
[2021-01-01] MEDS: temazepam 15mg capsule PO PRN (20:56)
[2021-01-01 22:00] VITALS: BP 148/81
[2021-01-02] MEDS: 1/2 NORMAL SALINE IV SCH ×2 (00:30→04:22)
[2021-01-02] MEDS: DEXTROSE 5% IV SCH ×2 (00:30→04:22)
[2021-01-02] MEDS: SODIUM BICARBONATE IV SCH ×2 (00:30→04:22)
[2021-01-02] MEDS: LORazepam 2 mg/ml vial IV PRN ×2 (01:59→20:42)
[2021-01-02] MEDS: HYDROcodone/acetaminophen 10/325mg tab PO PRN (01:59)
[2021-01-02 02:39] VITALS: BP 137/77
[2021-01-02] MEDS: potassium Cl 20 mEq SR tablet PO PRN ×4 (03:08→20:43)
[2021-01-02] MEDS: morphine 2 MG/ML inj. syringe IV PRN ×4 (04:22→18:48)
[2021-01-02 06:00] VITALS: BP 139/85
--- NOTE | 2021-01-02 06:04 | NUR ---
Problems reprioritized. Patient report given, questions answered & plan of care reviewed with CANDY SIU.
[2021-01-02] MEDS: K and/or MAG REPLACEMENT MC SCH ×2 (08:00→20:00)
[2021-01-02] MEDS: docusate sod 100mg capsule PO SCH ×2 (08:00→20:43)
[2021-01-02 08:03] LABS: BASOPHILS % (AUTO) 0.4 % (0-1); EOSINOPHILS # (AUTO) 0.1 X10'3 (0-0.9); EOSINOPHILS % (AUTO) 2.3 % (0-6); HEMATOCRIT 25.3 % (42.0-52.0); LYMPHOCYTES # (AUTO) 2.1 X10'3 (1.1-4.8); LYMPHOCYTES % (AUTO) 35.7 % (21-51); MEAN CORPUSCULAR HEMOGLOBIN 25.6 PG (27.0-31.0); MEAN CORPUSCULAR HGB CONC 31.7 g/dL (33.0-36.5); MEAN CORPUSCULAR VOLUME 80.8 FL (78-98); MEAN PLATELET VOLUME 6.7 FL (7.4-10.4); MONOCYTES # (AUTO) 0.3 X10'3 (0-0.9); MONOCYTES % (AUTO) 5.5 % (2-12); NEUTROPHILS # (AUTO) 3.3 X10'3 (1.8-7.7); NEUTROPHILS % (AUTO) 56.1 % (42-75); PLATELET COUNT 147 X10'3 (140-440); RED BLOOD COUNT 3.13 X10'6 (4.70-6.10); RED CELL DISTRIBUTION WIDTH 30.2 % (11.5-14.5)
--- NOTE | 2021-01-02 08:25 | NUR ---
PAGER ID: [phone] MESSAGE: [id number] diazchalo sampsondonis- Hgb 8.0 , dropped from 11.4. ivf 150/hr. lactic 1.2 this am. Ashley 1570
[2021-01-02] MEDS: pantoprazole 40 MG vial IV SCH ×2 (08:40→20:43)
[2021-01-02 08:42] LABS: ALANINE AMINOTRANSFERASE 15 U/L (12-78); ALKALINE PHOSPHATASE 41 IU/L (46-116); ANION GAP 9 (8-16); ASPARTATE AMINO TRANSFERASE 26 U/L (10-37); BLOOD UREA NITROGEN 4 MG/DL (7-18); BUN/CREATININE RATIO 5.2 (5.4-32.0); CALCIUM 6.5 MG/DL (8.5-10.1); CHLORIDE 106 MMOL/L (99-107); CREATININE 0.77 MG/DL (0.60-1.10); GLUCOSE 150 MG/DL (70-104); MAGNESIUM 1.2 MG/DL (1.5-2.4); POTASSIUM 3.2 MMOL/L (3.5-5.1); SODIUM 143 MMOL/L (135-145); TOTAL CARBON DIOXIDE 28.2 MMOL/L (24-32); eGFR > 90 ML/MIN
[2021-01-02 08:53] LABS: PLATELET ESTIMATE NORMAL; POLYCHROMASIA FEW
[2021-01-02 08:54] LABS: HYPOCHROMASIA 1+; TEAR DROP CELLS 1+
[2021-01-02 08:55] LABS: STOMATOCYTES 1+
--- NOTE | 2021-01-02 09:41 | NUR ---
pt c/o esophageal discomfort, raised hob. this is his main source of pain complaints.
[2021-01-02] MEDS ORDERED: metoclopramide 5 mg/ml inj IV SCH (10:10)
--- NOTE | 2021-01-02 10:20 | NUR ---
receive orders from MD Leone to check q8 hh , start reglan and hold heparin sq
[2021-01-02] MEDS ORDERED: morphine 4 MG/ML inj SYRINge IV PRN (10:55)
[2021-01-02] MEDS: mag hydrox/Alum hydrox/simeth 30ml oral suspension PO PRN ×3 (10:59→21:00)
[2021-01-02 11:00] VITALS: BP 140/92
[2021-01-02 11:01] LABS: HEMATOCRIT 25.3 % (42.0-52.0); HEMOGLOBIN 8.1 g/dl (14.0-17.9); MEAN CORPUSCULAR HEMOGLOBIN 26.2 PG (27.0-31.0); MEAN CORPUSCULAR VOLUME 81.9 FL (78-98); MEAN PLATELET VOLUME 6.3 FL (7.4-10.4); PLATELET COUNT 146 X10'3 (140-440); RED BLOOD COUNT 3.09 X10'6 (4.70-6.10); RED CELL DISTRIBUTION WIDTH 29.3 % (11.5-14.5); WHITE BLOOD COUNT 5.3 X10'3 (4.5-11.0)
[2021-01-02] MEDS: normal saline 1000ml 1,000 ML IV SCH ×2 (12:06→12:11)
[2021-01-02 15:00] VITALS: BP 131/81
[2021-01-02] MEDS: metoclopramide 5 mg/ml inj IV SCH ×2 (16:39→20:43)
--- NOTE | 2021-01-02 17:40 | NUR ---
noted pt doesn't have hiccups when sleeping but they start when he is awake- this has been consistent for last 2 days. he is not kept awake by them either. hiccups also subside on their own and he goes back to sleep.
[2021-01-02 18:00] VITALS: BP 157/91
--- NOTE | 2021-01-02 18:25 | NUR ---
Patient in room PCU 3013. I have received report from Rohan SIU and had the opportunity to ask questions and assume patient care.
[2021-01-02 18:39] LABS: HEMATOCRIT 27.6 % (42.0-52.0); HEMOGLOBIN 8.8 g/dl (14.0-17.9); MEAN CORPUSCULAR HEMOGLOBIN 26.2 PG (27.0-31.0); MEAN CORPUSCULAR HGB CONC 31.9 g/dL (33.0-36.5); MEAN CORPUSCULAR VOLUME 82.1 FL (78-98); MEAN PLATELET VOLUME 6.9 FL (7.4-10.4); PLATELET COUNT 148 X10'3 (140-440); RED BLOOD COUNT 3.36 X10'6 (4.70-6.10); RED CELL DISTRIBUTION WIDTH 29.7 % (11.5-14.5); WHITE BLOOD COUNT 4.9 X10'3 (4.5-11.0)
[2021-01-02] MEDS: magnesium Cl slow-release 64mg tablet PO PRN (20:43)
[2021-01-03 01:55] LABS: BASOPHILS # (AUTO) 0.1 X10'3 (0-0.2); BASOPHILS % (AUTO) 1.5 % (0-1); EOSINOPHILS # (AUTO) 0.2 X10'3 (0-0.9); EOSINOPHILS % (AUTO) 4.7 % (0-6); HEMATOCRIT 26.3 % (42.0-52.0); HEMOGLOBIN 8.3 g/dl (14.0-17.9); LYMPHOCYTES # (AUTO) 1.9 X10'3 (1.1-4.8); LYMPHOCYTES % (AUTO) 41.9 % (21-51); MEAN CORPUSCULAR HEMOGLOBIN 26.2 PG (27.0-31.0); MEAN CORPUSCULAR HGB CONC 31.6 g/dL (33.0-36.5); MONOCYTES # (AUTO) 0.3 X10'3 (0-0.9); MONOCYTES % (AUTO) 7.3 % (2-12); NEUTROPHILS % (AUTO) 44.6 % (42-75); PLATELET COUNT 143 X10'3 (140-440); RED BLOOD COUNT 3.17 X10'6 (4.70-6.10); RED CELL DISTRIBUTION WIDTH 29.7 % (11.5-14.5); WHITE BLOOD COUNT 4.6 X10'3 (4.5-11.0)
[2021-01-03] MEDS: LORazepam 2 mg/ml vial IV PRN (02:04)
[2021-01-03] MEDS ORDERED: LORazepam 1 MG tablet PO PRN (02:05)
[2021-01-03] MEDS ORDERED: LORazepam 2 mg/ml vial IV PRN (02:05)
[2021-01-03] MEDS: normal saline 1000ml 1,000 ML IV SCH ×2 (02:06→14:30)
[2021-01-03] MEDS: metoclopramide 5 mg/ml inj IV SCH ×4 (02:06→19:21)
[2021-01-03 02:10] LABS: ALANINE AMINOTRANSFERASE 16 U/L (12-78); ALBUMIN 3.2 G/DL (3.4-5.0); ALKALINE PHOSPHATASE 52 IU/L (46-116); ANION GAP 5 (8-16); ASPARTATE AMINO TRANSFERASE 23 U/L (10-37); BILIRUBIN,TOTAL 0.6 MG/DL (0.1-1.0); BLOOD UREA NITROGEN 2 MG/DL (7-18); BUN/CREATININE RATIO 2.7 (5.4-32.0); CALCIUM 7.2 MG/DL (8.5-10.1); CHLORIDE 108 MMOL/L (99-107); CREATININE 0.74 MG/DL (0.60-1.10); GLUCOSE 87 MG/DL (70-104); MAGNESIUM 1.3 MG/DL (1.5-2.4); POTASSIUM 3.6 MMOL/L (3.5-5.1); SODIUM 139 MMOL/L (135-145); TOTAL CARBON DIOXIDE 26.4 MMOL/L (24-32); TOTAL PROTEIN 6.3 G/DL (6.4-8.2); eGFR > 90 ML/MIN
[2021-01-03] MEDS: mag hydrox/Alum hydrox/simeth 30ml oral suspension PO PRN ×3 (02:11→14:05)
[2021-01-03 03:02] LABS: PLATELET ESTIMATE NORMAL
[2021-01-03 03:14] LABS: ANISOCYTOSIS 3+
--- NOTE | 2021-01-03 06:36 | NUR ---
Problems reprioritized. Patient report given, questions answered & plan of care reviewed with Rohan SIU.
[2021-01-03] MEDS: pantoprazole 40 MG vial IV SCH ×2 (07:58→19:21)
[2021-01-03] MEDS: docusate sod 100mg capsule PO SCH ×2 (07:59→19:28)
[2021-01-03] MEDS: magnesium Cl slow-release 64mg tablet PO PRN (07:59)
[2021-01-03] MEDS: K and/or MAG REPLACEMENT MC SCH ×2 (08:00→19:27)
[2021-01-03 10:57] LABS: HEMATOCRIT 26.3 % (42.0-52.0); HEMOGLOBIN 8.3 g/dl (14.0-17.9); MEAN CORPUSCULAR HEMOGLOBIN 25.9 PG (27.0-31.0); MEAN CORPUSCULAR HGB CONC 31.5 g/dL (33.0-36.5); MEAN CORPUSCULAR VOLUME 82.1 FL (78-98); PLATELET COUNT 147 X10'3 (140-440); RED CELL DISTRIBUTION WIDTH 29.8 % (11.5-14.5); WHITE BLOOD COUNT 3.4 X10'3 (4.5-11.0)
[2021-01-03] MEDS: morphine 2 MG/ML inj. syringe IV PRN ×3 (14:05→23:34)
--- NOTE | 2021-01-03 17:50 | NUR ---
REPORT RECIEVED FROM CANDY SIU. ALL QUESTIONS ANSWERED, I HAVE ASSUMED CARE OF PATIENT. PATIENT IN THE BATHROOM AT THE TIME OF REPORT.
[2021-01-03 18:00] VITALS: BP 147/94
[2021-01-03 18:33] LABS: HEMOGLOBIN 9.1 g/dl (14.0-17.9); MEAN CORPUSCULAR HEMOGLOBIN 26.2 PG (27.0-31.0); MEAN CORPUSCULAR HGB CONC 31.4 g/dL (33.0-36.5); MEAN CORPUSCULAR VOLUME 83.4 FL (78-98); MEAN PLATELET VOLUME 7.1 FL (7.4-10.4); PLATELET COUNT 156 X10'3 (140-440); RED BLOOD COUNT 3.47 X10'6 (4.70-6.10); RED CELL DISTRIBUTION WIDTH 29.3 % (11.5-14.5); WHITE BLOOD COUNT 3.7 X10'3 (4.5-11.0)
[2021-01-03 22:18] VITALS: BP 148/94
[2021-01-04] MEDS: mag hydrox/Alum hydrox/simeth 30ml oral suspension PO PRN (01:03)
[2021-01-04] MEDS: temazepam 15mg capsule PO PRN (01:06)
[2021-01-04] MEDS: metoclopramide 5 mg/ml inj IV SCH ×2 (01:45→08:00)
[2021-01-04 02:23] LABS: BASOPHILS % (AUTO) 0.8 % (0-1); EOSINOPHILS # (AUTO) 0.1 X10'3 (0-0.9); EOSINOPHILS % (AUTO) 4.1 % (0-6); HEMOGLOBIN 8.7 g/dl (14.0-17.9); LYMPHOCYTES # (AUTO) 1.7 X10'3 (1.1-4.8); LYMPHOCYTES % (AUTO) 45.6 % (21-51); MEAN CORPUSCULAR HEMOGLOBIN 25.8 PG (27.0-31.0); MEAN CORPUSCULAR HGB CONC 30.9 g/dL (33.0-36.5); MEAN CORPUSCULAR VOLUME 83.4 FL (78-98); MEAN PLATELET VOLUME 7.1 FL (7.4-10.4); MONOCYTES # (AUTO) 0.3 X10'3 (0-0.9); MONOCYTES % (AUTO) 8.3 % (2-12); NEUTROPHILS # (AUTO) 1.5 X10'3 (1.8-7.7); NEUTROPHILS % (AUTO) 41.2 % (42-75); PLATELET COUNT 148 X10'3 (140-440); RED BLOOD COUNT 3.36 X10'6 (4.70-6.10); WHITE BLOOD COUNT 3.6 X10'3 (4.5-11.0)
[2021-01-04 02:35] LABS: ALANINE AMINOTRANSFERASE 15 U/L (12-78); ALBUMIN 3.3 G/DL (3.4-5.0); ALBUMIN/GLOBULIN RATIO 0.9 (1.1-1.5); ALKALINE PHOSPHATASE 48 IU/L (46-116); ANION GAP 10 (8-16); ASPARTATE AMINO TRANSFERASE 23 U/L (10-37); BILIRUBIN,TOTAL 0.4 MG/DL (0.1-1.0); BLOOD UREA NITROGEN 2 MG/DL (7-18); BUN/CREATININE RATIO 2.7 (5.4-32.0); CALCIUM 8.8 MG/DL (8.5-10.1); CHLORIDE 103 MMOL/L (99-107); CREATININE 0.75 MG/DL (0.60-1.10); GLUCOSE 121 MG/DL (70-104); MAGNESIUM 1.4 MG/DL (1.5-2.4); POTASSIUM 3.4 MMOL/L (3.5-5.1); SODIUM 139 MMOL/L (135-145); TOTAL CARBON DIOXIDE 25.6 MMOL/L (24-32); TOTAL PROTEIN 6.8 G/DL (6.4-8.2); eGFR > 90 ML/MIN
[2021-01-04] MEDS: normal saline 1000ml 1,000 ML IV SCH (03:50)
--- NOTE | 2021-01-04 06:34 | NUR ---
Patient in room PCU 3013. I have received report from BERE SIU and had the opportunity to ask questions and assume patient care.
[2021-01-04 06:51] LABS: ANISOCYTOSIS 3+; PLATELET ESTIMATE NORMAL
[2021-01-04 06:52] LABS: HYPOCHROMASIA 1+; MICROCYTOSIS 1+
[2021-01-04 07:00] VITALS: BP 149/83
[2021-01-04] MEDS ORDERED: magnesium Cl slow-release 64mg tablet PO PRN (07:00)
[2021-01-04] MEDS ORDERED: potassium Cl 40MEQ/1/2NS 520ml 520 ML IV PRN (07:00)
[2021-01-04] MEDS ORDERED: magnesium 4gm in 100ml NS 100 ML IV PRN (07:00)
[2021-01-04] MEDS ORDERED: potassium Cl 20 mEq SR tablet PO PRN ×2 (07:00)
[2021-01-04] MEDS: pantoprazole 40 MG vial IV SCH (08:00)
[2021-01-04] MEDS: docusate sod 100mg capsule PO SCH (08:00)
[2021-01-04] MEDS: K and/or MAG REPLACEMENT MC SCH (08:00)
[2021-01-04] MEDS: morphine 2 MG/ML inj. syringe IV PRN (08:08)
[2021-01-04] MEDS ORDERED: METO5TAB85 PO (08:26)
[2021-01-04] MEDS ORDERED: HYDR-3965 PO (08:26)
[2021-01-04] MEDS ORDERED: PANT40TA54 PO (08:26)
--- NOTE | 2021-01-04 11:20 | NUR ---
Pt stable for discharge er MD order, all discharge instructions reviewed with patient and all questions answered. New precriptions faxed to pharmacy. PIV discontinued, cannula intact. Telemetry discontinued, telescope maintenance notified. Pt picked up in private vehicle by family member, wheeled to lobby by staff.
[2021-01-05] MEDS ORDERED: LORazepam 1 MG tablet PO PRN (02:05)
[2021-01-05] MEDS ORDERED: LORazepam 2 mg/ml vial IV PRN (02:05)
== END 2021-01-04 10:50 | disposition home or self-care (01) | DRG 241 ==
LOC: ER 20:17 → ED HOLD 01-01 02:04 → PCU 3S 01-01 07:18
PROVIDERS: ADMIT Family Medicine; ATTEND Family Medicine
DX: K29.20 Alcoholic gastritis without bleeding (principal); K85.20 Alcohol induced acute pancreatitis without necrosis or infection; E87.2 Acidosis; E83.42 Hypomagnesemia; I11.0 Hypertensive heart disease with heart failure; I50.32 Chronic diastolic (congestive) heart failure; K86.0 Alcohol-induced chronic pancreatitis; I48.0 Paroxysmal atrial fibrillation; E86.0 Dehydration; R71.0 Precipitous drop in hematocrit; E16.2 Hypoglycemia, unspecified; E78.00 Pure hypercholesterolemia, unspecified; E78.5 Hyperlipidemia, unspecified; E87.6 Hypokalemia; F10.229 Alcohol dependence with intoxication, unspecified; I48.92 Unspecified atrial flutter; K31.89 Other diseases of stomach and duodenum; K76.0 Fatty (change of) liver, not elsewhere classified; F41.9 Anxiety disorder, unspecified; R06.6 Hiccough; R33.9 Retention of urine, unspecified; Z79.899 Other long term (current) drug therapy; Z90.49 Acquired absence of other specified parts of digestive tract; Z83.3 Family history of diabetes mellitus; Z81.1 Family history of alcohol abuse and dependence; Z71.41 Alcohol abuse counseling and surveillance of alcoholic
CPT/HCPCS: 36415; 36600; 71045; 74176; 80048; 80053; 80320; 81001; 82550; 82803; 82948; 83036; 83605; 83690; 83735; 83880; 84100; 84145; 84443; 84484; 85008; 85018; 85025; 85027; 85379; 85610; 85730; 87040; 87081; 93005; 99285; C9113; G0378; J1200; J1644; J2060; J2270; J2405; J2765; J3411; J3475; J3480; J3490; J7030

== ENCOUNTER 2021-01-25 13:27 | Emergency (ER) | payer MEDICAID ==
[~2021-01-25] VITALS: Ht 172.7 cm; Wt 55.9 kg
[~2021-01-25 13:27] MED LIST changes: -FENO48TA9 PO; +HYDR-3965 PO; +METO25TA6 PO; +METO5TAB85 PO; -ONDA4TAB6 PO
[2021-01-25 13:47] VITALS: BP 120/77
[2021-01-25 14:31] LABS: BASOPHILS % (AUTO) 0.5 % (0-1); EOSINOPHILS % (AUTO) 0 % (0-6); HEMATOCRIT 36.3 % (42.0-52.0); LYMPHOCYTES # (AUTO) 1.5 X10'3 (1.1-4.8); LYMPHOCYTES % (AUTO) 16.1 % (21-51); MEAN CORPUSCULAR HGB CONC 30.3 g/dL (33.0-36.5); MEAN CORPUSCULAR VOLUME 82.5 FL (78-98); MEAN PLATELET VOLUME 7.2 FL (7.4-10.4); MONOCYTES # (AUTO) 0.7 X10'3 (0-0.9); MONOCYTES % (AUTO) 7.3 % (2-12); NEUTROPHILS % (AUTO) 76.1 % (42-75); PLATELET COUNT 329 X10'3 (140-440); RED CELL DISTRIBUTION WIDTH 28.4 % (11.5-14.5); WHITE BLOOD COUNT 9.3 X10'3 (4.5-11.0)
[2021-01-25 14:53] LABS: ALANINE AMINOTRANSFERASE 29 U/L (12-78); ALBUMIN 4.6 G/DL (3.4-5.0); ALBUMIN/GLOBULIN RATIO 1.1 (1.1-1.5); ALKALINE PHOSPHATASE 62 IU/L (46-116); ANION GAP 30 (8-16); ASPARTATE AMINO TRANSFERASE 63 U/L (10-37); BILIRUBIN,TOTAL 0.7 MG/DL (0.1-1.0); BLOOD UREA NITROGEN 13 MG/DL (7-18); BUN/CREATININE RATIO 10.3 (5.4-32.0); CALCIUM 8.4 MG/DL (8.5-10.1); CHLORIDE 94 MMOL/L (99-107); CREATININE 1.26 MG/DL (0.60-1.10); GLUCOSE 66 MG/DL (70-104); LIPASE 328 U/L (73-393); POTASSIUM 4.2 MMOL/L (3.5-5.1); SODIUM 133 MMOL/L (135-145); TOTAL PROTEIN 8.9 G/DL (6.4-8.2); TROPONIN I < 0.04 NG/ML (0.0-0.05); eGFR 60 ML/MIN
[2021-01-25 14:55] LABS: TOTAL CARBON DIOXIDE 8.8 MMOL/L (24-32)
[2021-01-25] MEDS ORDERED: normal saline 1000ML IV soln IV ONE (15:00)
[2021-01-25 15:25] LABS: ANISOCYTOSIS 3+; PLATELET ESTIMATE NORMAL
[2021-01-25 15:27] LABS: ELLIPTOCYTES FEW; HYPOCHROMASIA 1+; MICROCYTOSIS 1+
[2021-01-25] MEDS ORDERED: famotidine/PF 10 mg/ml inj IV ONE (15:45)
[2021-01-25] MEDS ORDERED: ketorolac trometh. 30mg/ml inj. IV ONE (15:45)
[2021-01-25] MEDS ORDERED: metoclopramide 5 mg/ml inj IV ONE (15:45)
== END 2021-01-25 18:12 | disposition home or self-care (01) ==
LOC: ER 13:28
DX: R11.2 Nausea with vomiting, unspecified (principal); E86.0 Dehydration; F10.129 Alcohol abuse with intoxication, unspecified; E78.00 Pure hypercholesterolemia, unspecified; I10 Essential (primary) hypertension; Z79.899 Other long term (current) drug therapy
CPT/HCPCS: 36415; 71045; 80053; 83690; 83880; 84484; 85008; 85025; 87635; 93005; 96361; 96374; 96375; 99285; C9803; J1885; J2765; J3490; J7030

== ENCOUNTER 2021-02-11 21:20 | Inpatient (IN) | payer MEDICAID ==
[~2021-02-11] VITALS: Ht 172.7 cm; Wt 55.9 kg
[~2021-02-11 21:20] MED LIST changes: -HYDR-3965 PO
[2021-02-11 21:52] LABS: BASOPHILS # (AUTO) 0.1 X10'3 (0-0.2); BASOPHILS % (AUTO) 0.9 % (0-1); EOSINOPHILS % (AUTO) 0.1 % (0-6); HEMATOCRIT 34.7 % (42.0-52.0); HEMOGLOBIN 10.6 g/dl (14.0-17.9); LYMPHOCYTES # (AUTO) 1.9 X10'3 (1.1-4.8); LYMPHOCYTES % (AUTO) 25.8 % (21-51); MEAN CORPUSCULAR HEMOGLOBIN 24.8 PG (27.0-31.0); MEAN CORPUSCULAR HGB CONC 30.6 g/dL (33.0-36.5); MEAN PLATELET VOLUME 7.3 FL (7.4-10.4); MONOCYTES # (AUTO) 0.5 X10'3 (0-0.9); MONOCYTES % (AUTO) 6.5 % (2-12); NEUTROPHILS # (AUTO) 4.9 X10'3 (1.8-7.7); NEUTROPHILS % (AUTO) 66.7 % (42-75); PLATELET COUNT 273 X10'3 (140-440); RED BLOOD COUNT 4.28 X10'6 (4.70-6.10); RED CELL DISTRIBUTION WIDTH 29.5 % (11.5-14.5); WHITE BLOOD COUNT 7.4 X10'3 (4.5-11.0)
[2021-02-11 22:20] LABS: ALANINE AMINOTRANSFERASE 24 U/L (12-78); ALBUMIN 4.2 G/DL (3.4-5.0); ALKALINE PHOSPHATASE 76 IU/L (46-116); ANION GAP 26 (8-16); ASPARTATE AMINO TRANSFERASE 37 U/L (10-37); BILIRUBIN,TOTAL 0.8 MG/DL (0.1-1.0); BLOOD UREA NITROGEN 10 MG/DL (7-18); BUN/CREATININE RATIO 10.6 (5.4-32.0); CALCIUM 8.6 MG/DL (8.5-10.1); CHLORIDE 98 MMOL/L (99-107); CREATININE 0.94 MG/DL (0.60-1.10); GLUCOSE 58 MG/DL (70-104); LIPASE 226 U/L (73-393); SODIUM 137 MMOL/L (135-145); TOTAL PROTEIN 8.3 G/DL (6.4-8.2); TROPONIN I < 0.04 NG/ML (0.0-0.05); eGFR 84 ML/MIN
[2021-02-11 22:31] LABS: TOTAL CARBON DIOXIDE 12.7 MMOL/L (24-32)
[2021-02-11 22:50] LABS: ANISOCYTOSIS 3+; PLATELET ESTIMATE NORMAL
--- NOTE | 2021-02-12 00:20 | NUR ---
PT WAS GIVEN JUICE TO DRINK FOR LOW BLOOD SUGAR, WILL BE TAKEN TO ROOM
[2021-02-12 01:14] LABS: ETHANOL 0.179 GM/DL (0.0-0.010); GLUCOSE 71 MG/DL (70-104)
[2021-02-12] MEDS ORDERED: normal saline 1000ML IV soln IV ONE (01:30)
[2021-02-12] MEDS ORDERED: sucralfate 1gm/10ml UD suspension PO STA (02:34)
[2021-02-12] MEDS ORDERED: mag hydrox/Alum hydrox/simeth 30ml oral suspension PO ONE (02:35)
[2021-02-12] MEDS ORDERED: LIDOcaine Viscous 15ml cup MM ONE (02:35)
[2021-02-12] MEDS ORDERED: sucralfate 1 gm tablet PO STA ×2 (02:37→02:44)
[2021-02-12] MEDS ORDERED: dextrose 5%-1/2 normal saline 1,000 ML IV ONE (03:20)
[2021-02-12 03:50] LABS: ABG BASE EXCESS -14.8 mmol/L (-2.0-2.0); ABG HCO3 10.5 mmol/L (22.0-26.0); ABG OXYGEN SATURATION 96.4 % (94-97); ABG PCO2 (T) 22.9 mmHg (35.0-48.0); FCOHb 0.3 % (0.0-3.9); FMetHb 0.2 % (0.0-1.5); FO2Hb 95.9 % (94-97); PATIENT TEMPERATURE 36.5; TOTAL HEMOGLOBIN 9.8 G/dl (14.0-18.0)
[2021-02-12] MEDS ORDERED: HYDROmorphone inj. 0.5 MG/0.5 ML DISP.SYRIN IV PRN (03:50)
[2021-02-12] MEDS ORDERED: mag hydrox/Alum hydrox/simeth 30ml oral suspension PO PRN (03:50)
[2021-02-12] MEDS ORDERED: HYDROcodone/acetaminophen 5mg/325mg tablet PO PRN (03:50)
[2021-02-12] MEDS ORDERED: diphenhydrAMINE 25mg capsule PO PRN (03:50)
[2021-02-12] MEDS ORDERED: ondansetron 4mg rapidly disintigrating tab PO PRN (03:50)
[2021-02-12] MEDS ORDERED: acetaminophen 650mg rectal suppository RC PRN (03:50)
[2021-02-12] MEDS ORDERED: diphenhydrAMINE 50 mg/ml inj IV PRN (03:50)
[2021-02-12] MEDS ORDERED: morphine 2 MG/ML inj. syringe IV PRN (03:50)
[2021-02-12] MEDS ORDERED: bisacodyl 10mg suppository rectal RC PRN (03:50)
[2021-02-12] MEDS ORDERED: magnesium hydroxide 30ml (MOM) UD suspension PO PRN (03:50)
[2021-02-12] MEDS ORDERED: haloperidol lactate 5mg/ml inj IM PRN (03:50)
[2021-02-12] MEDS ORDERED: ondansetron/PF 4mg/2ml inj IV PRN (03:50)
[2021-02-12] MEDS ORDERED: haloperidol 5mg tablet PO PRN (03:50)
[2021-02-12] MEDS ORDERED: dextrose 50%-water 50ml dispensing syringe IV PRN ×3 (03:50→06:05)
[2021-02-12] MEDS ORDERED: dextrose 5%-1/2 normal saline 1,000 ML IV SCH (03:50)
[2021-02-12] MEDS ORDERED: acetaminophen 325mg tablet PO PRN ×2 (03:50)
[2021-02-12] MEDS ORDERED: thiamine 100mg/ml 2ml inj. IV ONE (04:05)
[2021-02-12] MEDS: morphine 2 MG/ML inj. syringe IV PRN ×4 (04:09→22:40)
[2021-02-12 04:51] LABS: CREATINE KINASE 71 U/L (39-308); MAGNESIUM 1.9 MG/DL (1.5-2.4); PHOSPHORUS 3.2 MG/DL (2.3-4.5)
[2021-02-12] MEDS ORDERED: dextrose ORAL solution 15 GM/59 ML bottle PO PRN ×2 (06:05)
[2021-02-12] MEDS ORDERED: glucagon, human recombinant 1mg kit SUBCUT PRN (06:05)
[2021-02-12] MEDS ORDERED: MESSAGE TO PHARMACY PO ONE (06:05)
[2021-02-12] MEDS ORDERED: insulin Lispro (HumaLOG) vial - multi-dose SQ SCH (06:05)
[2021-02-12 07:07] LABS: FERRITIN 25 NG/ML (26-388)
[2021-02-12] MEDS: docusate sod 100mg capsule PO SCH ×2 (07:43→20:13)
[2021-02-12] MEDS: multivitamins, therapeutics tablet PO SCH (07:43)
[2021-02-12] MEDS: heparin, porcine 5000 units/ml vial SQ SCH ×2 (07:43→20:12)
[2021-02-12] MEDS: ferrous sulfate 325mg tablet PO SCH ×3 (07:44→16:49)
[2021-02-12] MEDS ORDERED: folic acid inj. 2 MG, thiamine inj. 100 MG, MVI, adult No.4 with vit. K 10 ML in dextro... IV SCH ×4 (08:00)
[2021-02-12] MEDS ORDERED: thiamine 100mg tablet PO SCH (08:00)
[2021-02-12] MEDS ORDERED: pantoprazole 40 MG vial IV SCH (08:00)
[2021-02-12] MEDS ORDERED: folic acid 1mg tablet PO SCH (08:00)
[2021-02-12] MEDS: sodium bicarbonate (8.4%) inj. 150 MEQ in dextrose 5%-water 1,000 ML IV SCH ×2 (08:55→11:24)
[2021-02-12 09:57] LABS: D-DIMER 1.71 MG/L FEU (0-0.50); PARTIAL THROMBOPLASTIN TIME 25 SECONDS (22-32)
[2021-02-12 09:58] LABS: % IRON SATURATION 37 % (11-46); IRON 123 UG/DL (53-167); TOTAL IRON BINDING CAPACITY 332 UG/DL (259-388)
[2021-02-12] MEDS ORDERED: METO5TAB98 PO (10:10)
[2021-02-12] MEDS ORDERED: PANT40TA54 PO (10:10)
[2021-02-12] MEDS ORDERED: MULT-1085 PO (10:15)
[2021-02-12] MEDS ORDERED: MAGN400T28 PO (10:15)
[2021-02-12 11:00] VITALS: BP 156/88
[2021-02-12 14:45] LABS: BASOPHILS % (AUTO) 0.6 % (0-1); EOSINOPHILS # (AUTO) 0.1 X10'3 (0-0.9); EOSINOPHILS % (AUTO) 1.5 % (0-6); HEMATOCRIT 30.5 % (42.0-52.0); HEMOGLOBIN 9.5 g/dl (14.0-17.9); LYMPHOCYTES # (AUTO) 0.9 X10'3 (1.1-4.8); LYMPHOCYTES % (AUTO) 23.4 % (21-51); MEAN CORPUSCULAR HEMOGLOBIN 24.9 PG (27.0-31.0); MEAN CORPUSCULAR HGB CONC 31.2 g/dL (33.0-36.5); MEAN CORPUSCULAR VOLUME 79.7 FL (78-98); MONOCYTES # (AUTO) 0.4 X10'3 (0-0.9); MONOCYTES % (AUTO) 9.5 % (2-12); NEUTROPHILS # (AUTO) 2.4 X10'3 (1.8-7.7); PLATELET COUNT 188 X10'3 (140-440); RED BLOOD COUNT 3.82 X10'6 (4.70-6.10); WHITE BLOOD COUNT 3.8 X10'3 (4.5-11.0)
[2021-02-12 14:55] LABS: ALANINE AMINOTRANSFERASE 20 U/L (12-78); ALBUMIN 3.8 G/DL (3.4-5.0); ALBUMIN/GLOBULIN RATIO 1.1 (1.1-1.5); ALKALINE PHOSPHATASE 72 IU/L (46-116); ANION GAP 14 (8-16); ASPARTATE AMINO TRANSFERASE 44 U/L (10-37); BILIRUBIN,TOTAL 1.5 MG/DL (0.1-1.0); BLOOD UREA NITROGEN 6 MG/DL (7-18); BUN/CREATININE RATIO 7.4 (5.4-32.0); CALCIUM 7.4 MG/DL (8.5-10.1); CHLORIDE 100 MMOL/L (99-107); CREATININE 0.81 MG/DL (0.60-1.10); GLUCOSE 195 MG/DL (70-104); POTASSIUM 3.7 MMOL/L (3.5-5.1); SODIUM 137 MMOL/L (135-145); TOTAL CARBON DIOXIDE 23.2 MMOL/L (24-32); TOTAL PROTEIN 7.4 G/DL (6.4-8.2); eGFR > 90 ML/MIN
[2021-02-12 15:00] VITALS: BP 138/86
[2021-02-12 15:26] LABS: ANISOCYTOSIS 3+; HYPOCHROMASIA 1+; MICROCYTOSIS 1+; PLATELET ESTIMATE NORMAL; POLYCHROMASIA 1+; STOMATOCYTES 1+
[2021-02-12 15:27] LABS: ELLIPTOCYTES FEW
[2021-02-12 18:00] VITALS: BP 139/82
--- NOTE | 2021-02-12 18:15 | NUR ---
Patient in room PCU 3025. I have received report from Casey SIU and had the opportunity to ask questions and assume patient care.
--- NOTE | 2021-02-12 18:25 | NUR ---
Patient in room PCU 3025. I have received report from Casey SIU and had the opportunity to ask questions and assume patient care.
--- NOTE | 2021-02-12 18:31 | NUR ---
Problems reprioritized. Patient report given, questions answered & plan of care reviewed with scene shifter RN.
[2021-02-12] MEDS: pantoprazole 40mg Tablet.DR PO SCH (20:12)
[2021-02-12] MEDS: LORazepam 2 mg/ml vial IV PRN ×2 (20:12→23:51)
[2021-02-12] MEDS: metoprolol tartrate 25mg tablet PO SCH (20:13)
[2021-02-12 22:00] VITALS: BP 121/81
[2021-02-12] MEDS: temazepam 15mg capsule PO PRN (22:44)
[2021-02-13 02:00] VITALS: BP 123/85
[2021-02-13] MEDS: morphine 2 MG/ML inj. syringe IV PRN ×4 (03:07→21:29)
[2021-02-13 06:00] VITALS: BP 117/80
--- NOTE | 2021-02-13 06:05 | NUR ---
Problems reprioritized. Patient report given, questions answered & plan of care reviewed with Casey SIU.
[2021-02-13 07:08] LABS: BASOPHILS % (AUTO) 0.9 % (0-1); EOSINOPHILS # (AUTO) 0.1 X10'3 (0-0.9); EOSINOPHILS % (AUTO) 1.8 % (0-6); HEMATOCRIT 27.4 % (42.0-52.0); HEMOGLOBIN 8.6 g/dl (14.0-17.9); LYMPHOCYTES # (AUTO) 2.1 X10'3 (1.1-4.8); LYMPHOCYTES % (AUTO) 54.6 % (21-51); MEAN CORPUSCULAR HEMOGLOBIN 24.9 PG (27.0-31.0); MEAN CORPUSCULAR HGB CONC 31.4 g/dL (33.0-36.5); MEAN CORPUSCULAR VOLUME 79.4 FL (78-98); MEAN PLATELET VOLUME 7.7 FL (7.4-10.4); MONOCYTES # (AUTO) 0.3 X10'3 (0-0.9); MONOCYTES % (AUTO) 8.1 % (2-12); NEUTROPHILS # (AUTO) 1.3 X10'3 (1.8-7.7); NEUTROPHILS % (AUTO) 34.6 % (42-75); PLATELET COUNT 171 X10'3 (140-440); RED BLOOD COUNT 3.46 X10'6 (4.70-6.10); RED CELL DISTRIBUTION WIDTH 29.1 % (11.5-14.5); WHITE BLOOD COUNT 3.8 X10'3 (4.5-11.0)
--- NOTE | 2021-02-13 07:20 | NUR ---
Patient in room PCU 3025. I have received report from Casey SIU and had the opportunity to ask questions and assume patient care.
[2021-02-13] MEDS ORDERED: pantoprazole 40mg Tablet.DR PO SCH (07:30)
[2021-02-13 07:44] LABS: ALANINE AMINOTRANSFERASE 18 U/L (12-78); ALBUMIN 3.2 G/DL (3.4-5.0); ALBUMIN/GLOBULIN RATIO 0.9 (1.1-1.5); ALKALINE PHOSPHATASE 61 IU/L (46-116); ANION GAP 7 (8-16); ASPARTATE AMINO TRANSFERASE 31 U/L (10-37); BILIRUBIN,TOTAL 1.3 MG/DL (0.1-1.0); BLOOD UREA NITROGEN 3 MG/DL (7-18); BUN/CREATININE RATIO 4.6 (5.4-32.0); CALCIUM 7.4 MG/DL (8.5-10.1); CHLORIDE 102 MMOL/L (99-107); CHOL/HDL RATIO 1.7 (0.00-4.99); CHOLESTEROL 102 MG/DL (0-200); CREATININE 0.65 MG/DL (0.60-1.10); GLUCOSE 104 MG/DL (70-104); HDL CHOLESTEROL 60 MG/DL (35-60); LDL CHOLESTEROL 24 MG/DL (50-100); SODIUM 142 MMOL/L (135-145); TOTAL CARBON DIOXIDE 32.7 MMOL/L (24-32); TOTAL PROTEIN 6.6 G/DL (6.4-8.2); TRIGLYCERIDES 116 MG/DL (20-135); eGFR > 90 ML/MIN
[2021-02-13 07:56] LABS: POTASSIUM 2.7 MMOL/L (3.5-5.1)
[2021-02-13 07:58] LABS: HYPOCHROMASIA 1+; PLATELET ESTIMATE NORMAL
[2021-02-13 07:59] LABS: ANISOCYTOSIS 3+; MICROCYTOSIS 1+; STOMATOCYTES 1+
[2021-02-13] MEDS ORDERED: non-formulary drug (Multivitamin (Multi Vitamin Daily) 1 TAB) PO SCH (08:00)
--- NOTE | 2021-02-13 08:02 | NUR ---
PAGER ID: [phone] MESSAGE: [id number] PATEL. Lindsey 2.7. CAN WE HAVE K& MG REPLACEMENT ORDERS. PEDRO VEGA
[2021-02-13] MEDS ORDERED: magnesium Cl slow-release 64mg tablet PO PRN (08:05)
[2021-02-13] MEDS ORDERED: magnesium 4gm in 100ml NS 100 ML IV PRN (08:05)
[2021-02-13] MEDS ORDERED: potassium Cl 40MEQ/1/2NS 520ml 520 ML IV PRN (08:05)
[2021-02-13] MEDS ORDERED: potassium Cl 20 mEq SR tablet PO PRN (08:05)
[2021-02-13] MEDS: multivitamins, therapeutics tablet PO SCH (09:35)
[2021-02-13] MEDS: atorvastatin 10mg tablet PO SCH (09:35)
[2021-02-13] MEDS: docusate sod 100mg capsule PO SCH ×2 (09:35→21:30)
[2021-02-13] MEDS: thiamine 100mg tablet PO SCH (09:36)
[2021-02-13] MEDS: ferrous sulfate 325mg tablet PO SCH ×3 (09:36→18:03)
[2021-02-13] MEDS: metoprolol tartrate 25mg tablet PO SCH ×2 (09:36→21:30)
[2021-02-13] MEDS: pantoprazole 40mg Tablet.DR PO SCH ×2 (09:36→21:30)
[2021-02-13] MEDS: folic acid 1mg tablet PO SCH (09:37)
[2021-02-13] MEDS: potassium Cl 20 mEq SR tablet PO PRN ×3 (09:37→18:03)
[2021-02-13] MEDS: heparin, porcine 5000 units/ml vial SQ SCH ×2 (09:38→21:29)
[2021-02-13 11:00] VITALS: BP 127/87
[2021-02-13 15:00] VITALS: BP 117/72
[2021-02-13 18:00] VITALS: BP 122/73
--- NOTE | 2021-02-13 18:24 | NUR ---
Problems reprioritized. Patient report given, questions answered & plan of care reviewed with Deb SIU.
[2021-02-13] MEDS ORDERED: K and/or MAG REPLACEMENT MC SCH (20:00)
[2021-02-13] MEDS: temazepam 15mg capsule PO PRN (21:32)
[2021-02-13] MEDS: LORazepam 2 mg/ml vial IV PRN (22:30)
[2021-02-14] MEDS: morphine 2 MG/ML inj. syringe IV PRN ×2 (01:47→05:47)
[2021-02-14 02:00] VITALS: BP 119/82
[2021-02-14] MEDS ORDERED: LORazepam 1 MG tablet PO PRN (03:50)
[2021-02-14] MEDS ORDERED: LORazepam 2 mg/ml vial IV PRN (03:50)
[2021-02-14] MEDS: HYDROcodone/acetaminophen 10/325mg tab PO PRN ×2 (04:49→11:20)
[2021-02-14 06:41] LABS: ALANINE AMINOTRANSFERASE 20 U/L (12-78); ALBUMIN 3.2 G/DL (3.4-5.0); ALBUMIN/GLOBULIN RATIO 0.9 (1.1-1.5); ALKALINE PHOSPHATASE 64 IU/L (46-116); ANION GAP 8 (8-16); ASPARTATE AMINO TRANSFERASE 25 U/L (10-37); BILIRUBIN,TOTAL 0.3 MG/DL (0.1-1.0); BLOOD UREA NITROGEN 2 MG/DL (7-18); BUN/CREATININE RATIO 2.6 (5.4-32.0); CALCIUM 8.7 MG/DL (8.5-10.1); CHLORIDE 105 MMOL/L (99-107); CREATININE 0.76 MG/DL (0.60-1.10); GLUCOSE 115 MG/DL (70-104); POTASSIUM 3.8 MMOL/L (3.5-5.1); SODIUM 140 MMOL/L (135-145); TOTAL PROTEIN 6.7 G/DL (6.4-8.2); eGFR > 90 ML/MIN
[2021-02-14 06:50] LABS: BASOPHILS % (AUTO) 0.8 % (0-1); EOSINOPHILS # (AUTO) 0.1 X10'3 (0-0.9); EOSINOPHILS % (AUTO) 2.6 % (0-6); HEMOGLOBIN 8.9 g/dl (14.0-17.9); LYMPHOCYTES # (AUTO) 2.4 X10'3 (1.1-4.8); LYMPHOCYTES % (AUTO) 61.4 % (21-51); MEAN CORPUSCULAR HGB CONC 30.7 g/dL (33.0-36.5); MEAN CORPUSCULAR VOLUME 81.3 FL (78-98); MEAN PLATELET VOLUME 8.5 FL (7.4-10.4); MONOCYTES # (AUTO) 0.4 X10'3 (0-0.9); MONOCYTES % (AUTO) 9.3 % (2-12); NEUTROPHILS % (AUTO) 25.9 % (42-75); PLATELET COUNT 170 X10'3 (140-440); RED BLOOD COUNT 3.56 X10'6 (4.70-6.10); RED CELL DISTRIBUTION WIDTH 29.2 % (11.5-14.5)
[2021-02-14 08:00] VITALS: BP 117/84
[2021-02-14] MEDS: atorvastatin 10mg tablet PO SCH (08:25)
[2021-02-14] MEDS: heparin, porcine 5000 units/ml vial SQ SCH (08:25)
[2021-02-14] MEDS: folic acid 1mg tablet PO SCH (08:25)
[2021-02-14] MEDS: thiamine 100mg tablet PO SCH (08:25)
[2021-02-14 08:26] VITALS: BP_SYST 117
[2021-02-14] MEDS: docusate sod 100mg capsule PO SCH (08:26)
[2021-02-14] MEDS: multivitamins, therapeutics tablet PO SCH (08:26)
[2021-02-14] MEDS: metoprolol tartrate 25mg tablet PO SCH (08:26)
[2021-02-14] MEDS: ferrous sulfate 325mg tablet PO SCH (08:26)
[2021-02-14] MEDS: pantoprazole 40mg Tablet.DR PO SCH (08:26)
[2021-02-14 08:28] LABS: ANISOCYTOSIS 3+; HYPOCHROMASIA 1+; PLATELET ESTIMATE NORMAL; TOTAL CELLS COUNTED 100
[2021-02-14 08:29] LABS: ELLIPTOCYTES FEW; POLYCHROMASIA FEW; STOMATOCYTES 1+; TEAR DROP CELLS 1+
[2021-02-14] MEDS ORDERED: POTA20TA19 PO (10:34)
--- NOTE | 2021-02-14 11:56 | NUR ---
Patient stable for discharge per MD orders. All discharge instructions reviewed with patient and all questions answered. Pt will make own follow up with PCP. New Rx e-scripted to [facility] in [place]. PIV discontinued, cannula intact. All belongings collected and sent with patient. Patient was wheeled to front of lobby where private vehicle was waiting.
[2021-02-16] MEDS ORDERED: LORazepam 2 mg/ml vial IV PRN (03:50)
[2021-02-16] MEDS ORDERED: LORazepam 1 MG tablet PO PRN (03:50)
== END 2021-02-14 11:57 | disposition home or self-care (01) | DRG 425 ==
LOC: ER 21:22 → ED HOLD 02-12 03:55 → PCU 3S 02-12 10:40
PROVIDERS: ADMIT Family Medicine; ATTEND Family Medicine
DX: E87.2 Acidosis (principal); K86.0 Alcohol-induced chronic pancreatitis; D64.9 Anemia, unspecified; E78.00 Pure hypercholesterolemia, unspecified; E87.6 Hypokalemia; E16.2 Hypoglycemia, unspecified; E78.5 Hyperlipidemia, unspecified; F10.229 Alcohol dependence with intoxication, unspecified; F10.239 Alcohol dependence with withdrawal, unspecified; I10 Essential (primary) hypertension; I48.91 Unspecified atrial fibrillation; Z79.899 Other long term (current) drug therapy; Z90.49 Acquired absence of other specified parts of digestive tract; Z81.1 Family history of alcohol abuse and dependence; Z83.3 Family history of diabetes mellitus; Z83.42 Family history of familial hypercholesterolemia; Z71.41 Alcohol abuse counseling and surveillance of alcoholic
CPT/HCPCS: 36415; 36600; 71045; 80053; 80061; 80320; 82550; 82728; 82803; 82947; 82948; 83540; 83550; 83605; 83690; 83735; 83880; 84100; 84145; 84443; 84484; 85007; 85008; 85018; 85025; 85379; 85610; 85730; 87040; 87081; 93005; 99285; C9113; G0378; J1644; J1815; J2060; J2270; J2405; J3411; J7030

== ENCOUNTER 2021-03-26 10:45 | Inpatient (IN) | payer MEDICAID ==
[~2021-03-26] VITALS: Ht 172.7 cm; Wt 56.8 kg
[~2021-03-26 10:45] MED LIST changes: -HYDR-3686 PO; -MAGN250T29 PO; +MAGN400T56 PO; -METO5TAB85 PO; +MULT-1085 PO; -MULT-1172 PO; +POTA20TA19 PO
[2021-03-26] MEDS ORDERED: metoclopramide 5 mg/ml inj IV ONE (14:15)
[2021-03-26] MEDS ORDERED: ringers solution, lactated 1000ml IV soln IV ONE ×3 (14:15→17:40)
[2021-03-26] MEDS ORDERED: diphenhydrAMINE 50 mg/ml inj IV ONE (14:15)
[2021-03-26 14:50] LABS: BASOPHILS # (AUTO) 0.1 X10'3 (0-0.2); EOSINOPHILS % (AUTO) 0 % (0-6); HEMATOCRIT 37.7 % (42.0-52.0); HEMOGLOBIN 11.9 g/dl (14.0-17.9); LYMPHOCYTES # (AUTO) 1.2 X10'3 (1.1-4.8); LYMPHOCYTES % (AUTO) 16.4 % (21-51); MEAN CORPUSCULAR HEMOGLOBIN 25.9 PG (27.0-31.0); MEAN CORPUSCULAR HGB CONC 31.5 g/dL (33.0-36.5); MEAN CORPUSCULAR VOLUME 82.4 FL (78-98); MEAN PLATELET VOLUME 6.8 FL (7.4-10.4); MONOCYTES # (AUTO) 0.4 X10'3 (0-0.9); MONOCYTES % (AUTO) 5.8 % (2-12); NEUTROPHILS # (AUTO) 5.5 X10'3 (1.8-7.7); NEUTROPHILS % (AUTO) 76.8 % (42-75); PLATELET COUNT 344 X10'3 (140-440); RED BLOOD COUNT 4.58 X10'6 (4.70-6.10); RED CELL DISTRIBUTION WIDTH 28.9 % (11.5-14.5); WHITE BLOOD COUNT 7.2 X10'3 (4.5-11.0)
[2021-03-26 15:05] LABS: ALANINE AMINOTRANSFERASE 27 U/L (12-78); ALBUMIN 4.3 G/DL (3.4-5.0); ALBUMIN/GLOBULIN RATIO 0.8 (1.1-1.5); ALKALINE PHOSPHATASE 82 IU/L (46-116); ANION GAP 26 (8-16); ASPARTATE AMINO TRANSFERASE 88 U/L (10-37); BILIRUBIN,TOTAL 0.6 MG/DL (0.1-1.0); BLOOD UREA NITROGEN 10 MG/DL (7-18); BUN/CREATININE RATIO 9.5 (5.4-32.0); CALCIUM 9.4 MG/DL (8.5-10.1); CHLORIDE 98 MMOL/L (99-107); CREATININE 1.05 MG/DL (0.60-1.10); GLUCOSE 60 MG/DL (70-104); POTASSIUM 3.6 MMOL/L (3.5-5.1); SODIUM 140 MMOL/L (135-145); TOTAL CARBON DIOXIDE 16.1 MMOL/L (24-32); TOTAL PROTEIN 9.4 G/DL (6.4-8.2); eGFR 74 ML/MIN
[2021-03-26] MEDS ORDERED: ketorolac trometh. 30mg/ml inj. IV ONE (15:25)
[2021-03-26 15:53] LABS: LIPASE 3013 U/L (73-393)
[2021-03-26] MEDS ORDERED: magnesium 2GM in 50ml NS 50 ML IV ONE (16:00)
[2021-03-26] MEDS ORDERED: diltiazem 5mg/ml 5ml inj. IV ONE ×3 (16:05→16:55)
--- NOTE | 2021-03-26 16:23 | NUR ---
Patient resting quietly in bed when RN noticed HR increased to >180. Placed on monitor and EKG obtained. Dr. Arriagafs aware. While getting ready to administer medications, IV noted to have infiltrated. Multiple line attempts, with successful placement of R AC IV with ultrasound.
--- NOTE | 2021-03-26 16:36 | NUR ---
Dr. Reyes notified the HR continues in 160-180s.
[2021-03-26] MEDS ORDERED: enoxaparin 100mg/ml syringe SUBCUT ONE (16:55)
[2021-03-26] MEDS ORDERED: morphine 4 MG/ML inj SYRINge IV ONE ×2 (16:55→20:10)
[2021-03-26 17:00] LABS: TROPONIN I < 0.04 NG/ML (0.0-0.05)
[2021-03-26] MEDS: diltiazem-NS 100mg/100ml 100 ML IV SCH ×2 (17:05→23:04)
[2021-03-26 17:09] LABS: MAGNESIUM 1.9 MG/DL (1.5-2.4); PLATELET ESTIMATE NORMAL; POLYCHROMASIA 1+
[2021-03-26 17:10] LABS: ANISOCYTOSIS 3+; ELLIPTOCYTES 1+; SCHISTOCYTES FEW; SPHEROCYTES FEW; TEAR DROP CELLS FEW
[2021-03-26] MEDS: normal saline 1000ml 1,000 ML IV SCH ×2 (18:20→20:41)
[2021-03-26 19:23] LABS: CLARITY,URINE CLEAR (Clear); COLOR,URINE YELLOW (Yellow); GLUCOSE, URINE NEGATIVE (Neg); KETONES,URINE 80 mg/dl (Neg); LEUKOCYTE ESTERASE ,URINE NEGATIVE (Neg); NITRITES, URINE NEGATIVE (Neg); OCCULT BLOOD,URINE NEGATIVE (Neg); PROTEIN,URINE NEGATIVE (Neg); UA COLLECTION TYPE URINAL; UROBILINOGEN,URINE 0.2 E.U/dL (0.2-1.0)
[2021-03-26] MEDS: ondansetron/PF 4mg/2ml inj IV PRN (20:17)
--- NOTE | 2021-03-26 20:26 | NUR ---
lactic acid of 9.0
[2021-03-27] MEDS: HYDROmorphone inj. 0.5 MG/0.5 ML DISP.SYRIN IV PRN ×4 (00:57→20:17)
[2021-03-27] MEDS: LORazepam 2 mg/ml vial IV PRN (06:06)
[2021-03-27] MEDS: ondansetron/PF 4mg/2ml inj IV PRN ×2 (06:13→14:00)
[2021-03-27 09:46] LABS: BASOPHILS % (AUTO) 0.7 % (0-1); EOSINOPHILS % (AUTO) 0.6 % (0-6); HEMOGLOBIN 9.6 g/dl (14.0-17.9); LYMPHOCYTES # (AUTO) 0.8 X10'3 (1.1-4.8); LYMPHOCYTES % (AUTO) 12.7 % (21-51); MEAN CORPUSCULAR HEMOGLOBIN 25.8 PG (27.0-31.0); MEAN CORPUSCULAR VOLUME 83.3 FL (78-98); MEAN PLATELET VOLUME 7.1 FL (7.4-10.4); MONOCYTES # (AUTO) 0.6 X10'3 (0-0.9); MONOCYTES % (AUTO) 9.5 % (2-12); NEUTROPHILS # (AUTO) 4.6 X10'3 (1.8-7.7); NEUTROPHILS % (AUTO) 76.5 % (42-75); PLATELET COUNT 286 X10'3 (140-440); RED BLOOD COUNT 3.72 X10'6 (4.70-6.10); RED CELL DISTRIBUTION WIDTH 28.1 % (11.5-14.5)
[2021-03-27 09:55] LABS: ALBUMIN 3.4 G/DL (3.4-5.0); ANION GAP 12 (8-16); BLOOD UREA NITROGEN 5 MG/DL (7-18); BUN/CREATININE RATIO 6.3 (5.4-32.0); CALCIUM 7.8 MG/DL (8.5-10.1); CHLORIDE 102 MMOL/L (99-107); GLUCOSE 129 MG/DL (70-104); LIPASE 1421 U/L (73-393); POTASSIUM 3.8 MMOL/L (3.5-5.1); SODIUM 133 MMOL/L (135-145); TOTAL CARBON DIOXIDE 19.1 MMOL/L (24-32); eGFR > 90 ML/MIN
[2021-03-27 10:16] LABS: ANISOCYTOSIS 3+; HYPOCHROMASIA 1+; MICROCYTOSIS 1+; PLATELET ESTIMATE NORMAL; POIKILOCYTOSIS FEW
[2021-03-27] MEDS ORDERED: FERR324T4 PO (10:58)
[2021-03-27] MEDS: multivitamins, therapeutics tablet PO SCH (11:11)
[2021-03-27] MEDS: thiamine 100mg tablet PO SCH (11:11)
[2021-03-27] MEDS: folic acid 1mg tablet PO SCH (11:11)
[2021-03-27] MEDS: ferrous sulfate 325mg tablet PO SCH (11:11)
[2021-03-27] MEDS: atorvastatin 10mg tablet PO SCH (11:11)
[2021-03-27] MEDS: diltiazem-NS 100mg/100ml 100 ML IV SCH (14:01)
[2021-03-27] MEDS: normal saline 1000ml 1,000 ML IV SCH (14:17)
[2021-03-27] MEDS: metoprolol tartrate 25mg tablet PO SCH (20:16)
[2021-03-27] MEDS: pantoprazole 40mg Tablet.DR PO SCH (20:16)
[2021-03-27] MEDS: magnesium oxide 400mg tablet PO SCH (20:17)
[2021-03-28] MEDS: normal saline 1000ml 1,000 ML IV SCH ×3 (00:56→20:30)
[2021-03-28] MEDS: HYDROmorphone inj. 0.5 MG/0.5 ML DISP.SYRIN IV PRN ×4 (02:34→23:29)
[2021-03-28 05:40] LABS: ALBUMIN 2.9 G/DL (3.4-5.0); ANION GAP 14 (8-16); BLOOD UREA NITROGEN 3 MG/DL (7-18); BUN/CREATININE RATIO 4.2 (5.4-32.0); CALCIUM 7.6 MG/DL (8.5-10.1); CHLORIDE 105 MMOL/L (99-107); CREATININE 0.72 MG/DL (0.60-1.10); GLUCOSE 101 MG/DL (70-104); LIPASE 932 U/L (73-393); POTASSIUM 3.4 MMOL/L (3.5-5.1); SODIUM 139 MMOL/L (135-145); TOTAL CARBON DIOXIDE 20.2 MMOL/L (24-32); eGFR > 90 ML/MIN
[2021-03-28] MEDS: pantoprazole 40mg Tablet.DR PO SCH ×2 (08:11→20:29)
[2021-03-28] MEDS: multivitamins, therapeutics tablet PO SCH (08:11)
[2021-03-28] MEDS: atorvastatin 10mg tablet PO SCH (08:11)
[2021-03-28] MEDS: thiamine 100mg tablet PO SCH (08:11)
[2021-03-28] MEDS: metoprolol tartrate 25mg tablet PO SCH ×2 (08:11→20:30)
[2021-03-28] MEDS: folic acid 1mg tablet PO SCH (08:11)
[2021-03-28] MEDS: ferrous sulfate 325mg tablet PO SCH (08:12)
[2021-03-28] MEDS: magnesium oxide 400mg tablet PO SCH ×2 (08:20→20:30)
[2021-03-28 09:10] LABS: BASOPHILS % (AUTO) 0.6 % (0-1); EOSINOPHILS # (AUTO) 0.1 X10'3 (0-0.9); EOSINOPHILS % (AUTO) 1.3 % (0-6); HEMATOCRIT 29.4 % (42.0-52.0); HEMOGLOBIN 9.1 g/dl (14.0-17.9); LYMPHOCYTES # (AUTO) 1.3 X10'3 (1.1-4.8); LYMPHOCYTES % (AUTO) 19.6 % (21-51); MEAN CORPUSCULAR HEMOGLOBIN 25.9 PG (27.0-31.0); MEAN CORPUSCULAR HGB CONC 30.8 g/dL (33.0-36.5); MEAN PLATELET VOLUME 7.3 FL (7.4-10.4); MONOCYTES # (AUTO) 0.5 X10'3 (0-0.9); MONOCYTES % (AUTO) 8.1 % (2-12); NEUTROPHILS # (AUTO) 4.7 X10'3 (1.8-7.7); NEUTROPHILS % (AUTO) 70.4 % (42-75); PLATELET COUNT 253 X10'3 (140-440); RED CELL DISTRIBUTION WIDTH 27.2 % (11.5-14.5); WHITE BLOOD COUNT 6.6 X10'3 (4.5-11.0)
[2021-03-28 09:35] LABS: ANISOCYTOSIS 3+; HYPOCHROMASIA 1+; PLATELET ESTIMATE NORMAL
[2021-03-28 09:36] LABS: ELLIPTOCYTES FEW; STOMATOCYTES FEW; TEAR DROP CELLS 1+
[2021-03-28] MEDS: diltiazem-NS 100mg/100ml 100 ML IV SCH (10:55)
--- NOTE | 2021-03-28 20:27 | NUR ---
Per MD, pt was given food by mouth to monitor for any N/V. Pt was given salatine crackers and a fruit cup. Approx 1H later and pt denies any nausea. Pt will be given a turkey sandwich to see if he can tolerate without N/V.
--- NOTE | 2021-03-28 21:10 | NUR ---
Pt was able to successfully eat turkey sandwhich without any N/V.
[2021-03-29] MEDS: LORazepam 2 mg/ml vial IV PRN (02:46)
[2021-03-29] MEDS: magnesium oxide 400mg tablet PO SCH (07:12)
[2021-03-29] MEDS: ferrous sulfate 325mg tablet PO SCH (07:12)
[2021-03-29] MEDS: normal saline 1000ml 1,000 ML IV SCH (07:12)
[2021-03-29] MEDS: folic acid 1mg tablet PO SCH (07:12)
[2021-03-29] MEDS: atorvastatin 10mg tablet PO SCH (07:12)
[2021-03-29] MEDS: pantoprazole 40mg Tablet.DR PO SCH (07:13)
[2021-03-29] MEDS: thiamine 100mg tablet PO SCH (07:13)
[2021-03-29] MEDS: multivitamins, therapeutics tablet PO SCH (07:13)
[2021-03-29] MEDS: metoprolol tartrate 25mg tablet PO SCH (07:13)
[2021-03-29] MEDS: HYDROmorphone inj. 0.5 MG/0.5 ML DISP.SYRIN IV PRN (07:15)
[2021-03-29 08:07] LABS: ANION GAP 15 (8-16); BLOOD UREA NITROGEN 4 MG/DL (7-18); BUN/CREATININE RATIO 5.7 (5.4-32.0); CHLORIDE 104 MMOL/L (99-107); GLUCOSE 115 MG/DL (70-104); SODIUM 141 MMOL/L (135-145)
[2021-03-29 08:08] LABS: ALBUMIN 3.1 G/DL (3.4-5.0); CALCIUM 8.7 MG/DL (8.5-10.1); eGFR > 90 ML/MIN
[2021-03-29 08:09] LABS: BASOPHILS # (AUTO) 0.1 X10'3 (0-0.2); BASOPHILS % (AUTO) 0.9 % (0-1); EOSINOPHILS # (AUTO) 0.1 X10'3 (0-0.9); EOSINOPHILS % (AUTO) 2.2 % (0-6); HEMATOCRIT 29.7 % (42.0-52.0); HEMOGLOBIN 9.4 g/dl (14.0-17.9); LYMPHOCYTES # (AUTO) 1.4 X10'3 (1.1-4.8); LYMPHOCYTES % (AUTO) 24.7 % (21-51); MEAN CORPUSCULAR HEMOGLOBIN 26.1 PG (27.0-31.0); MEAN CORPUSCULAR HGB CONC 31.7 g/dL (33.0-36.5); MEAN CORPUSCULAR VOLUME 82.1 FL (78-98); MONOCYTES # (AUTO) 0.4 X10'3 (0-0.9); MONOCYTES % (AUTO) 7.2 % (2-12); NEUTROPHILS # (AUTO) 3.7 X10'3 (1.8-7.7); PLATELET COUNT 251 X10'3 (140-440); POTASSIUM 2.9 MMOL/L (3.5-5.1); RED BLOOD COUNT 3.62 X10'6 (4.70-6.10); WHITE BLOOD COUNT 5.7 X10'3 (4.5-11.0)
--- NOTE | 2021-03-29 08:54 | NUR ---
PAGER ID: [phone] MESSAGE: Patient Fabiana Roth in ER bed 2 has a K+ of 2.9. Can protocol replacement orders please be ordered. JESUS Gnun [id number]. Addendum: 03/29/21 at 0855 by FRANKLIN MD Jama ordered replacement orders for K+.
[2021-03-29] MEDS ORDERED: potassium Cl 20 mEq SR tablet PO PRN ×2 (08:55)
[2021-03-29 11:20] VITALS: BP 131/88
[2021-03-29 12:28] VITALS: BP 131/83
[2021-03-29] MEDS ORDERED: HYDR-3965 PO (14:07)
[2021-03-29] MEDS ORDERED: K and/or MAG REPLACEMENT MC SCH (20:00)
== END 2021-03-29 15:42 | disposition home or self-care (01) | DRG 282 ==
LOC: ER 10:46 → UNDOADMOB 18:22 → ED HOLD 18:22 → EDBEDREQ 03-27 03:07 → INTOOBSV 03-28 15:09 → OBSVTOIN 03-28 15:09 → EDBEDREQSVC 03-29 08:37 → SUR 3N 03-29 09:32 → ED HOLD 03-29 09:32
PROVIDERS: ADMIT Internal Medicine; ATTEND Internal Medicine
DX: K85.90 Acute pancreatitis without necrosis or infection, unspecified (principal); E87.2 Acidosis; I47.1 Supraventricular tachycardia; E78.00 Pure hypercholesterolemia, unspecified; I48.20 Chronic atrial fibrillation, unspecified; E86.0 Dehydration; E78.5 Hyperlipidemia, unspecified; F10.20 Alcohol dependence, uncomplicated; I10 Essential (primary) hypertension; Z20.822 Contact with and (suspected) exposure to COVID-19; K21.9 Gastro-esophageal reflux disease without esophagitis; K86.1 Other chronic pancreatitis; Z82.49 Family history of ischemic heart disease and other diseases of the circulatory system; Z83.3 Family history of diabetes mellitus; Z90.49 Acquired absence of other specified parts of digestive tract; Z79.899 Other long term (current) drug therapy; Z81.1 Family history of alcohol abuse and dependence
CPT/HCPCS: 36415; 71045; 80048; 80053; 81003; 83605; 83690; 83735; 84145; 84484; 85008; 85025; 87081; 87635; 93005; 96361; 96365; 96366; 96367; 96372; 96375; 96376; 99285; C9803; G0378; J1170; J1200; J1650; J1885; J2060; J2270; J2405; J2765; J3475; J3490; J7030; J7120

== ENCOUNTER 2021-04-14 22:50 | Inpatient (IN) | payer MEDICAID ==
[~2021-04-14] VITALS: Ht 172.7 cm; Wt 55.5 kg
[~2021-04-14 22:50] MED LIST changes: +FERR324T4 PO; +HYDR-3965 PO; -POTA20TA19 PO
[2021-04-14] MEDS ORDERED: diltiazem 5mg/ml 5ml inj. IV ONE ×2 (23:15→23:25)
[2021-04-14] MEDS ORDERED: normal saline 1000ml 1,000 ML IV ONE (23:25)
[2021-04-14 23:47] LABS: BASOPHILS # (AUTO) 0.1 X10'3 (0-0.2); BASOPHILS % (AUTO) 1.4 % (0-1); EOSINOPHILS % (AUTO) 0.1 % (0-6); HEMOGLOBIN 11.5 g/dl (14.0-17.9); LYMPHOCYTES # (AUTO) 1.1 X10'3 (1.1-4.8); LYMPHOCYTES % (AUTO) 19.7 % (21-51); MEAN CORPUSCULAR HEMOGLOBIN 25.9 PG (27.0-31.0); MEAN CORPUSCULAR HGB CONC 31.1 g/dL (33.0-36.5); MEAN CORPUSCULAR VOLUME 83.5 FL (78-98); MEAN PLATELET VOLUME 7.2 FL (7.4-10.4); MONOCYTES # (AUTO) 0.4 X10'3 (0-0.9); MONOCYTES % (AUTO) 6.1 % (2-12); NEUTROPHILS # (AUTO) 4.2 X10'3 (1.8-7.7); NEUTROPHILS % (AUTO) 72.7 % (42-75); PLATELET COUNT 359 X10'3 (140-440); RED BLOOD COUNT 4.43 X10'6 (4.70-6.10); RED CELL DISTRIBUTION WIDTH 28.2 % (11.5-14.5); WHITE BLOOD COUNT 5.8 X10'3 (4.5-11.0)
[2021-04-15 00:06] LABS: ALANINE AMINOTRANSFERASE 61 U/L (12-78); ALBUMIN/GLOBULIN RATIO 0.8 (1.1-1.5); ALKALINE PHOSPHATASE 76 IU/L (46-116); ANION GAP 29 (8-16); ASPARTATE AMINO TRANSFERASE 161 U/L (10-37); BILIRUBIN,TOTAL 0.5 MG/DL (0.1-1.0); BLOOD UREA NITROGEN 15 MG/DL (7-18); BUN/CREATININE RATIO 11.8 (5.4-32.0); CALCIUM 8.6 MG/DL (8.5-10.1); CHLORIDE 99 MMOL/L (99-107); CREATININE 1.27 MG/DL (0.60-1.10); GLUCOSE 73 MG/DL (70-104); POTASSIUM 3.8 MMOL/L (3.5-5.1); SODIUM 141 MMOL/L (135-145); TOTAL PROTEIN 8.9 G/DL (6.4-8.2); eGFR 59 ML/MIN
[2021-04-15 00:10] LABS: TOTAL CARBON DIOXIDE 12.6 MMOL/L (24-32)
[2021-04-15 00:16] LABS: PLATELET ESTIMATE NORMAL
[2021-04-15 00:17] LABS: ANISOCYTOSIS 3+; ELLIPTOCYTES FEW; POLYCHROMASIA FEW; TEAR DROP CELLS FEW
[2021-04-15 00:19] LABS: STOMATOCYTES FEW
[2021-04-15] MEDS ORDERED: normal saline 1000ml 1,000 ML IV ONE (00:20)
[2021-04-15 01:11] LABS: BILIRUBIN,DIRECT 0.2 MG/DL (0-0.3); ETHANOL 0.243 GM/DL (0.0-0.010); LIPASE 87 U/L (73-393)
[2021-04-15] MEDS ORDERED: thiamine inj. 100 MG in normal saline 100ml IV soln 100 ML IV ONE (01:20)
[2021-04-15] MEDS ORDERED: potassium Cl 40MEQ/1/2NS 520ml 520 ML IV PRN ×2 (01:20)
[2021-04-15] MEDS ORDERED: normal saline 1000ml 1,000 ML IV SCH (01:20)
[2021-04-15] MEDS: LORazepam 2 mg/ml vial IV PRN ×4 (02:59→19:35)
[2021-04-15] MEDS: ondansetron/PF 4mg/2ml inj IV PRN ×2 (02:59→08:51)
--- NOTE | 2021-04-15 06:47 | NUR ---
PATIENT IN BED ASLEEP.
--- NOTE | 2021-04-15 06:47 | NUR ---
ATTEMPTED TO CALL REPORT BUT RN UNAVAILABLE.WILL CALL AGAIN AFTER 10 MINUTES.CN AWARE.
[2021-04-15 08:00] VITALS: BP 140/92
[2021-04-15] MEDS: multivitamins, therapeutics tablet PO SCH (08:00)
[2021-04-15] MEDS ORDERED: folic acid inj. 2 MG, thiamine inj. 100 MG, MVI, adult No.4 with vit. K 10 ML in dextro... IV SCH ×4 (08:00)
[2021-04-15] MEDS ORDERED: K and/or MAG REPLACEMENT MC SCH (08:00)
[2021-04-15] MEDS: folic acid 1mg tablet PO SCH (08:38)
[2021-04-15] MEDS: pantoprazole 40mg Tablet.DR PO SCH ×2 (08:38→19:29)
[2021-04-15] MEDS: metoprolol tartrate 25mg tablet PO SCH ×2 (08:38→19:30)
[2021-04-15] MEDS: thiamine 100mg tablet PO SCH (08:38)
[2021-04-15] MEDS ORDERED: potassium Cl 20 mEq SR tablet PO PRN (09:05)
[2021-04-15] MEDS ORDERED: magnesium 4gm in 100ml NS 100 ML IV PRN (09:05)
[2021-04-15] MEDS ORDERED: multivitamins, therapeutics tablet PO ONE (09:15)
[2021-04-15] MEDS: dextrose 5%-normal saline 1,000 ML IV SCH ×3 (09:27→19:39)
--- NOTE | 2021-04-15 09:41 | NUR ---
PAGER ID: [phone] MESSAGE: [phone] Fabiana Roth. Patient has a headache, need pain med ordered. U Marylin
[2021-04-15 10:08] LABS: BASOPHILS % (AUTO) 0.8 % (0-1); EOSINOPHILS % (AUTO) 0.3 % (0-6); HEMATOCRIT 30.7 % (42.0-52.0); HEMOGLOBIN 9.6 g/dl (14.0-17.9); LYMPHOCYTES # (AUTO) 1.9 X10'3 (1.1-4.8); LYMPHOCYTES % (AUTO) 36.2 % (21-51); MEAN CORPUSCULAR HGB CONC 31.3 g/dL (33.0-36.5); MEAN CORPUSCULAR VOLUME 83.2 FL (78-98); MEAN PLATELET VOLUME 7.2 FL (7.4-10.4); MONOCYTES # (AUTO) 0.6 X10'3 (0-0.9); MONOCYTES % (AUTO) 11.6 % (2-12); NEUTROPHILS # (AUTO) 2.7 X10'3 (1.8-7.7); NEUTROPHILS % (AUTO) 51.1 % (42-75); PLATELET COUNT 306 X10'3 (140-440); RED BLOOD COUNT 3.69 X10'6 (4.70-6.10); RED CELL DISTRIBUTION WIDTH 26.9 % (11.5-14.5); WHITE BLOOD COUNT 5.3 X10'3 (4.5-11.0)
[2021-04-15 10:28] LABS: ALANINE AMINOTRANSFERASE 61 U/L (12-78); ALBUMIN 3.4 G/DL (3.4-5.0); ALBUMIN/GLOBULIN RATIO 0.8 (1.1-1.5); ALKALINE PHOSPHATASE 64 IU/L (46-116); ANION GAP 22 (8-16); ASPARTATE AMINO TRANSFERASE 188 U/L (10-37); BILIRUBIN,TOTAL 0.4 MG/DL (0.1-1.0); BLOOD UREA NITROGEN 11 MG/DL (7-18); BUN/CREATININE RATIO 11.1 (5.4-32.0); CALCIUM 6.9 MG/DL (8.5-10.1); CHLORIDE 104 MMOL/L (99-107); CREATININE 0.99 MG/DL (0.60-1.10); GLUCOSE 86 MG/DL (70-104); MAGNESIUM 1.4 MG/DL (1.5-2.4); PHOSPHORUS 2.6 MG/DL (2.3-4.5); POTASSIUM 4.2 MMOL/L (3.5-5.1); SODIUM 138 MMOL/L (135-145); TOTAL PROTEIN 7.5 G/DL (6.4-8.2); eGFR 79 ML/MIN
[2021-04-15 10:34] LABS: TOTAL CARBON DIOXIDE 11.6 MMOL/L (24-32)
[2021-04-15 11:00] VITALS: BP 128/80
[2021-04-15 11:10] LABS: ANISOCYTOSIS 3+; HYPOCHROMASIA 1+; PLATELET ESTIMATE NORMAL
--- NOTE | 2021-04-15 11:15 | NUR ---
Paged Dr. Beavers regarding critical labs PAGER ID: [phone] MESSAGE: [phone] Fabiana Roth. Lactic 6.4, CO2 11.6. PCU Crystal
[2021-04-15 15:00] VITALS: BP 121/70
--- NOTE | 2021-04-15 17:45 | NUR ---
[place] Medication Administration: For this medication-pass time frame, all medication were reviewed, dispensed, administered and documented per hospital policy by Lizzeth SIU.
--- NOTE | 2021-04-15 17:45 | NUR ---
[place] documentation: I have reviewed and agree with all interventions, assessments performed and documented by Lizzeth SIU.
[2021-04-15] MEDS: magnesium Cl slow-release 64mg tablet PO PRN (17:49)
[2021-04-15 18:00] VITALS: BP 131/72
--- NOTE | 2021-04-15 18:10 | NUR ---
Problems reprioritized. Patient report given, questions answered & plan of care reviewed with Marylin SIU, patient stable at transfer of care.
[2021-04-15] MEDS: K and/or MAG REPLACEMENT MC SCH (19:39)
[2021-04-15 22:00] VITALS: BP 105/64
[2021-04-16] MEDS: LORazepam 2 mg/ml vial IV PRN ×6 (00:42→19:39)
[2021-04-16 02:00] VITALS: BP 105/71
[2021-04-16] MEDS: dextrose 5%-normal saline 1,000 ML IV SCH ×2 (02:39→12:24)
[2021-04-16 07:25] VITALS: BP 108/73
[2021-04-16 07:36] LABS: BASOPHILS % (AUTO) 0.7 % (0-1); EOSINOPHILS # (AUTO) 0.1 X10'3 (0-0.9); EOSINOPHILS % (AUTO) 1.6 % (0-6); HEMATOCRIT 23.9 % (42.0-52.0); HEMOGLOBIN 7.8 g/dl (14.0-17.9); LYMPHOCYTES # (AUTO) 1.5 X10'3 (1.1-4.8); LYMPHOCYTES % (AUTO) 42.8 % (21-51); MEAN CORPUSCULAR HEMOGLOBIN 25.8 PG (27.0-31.0); MEAN CORPUSCULAR HGB CONC 32.4 g/dL (33.0-36.5); MEAN CORPUSCULAR VOLUME 79.5 FL (78-98); MEAN PLATELET VOLUME 7.2 FL (7.4-10.4); MONOCYTES # (AUTO) 0.4 X10'3 (0-0.9); MONOCYTES % (AUTO) 10.9 % (2-12); NEUTROPHILS # (AUTO) 1.5 X10'3 (1.8-7.7); PLATELET COUNT 219 X10'3 (140-440); RED BLOOD COUNT 3.01 X10'6 (4.70-6.10); RED CELL DISTRIBUTION WIDTH 26.7 % (11.5-14.5); WHITE BLOOD COUNT 3.4 X10'3 (4.5-11.0)
[2021-04-16] MEDS: pantoprazole 40mg Tablet.DR PO SCH ×2 (07:45→19:38)
[2021-04-16] MEDS: thiamine 100mg tablet PO SCH (07:46)
[2021-04-16] MEDS: multivitamins, therapeutics tablet PO SCH (07:47)
[2021-04-16] MEDS: folic acid 1mg tablet PO SCH (07:47)
[2021-04-16] MEDS: metoprolol tartrate 25mg tablet PO SCH ×2 (07:49→19:44)
[2021-04-16] MEDS: K and/or MAG REPLACEMENT MC SCH ×2 (08:00→19:44)
[2021-04-16 08:10] LABS: ALANINE AMINOTRANSFERASE 52 U/L (12-78); ALBUMIN 2.8 G/DL (3.4-5.0); ALBUMIN/GLOBULIN RATIO 0.9 (1.1-1.5); ALKALINE PHOSPHATASE 58 IU/L (46-116); AMYLASE 91 U/L (25-115); ANION GAP 10 (8-16); ASPARTATE AMINO TRANSFERASE 125 U/L (10-37); BILIRUBIN,TOTAL 0.9 MG/DL (0.1-1.0); BLOOD UREA NITROGEN 6 MG/DL (7-18); BUN/CREATININE RATIO 6.5 (5.4-32.0); CALCIUM 7.2 MG/DL (8.5-10.1); CHLORIDE 109 MMOL/L (99-107); CREATININE 0.92 MG/DL (0.60-1.10); GLUCOSE 156 MG/DL (70-104); LIPASE 191 U/L (73-393); MAGNESIUM 1.2 MG/DL (1.5-2.4); SODIUM 140 MMOL/L (135-145); TOTAL CARBON DIOXIDE 21.2 MMOL/L (24-32); eGFR 86 ML/MIN
[2021-04-16 08:17] LABS: PHOSPHORUS 1.1 MG/DL (2.3-4.5)
[2021-04-16] MEDS: potassium Cl 20 mEq SR tablet PO PRN ×3 (08:31→19:39)
[2021-04-16] MEDS: magnesium Cl slow-release 64mg tablet PO PRN (08:31)
[2021-04-16] MEDS ORDERED: potassium phosphate inj 30 MMOL in normal saline 500ml IV soln 500 ML IV ONE (10:10)
[2021-04-16 11:00] VITALS: BP 123/75
[2021-04-16 15:00] VITALS: BP 116/65
[2021-04-16 18:00] VITALS: BP 140/65
--- NOTE | 2021-04-16 18:31 | NUR ---
Problems reprioritized. Patient report given, questions answered & plan of care reviewed with SALBADOR Correa.
[2021-04-16] MEDS: acetaminophen 325mg tablet PO PRN (18:37)
[2021-04-16] MEDS: morphine 2 MG/ML inj. syringe IV PRN (21:23)
[2021-04-16 22:00] VITALS: BP 119/79
[2021-04-17] MEDS: morphine 2 MG/ML inj. syringe IV PRN ×6 (01:17→23:05)
[2021-04-17] MEDS: dextrose 5%-normal saline 1,000 ML IV SCH ×2 (01:18→17:31)
[2021-04-17] MEDS ORDERED: LORazepam 2 mg/ml vial IV PRN (01:20)
[2021-04-17] MEDS ORDERED: LORazepam 1 MG tablet PO PRN (01:20)
[2021-04-17 02:00] VITALS: BP 124/71
[2021-04-17 06:00] VITALS: BP 124/82
[2021-04-17 06:30] LABS: BASOPHILS % (AUTO) 0.9 % (0-1); EOSINOPHILS # (AUTO) 0.1 X10'3 (0-0.9); EOSINOPHILS % (AUTO) 2.4 % (0-6); HEMATOCRIT 26.2 % (42.0-52.0); HEMOGLOBIN 8.5 g/dl (14.0-17.9); LYMPHOCYTES # (AUTO) 2.3 X10'3 (1.1-4.8); MEAN CORPUSCULAR HEMOGLOBIN 25.8 PG (27.0-31.0); MEAN CORPUSCULAR HGB CONC 32.3 g/dL (33.0-36.5); MEAN PLATELET VOLUME 7.3 FL (7.4-10.4); MONOCYTES # (AUTO) 0.4 X10'3 (0-0.9); MONOCYTES % (AUTO) 9.6 % (2-12); NEUTROPHILS # (AUTO) 1.6 X10'3 (1.8-7.7); NEUTROPHILS % (AUTO) 36.1 % (42-75); PLATELET COUNT 241 X10'3 (140-440); RED BLOOD COUNT 3.27 X10'6 (4.70-6.10); RED CELL DISTRIBUTION WIDTH 27.6 % (11.5-14.5); WHITE BLOOD COUNT 4.5 X10'3 (4.5-11.0)
--- NOTE | 2021-04-17 06:30 | NUR ---
Patient in room PCU 3026. I have received report from BRAD RN and had the opportunity to ask questions and assume patient care.
[2021-04-17 06:54] LABS: ALANINE AMINOTRANSFERASE 45 U/L (12-78); ALBUMIN 2.9 G/DL (3.4-5.0); ALBUMIN/GLOBULIN RATIO 0.9 (1.1-1.5); ALKALINE PHOSPHATASE 60 IU/L (46-116); AMYLASE 86 U/L (25-115); ANION GAP 1 (8-16); ASPARTATE AMINO TRANSFERASE 62 U/L (10-37); BILIRUBIN,TOTAL 0.5 MG/DL (0.1-1.0); BLOOD UREA NITROGEN 4 MG/DL (7-18); BUN/CREATININE RATIO 4.7 (5.4-32.0); CHLORIDE 105 MMOL/L (99-107); CREATININE 0.86 MG/DL (0.60-1.10); FERRITIN 34 NG/ML (26-388); GLUCOSE 133 MG/DL (70-104); LIPASE 188 U/L (73-393); PHOSPHORUS 2.1 MG/DL (2.3-4.5); SODIUM 129 MMOL/L (135-145); TOTAL CARBON DIOXIDE 23.2 MMOL/L (24-32); TOTAL PROTEIN 6.3 G/DL (6.4-8.2); eGFR > 90 ML/MIN
[2021-04-17 06:56] LABS: MAGNESIUM 0.9 MG/DL (1.5-2.4)
[2021-04-17 07:19] LABS: % IRON SATURATION 33 % (11-46); IRON 107 UG/DL (53-167); TOTAL IRON BINDING CAPACITY 328 UG/DL (259-388)
[2021-04-17 07:26] LABS: ANISOCYTOSIS 3+; MICROCYTOSIS 1+; PLATELET ESTIMATE NORMAL
[2021-04-17 07:27] LABS: POIKILOCYTOSIS FEW; TARGET CELLS FEW
[2021-04-17] MEDS: K and/or MAG REPLACEMENT MC SCH ×2 (08:00→20:16)
--- NOTE | 2021-04-17 08:03 | NUR ---
PAGER ID: [phone] MESSAGE: Re: Gonzalez Cloud. Critical Mag of 0.9. Will replace per protocol. -[facility] #[id number] -Dr. Leone paged concerning critical mag
[2021-04-17] MEDS: magnesium Cl slow-release 64mg tablet PO PRN ×2 (08:44→12:44)
[2021-04-17] MEDS: folic acid 1mg tablet PO SCH (08:45)
[2021-04-17] MEDS: metoprolol tartrate 25mg tablet PO SCH ×2 (08:45→20:15)
[2021-04-17] MEDS: pantoprazole 40mg Tablet.DR PO SCH ×2 (08:45→20:15)
[2021-04-17] MEDS: thiamine 100mg tablet PO SCH (08:45)
[2021-04-17] MEDS: multivitamins, therapeutics tablet PO SCH (08:45)
[2021-04-17] MEDS ORDERED: normal saline 1000ml 1,000 ML IVB ONE (10:00)
[2021-04-17 11:00] VITALS: BP 120/80
--- NOTE | 2021-04-17 15:03 | NUR ---
PAGER ID: [phone] MESSAGE: Re: Ai Roth. Room: [facility]. Redraw Critical Mag 0.9. -[facility] #0269 -Dr. Leone paged concerning critical mag
[2021-04-17 18:00] VITALS: BP 121/69
--- NOTE | 2021-04-17 18:03 | NUR ---
Problems reprioritized. Patient report given, questions answered & plan of care reviewed with Camila RN.
[2021-04-17 22:00] VITALS: BP 131/75
[2021-04-18] MEDS: acetaminophen 325mg tablet PO PRN (01:05)
[2021-04-18 02:00] VITALS: BP 124/75
[2021-04-18] MEDS: dextrose 5%-normal saline 1,000 ML IV SCH (04:55)
[2021-04-18 05:57] LABS: ALANINE AMINOTRANSFERASE 41 U/L (12-78); ALBUMIN 3.1 G/DL (3.4-5.0); ALBUMIN/GLOBULIN RATIO 0.8 (1.1-1.5); ALKALINE PHOSPHATASE 62 IU/L (46-116); AMYLASE 91 U/L (25-115); ANION GAP 6 (8-16); ASPARTATE AMINO TRANSFERASE 58 U/L (10-37); BILIRUBIN,TOTAL 0.3 MG/DL (0.1-1.0); BLOOD UREA NITROGEN 3 MG/DL (7-18); BUN/CREATININE RATIO 3.7 (5.4-32.0); CHLORIDE 106 MMOL/L (99-107); CREATININE 0.82 MG/DL (0.60-1.10); GLUCOSE 122 MG/DL (70-104); LIPASE 143 U/L (73-393); MAGNESIUM 1.9 MG/DL (1.5-2.4); PHOSPHORUS 2.5 MG/DL (2.3-4.5); POTASSIUM 3.6 MMOL/L (3.5-5.1); SODIUM 136 MMOL/L (135-145); TOTAL CARBON DIOXIDE 23.7 MMOL/L (24-32); TOTAL PROTEIN 6.8 G/DL (6.4-8.2); eGFR > 90 ML/MIN
[2021-04-18 06:06] LABS: BASOPHILS # (AUTO) 0.1 X10'3 (0-0.2); BASOPHILS % (AUTO) 1.7 % (0-1); EOSINOPHILS # (AUTO) 0.2 X10'3 (0-0.9); HEMATOCRIT 27.8 % (42.0-52.0); LYMPHOCYTES # (AUTO) 2.3 X10'3 (1.1-4.8); LYMPHOCYTES % (AUTO) 44.6 % (21-51); MEAN CORPUSCULAR HEMOGLOBIN 26.2 PG (27.0-31.0); MEAN CORPUSCULAR HGB CONC 32.3 g/dL (33.0-36.5); MEAN CORPUSCULAR VOLUME 81.1 FL (78-98); MEAN PLATELET VOLUME 7.5 FL (7.4-10.4); MONOCYTES # (AUTO) 0.4 X10'3 (0-0.9); MONOCYTES % (AUTO) 7.4 % (2-12); NEUTROPHILS # (AUTO) 2.2 X10'3 (1.8-7.7); NEUTROPHILS % (AUTO) 43.3 % (42-75); PLATELET COUNT 225 X10'3 (140-440); RED BLOOD COUNT 3.43 X10'6 (4.70-6.10); RED CELL DISTRIBUTION WIDTH 27.8 % (11.5-14.5); WHITE BLOOD COUNT 5.1 X10'3 (4.5-11.0)
[2021-04-18 07:00] VITALS: BP 116/68
--- NOTE | 2021-04-18 07:16 | NUR ---
Patient in room PCU 3026. I have received report from SALBADOR SALINAS and had the opportunity to ask questions and assume patient care.
[2021-04-18] MEDS: K and/or MAG REPLACEMENT MC SCH (08:00)
[2021-04-18] MEDS: multivitamins, therapeutics tablet PO SCH (08:00)
[2021-04-18 08:41] VITALS: BP_SYST 118
[2021-04-18] MEDS: metoprolol tartrate 25mg tablet PO SCH (08:41)
[2021-04-18] MEDS: thiamine 100mg tablet PO SCH (08:41)
[2021-04-18] MEDS: pantoprazole 40mg Tablet.DR PO SCH (08:41)
[2021-04-18] MEDS: folic acid 1mg tablet PO SCH (08:41)
[2021-04-18] MEDS: morphine 2 MG/ML inj. syringe IV PRN (08:47)
[2021-04-18] MEDS: ondansetron/PF 4mg/2ml inj IV PRN (08:47)
--- NOTE | 2021-04-18 10:28 | NUR ---
Patient stable for discharge per MD order, all discharge instructions reviewed with patient and all questions answered. PIV discontinued, cannula intact. Telemetry discontinued, telecom coordinator notified. All belongings collected and sent with patient. Pt picked up by family member in private vehicle, wheeled to lobby by staff.
[2021-04-19] MEDS ORDERED: LORazepam 1 MG tablet PO PRN (01:20)
== END 2021-04-18 10:16 | disposition home or self-care (01) | DRG 425 ==
LOC: ER 22:51 → UNDOADMIN 04-15 01:19 → ED HOLD 04-15 01:19 → PCU 3S 04-15 07:50
PROVIDERS: ADMIT Internal Medicine; ATTEND Family Medicine
DX: E87.2 Acidosis (principal); E83.39 Other disorders of phosphorus metabolism; D64.9 Anemia, unspecified; E78.00 Pure hypercholesterolemia, unspecified; E83.42 Hypomagnesemia; Z20.822 Contact with and (suspected) exposure to COVID-19; E87.6 Hypokalemia; F10.229 Alcohol dependence with intoxication, unspecified; F10.239 Alcohol dependence with withdrawal, unspecified; I10 Essential (primary) hypertension; I48.91 Unspecified atrial fibrillation; Z79.899 Other long term (current) drug therapy; Z82.49 Family history of ischemic heart disease and other diseases of the circulatory system; Z83.3 Family history of diabetes mellitus; Z90.49 Acquired absence of other specified parts of digestive tract; Z71.41 Alcohol abuse counseling and surveillance of alcoholic
CPT/HCPCS: 36415; 71045; 80053; 80320; 82150; 82248; 82607; 82728; 82948; 83540; 83550; 83605; 83690; 83735; 83880; 84100; 84145; 84484; 85008; 85025; 85610; 87081; 87635; 93005; 96360; 96361; 99291; G0378; J2060; J2270; J2405; J3411; J3475; J7030; J7040; J7042

== ENCOUNTER 2021-05-10 14:36 | Emergency (ER) | payer MEDICAID ==
[~2021-05-10] VITALS: Ht 170.2 cm; Wt 55.9 kg
[~2021-05-10 14:36] MED LIST changes: -HYDR-3965 PO
[2021-05-10 15:24] VITALS: BP 124/88
[2021-05-10] MEDS ORDERED: famotidine/PF 10 mg/ml inj IV ONE (15:35)
[2021-05-10] MEDS ORDERED: metoclopramide 5 mg/ml inj IV ONE (15:35)
[2021-05-10] MEDS ORDERED: normal saline 1000ML IV soln IVB ONE (15:35)
[2021-05-10 15:46] LABS: BASOPHILS # (AUTO) 0.1 X10'3 (0-0.2); BASOPHILS % (AUTO) 0.8 % (0-1); EOSINOPHILS % (AUTO) 0.4 % (0-6); HEMOGLOBIN 11.7 g/dl (14.0-17.9); LYMPHOCYTES # (AUTO) 1.2 X10'3 (1.1-4.8); LYMPHOCYTES % (AUTO) 17.2 % (21-51); MEAN CORPUSCULAR HEMOGLOBIN 25.3 PG (27.0-31.0); MEAN CORPUSCULAR HGB CONC 30.8 g/dL (33.0-36.5); MEAN CORPUSCULAR VOLUME 82.3 FL (78-98); MEAN PLATELET VOLUME 6.7 FL (7.4-10.4); MONOCYTES # (AUTO) 0.3 X10'3 (0-0.9); MONOCYTES % (AUTO) 4.1 % (2-12); NEUTROPHILS # (AUTO) 5.6 X10'3 (1.8-7.7); NEUTROPHILS % (AUTO) 77.5 % (42-75); PLATELET COUNT 215 X10'3 (140-440); RED BLOOD COUNT 4.62 X10'6 (4.70-6.10); RED CELL DISTRIBUTION WIDTH 27.9 % (11.5-14.5); WHITE BLOOD COUNT 7.3 X10'3 (4.5-11.0)
[2021-05-10 15:54] LABS: ALANINE AMINOTRANSFERASE 30 U/L (12-78); ALBUMIN 4.2 G/DL (3.4-5.0); ALKALINE PHOSPHATASE 73 IU/L (46-116); ANION GAP 24 (8-16); ASPARTATE AMINO TRANSFERASE 86 U/L (10-37); BILIRUBIN,TOTAL 0.8 MG/DL (0.1-1.0); BLOOD UREA NITROGEN 11 MG/DL (7-18); BUN/CREATININE RATIO 12.2 (5.4-32.0); CALCIUM 8.5 MG/DL (8.5-10.1); CHLORIDE 98 MMOL/L (99-107); GLUCOSE 74 MG/DL (70-104); POTASSIUM 3.2 MMOL/L (3.5-5.1); SODIUM 139 MMOL/L (135-145); TOTAL CARBON DIOXIDE 17.5 MMOL/L (24-32); TOTAL PROTEIN 8.5 G/DL (6.4-8.2); eGFR 88 ML/MIN
[2021-05-10 15:55] LABS: LIPASE 1052 U/L (73-393)
[2021-05-10 15:57] LABS: ETHANOL 0.324 GM/DL (0.0-0.010)
[2021-05-10 16:14] LABS: ANISOCYTOSIS 3+; HYPOCHROMASIA 1+; PLATELET ESTIMATE NORMAL; SCHISTOCYTES FEW; SPHEROCYTES FEW; TARGET CELLS 1+
[2021-05-10 16:16] LABS: ELLIPTOCYTES FEW; POLYCHROMASIA FEW
[2021-05-10 16:17] LABS: ROULEAUX 1+
[2021-05-10] MEDS ORDERED: morphine 4 MG/ML inj SYRINge IV ONE (19:20)
== END 2021-05-10 19:50 | disposition home or self-care (01) ==
LOC: ER 14:37
DX: K86.0 Alcohol-induced chronic pancreatitis (principal); F12.90 Cannabis use, unspecified, uncomplicated; I48.91 Unspecified atrial fibrillation; E78.00 Pure hypercholesterolemia, unspecified; I10 Essential (primary) hypertension; Z72.89 Other problems related to lifestyle; Z79.899 Other long term (current) drug therapy
CPT/HCPCS: 80053; 80320; 83690; 85008; 85025; 93005; 99284

== ENCOUNTER 2022-11-22 10:38 | Inpatient (IN) | payer MEDICAID ==
[~2022-11-22] VITALS: Ht 172.7 cm; Wt 54.5 kg
[~2022-11-22 10:38] MED LIST changes: -FOLI1TAB16 PO; +FOLI1TAB27 PO
[2022-11-22 11:13] LABS: BASOPHILS # (AUTO) 0.1 X10'3 (0-0.2); BASOPHILS % (AUTO) 0.9 % (0-1); EOSINOPHILS # (AUTO) 0.1 X10'3 (0-0.9); LYMPHOCYTES # (AUTO) 4.1 X10'3 (1.1-4.8); LYMPHOCYTES % (AUTO) 44.6 % (21-51); MEAN PLATELET VOLUME 6.8 FL (7.4-10.4); MONOCYTES # (AUTO) 0.5 X10'3 (0-0.9); MONOCYTES % (AUTO) 5.7 % (2-12); NEUTROPHILS # (AUTO) 4.4 X10'3 (1.8-7.7); NEUTROPHILS % (AUTO) 47.8 % (42-75)
[2022-11-22] MEDS ORDERED: ondansetron/PF 4mg/2ml inj IV ONE ×3 (11:20→15:25)
[2022-11-22] MEDS ORDERED: thiamine 100mg/ml 2ml inj. IV ONE ×3 (11:20→19:10)
[2022-11-22] MEDS ORDERED: normal saline 1000ml 1,000 ML IV ONE ×3 (11:20→14:00)
[2022-11-22 11:32] LABS: RED BLOOD COUNT 5.36 X10'6 (4.70-6.10); WHITE BLOOD COUNT 8.8 X10'3 (4.5-11.0)
[2022-11-22 11:33] LABS: HEMATOCRIT 35.5 % (42.0-52.0); MEAN CORPUSCULAR HEMOGLOBIN 20.5 PG (27.0-31.0); MEAN CORPUSCULAR HGB CONC 31.1 g/dL (33.0-36.5); MEAN CORPUSCULAR VOLUME 66.1 FL (78-98); PLATELET COUNT 322 X10'3 (140-440); RED CELL DISTRIBUTION WIDTH 22.3 % (11.5-14.5)
[2022-11-22 11:38] LABS: ALANINE AMINOTRANSFERASE 26 U/L (12-78); ALBUMIN 4.3 G/DL (3.4-5.0); ALKALINE PHOSPHATASE 61 IU/L (46-116); ANION GAP 32 (8-16); ASPARTATE AMINO TRANSFERASE 51 U/L (10-37); BILIRUBIN,TOTAL 0.5 MG/DL (0.1-1.0); BLOOD UREA NITROGEN 19 MG/DL (7-18); BUN/CREATININE RATIO 22.4 (10.0-20.0); CALCIUM 9.4 MG/DL (8.5-10.1); CHLORIDE 95 MMOL/L (99-107); CREATININE 0.85 MG/DL (0.60-1.10); LIPASE 173 U/L (73-393); SODIUM 135 MMOL/L (135-145); TOTAL PROTEIN 8.6 G/DL (6.4-8.2); eGFR > 90 ML/MIN
[2022-11-22 12:01] LABS: GLUCOSE 52 MG/DL (70-104); POTASSIUM 3.4 MMOL/L (3.5-5.1)
[2022-11-22 12:13] LABS: TOTAL CARBON DIOXIDE 8.4 MMOL/L (24-32)
[2022-11-22 12:50] LABS: ANISOCYTOSIS 3+; MICROCYTOSIS 1+; PLATELET ESTIMATE NORMAL
[2022-11-22] MEDS: metoprolol tartrate 1mg/ml inj IV SCH ×4 (13:02→13:40)
--- NOTE | 2022-11-22 13:08 | NUR ---
acute onset afib rvr HR 150's-190's while patient is up trying to use urinal for ua.Dr. Wilde at bedside, repeat ekg done.
--- NOTE | 2022-11-22 13:19 | NUR ---
second dose of lopressor not needed per Dr. Wilde,patient converted self back to sinus.
--- NOTE | 2022-11-22 14:07 | NUR ---
Dr. Beavers at bedside.
[2022-11-22] MEDS ORDERED: [UNRECOGNIZED DRUG - OTHER] PO (15:18)
[2022-11-22] MEDS ORDERED: DIPH25CA83 PO (15:18)
[2022-11-22] MEDS ORDERED: [UNRECOGNIZED DRUG - OTHER] PO (15:18)
[2022-11-22] MEDS ORDERED: ROSU10TA28 PO (15:18)
[2022-11-22] MEDS ORDERED: [UNRECOGNIZED DRUG - MIXTURE] PO (15:18)
--- NOTE | 2022-11-22 15:20 | NUR ---
Dr. Sweet at bedside,made aware patient's co2 was low.
[2022-11-22] MEDS ORDERED: CREON PO (15:22)
[2022-11-22] MEDS ORDERED: ringers solution, lactated 1000ml IV soln IV ONE (15:30)
[2022-11-22] MEDS: morphine 4 MG/ML inj SYRINge IV PRN (15:32)
[2022-11-22 15:59] LABS: ALBUMIN 3.5 G/DL (3.4-5.0); ANION GAP 28 (8-16); BLOOD UREA NITROGEN 18 MG/DL (7-18); BUN/CREATININE RATIO 20.5 (10.0-20.0); CALCIUM 7.3 MG/DL (8.5-10.1); CHLORIDE 102 MMOL/L (99-107); CREATININE 0.88 MG/DL (0.60-1.10); ETHANOL 0.025 GM/DL (0.0-0.010); GLUCOSE 61 MG/DL (70-104); POTASSIUM 4.2 MMOL/L (3.5-5.1); SODIUM 137 MMOL/L (135-145); eGFR 90 ML/MIN
[2022-11-22 16:09] LABS: CLARITY,URINE CLEAR (Clear); COLOR,URINE STRAW (Yellow); GLUCOSE, URINE NEGATIVE (Neg); KETONES,URINE 15 mg/dl (Neg); LEUKOCYTE ESTERASE ,URINE NEGATIVE (Neg); NITRITES, URINE NEGATIVE (Neg); OCCULT BLOOD,URINE SMALL (Neg); PROTEIN,URINE TRACE mg/dl (Neg); UROBILINOGEN,URINE 0.2 E.U/dL (0.2-1.0)
[2022-11-22 16:12] LABS: ABG HCO3 4.6 mmol/L (22.0-26.0); ABG OXYGEN SATURATION 96.4 % (94-97); ABG PCO2 (T) 19.2 mmHg (35.0-48.0); ABG PO2 (T) 128.4 mmHg (75.0-100.0); ALLEN'S TEST POSITIVE; FCOHb 0.6 % (0.0-3.9); FMetHb 0.2 % (0.0-1.5); FO2Hb 95.6 % (94-97); TOTAL HEMOGLOBIN 9.8 G/dl (14.0-17.9)
[2022-11-22 16:18] LABS: URINE AMPHETAMINE SCREEN NEGATIVE (Neg); URINE BARBITUATE SCREEN NEGATIVE (Neg); URINE BENZODIAZEPINES SCREEN NEGATIVE (Neg); URINE CANNABINOID SCREEN NEGATIVE (Neg); URINE COCAINE SCREEN NEGATIVE (Neg); URINE METHADONE SCREEN NEGATIVE (Neg); URINE OPIATE SCREEN NEGATIVE (Neg); URINE PHENCYCLIDINE SCREEN NEGATIVE (Neg)
[2022-11-22 16:20] LABS: UA COLLECTION TYPE CLN CATCH MIDSTREAM
--- NOTE | 2022-11-22 16:21 | NUR ---
EMESIS X 1,ZOFRAN 4MG GIVEN ALREADY,DR. SMYTH MADE AWARE.
[2022-11-22 16:24] LABS: BACTERIA,URINE FEW /HPF (Neg); MUCUS STRANDS FEW /LPF (Neg)
[2022-11-22 16:25] LABS: FINE GRANULAR CAST 0-3 /LPF (NEGATIVE); HYALINE CASTS 0-3 /LPF (NEGATIVE); RBC,URINE 0-2 /HPF (0-2); SQUAMOUS EPITHELIAL CELL,UR FEW /LPF (FEW); WBC,URINE 0-4 /HPF (0-4)
[2022-11-22] MEDS ORDERED: proCHLORperazine 10 MG/2 ml inj IV ONE (16:40)
[2022-11-22] MEDS ORDERED: dextrose 5%-1/2 normal saline 1,000 ML IV ONE (16:40)
[2022-11-22] MEDS ORDERED: magnesium 4gm in 100ml NS 100 ML IV ONE (17:05)
--- NOTE | 2022-11-22 17:44 | NUR ---
lab called to report lactic acid 10.2. rn notified belinda pineda
--- NOTE | 2022-11-22 17:53 | NUR ---
D5 1/2 NS stopped bg 234mg/dl.
[2022-11-22] MEDS ORDERED: sodium bicarbonate (8.4%) inj. 1 MEQ/ML ML IV ONE (18:05)
[2022-11-22] MEDS: SODIUM BICARB 150mEq/D5W 1L 1,000 ML IV SCH ×2 (19:01→23:05)
[2022-11-22 19:04] LABS: CLARITY,URINE SLIGHTLY CLOUDY (Clear); COLOR,URINE STRAW (Yellow); GLUCOSE, URINE 250 mg/dl (Neg); KETONES,URINE 40 mg/dl (Neg); LEUKOCYTE ESTERASE ,URINE NEGATIVE (Neg); NITRITES, URINE NEGATIVE (Neg); OCCULT BLOOD,URINE TRACE-INTACT (Neg); PROTEIN,URINE NEGATIVE (Neg); UROBILINOGEN,URINE 0.2 E.U/dL (0.2-1.0)
[2022-11-22 19:14] LABS: UA COLLECTION TYPE FOLEY CATH
[2022-11-22 19:16] LABS: RBC,URINE 0-2 /HPF (0-2); WBC,URINE 0-4 /HPF (0-4)
[2022-11-22 19:17] LABS: BACTERIA,URINE FEW /HPF (Neg); SQUAMOUS EPITHELIAL CELL,UR FEW /LPF (FEW)
[2022-11-22] MEDS ORDERED: magnesium 4gm in 100ml NS 100 ML IV PRN (19:30)
[2022-11-22] MEDS ORDERED: mag hydrox/Alum hydrox/simeth 30ml oral suspension PO PRN (19:30)
[2022-11-22] MEDS ORDERED: acetaminophen 325mg tablet PO PRN (19:30)
[2022-11-22] MEDS ORDERED: ondansetron/PF 4mg/2ml inj IV PRN (19:30)
[2022-11-22] MEDS ORDERED: magnesium hydroxide 30ml (MOM) UD suspension PO PRN (19:30)
[2022-11-22] MEDS ORDERED: potassium Cl 40MEQ/1/2NS 520ml 520 ML IV PRN (19:30)
[2022-11-22] MEDS ORDERED: magnesium 2GM in 50ml NS 50 ML IV PRN (19:30)
[2022-11-22] MEDS ORDERED: potassium Cl 20 mEq SR tablet PO PRN ×2 (19:30)
[2022-11-22] MEDS: docusate sod 100mg capsule PO SCH (20:00)
[2022-11-22 20:12] LABS: ABG HCO3 14.2 mmol/L (22.0-26.0); ABG OXYGEN SATURATION 97.2 % (94-97); ABG PCO2 (T) 26.1 mmHg (35.0-48.0); ABG PO2 (T) 99.5 mmHg (75.0-100.0); ALLEN'S TEST POSITIVE; FCOHb 0.9 % (0.0-3.9); FMetHb 0.4 % (0.0-1.5); FO2Hb 95.9 % (94-97); PATIENT TEMPERATURE 37.4; TOTAL HEMOGLOBIN 8.8 G/dl (14.0-17.9)
--- NOTE | 2022-11-22 21:10 | NUR ---
SPOKE WITH MD REGARDING BS OF 322. VERBAL ORDER FOR 10U LANTUS RECIEVED. ORDER FOR BICARB TO BE D/C AFTER COMPLETION OF CURRENT BOTTLE. MD ALSO REQUESTED STAT CTA ABD PELVIS TO RULE OUT GUT.
[2022-11-22] MEDS ORDERED: insulin glargine (Lantus) pen - multi-dose SQ ONE (21:15)
[2022-11-22] MEDS ORDERED: iohexol 350MG/ML 100ml bottle IV ONE (21:18)
[2022-11-22] MEDS: K and/or MAG REPLACEMENT MC SCH (21:59)
[2022-11-22] MEDS: pantoprazole 40MG/NS 100ML BAG 100 ML IV SCH (22:00)
--- NOTE | 2022-11-22 23:10 | NUR ---
DEANNA SENIOR FOR PAIN CONTROL
[2022-11-23] VITALS (17 sets, daily range): BP systolic 91–114; BP diastolic 51–71
[2022-11-23] MEDS ORDERED: HYDROmorphone inj. 0.5 MG/0.5 ML DISP.SYRIN IV ONE (00:10)
[2022-11-23] MEDS ORDERED: LORazepam 2 mg/ml vial IV ONE (00:10)
[2022-11-23 00:11] LABS: BASOPHILS # (AUTO) 0.1 X10'3 (0-0.2); EOSINOPHILS % (AUTO) 0.1 % (0-6); HEMATOCRIT 26.5 % (42.0-52.0); HEMOGLOBIN 7.9 g/dl (14.0-17.9); LYMPHOCYTES # (AUTO) 2.2 X10'3 (1.1-4.8); LYMPHOCYTES % (AUTO) 28.6 % (21-51); MEAN CORPUSCULAR HEMOGLOBIN 19.8 PG (27.0-31.0); MEAN CORPUSCULAR HGB CONC 29.8 g/dL (33.0-36.5); MEAN CORPUSCULAR VOLUME 66.5 FL (78-98); MEAN PLATELET VOLUME 6.9 FL (7.4-10.4); MONOCYTES # (AUTO) 0.5 X10'3 (0-0.9); MONOCYTES % (AUTO) 7.1 % (2-12); NEUTROPHILS # (AUTO) 4.9 X10'3 (1.8-7.7); NEUTROPHILS % (AUTO) 63.2 % (42-75); PLATELET COUNT 197 X10'3 (140-440); RED BLOOD COUNT 3.99 X10'6 (4.70-6.10); RED CELL DISTRIBUTION WIDTH 22.9 % (11.5-14.5); WHITE BLOOD COUNT 7.7 X10'3 (4.5-11.0)
[2022-11-23 00:35] LABS: ANISOCYTOSIS 3+; MICROCYTOSIS 2+; PLATELET ESTIMATE NORMAL
[2022-11-23 00:37] LABS: ACANTHOCYTES FEW; ELLIPTOCYTES FEW
[2022-11-23] MEDS: SODIUM BICARB 150mEq/D5W 1L 1,000 ML IV SCH (00:44)
[2022-11-23 02:14] LABS: ALANINE AMINOTRANSFERASE 32 U/L (12-78); ALKALINE PHOSPHATASE 52 IU/L (46-116); ANION GAP 11 (8-16); ASPARTATE AMINO TRANSFERASE 105 U/L (10-37); BILIRUBIN,TOTAL 0.9 MG/DL (0.1-1.0); BLOOD UREA NITROGEN 11 MG/DL (7-18); BUN/CREATININE RATIO 11.7 (10.0-20.0); CALCIUM 6.5 MG/DL (8.5-10.1); CHLORIDE 96 MMOL/L (99-107); CREATININE 0.94 MG/DL (0.60-1.10); GLUCOSE 307 MG/DL (70-104); POTASSIUM 3.6 MMOL/L (3.5-5.1); SODIUM 131 MMOL/L (135-145); TOTAL CARBON DIOXIDE 24.5 MMOL/L (24-32); TOTAL PROTEIN 6.1 G/DL (6.4-8.2); eGFR 83 ML/MIN
--- NOTE | 2022-11-23 02:19 | NUR ---
DR WOODARD NOTIFIED OF PT'S LATEST LACTIC ACID OF 2.6 AND HGB/HCT OF 7.9/26.5
--- NOTE | 2022-11-23 02:52 | NUR ---
SPOKE WITH MD REGARDING LAB WORK. MD TO TALK WITH HOSPITALIST.
--- NOTE | 2022-11-23 03:37 | NUR ---
RECIEVED ORDER FROM MD TRAVIS, VERBAL ORDER TO Dwayne ISSA.
[2022-11-23 05:46] LABS: ALANINE AMINOTRANSFERASE 29 U/L (12-78); ALBUMIN 2.9 G/DL (3.4-5.0); ALKALINE PHOSPHATASE 50 IU/L (46-116); ANION GAP 6 (8-16); ASPARTATE AMINO TRANSFERASE 74 U/L (10-37); BILIRUBIN,TOTAL 0.9 MG/DL (0.1-1.0); BLOOD UREA NITROGEN 8 MG/DL (7-18); BUN/CREATININE RATIO 9.5 (10.0-20.0); CALCIUM 6.5 MG/DL (8.5-10.1); CHLORIDE 100 MMOL/L (99-107); CREATININE 0.84 MG/DL (0.60-1.10); GLUCOSE 202 MG/DL (70-104); MAGNESIUM 1.6 MG/DL (1.5-2.4); SODIUM 136 MMOL/L (135-145); TOTAL CARBON DIOXIDE 30.5 MMOL/L (24-32); TOTAL PROTEIN 5.8 G/DL (6.4-8.2); eGFR > 90 ML/MIN
[2022-11-23 05:49] LABS: POTASSIUM 2.8 MMOL/L (3.5-5.1)
[2022-11-23] MEDS: potassium Cl 40MEQ/1/2NS 520ml 520 ML IV SCH ×2 (06:34→13:17)
--- NOTE | 2022-11-23 07:35 | NUR ---
Pt arrived to room via gurney from ED. Received telephone report from SALBADOR Messer prior to transfer. Pt is on room air, respirations are even an unlabored. Pt is in normal sinus rhythm. He was able to transfer himself in to bed from the transport gurney. Denies abdominal pain at this time.
[2022-11-23 07:53] LABS: BASOPHILS % (AUTO) 0.4 % (0-1); EOSINOPHILS % (AUTO) 0.7 % (0-6); HEMATOCRIT 26.9 % (42.0-52.0); LYMPHOCYTES # (AUTO) 1.7 X10'3 (1.1-4.8); LYMPHOCYTES % (AUTO) 25.9 % (21-51); MEAN CORPUSCULAR HEMOGLOBIN 19.5 PG (27.0-31.0); MEAN CORPUSCULAR HGB CONC 29.7 g/dL (33.0-36.5); MEAN CORPUSCULAR VOLUME 65.7 FL (78-98); MEAN PLATELET VOLUME 8.4 FL (7.4-10.4); MONOCYTES # (AUTO) 0.5 X10'3 (0-0.9); NEUTROPHILS # (AUTO) 4.4 X10'3 (1.8-7.7); PLATELET COUNT 221 X10'3 (140-440); WHITE BLOOD COUNT 6.8 X10'3 (4.5-11.0)
[2022-11-23] MEDS: K and/or MAG REPLACEMENT MC SCH ×2 (08:00→20:00)
[2022-11-23] MEDS: docusate sod 100mg capsule PO SCH ×2 (08:58→20:00)
[2022-11-23] MEDS: thiamine 100mg/ml 2ml inj. IV SCH (08:59)
[2022-11-23] MEDS: enoxaparin 40mg/0.4ml syringe SUBCUT SCH (08:59)
[2022-11-23] MEDS: pantoprazole 40MG/NS 100ML BAG 100 ML IV SCH (09:05)
[2022-11-23 09:16] LABS: ABG BASE EXCESS 7.6 mmol/L (-2.0-2.0); ABG OXYGEN SATURATION 97.5 % (94-97); ABG PCO2 (T) 38.7 mmHg (35.0-48.0); ABG PO2 (T) 93.4 mmHg (75.0-100.0); ALLEN'S TEST POSITIVE; FCOHb 0.4 % (0.0-3.9); FMetHb 0.3 % (0.0-1.5); FO2Hb 96.8 % (94-97); TOTAL HEMOGLOBIN 8.9 G/dl (14.0-17.9)
--- NOTE | 2022-11-23 11:20 | NUR ---
Noted pt with a low BMI of 18.3 using scaled wt of 54.55 kg. Pt denied wt loss or decreased appetite/PO intake per malnutrition risk screen with RN. Current wt is stable with scaled wt hx in EMR. Pt initially on a clear liquid diet though now on a CHO controlled diet, pending documentation of PO intake. Pt visualized at bedside, mostly under the covers though face visualized with no evident fat or muscle wasting. Pt currently lacks a minimum of two criteria for malnutrition. Per EMR pt with EtOH hx and a low MCV of 65.7. Pt currently receiving routine Thiamine. D/w MD recommendation for routine Folic acid, MVI, Iron, and Vitamin C. MD approved, clinical pharmacist to update EMR. Will continue to follow and make recommendations as appropriate. Addendum: 11/23/22 at [address] Amended: Links added.
[2022-11-23] MEDS: folic acid 1mg tablet PO SCH (14:22)
[2022-11-23] MEDS: multivitamins, therapeutics tablet PO SCH (14:22)
--- NOTE | 2022-11-23 18:00 | NUR ---
Patient in room ICU 2040. I have received report from [facility] and had the opportunity to ask questions and assume patient care.
--- NOTE | 2022-11-23 18:38 | NUR ---
Problems reprioritized. Patient report given, questions answered & plan of care reviewed with SALBADOR Silva.
[2022-11-23] MEDS: morphine 4 MG/ML inj SYRINge IV PRN (19:03)
[2022-11-23] MEDS: morphine 2 MG/ML inj. syringe IV PRN (22:04)
[2022-11-24] VITALS (19 sets, daily range): BP systolic 90–127; BP diastolic 51–84
[2022-11-24] MEDS: morphine 2 MG/ML inj. syringe IV PRN ×5 (01:10→21:19)
[2022-11-24 01:53] LABS: BASOPHILS % (AUTO) 0.5 % (0-1); EOSINOPHILS # (AUTO) 0.1 X10'3 (0-0.9); EOSINOPHILS % (AUTO) 1.1 % (0-6); HEMATOCRIT 26.4 % (42.0-52.0); LYMPHOCYTES # (AUTO) 2.9 X10'3 (1.1-4.8); LYMPHOCYTES % (AUTO) 46.1 % (21-51); MEAN CORPUSCULAR HEMOGLOBIN 19.9 PG (27.0-31.0); MEAN CORPUSCULAR HGB CONC 30.3 g/dL (33.0-36.5); MEAN CORPUSCULAR VOLUME 65.7 FL (78-98); MEAN PLATELET VOLUME 8.1 FL (7.4-10.4); MONOCYTES # (AUTO) 0.4 X10'3 (0-0.9); MONOCYTES % (AUTO) 6.5 % (2-12); NEUTROPHILS # (AUTO) 2.9 X10'3 (1.8-7.7); NEUTROPHILS % (AUTO) 45.8 % (42-75); PLATELET COUNT 194 X10'3 (140-440); RED BLOOD COUNT 4.02 X10'6 (4.70-6.10); RED CELL DISTRIBUTION WIDTH 22.4 % (11.5-14.5); WHITE BLOOD COUNT 6.2 X10'3 (4.5-11.0)
[2022-11-24 02:01] LABS: ALANINE AMINOTRANSFERASE 28 U/L (12-78); ALKALINE PHOSPHATASE 56 IU/L (46-116); ANION GAP 8 (8-16); ASPARTATE AMINO TRANSFERASE 39 U/L (10-37); BILIRUBIN,TOTAL 0.4 MG/DL (0.1-1.0); BLOOD UREA NITROGEN 5 MG/DL (7-18); BUN/CREATININE RATIO 6.7 (10.0-20.0); CALCIUM 7.2 MG/DL (8.5-10.1); CHLORIDE 102 MMOL/L (99-107); CREATININE 0.75 MG/DL (0.60-1.10); GLUCOSE 188 MG/DL (70-104); MAGNESIUM 1.3 MG/DL (1.5-2.4); POTASSIUM 3.5 MMOL/L (3.5-5.1); SODIUM 135 MMOL/L (135-145); TOTAL CARBON DIOXIDE 25.2 MMOL/L (24-32); TOTAL PROTEIN 6.1 G/DL (6.4-8.2); eGFR > 90 ML/MIN
[2022-11-24 03:24] LABS: ANISOCYTOSIS 3+; MICROCYTOSIS 2+; PLATELET ESTIMATE NORMAL
[2022-11-24 03:27] LABS: BURR CELLS FEW; ELLIPTOCYTES FEW; HYPOCHROMASIA 1+; TARGET CELLS FEW; TEAR DROP CELLS FEW
--- NOTE | 2022-11-24 06:17 | NUR ---
Problems reprioritized. Patient report given, questions answered & plan of care reviewed with [facility].
[2022-11-24] MEDS: K and/or MAG REPLACEMENT MC SCH ×2 (08:00→20:00)
[2022-11-24] MEDS: pantoprazole 40mg Tablet.DR PO SCH (08:12)
[2022-11-24] MEDS: folic acid 1mg tablet PO SCH (08:12)
[2022-11-24] MEDS: multivitamins, therapeutics tablet PO SCH (08:12)
[2022-11-24] MEDS: docusate sod 100mg capsule PO SCH ×2 (08:12→21:20)
[2022-11-24] MEDS: thiamine 100mg/ml 2ml inj. IV SCH (08:13)
[2022-11-24] MEDS: enoxaparin 40mg/0.4ml syringe SUBCUT SCH (08:14)
[2022-11-24] MEDS ORDERED: bisacodyl 10mg suppository rectal RC STA (11:29)
[2022-11-24] MEDS: ferrous sulfate 325mg tablet PO SCH ×2 (12:12→16:55)
[2022-11-24] MEDS: ascorbic acid 500mg tablet PO SCH ×2 (12:12→21:19)
[2022-11-24 12:33] LABS: LIPASE 231 U/L (73-393)
--- NOTE | 2022-11-24 16:09 | NUR ---
Received report from Dan. [facility]. Awaiting patient arrival to room 3014A.
--- NOTE | 2022-11-24 16:30 | NUR ---
pT TRANSFERRED TO ROOM 3014a. mET RECIEVING NURSE edwin Quiñones AT BEDSIDE
--- NOTE | 2022-11-24 16:59 | NUR ---
Received patient to room 3014A via wheelchair accompanied by SALBADOR Granados. Patient alert and oriented and ambulated to bathroom independently. Patient oriented to room and call light. Call light placed within reach. Bed low and locked.
--- NOTE | 2022-11-24 18:30 | NUR ---
Patient in room PCU 3014. I have received report from Laurie [facility] and had the opportunity to ask questions and assume patient care.
--- NOTE | 2022-11-24 18:31 | NUR ---
Problems reprioritized. Patient report given, questions answered & plan of care reviewed with SALBADOR Silva.
[2022-11-24] MEDS: magnesium Cl slow-release 64mg tablet PO PRN (21:19)
--- NOTE | 2022-11-24 22:56 | NUR ---
PAGED DR. BARROSO FOR ROOM [id number] KIM JONES. PAIN IS NOT CONTROLLED WITH MORPHINE CAN WE HAVE NORCO ASLO PLEASE? THANK YOU JEANIE U [phone]
[2022-11-25] MEDS: HYDROcodone/acetaminophen 10/325mg tab PO PRN ×4 (00:51→16:42)
[2022-11-25] MEDS: morphine 2 MG/ML inj. syringe IV PRN ×2 (03:26→10:52)
[2022-11-25 06:00] VITALS: BP 110/74
--- NOTE | 2022-11-25 06:45 | NUR ---
Problems reprioritized. Patient report given, questions answered & plan of care reviewed with Floridalma RN.
--- NOTE | 2022-11-25 07:00 | NUR ---
Patient in room PCU 3014. I have received report from SALBADOR Silva and had the opportunity to ask questions and assume patient care.
[2022-11-25 08:20] LABS: BASOPHILS % (AUTO) 0.8 % (0-1); EOSINOPHILS # (AUTO) 0.1 X10'3 (0-0.9); EOSINOPHILS % (AUTO) 2.5 % (0-6); HEMOGLOBIN 8.4 g/dl (14.0-17.9); LYMPHOCYTES # (AUTO) 2.5 X10'3 (1.1-4.8); LYMPHOCYTES % (AUTO) 51.9 % (21-51); MEAN CORPUSCULAR HEMOGLOBIN 20.2 PG (27.0-31.0); MEAN CORPUSCULAR HGB CONC 29.9 g/dL (33.0-36.5); MEAN CORPUSCULAR VOLUME 67.5 FL (78-98); MEAN PLATELET VOLUME 7.2 FL (7.4-10.4); MONOCYTES # (AUTO) 0.3 X10'3 (0-0.9); MONOCYTES % (AUTO) 7.1 % (2-12); NEUTROPHILS # (AUTO) 1.8 X10'3 (1.8-7.7); NEUTROPHILS % (AUTO) 37.7 % (42-75); PLATELET COUNT 198 X10'3 (140-440); RED BLOOD COUNT 4.14 X10'6 (4.70-6.10); RED CELL DISTRIBUTION WIDTH 23.3 % (11.5-14.5); WHITE BLOOD COUNT 4.9 X10'3 (4.5-11.0)
[2022-11-25 09:09] LABS: ANISOCYTOSIS 3+; HYPOCHROMASIA 1+; MICROCYTOSIS 2+; PLATELET ESTIMATE NORMAL; POIKILOCYTOSIS FEW
[2022-11-25 09:23] LABS: ALANINE AMINOTRANSFERASE 27 U/L (12-78); ALBUMIN 3.1 G/DL (3.4-5.0); ALBUMIN/GLOBULIN RATIO 0.8 (1.1-1.5); ALKALINE PHOSPHATASE 55 IU/L (46-116); ANION GAP 9 (8-16); ASPARTATE AMINO TRANSFERASE 22 U/L (10-37); BILIRUBIN,TOTAL 0.3 MG/DL (0.1-1.0); BLOOD UREA NITROGEN 6 MG/DL (7-18); BUN/CREATININE RATIO 7.6 (10.0-20.0); CALCIUM 9.2 MG/DL (8.5-10.1); CHLORIDE 100 MMOL/L (99-107); CREATININE 0.79 MG/DL (0.60-1.10); GLUCOSE 213 MG/DL (70-104); MAGNESIUM 1.4 MG/DL (1.5-2.4); POTASSIUM 4.1 MMOL/L (3.5-5.1); SODIUM 136 MMOL/L (135-145); TOTAL CARBON DIOXIDE 27.4 MMOL/L (24-32); TOTAL PROTEIN 6.8 G/DL (6.4-8.2); eGFR > 90 ML/MIN
[2022-11-25] MEDS: K and/or MAG REPLACEMENT MC SCH (10:02)
[2022-11-25] MEDS ORDERED: DEXTROSE 15 GM of carb/4 tabs (each vial/BOTTLE has 4 tablets) PO PRN ×2 (10:05)
[2022-11-25] MEDS ORDERED: dextrose 50%-water 50ml dispensing syringe IV PRN ×2 (10:05)
[2022-11-25] MEDS ORDERED: glucagon, human recombinant 1mg kit SUBCUT PRN (10:05)
[2022-11-25] MEDS ORDERED: insulin Lispro (HumaLOG) vial - multi-dose SQ SCH (10:05)
[2022-11-25] MEDS: magnesium Cl slow-release 64mg tablet PO PRN ×2 (10:50→16:42)
[2022-11-25] MEDS: thiamine 100mg/ml 2ml inj. IV SCH (10:51)
[2022-11-25] MEDS: pantoprazole 40mg Tablet.DR PO SCH (10:51)
[2022-11-25] MEDS: ascorbic acid 500mg tablet PO SCH (10:51)
[2022-11-25] MEDS: folic acid 1mg tablet PO SCH (10:51)
[2022-11-25] MEDS: ferrous sulfate 325mg tablet PO SCH ×2 (10:51→16:42)
[2022-11-25] MEDS: docusate sod 100mg capsule PO SCH (10:51)
[2022-11-25] MEDS: multivitamins, therapeutics tablet PO SCH (10:51)
[2022-11-25] MEDS: enoxaparin 40mg/0.4ml syringe SUBCUT SCH (10:52)
[2022-11-25 11:00] VITALS: BP 133/87
[2022-11-25] MEDS ORDERED: POTA-207 PO (14:01)
[2022-11-25] MEDS ORDERED: LISI5TAB22 PO (14:01)
[2022-11-25] MEDS ORDERED: FER325T PO (14:01)
[2022-11-25] MEDS ORDERED: FOLI1TAB27 PO (14:01)
[2022-11-25] MEDS ORDERED: MULT-25 PO (14:01)
[2022-11-25] MEDS ORDERED: LANTUS SQ (14:01)
[2022-11-25] MEDS ORDERED: AMA1T PO (14:01)
[2022-11-25] MEDS ORDERED: PANT40TA54 PO (14:01)
[2022-11-25] MEDS ORDERED: LINA5TAB4 PO (14:01)
[2022-11-25] MEDS ORDERED: MAGN400C PO (14:01)
[2022-11-25] MEDS ORDERED: THIA50TA10 PO (14:01)
[2022-11-25] MEDS ORDERED: DOCU-148 PO (14:01)
[2022-11-25 15:00] VITALS: BP 144/91
--- NOTE | 2022-11-25 15:40 | NUR ---
Received TC from RN requesting RD speak with pt regarding diabetes management. Noted A1c 10.6% which was obtained today, up from last A1c 5.8% 01/01/21 per EMR. Noted pt dx with DM in July [address] 07/26/20 with an A1c of 7.7% at that time. Pt seen at [facility] provided with written DM education with thorough verbal review. Pt appears to have a good understanding of information provided and a baseline knowledge of diabetes management stating his parents and brother have diabetes. Pt states he does not have a glucometer as he left it in [facility] though he occasionally will check his blood sugars using his brother's glucometer. Pt reports having PO DM medications that he is to take in the morning and evening. Pt states he was not taking them per rx then states he was taking them per rx STUDENT OUTREACH COORDINATOR. Per CM note diabetic supplies have been faxed to patient's pharmacy. All of patient's questions were answered at this time. RD contact information provided and pt encouraged to reach out if needed. Pt endorses a good appetite which is evident with documented 100% PO intake since dinner 11/23. Pt denies food allergies or difficulty chewing/swallowing. Noted pt with active discharge orders in place. Will continue to follow. Addendum: 11/25/22 at [address] Amended: Links added.
[2022-11-25] MEDS ORDERED: HYDR-3965 PO (17:17)
--- NOTE | 2022-11-25 17:25 | NUR ---
DC inst provided to pt. IV x3 DC'd, tips intact. All belongings sent w/pt. WC to vehicle.
[2022-11-25] MEDS ORDERED: insulin glargine (Lantus) pen - multi-dose SQ SCH (21:00)
== END 2022-11-25 17:20 | disposition home health service (06) | DRG 241 ==
LOC: ER 10:38 → ED HOLD 19:37 → ICU 2S 11-23 07:28 → PCU 3S 11-24 16:28
PROVIDERS: ADMIT Internal Medicine Critical Care Medicine; ATTEND Internal Medicine Critical Care Medicine
PROC: B4201ZZ Computerized Tomography (CT Scan) of Abdominal Aorta using Low Osmolar Contrast (ICD-10-PCS; principal; 2022-11-22)
PROC: B4241ZZ Computerized Tomography (CT Scan) of Superior Mesenteric Artery using Low Osmolar Contrast (ICD-10-PCS; 2022-11-22)
PROC: B4281ZZ Computerized Tomography (CT Scan) of Bilateral Renal Arteries using Low Osmolar Contrast (ICD-10-PCS; 2022-11-22)
PROC: B42C1ZZ Computerized Tomography (CT Scan) of Pelvic Arteries using Low Osmolar Contrast (ICD-10-PCS; 2022-11-22)
PROC: B42H1ZZ Computerized Tomography (CT Scan) of Bilateral Lower Extremity Arteries using Low Osmolar Contrast (ICD-10-PCS; 2022-11-22)
PROC: B4211ZZ Computerized Tomography (CT Scan) of Celiac Artery using Low Osmolar Contrast (ICD-10-PCS; 2022-11-22)
DX: K29.20 Alcoholic gastritis without bleeding (principal); E11.649 Type 2 diabetes mellitus with hypoglycemia without coma; I48.92 Unspecified atrial flutter; E87.29 Other acidosis; E78.00 Pure hypercholesterolemia, unspecified; E86.0 Dehydration; I48.91 Unspecified atrial fibrillation; R33.9 Retention of urine, unspecified; E83.42 Hypomagnesemia; F10.229 Alcohol dependence with intoxication, unspecified; I10 Essential (primary) hypertension; K59.00 Constipation, unspecified; Z82.49 Family history of ischemic heart disease and other diseases of the circulatory system; Z83.3 Family history of diabetes mellitus; Z90.49 Acquired absence of other specified parts of digestive tract; Z91.199 Patient's noncompliance with other medical treatment and regimen due to unspecified reason; Z79.899 Other long term (current) drug therapy
CPT/HCPCS: 36415; 36600; 71045; 74174; 74176; 80048; 80053; 80305; 80320; 81001; 82803; 82948; 83036; 83605; 83690; 83735; 83880; 84484; 85008; 85018; 85025; 87040; 87081; 93005; 93975; 99285; C9113; G0378; J0780; J1650; J1815; J2060; J2270; J2405; J3411; J3475; J3480; J3490; J7030; J7120; Q9967

== ENCOUNTER 2023-01-07 11:39 | Inpatient (IN) | payer MEDICAID ==
[~2023-01-07] VITALS: Ht 172.7 cm; Wt 50.7 kg
[~2023-01-07 11:39] MED LIST changes: -ATOR10TA PO; +DOCU-148 PO; +FER325T PO; -FERR324T4 PO; +LINA5TAB4 PO; +LISI5TAB22 PO; +MAGN400C PO; -MAGN400T56 PO; -METO25TA6 PO; -MULT-1085 PO; +MULT-25 PO; +ROSU10TA28 PO; -THIA100T73 PO; +THIA50TA10 PO
[2023-01-07] MEDS ORDERED: morphine 4 MG/ML inj SYRINge IV ONE (12:00)
[2023-01-07] MEDS ORDERED: ondansetron/PF 4mg/2ml inj IV ONE (12:00)
[2023-01-07] MEDS ORDERED: normal saline 1000ML IV soln IVB ONE (12:00)
[2023-01-07] MEDS ORDERED: iohexol 300mg/ml 100ml inj. ONE (12:03)
[2023-01-07 12:37] LABS: ALANINE AMINOTRANSFERASE 17 U/L (12-78); ALBUMIN 3.8 G/DL (3.4-5.0); ALBUMIN/GLOBULIN RATIO 1.1 (1.1-1.5); ALKALINE PHOSPHATASE 54 IU/L (46-116); ANION GAP 15 (8-16); ASPARTATE AMINO TRANSFERASE 21 U/L (10-37); BILIRUBIN,TOTAL 0.9 MG/DL (0.1-1.0); BLOOD UREA NITROGEN 9 MG/DL (7-18); BUN/CREATININE RATIO 7.8 (10.0-20.0); CALCIUM 8.6 MG/DL (8.5-10.1); CHLORIDE 91 MMOL/L (99-107); CREATININE 1.15 MG/DL (0.60-1.10); GLUCOSE 252 MG/DL (70-104); POTASSIUM 4.2 MMOL/L (3.5-5.1); SODIUM 124 MMOL/L (135-145); TOTAL CARBON DIOXIDE 18.5 MMOL/L (24-32); TOTAL PROTEIN 7.4 G/DL (6.4-8.2); eGFR 66 ML/MIN
[2023-01-07 13:42] LABS: LIPASE 209 U/L (73-393)
[2023-01-07] MEDS ORDERED: glucagon, human recombinant 1mg kit SUBCUT PRN (13:45)
[2023-01-07] MEDS ORDERED: acetaminophen 325mg tablet PO PRN ×2 (13:45)
[2023-01-07] MEDS ORDERED: HYDROcodone/acetaminophen 5mg/325mg tablet PO PRN (13:45)
[2023-01-07] MEDS ORDERED: metoclopramide 5 mg/ml inj IV PRN (13:45)
[2023-01-07] MEDS ORDERED: mag hydrox/Alum hydrox/simeth 30ml oral suspension PO PRN (13:45)
[2023-01-07] MEDS ORDERED: ondansetron/PF 4mg/2ml inj IV PRN (13:45)
[2023-01-07] MEDS ORDERED: DEXTROSE 15 GM of carb/4 tabs (each vial/BOTTLE has 4 tablets) PO PRN ×2 (13:45)
[2023-01-07] MEDS ORDERED: morphine 2 MG/ML inj. syringe IV PRN (13:45)
[2023-01-07] MEDS ORDERED: MESSAGE TO PHARMACY PO ONE (13:45)
[2023-01-07] MEDS ORDERED: magnesium hydroxide 30ml (MOM) UD suspension PO PRN (13:45)
[2023-01-07] MEDS ORDERED: dextrose 50%-water 50ml dispensing syringe IV PRN ×2 (13:45)
[2023-01-07] MEDS: normal saline 1000ml 1,000 ML IV SCH (14:04)
[2023-01-07 14:09] LABS: CLARITY,URINE CLEAR (Clear); COLOR,URINE STRAW (Yellow); GLUCOSE, URINE NEGATIVE (Neg); KETONES,URINE NEGATIVE (Neg); LEUKOCYTE ESTERASE ,URINE NEGATIVE (Neg); NITRITES, URINE NEGATIVE (Neg); OCCULT BLOOD,URINE NEGATIVE (Neg); PROTEIN,URINE NEGATIVE (Neg); UROBILINOGEN,URINE 0.2 E.U/dL (0.2-1.0)
[2023-01-07 14:10] LABS: UA COLLECTION TYPE CLN CATCH MIDSTREAM
[2023-01-07] MEDS: HYDROcodone/acetaminophen 10/325mg tab PO PRN ×2 (14:13→20:02)
[2023-01-07] MEDS ORDERED: MULT-1085 PO (16:43)
[2023-01-07] MEDS ORDERED: INSU100V56 SQ (16:43)
[2023-01-07] MEDS ORDERED: HYDR-3964 PO (16:43)
[2023-01-07] MEDS ORDERED: LANTUS SQ (16:43)
[2023-01-07] MEDS ORDERED: LINA5TAB4 PO (16:50)
[2023-01-07] MEDS ORDERED: AMA1T PO (16:50)
[2023-01-07] MEDS ORDERED: PANT-47 PO (16:50)
[2023-01-07] MEDS ORDERED: THIA50TA10 PO (16:50)
[2023-01-07] MEDS ORDERED: MAGN400T56 PO (16:50)
[2023-01-07] MEDS ORDERED: DOCU100C40 PO (16:50)
[2023-01-07] MEDS ORDERED: POTA-207 PO (16:50)
[2023-01-07] MEDS ORDERED: FOLI0.4T14 PO (16:50)
[2023-01-07] MEDS ORDERED: FERR325T29 PO (16:50)
[2023-01-07] MEDS ORDERED: LISI5TAB22 PO (16:50)
[2023-01-07 18:08] LABS: BASOPHILS # (AUTO) 0.1 X10'3 (0-0.2); BASOPHILS % (AUTO) 0.7 % (0-1); EOSINOPHILS # (AUTO) 0.1 X10'3 (0-0.9); EOSINOPHILS % (AUTO) 0.5 % (0-6); HEMATOCRIT 35.4 % (42.0-52.0); HEMOGLOBIN 11.5 g/dl (14.0-17.9); LYMPHOCYTES # (AUTO) 2.2 X10'3 (1.1-4.8); LYMPHOCYTES % (AUTO) 22.3 % (21-51); MEAN CORPUSCULAR HEMOGLOBIN 24.5 PG (27.0-31.0); MEAN CORPUSCULAR HGB CONC 32.4 g/dL (33.0-36.5); MEAN CORPUSCULAR VOLUME 75.7 FL (78-98); MEAN PLATELET VOLUME 8.2 FL (7.4-10.4); MONOCYTES # (AUTO) 0.4 X10'3 (0-0.9); NEUTROPHILS # (AUTO) 7.2 X10'3 (1.8-7.7); NEUTROPHILS % (AUTO) 72.5 % (42-75); RED BLOOD COUNT 4.67 X10'6 (4.70-6.10); RED CELL DISTRIBUTION WIDTH 29.3 % (11.5-14.5)
[2023-01-07 18:17] LABS: PLATELET ESTIMATE NORMAL
[2023-01-07 18:18] LABS: ANISOCYTOSIS 3+; MICROCYTOSIS 1+
[2023-01-07 18:21] LABS: BURR CELLS 2+
[2023-01-07 18:22] LABS: ELLIPTOCYTES FEW
[2023-01-07] MEDS: insulin glargine (Lantus) pen - multi-dose SQ SCH (21:48)
[2023-01-07] MEDS: morphine 2 MG/ML inj. syringe IV PRN (23:31)
[2023-01-08] MEDS: normal saline 1000ml 1,000 ML IV SCH ×3 (00:45→19:22)
[2023-01-08] MEDS: HYDROcodone/acetaminophen 10/325mg tab PO PRN ×4 (02:21→22:27)
[2023-01-08 03:04] LABS: BASOPHILS % (AUTO) 0.7 % (0-1); EOSINOPHILS # (AUTO) 0.2 X10'3 (0-0.9); EOSINOPHILS % (AUTO) 3.2 % (0-6); HEMATOCRIT 33.9 % (42.0-52.0); HEMOGLOBIN 10.8 g/dl (14.0-17.9); LYMPHOCYTES # (AUTO) 2.9 X10'3 (1.1-4.8); LYMPHOCYTES % (AUTO) 41.9 % (21-51); MEAN CORPUSCULAR HEMOGLOBIN 24.5 PG (27.0-31.0); MEAN CORPUSCULAR VOLUME 76.7 FL (78-98); MEAN PLATELET VOLUME 8.2 FL (7.4-10.4); MONOCYTES # (AUTO) 0.3 X10'3 (0-0.9); MONOCYTES % (AUTO) 4.1 % (2-12); NEUTROPHILS # (AUTO) 3.5 X10'3 (1.8-7.7); NEUTROPHILS % (AUTO) 50.1 % (42-75); PLATELET COUNT 263 X10'3 (140-440); RED BLOOD COUNT 4.42 X10'6 (4.70-6.10); RED CELL DISTRIBUTION WIDTH 28.9 % (11.5-14.5)
[2023-01-08 03:12] LABS: ALBUMIN 3.3 G/DL (3.4-5.0); BLOOD UREA NITROGEN 8 MG/DL (7-18); BUN/CREATININE RATIO 7.6 (10.0-20.0); CALCIUM 9.2 MG/DL (8.5-10.1); CHLORIDE 104 MMOL/L (99-107); CREATININE 1.05 MG/DL (0.60-1.10); GLUCOSE 268 MG/DL (70-104); POTASSIUM 4.4 MMOL/L (3.5-5.1); TOTAL CARBON DIOXIDE 19.2 MMOL/L (24-32); eGFR 73 ML/MIN
[2023-01-08 03:48] LABS: SODIUM 136 MMOL/L (135-145)
[2023-01-08 03:49] LABS: ANION GAP 13 (8-16)
[2023-01-08] MEDS: morphine 2 MG/ML inj. syringe IV PRN ×4 (05:26→19:43)
--- NOTE | 2023-01-08 06:24 | NUR ---
ATTEMPTED TO CALL REPORT FLOOR NURSE UNAVAILABLE
--- NOTE | 2023-01-08 06:40 | NUR ---
SECOND ATTEMPT TO CALL REPORT, NURSE UNAVAILABLE TO TAKE REPORT
--- NOTE | 2023-01-08 07:03 | NUR ---
Patient in room ED 12. I have received report from Shanda in the ED and had the opportunity to ask questions and assume patient care.
[2023-01-08 07:25] VITALS: BP 165/89; PULSE 64; RESP 18; TEMP 97.7; O2SAT 100
[2023-01-08 07:26] VITALS: RESP 18; O2SAT 100
[2023-01-08] MEDS: enoxaparin 40mg/0.4ml syringe SUBCUT SCH (07:26)
[2023-01-08 08:50] VITALS: BP_SYST 131; BP_SYST 147; BP_SYST 148; BP_DIAS 89; BP_DIAS 96; BP_DIAS 98; PULSE 70; PULSE 74; PULSE 84
[2023-01-08 10:00] VITALS: BP 131/89; PULSE 74; RESP 14; TEMP 98.2; O2SAT 100
[2023-01-08] MEDS ORDERED: HYDROcodone/acetaminophen 10/325mg tab PO ONE (10:25)
--- NOTE | 2023-01-08 11:53 | NUR ---
Initial: Pt admit DX intractable N/V/diarrhea, L lower quadrant pain, hyponatremia, DM, and hx continued etoh. Noted pt BMI 17.0 current bed scaled wt 50.7kg down from prior chair scaled wt 54.55kg prior 11/23/22 admit in EMR. Pt also hx T2DM A1C 10.6% seen by RD for thorough DM ed prior 11/25/22 visit. Pt seen by RD at bedside; pt reports UBW consistent w/ prior 54.55kg admits decreased intake w/ on/off pain past ~1.5 months since prior November admit and reports wt loss though no specifics. Pt reports no DM diet questions/concerns at this time as well typically eats smaller more frequent meals at home denies food preferences. Current wt hx ~7% UBW loss 6 weeks w/ visible mild muscle/fat wasting visibly evident during RD visit. Given this pt meets minimum non-severe malnutrition criteria- MD notified. RD d/w RN regarding routine thiamine, folic acid, MVI for etoh hx if MD agreeable. PO 100% first full liquids meal this AM advanced to carb controlled WL PO pending though historically eats well. LBM 01/07 per EMR. Will monitor for further PO trends and nutrition intervenetion needs this admit. Rec: 1. continue carb controlled diet; encourage PO 2. monitor for PO tolerance and ONS needs; historically eats well 3. routine thiamine, folic acid, MVI for etoh hx 4. bowel care per rx 5. weekly wt Addendum: 01/08/23 at [address] Amended: Links added.
[2023-01-08] MEDS: insulin Lispro (HumaLOG) vial - multi-dose SQ SCH ×2 (14:29→21:15)
[2023-01-08] MEDS ORDERED: HYDROcodone/acetaminophen 5mg/325mg tablet PO PRN (14:50)
[2023-01-08 18:00] VITALS: BP 133/85; PULSE 60; RESP 14; TEMP 98; O2SAT 100
--- NOTE | 2023-01-08 18:28 | NUR ---
Problems reprioritized. Patient report given, questions answered & plan of care reviewed with
[2023-01-08] MEDS: ferrous sulfate 325mg tablet PO SCH (19:22)
[2023-01-08] MEDS: insulin glargine (Lantus) pen - multi-dose SQ SCH (21:16)
[2023-01-08 22:00] VITALS: BP 137/94; PULSE 75; RESP 16; TEMP 98.9; O2SAT 99
[2023-01-09] MEDS: normal saline 1000ml 1,000 ML IV SCH (00:35)
[2023-01-09] MEDS: morphine 2 MG/ML inj. syringe IV PRN ×2 (00:53→06:56)
--- NOTE | 2023-01-09 02:57 | NUR ---
REEL SYSTEM OPERATOR documentation: I have reviewed and agree with assessment performed and documented by MARLYS.
[2023-01-09] MEDS: HYDROcodone/acetaminophen 10/325mg tab PO PRN ×2 (04:21→10:28)
[2023-01-09 06:00] VITALS: BP 134/79; PULSE 80; RESP 16; TEMP 98; O2SAT 100
[2023-01-09 06:03] LABS: BASOPHILS # (AUTO) 0.1 X10'3 (0-0.2); BASOPHILS % (AUTO) 1.1 % (0-1); EOSINOPHILS # (AUTO) 0.2 X10'3 (0-0.9); EOSINOPHILS % (AUTO) 2.8 % (0-6); HEMATOCRIT 32.5 % (42.0-52.0); HEMOGLOBIN 10.5 g/dl (14.0-17.9); LYMPHOCYTES # (AUTO) 2.5 X10'3 (1.1-4.8); LYMPHOCYTES % (AUTO) 46.1 % (21-51); MEAN CORPUSCULAR HEMOGLOBIN 24.5 PG (27.0-31.0); MEAN CORPUSCULAR HGB CONC 32.2 g/dL (33.0-36.5); MEAN CORPUSCULAR VOLUME 76.3 FL (78-98); MEAN PLATELET VOLUME 8.2 FL (7.4-10.4); MONOCYTES # (AUTO) 0.3 X10'3 (0-0.9); MONOCYTES % (AUTO) 5.4 % (2-12); NEUTROPHILS # (AUTO) 2.5 X10'3 (1.8-7.7); NEUTROPHILS % (AUTO) 44.6 % (42-75); PLATELET COUNT 229 X10'3 (140-440); RED BLOOD COUNT 4.27 X10'6 (4.70-6.10); RED CELL DISTRIBUTION WIDTH 29.3 % (11.5-14.5); WHITE BLOOD COUNT 5.5 X10'3 (4.5-11.0)
--- NOTE | 2023-01-09 06:05 | NUR ---
Problems reprioritized. Patient report given, questions answered & plan of care reviewed with Jocelynn BACA.
[2023-01-09 06:12] LABS: ALBUMIN 3.1 G/DL (3.4-5.0); ANION GAP 10 (8-16); BLOOD UREA NITROGEN 7 MG/DL (7-18); BUN/CREATININE RATIO 10.8 (10.0-20.0); CALCIUM 9.2 MG/DL (8.5-10.1); CHLORIDE 103 MMOL/L (99-107); CREATININE 0.65 MG/DL (0.60-1.10); GLUCOSE 188 MG/DL (70-104); POTASSIUM 4.2 MMOL/L (3.5-5.1); SODIUM 136 MMOL/L (135-145); TOTAL CARBON DIOXIDE 23.4 MMOL/L (24-32); eGFR > 90 ML/MIN
[2023-01-09] MEDS: enoxaparin 40mg/0.4ml syringe SUBCUT SCH (07:17)
[2023-01-09] MEDS: ferrous sulfate 325mg tablet PO SCH (07:17)
[2023-01-09 08:00] VITALS: RESP 16; O2SAT 100
[2023-01-09] MEDS ORDERED: pantoprazole 40mg Tablet.DR PO SCH (08:00)
[2023-01-09] MEDS ORDERED: magnesium oxide 400mg tablet PO SCH (08:00)
[2023-01-09] MEDS ORDERED: folic acid 0.4mg tablet PO SCH (08:00)
[2023-01-09] MEDS ORDERED: glimepiride 1 MG tablet PO SCH (08:00)
[2023-01-09] MEDS ORDERED: multivitamins, therapeutics tablet PO SCH (08:00)
[2023-01-09] MEDS ORDERED: thiamine 100mg tablet PO SCH (08:00)
[2023-01-09] MEDS ORDERED: lisinopril 5mg tablet PO SCH (08:00)
[2023-01-09] MEDS ORDERED: potassium Cl 20 mEq SR tablet PO SCH (08:00)
[2023-01-09] MEDS ORDERED: linagliptin 5mg tablet PO SCH (08:00)
[2023-01-09] MEDS: insulin Lispro (HumaLOG) vial - multi-dose SQ SCH (08:58)
[2023-01-09 10:00] VITALS: BP 125/82; PULSE 79; RESP 18; TEMP 97.8; O2SAT 100
[2023-01-09] MEDS ORDERED: HYDR-3964 PO (10:25)
[2023-01-09] MEDS ORDERED: LANTUS SQ (10:25)
[2023-01-09] MEDS ORDERED: HYDR-3965 PO (10:28)
--- NOTE | 2023-01-09 10:30 | NUR ---
I have reviewed and agree with interventions, assessments, and documentation by Jocelynn Singh LVN.
--- NOTE | 2023-01-09 11:02 | NUR ---
Patient discharged home with personal belongings via POV with family friend. PIV d/c'd, tip in tact. Patient alert and apprpriate at the time of discharge.
== END 2023-01-09 11:00 | disposition home or self-care (01) | DRG 249 ==
LOC: ER 11:40 → ED HOLD 13:50 → ORTHO 4S 01-08 07:10
PROVIDERS: ADMIT Internal Medicine; ATTEND Internal Medicine
PROC: BW211ZZ Computerized Tomography (CT Scan) of Abdomen and Pelvis using Low Osmolar Contrast (ICD-10-PCS; principal; 2023-01-07)
DX: A08.39 Other viral enteritis (principal); N17.9 Acute kidney failure, unspecified; E46 Unspecified protein-calorie malnutrition; E87.1 Hypo-osmolality and hyponatremia; I48.91 Unspecified atrial fibrillation; E78.00 Pure hypercholesterolemia, unspecified; E86.0 Dehydration; K86.1 Other chronic pancreatitis; F10.20 Alcohol dependence, uncomplicated; Z20.822 Contact with and (suspected) exposure to COVID-19; Z68.1 Body mass index [BMI] 19.9 or less, adult; I10 Essential (primary) hypertension; Z82.49 Family history of ischemic heart disease and other diseases of the circulatory system; Z83.3 Family history of diabetes mellitus; Z83.438 Family history of other disorder of lipoprotein metabolism and other lipidemia
CPT/HCPCS: 36415; 74177; 80048; 80053; 81003; 82948; 83690; 84145; 85008; 85025; 87081; 87811; 99285; G0378; J1650; J1815; J2270; J2405; J3490; J7030; Q9967

== ENCOUNTER 2023-01-15 03:50 | Inpatient (IN) | payer MEDICAID ==
[~2023-01-15] VITALS: Ht 172.7 cm; Wt 46.2 kg
[~2023-01-15 03:50] MED LIST changes: +AMA1T PO; -DOCU-148 PO; +DOCU100C40 PO; -FER325T PO; +FERR325T29 PO; +FOLI0.4T14 PO; -FOLI1TAB27 PO; +HYDR-3965 PO; +LANTUS SQ; -MAGN400C PO; +MAGN400T56 PO; +MULT-1085 PO; -MULT-25 PO; +PANT-47 PO; -PANT40TA54 PO; +POTA-207 PO; -ROSU10TA28 PO
[2023-01-15] MEDS ORDERED: normal saline 1000ml 1,000 ML IV ONE ×2 (04:20→04:25)
[2023-01-15] MEDS ORDERED: metoclopramide 5 mg/ml inj IV ONE (04:20)
[2023-01-15] MEDS ORDERED: ondansetron/PF 4mg/2ml inj IV ONE (04:20)
[2023-01-15] MEDS ORDERED: proCHLORperazine 10 MG/2 ml inj IV ONE (04:20)
[2023-01-15 04:55] LABS: ABG BASE EXCESS -7.3 mmol/L (-2.0-2.0); ABG HCO3 12.1 mmol/L (22.0-26.0); ABG OXYGEN SATURATION 98.5 % (94-97); ABG PCO2 (T) 13.4 mmHg (35.0-48.0); ABG PO2 (T) 116.7 mmHg (75.0-100.0); ALLEN'S TEST POSITIVE; FCOHb 2.4 % (0.0-3.9); FMetHb 0.1 % (0.0-1.5); PATIENT TEMPERATURE 36.4; TOTAL HEMOGLOBIN 11.8 G/dl (14.0-17.9)
[2023-01-15] MEDS ORDERED: morphine 4 MG/ML inj SYRINge IV ONE (05:05)
[2023-01-15 05:14] LABS: BASOPHILS % (AUTO) 0.6 % (0-1); EOSINOPHILS # (AUTO) 0.1 X10'3 (0-0.9); EOSINOPHILS % (AUTO) 2.1 % (0-6); HEMATOCRIT 33.6 % (42.0-52.0); HEMOGLOBIN 11.1 g/dl (14.0-17.9); LYMPHOCYTES # (AUTO) 2.6 X10'3 (1.1-4.8); LYMPHOCYTES % (AUTO) 51.5 % (21-51); MEAN CORPUSCULAR HEMOGLOBIN 25.4 PG (27.0-31.0); MEAN CORPUSCULAR HGB CONC 32.9 g/dL (33.0-36.5); MEAN CORPUSCULAR VOLUME 77.1 FL (78-98); MEAN PLATELET VOLUME 8.1 FL (7.4-10.4); MONOCYTES # (AUTO) 0.7 X10'3 (0-0.9); MONOCYTES % (AUTO) 13.2 % (2-12); NEUTROPHILS # (AUTO) 1.6 X10'3 (1.8-7.7); NEUTROPHILS % (AUTO) 32.6 % (42-75); PLATELET COUNT 221 X10'3 (140-440); RED BLOOD COUNT 4.36 X10'6 (4.70-6.10)
[2023-01-15 05:26] LABS: ALANINE AMINOTRANSFERASE 14 U/L (12-78); ALBUMIN 3.8 G/DL (3.4-5.0); ALBUMIN/GLOBULIN RATIO 1.1 (1.1-1.5); ALKALINE PHOSPHATASE 45 IU/L (46-116); ASPARTATE AMINO TRANSFERASE 19 U/L (10-37); BILIRUBIN,TOTAL 0.9 MG/DL (0.1-1.0); BLOOD UREA NITROGEN 20 MG/DL (7-18); CALCIUM 8.9 MG/DL (8.5-10.1); CHLORIDE 84 MMOL/L (99-107); ETHANOL 77 MG/DL (<10); GLUCOSE 109 MG/DL (70-104); LIPASE 150 U/L (73-393); POTASSIUM 3.9 MMOL/L (3.5-5.1); SODIUM 122 MMOL/L (135-145); TOTAL PROTEIN 7.3 G/DL (6.4-8.2); eGFR 78 ML/MIN
[2023-01-15 05:33] LABS: ANION GAP 22 (8-16); TOTAL CARBON DIOXIDE 16.2 MMOL/L (24-32)
[2023-01-15] MEDS ORDERED: thiamine 100mg/ml 2ml inj. IV ONE (07:25)
[2023-01-15 08:36] LABS: TOTAL CELLS COUNTED 100
[2023-01-15 08:38] LABS: ANISOCYTOSIS 3+; BURR CELLS FEW; ELLIPTOCYTES 1+; MICROCYTOSIS 1+; PLATELET ESTIMATE NORMAL; STOMATOCYTES FEW; TEAR DROP CELLS 1+
[2023-01-15] MEDS ORDERED: magnesium 2GM in 50ml NS 50 ML IV ONE (09:00)
[2023-01-15] MEDS ORDERED: LORazepam 2 mg/ml vial IV ONE (09:10)
[2023-01-15] MEDS ORDERED: haloperidol 5mg tablet PO PRN (09:15)
[2023-01-15] MEDS ORDERED: haloperidol lactate 5mg/ml inj IM PRN (09:15)
[2023-01-15] MEDS ORDERED: LORazepam 2 mg/ml vial IV PRN (09:15)
[2023-01-15] MEDS ORDERED: magnesium 2GM in 50ml NS 50 ML IV PRN (09:20)
[2023-01-15] MEDS ORDERED: potassium Cl 40MEQ/1/2NS 520ml 520 ML IV PRN (09:20)
[2023-01-15] MEDS ORDERED: magnesium hydroxide 30ml (MOM) UD suspension PO PRN (09:20)
[2023-01-15] MEDS ORDERED: potassium Cl 20 mEq SR tablet PO PRN ×2 (09:20)
[2023-01-15] MEDS ORDERED: magnesium 4gm in 100ml NS 100 ML IV PRN (09:20)
[2023-01-15] MEDS ORDERED: mag hydrox/Alum hydrox/simeth 30ml oral suspension PO PRN (09:20)
[2023-01-15] MEDS ORDERED: ondansetron/PF 4mg/2ml inj IV PRN (09:20)
[2023-01-15] MEDS ORDERED: magnesium Cl slow-release 64mg tablet PO PRN (09:20)
[2023-01-15] MEDS ORDERED: acetaminophen 325mg tablet PO PRN ×2 (09:20)
[2023-01-15] MEDS: normal saline 1000ml 1,000 ML IV SCH ×2 (10:37→21:31)
[2023-01-15 11:34] LABS: CLARITY,URINE CLEAR (Clear); COLOR,URINE STRAW (Yellow); GLUCOSE, URINE NEGATIVE (Neg); KETONES,URINE NEGATIVE (Neg); LEUKOCYTE ESTERASE ,URINE NEGATIVE (Neg); NITRITES, URINE NEGATIVE (Neg); OCCULT BLOOD,URINE NEGATIVE (Neg); PROTEIN,URINE NEGATIVE (Neg); UROBILINOGEN,URINE 0.2 E.U/dL (0.2-1.0)
[2023-01-15 11:36] LABS: UA COLLECTION TYPE VOIDED
[2023-01-15] MEDS: thiamine 100mg/ml 2ml inj. IV SCH ×2 (13:17→21:25)
[2023-01-15] MEDS: morphine 2 MG/ML inj. syringe IV PRN (14:51)
[2023-01-15] MEDS ORDERED: FOLI1TAB27 PO (19:25)
[2023-01-15] MEDS ORDERED: INSU100V56 SQ (19:26)
[2023-01-15] MEDS: docusate sod 100mg capsule PO SCH (19:40)
[2023-01-15] MEDS: enoxaparin 40mg/0.4ml syringe SQ SCH (19:44)
[2023-01-15 19:48] LABS: ABG HCO3 19.3 mmol/L (22.0-26.0); ABG OXYGEN SATURATION 96.7 % (94-97); ABG PCO2 (T) 29.6 mmHg (35.0-48.0); ALLEN'S TEST Modified; FCOHb 0.7 % (0.0-3.9); PATIENT TEMPERATURE 36.8; TOTAL HEMOGLOBIN 12.2 G/dl (14.0-17.9)
[2023-01-15] MEDS: LORazepam 1 MG tablet PO PRN (21:33)
--- NOTE | 2023-01-15 23:21 | NUR ---
PT PLACED ON A HOSPITAL BED.
[2023-01-16] MEDS: normal saline 1000ml 1,000 ML IV SCH ×3 (06:46→19:00)
[2023-01-16] MEDS: HYDROcodone/acetaminophen 5mg/325mg tablet PO PRN ×2 (07:33→13:52)
[2023-01-16] MEDS: docusate sod 100mg capsule PO SCH ×2 (08:00→20:00)
[2023-01-16 08:15] VITALS: RESP 18; O2SAT 96
--- NOTE | 2023-01-16 08:16 | NUR ---
Received report from SALBADOR Mei. Awaiting patient arrival to room 3029Y.
[2023-01-16 08:32] LABS: ALANINE AMINOTRANSFERASE 17 U/L (12-78); ALBUMIN 3.6 G/DL (3.4-5.0); ALKALINE PHOSPHATASE 43 IU/L (46-116); ANION GAP 13 (8-16); BILIRUBIN,TOTAL 0.7 MG/DL (0.1-1.0); BLOOD UREA NITROGEN 8 MG/DL (7-18); CALCIUM 8.8 MG/DL (8.5-10.1); CHLORIDE 100 MMOL/L (99-107); CREATININE 0.73 MG/DL (0.60-1.10); GLUCOSE 137 MG/DL (70-104); LIPASE 165 U/L (73-393); MAGNESIUM 1.9 MG/DL (1.5-2.4); SODIUM 134 MMOL/L (135-145); TOTAL CARBON DIOXIDE 21.2 MMOL/L (24-32); TOTAL PROTEIN 7.3 G/DL (6.4-8.2); eGFR > 90 ML/MIN
[2023-01-16 08:36] LABS: ASPARTATE AMINO TRANSFERASE 29 U/L (10-37); PHOSPHORUS 2.3 MG/DL (2.3-4.5); POTASSIUM 4.1 MMOL/L (3.5-5.1)
[2023-01-16 08:50] VITALS: BP 139/74; PULSE 75; RESP 20; TEMP 97.7; O2SAT 100
--- NOTE | 2023-01-16 08:52 | NUR ---
Received patient to room 3025B [facility] accompanied by x1 staff. Patient alert and oriented c/o pain 8/10 on left upper abd. Patient able to ambulate independently to bathroom back to bed. Oriented patient to room and call light. Call light placed within patient's reach.
[2023-01-16] MEDS: thiamine 100mg/ml 2ml inj. IV SCH ×3 (09:03→20:44)
[2023-01-16] MEDS: morphine 2 MG/ML inj. syringe IV PRN ×2 (09:04→22:30)
--- NOTE | 2023-01-16 09:24 | NUR ---
patient right teqiz24l IV infiltrated after thiamin injection. patient c/o burning. right arm red no edema. dr. Leone in to see patient and aware. will dc and new IV placed to [facility] by PICC RN. warm blanket wrapped around patient right arm. Will continue to monitor
[2023-01-16] MEDS ORDERED: glucagon, human recombinant 1mg kit SUBCUT PRN (09:25)
[2023-01-16] MEDS ORDERED: DEXTROSE 15 GM of carb/4 tabs (each vial/BOTTLE has 4 tablets) PO PRN (09:25)
[2023-01-16] MEDS ORDERED: MESSAGE TO PHARMACY PO ONE (09:25)
[2023-01-16] MEDS ORDERED: loperamide 2mg capsule PO PRN (09:25)
[2023-01-16] MEDS ORDERED: dextrose 50%-water 50ml dispensing syringe IV PRN ×2 (09:25)
[2023-01-16] MEDS: folic acid 1mg/0.2ml inj IV SCH (10:21)
--- NOTE | 2023-01-16 11:11 | NUR ---
PAGER ID: [phone] MESSAGE: [phone]- rayne diaz- lab called unable to draw labs. patient hard stick. no one available to rattempt draw until tonight. ok to attempt blood draw from [facility]?- Laurie [phone]
[2023-01-16 11:59] VITALS: BP 121/83; PULSE 69; RESP 17; TEMP 97.7; O2SAT 100
--- NOTE | 2023-01-16 13:24 | NUR ---
PAGER ID: [phone] MESSAGE: [phone]- Ancelmo Roth- asking for pain meds. too soon. Morphine 1mg q6hr prn and Inman 5 q6hr prn. He is asking if can be sooner. - Laurie [phone]
[2023-01-16] MEDS: insulin Lispro (HumaLOG) vial - multi-dose SQ SCH (13:48)
[2023-01-16] MEDS ORDERED: HYDROcodone/acetaminophen 10/325mg tab PO PRN (14:35)
[2023-01-16] MEDS ORDERED: morphine 2 MG/ML inj. syringe IV PRN (14:35)
[2023-01-16 15:45] VITALS: BP 133/75; PULSE 77; RESP 20; TEMP 98.3; O2SAT 100
--- NOTE | 2023-01-16 18:36 | NUR ---
Problems reprioritized. Patient report given, questions answered & plan of care reviewed with SALBADRO GOMEZ.
[2023-01-16 18:40] VITALS: BP 142/82; PULSE 73; RESP 16; TEMP 98; O2SAT 100
[2023-01-16] MEDS: HYDROcodone/acetaminophen 10/325mg tab PO PRN (19:13)
[2023-01-16] MEDS: enoxaparin 40mg/0.4ml syringe SQ SCH (20:45)
[2023-01-16] MEDS: insulin glargine (Lantus) pen - multi-dose SQ SCH (21:30)
[2023-01-16 22:00] VITALS: BP 140/65; PULSE 73; RESP 16; TEMP 97.8; O2SAT 98
[2023-01-16] MEDS: LORazepam 1 MG tablet PO PRN (22:30)
--- NOTE | 2023-01-17 00:52 | NUR ---
PT IS INDEPENDENT IN AMB AND ADL'S.
[2023-01-17] MEDS: HYDROcodone/acetaminophen 10/325mg tab PO PRN ×5 (04:14→21:32)
--- NOTE | 2023-01-17 04:21 | NUR ---
PT IS INDEPENDENT AND VOIDS IN THE BATHROOM IN SUFFICIENT QUANTITIES.
[2023-01-17] MEDS: morphine 2 MG/ML inj. syringe IV PRN (04:56)
[2023-01-17] MEDS: normal saline 1000ml 1,000 ML IV SCH ×2 (05:00→15:27)
[2023-01-17 06:00] VITALS: BP 111/75; PULSE 74; RESP 10; TEMP 97.3; O2SAT 100
--- NOTE | 2023-01-17 06:48 | NUR ---
Problems reprioritized. Patient report given, questions answered & plan of care reviewed with LETA. Addendum: 01/17/23 at 0648 by Raad Bonner RN Amended: Links added.
[2023-01-17 07:07] LABS: BASOPHILS % (AUTO) 0.7 % (0-1); EOSINOPHILS # (AUTO) 0.2 X10'3 (0-0.9); EOSINOPHILS % (AUTO) 5.8 % (0-6); HEMATOCRIT 30.8 % (42.0-52.0); LYMPHOCYTES # (AUTO) 2.3 X10'3 (1.1-4.8); LYMPHOCYTES % (AUTO) 53.9 % (21-51); MEAN CORPUSCULAR HEMOGLOBIN 25.7 PG (27.0-31.0); MEAN CORPUSCULAR HGB CONC 32.4 g/dL (33.0-36.5); MEAN CORPUSCULAR VOLUME 79.3 FL (78-98); MEAN PLATELET VOLUME 8.1 FL (7.4-10.4); MONOCYTES # (AUTO) 0.4 X10'3 (0-0.9); MONOCYTES % (AUTO) 10.6 % (2-12); NEUTROPHILS # (AUTO) 1.2 X10'3 (1.8-7.7); PLATELET COUNT 178 X10'3 (140-440); RED BLOOD COUNT 3.88 X10'6 (4.70-6.10); RED CELL DISTRIBUTION WIDTH 27.3 % (11.5-14.5); WHITE BLOOD COUNT 4.2 X10'3 (4.5-11.0)
[2023-01-17 07:44] LABS: ALANINE AMINOTRANSFERASE 14 U/L (12-78); ALBUMIN 3.1 G/DL (3.4-5.0); ALKALINE PHOSPHATASE 41 IU/L (46-116); ANION GAP 9 (8-16); ASPARTATE AMINO TRANSFERASE 13 U/L (10-37); BILIRUBIN,TOTAL 0.3 MG/DL (0.1-1.0); BLOOD UREA NITROGEN 6 MG/DL (7-18); BUN/CREATININE RATIO 9.1 (10.0-20.0); CALCIUM 8.5 MG/DL (8.5-10.1); CHLORIDE 104 MMOL/L (99-107); CREATININE 0.66 MG/DL (0.60-1.10); GLUCOSE 149 MG/DL (70-104); LIPASE 95 U/L (73-393); MAGNESIUM 1.4 MG/DL (1.5-2.4); PHOSPHORUS 2.5 MG/DL (2.3-4.5); POTASSIUM 3.8 MMOL/L (3.5-5.1); SODIUM 136 MMOL/L (135-145); TOTAL CARBON DIOXIDE 23.3 MMOL/L (24-32); TOTAL PROTEIN 6.3 G/DL (6.4-8.2); eGFR > 90 ML/MIN
[2023-01-17] MEDS: docusate sod 100mg capsule PO SCH ×2 (07:53→21:13)
[2023-01-17 08:00] VITALS: RESP 14; O2SAT 100
[2023-01-17] MEDS: folic acid 1mg/0.2ml inj IV SCH (08:19)
[2023-01-17] MEDS: thiamine 100mg/ml 2ml inj. IV SCH ×3 (08:19→21:13)
[2023-01-17 09:13] LABS: ANISOCYTOSIS 3+; MICROCYTOSIS 1+; PLATELET ESTIMATE NORMAL
[2023-01-17 09:14] LABS: BURR CELLS FEW; HYPOCHROMASIA 1+
[2023-01-17 09:15] LABS: ELLIPTOCYTES FEW; TEAR DROP CELLS FEW
[2023-01-17] MEDS: LIPASE/PROTEASE/AMYLASE 4,200 unit CAPSULE.DR PO SCH ×2 (12:38→17:29)
[2023-01-17] MEDS: insulin Lispro (HumaLOG) vial - multi-dose SQ SCH (13:43)
[2023-01-17] MEDS: DEXTROSE 15 GM of carb/4 tabs (each vial/BOTTLE has 4 tablets) PO PRN ×2 (17:08→17:28)
[2023-01-17 18:00] VITALS: BP 157/84; PULSE 71; RESP 14; TEMP 98.3; O2SAT 100
--- NOTE | 2023-01-17 18:14 | NUR ---
AGREE WITH VENTILATOR SPECIALIST AM ASSESSMENT
--- NOTE | 2023-01-17 18:44 | NUR ---
Problems reprioritized. Patient report given, questions answered & plan of care reviewed with SALBADOR Chew.
--- NOTE | 2023-01-17 18:49 | NUR ---
Patient in room PCU 3025. I have received report from Jaxon (TECHNICAL SPEC) and had the opportunity to ask questions and assume patient care.
[2023-01-17 20:00] VITALS: RESP 12; O2SAT 100
[2023-01-17] MEDS: LORazepam 1 MG tablet PO PRN (21:13)
[2023-01-17] MEDS: enoxaparin 40mg/0.4ml syringe SQ SCH (21:14)
[2023-01-17] MEDS: insulin glargine (Lantus) pen - multi-dose SQ SCH (21:16)
[2023-01-17 22:55] VITALS: BP 117/76; PULSE 85; RESP 16; TEMP 98.2; O2SAT 100
[2023-01-18 01:28] VITALS: BP 132/74; PULSE 67; RESP 16; TEMP 98.3; O2SAT 97
[2023-01-18] MEDS: HYDROcodone/acetaminophen 10/325mg tab PO PRN ×2 (01:35→08:18)
[2023-01-18] MEDS: normal saline 1000ml 1,000 ML IV SCH (01:35)
--- NOTE | 2023-01-18 06:10 | NUR ---
Problems reprioritized. Patient report given, questions answered & plan of care reviewed with Celena.
[2023-01-18 06:19] LABS: ALANINE AMINOTRANSFERASE 19 U/L (12-78); ALBUMIN 3.3 G/DL (3.4-5.0); ALKALINE PHOSPHATASE 53 IU/L (46-116); ANION GAP 10 (8-16); ASPARTATE AMINO TRANSFERASE 16 U/L (10-37); BILIRUBIN,TOTAL 0.2 MG/DL (0.1-1.0); BLOOD UREA NITROGEN 9 MG/DL (7-18); BUN/CREATININE RATIO 12.9 (10.0-20.0); CALCIUM 9.5 MG/DL (8.5-10.1); CHLORIDE 102 MMOL/L (99-107); GLUCOSE 155 MG/DL (70-104); LIPASE 78 U/L (73-393); POTASSIUM 4.1 MMOL/L (3.5-5.1); SODIUM 136 MMOL/L (135-145); TOTAL CARBON DIOXIDE 24.3 MMOL/L (24-32); TOTAL PROTEIN 6.5 G/DL (6.4-8.2); eGFR > 90 ML/MIN
[2023-01-18 06:23] LABS: BASOPHILS % (AUTO) 0.6 % (0-1); EOSINOPHILS # (AUTO) 0.2 X10'3 (0-0.9); EOSINOPHILS % (AUTO) 3.5 % (0-6); HEMATOCRIT 31.3 % (42.0-52.0); LYMPHOCYTES % (AUTO) 55.1 % (21-51); MEAN CORPUSCULAR HEMOGLOBIN 25.4 PG (27.0-31.0); MEAN CORPUSCULAR VOLUME 79.4 FL (78-98); MEAN PLATELET VOLUME 8.2 FL (7.4-10.4); MONOCYTES # (AUTO) 0.4 X10'3 (0-0.9); MONOCYTES % (AUTO) 6.8 % (2-12); NEUTROPHILS # (AUTO) 1.8 X10'3 (1.8-7.7); PLATELET COUNT 186 X10'3 (140-440); RED BLOOD COUNT 3.94 X10'6 (4.70-6.10); RED CELL DISTRIBUTION WIDTH 27.5 % (11.5-14.5); WHITE BLOOD COUNT 5.4 X10'3 (4.5-11.0)
--- NOTE | 2023-01-18 06:33 | NUR ---
Patient in room PCU 3025. I have received report from Jeevan and had the opportunity to ask questions and assume patient care. No distress at this time.
[2023-01-18 08:00] VITALS: RESP 16; O2SAT 98
[2023-01-18] MEDS: docusate sod 100mg capsule PO SCH (08:12)
[2023-01-18] MEDS: LIPASE/PROTEASE/AMYLASE 4,200 unit CAPSULE.DR PO SCH (08:12)
[2023-01-18] MEDS ORDERED: ONDA4TAB12 PO (08:56)
[2023-01-18] MEDS ORDERED: HYDR-3965 PO (08:56)
[2023-01-18] MEDS ORDERED: LIPA1CAP28 PO (08:56)
[2023-01-18] MEDS ORDERED: folic acid 1mg tablet PO SCH (09:05)
[2023-01-18 09:18] VITALS: RESP 16
[2023-01-18 10:10] VITALS: O2SAT 98
[2023-01-18] MEDS: insulin Lispro (HumaLOG) vial - multi-dose SQ SCH (10:12)
--- NOTE | 2023-01-18 11:51 | NUR ---
Patient discharged with no acute distress, Stable for baseline and education provided. Patient signed d/c paperwork and all questions answered. IV d/c'd from the left forearm, cannula intact. TELE d/c'd. No s/s of hyper/hyperglycemia. Patient walked down to pavilion picked up by his . Belongings w/ patient that where upon admission.
[2023-01-18] MEDS ORDERED: thiamine 100mg tablet PO SCH (20:00)
== END 2023-01-18 12:47 | disposition home health service (06) | DRG 282 ==
LOC: ER 03:51 → ED HOLD 09:20 → PCU 3S 01-16 08:25
PROVIDERS: ADMIT Internal Medicine; ATTEND Internal Medicine
DX: K85.90 Acute pancreatitis without necrosis or infection, unspecified (principal); E11.649 Type 2 diabetes mellitus with hypoglycemia without coma; N17.9 Acute kidney failure, unspecified; E87.20 Acidosis, unspecified; E87.1 Hypo-osmolality and hyponatremia; I48.91 Unspecified atrial fibrillation; E86.0 Dehydration; E78.00 Pure hypercholesterolemia, unspecified; K86.1 Other chronic pancreatitis; E83.42 Hypomagnesemia; F10.20 Alcohol dependence, uncomplicated; Z79.4 Long term (current) use of insulin; Z79.899 Other long term (current) drug therapy; Z79.84 Long term (current) use of oral hypoglycemic drugs; Z82.49 Family history of ischemic heart disease and other diseases of the circulatory system; Z83.438 Family history of other disorder of lipoprotein metabolism and other lipidemia; Z90.49 Acquired absence of other specified parts of digestive tract; I10 Essential (primary) hypertension
CPT/HCPCS: 36415; 36600; 80053; 80320; 81003; 82009; 82803; 82948; 83690; 83735; 83930; 83935; 84100; 85007; 85008; 85018; 85025; 97161; 97530; 99285; G0378; J0780; J1650; J1815; J2060; J2270; J2405; J3411; J3475; J3490; J7030

== ENCOUNTER 2023-01-24 15:52 | Emergency (ER) | payer MEDICAID ==
[~2023-01-24] VITALS: Ht 165.1 cm; Wt 50.0 kg
[~2023-01-24 15:52] MED LIST changes: -AMA1T PO; -DOCU100C40 PO; -FOLI0.4T14 PO; +FOLI1TAB27 PO; +INSU100V56 SQ; -LANTUS SQ; -LINA5TAB4 PO; +LIPA1CAP28 PO; +ONDA4TAB12 PO
[2023-01-24 16:35] LABS: BASOPHILS % (AUTO) 0.9 % (0-1); EOSINOPHILS % (AUTO) 0.7 % (0-6); HEMATOCRIT 39.5 % (42.0-52.0); HEMOGLOBIN 12.6 g/dl (14.0-17.9); LYMPHOCYTES # (AUTO) 2.7 X10'3 (1.1-4.8); LYMPHOCYTES % (AUTO) 59.4 % (21-51); MEAN CORPUSCULAR HEMOGLOBIN 25.5 PG (27.0-31.0); MEAN CORPUSCULAR HGB CONC 31.8 g/dL (33.0-36.5); MEAN CORPUSCULAR VOLUME 80.2 FL (78-98); MONOCYTES # (AUTO) 0.3 X10'3 (0-0.9); NEUTROPHILS # (AUTO) 1.5 X10'3 (1.8-7.7); PLATELET COUNT 317 X10'3 (140-440); RED BLOOD COUNT 4.93 X10'6 (4.70-6.10); RED CELL DISTRIBUTION WIDTH 26.5 % (11.5-14.5); WHITE BLOOD COUNT 4.6 X10'3 (4.5-11.0)
[2023-01-24 16:39] VITALS: TEMP 97.4
[2023-01-24 16:51] LABS: ALANINE AMINOTRANSFERASE 20 U/L (12-78); ALBUMIN 4.3 G/DL (3.4-5.0); ALKALINE PHOSPHATASE 49 IU/L (46-116); ANION GAP 21 (8-16); ASPARTATE AMINO TRANSFERASE 15 U/L (10-37); BLOOD UREA NITROGEN 19 MG/DL (7-18); BUN/CREATININE RATIO 15.8 (10.0-20.0); CALCIUM 9.4 MG/DL (8.5-10.1); CHLORIDE 87 MMOL/L (99-107); GLUCOSE 313 MG/DL (70-104); SODIUM 125 MMOL/L (135-145); TOTAL CARBON DIOXIDE 17.3 MMOL/L (24-32); TOTAL PROTEIN 8.4 G/DL (6.4-8.2); eCRCL 49 ML/MIN; eGFR 63 ML/MIN
[2023-01-24 16:53] LABS: TOTAL CELLS COUNTED 100
[2023-01-24 16:54] LABS: ANISOCYTOSIS 3+; PLATELET ESTIMATE NORMAL
[2023-01-24 16:55] LABS: HYPOCHROMASIA 1+
[2023-01-24 16:56] LABS: LIPASE 310 U/L (73-393); PRO BRAIN NATRIURETIC PEPTIDE < 30 PG/ML (0-125)
[2023-01-24] MEDS ORDERED: normal saline 1000ML IV soln IVB ONE ×2 (17:40→18:30)
[2023-01-24] MEDS ORDERED: LIDOcaine Viscous 15ml cup MM ONE (17:50)
[2023-01-24] MEDS ORDERED: ondansetron/PF 4mg/2ml inj IV ONE (17:50)
[2023-01-24] MEDS ORDERED: mag hydrox/Alum hydrox/simeth 30ml oral suspension PO ONE (17:50)
[2023-01-24] MEDS ORDERED: glycopyrrolate 0.2mg/ml inj IV ONE (17:50)
[2023-01-24 20:47] VITALS: BP 116/78; PULSE 95; RESP 21; O2SAT 100
== END 2023-01-24 20:48 | disposition home or self-care (01) ==
LOC: ER 15:52
DX: R07.9 Chest pain, unspecified (principal); R10.9 Unspecified abdominal pain; E86.0 Dehydration; E78.00 Pure hypercholesterolemia, unspecified; I11.0 Hypertensive heart disease with heart failure; Z90.49 Acquired absence of other specified parts of digestive tract; Z79.899 Other long term (current) drug therapy
CPT/HCPCS: 36415; 71045; 80053; 83690; 83880; 84484; 85007; 85025; 93005; 96361; 96374; 96375; 99285; J2405; J3490; J7030

== ENCOUNTER 2023-02-16 18:19 | Emergency (ER) | payer MEDICAID ==
[~2023-02-16] VITALS: Ht 172.7 cm; Wt 50.0 kg
[2023-02-16 19:23] LABS: BASOPHILS % (AUTO) 0.7 % (0-1); EOSINOPHILS % (AUTO) 0.7 % (0-6); HEMOGLOBIN 13.4 g/dl (14.0-17.9); LYMPHOCYTES % (AUTO) 34.4 % (21-51); MEAN CORPUSCULAR HEMOGLOBIN 26.5 PG (27.0-31.0); MEAN CORPUSCULAR HGB CONC 31.9 g/dL (33.0-36.5); MEAN CORPUSCULAR VOLUME 82.9 FL (78-98); MEAN PLATELET VOLUME 7.3 FL (7.4-10.4); MONOCYTES # (AUTO) 0.5 X10'3 (0-0.9); MONOCYTES % (AUTO) 8.9 % (2-12); NEUTROPHILS # (AUTO) 3.2 X10'3 (1.8-7.7); NEUTROPHILS % (AUTO) 55.3 % (42-75); PLATELET COUNT 273 X10'3 (140-440); RED BLOOD COUNT 5.06 X10'6 (4.70-6.10); RED CELL DISTRIBUTION WIDTH 20.9 % (11.5-14.5); WHITE BLOOD COUNT 5.9 X10'3 (4.5-11.0)
[2023-02-16 19:38] LABS: ALANINE AMINOTRANSFERASE 19 U/L (12-78); ALBUMIN 4.1 G/DL (3.4-5.0); ALKALINE PHOSPHATASE 59 IU/L (46-116); ANION GAP 16 (8-16); ASPARTATE AMINO TRANSFERASE 26 U/L (10-37); BILIRUBIN,TOTAL 0.9 MG/DL (0.1-1.0); BLOOD UREA NITROGEN 7 MG/DL (7-18); BUN/CREATININE RATIO 7.4 (10.0-20.0); CALCIUM 9.5 MG/DL (8.5-10.1); CHLORIDE 92 MMOL/L (99-107); CREATININE 0.94 MG/DL (0.60-1.10); GLUCOSE 233 MG/DL (70-104); LIPASE 296 U/L (73-393); POTASSIUM 3.9 MMOL/L (3.5-5.1); SODIUM 127 MMOL/L (135-145); TOTAL CARBON DIOXIDE 18.6 MMOL/L (24-32); TOTAL PROTEIN 8.2 G/DL (6.4-8.2); eCRCL 63 ML/MIN; eGFR 83 ML/MIN
[2023-02-16 20:16] LABS: ANISOCYTOSIS 3+; PLATELET ESTIMATE NORMAL
[2023-02-16 20:19] LABS: ELLIPTOCYTES FEW
[2023-02-16 21:34] VITALS: TEMP 98.2
--- NOTE | 2023-02-16 23:17 | NUR ---
PT C/O UPPER ABD PAIN, 03/21, WAITING IN LOBBY, RESP EVEN AND UNLABORED, SKIN P/W/D
[2023-02-17] MEDS ORDERED: ketorolac trometh. 30mg/ml inj. IV ONE (03:30)
[2023-02-17] MEDS ORDERED: ondansetron/PF 4mg/2ml inj IV ONE (03:30)
[2023-02-17] MEDS ORDERED: normal saline 1000ML IV soln IVB ONE (03:30)
[2023-02-17] MEDS ORDERED: oxyCODONE IR 5mg (immed. release) tablet PO ONE (03:35)
[2023-02-17] MEDS ORDERED: LIDOcaine Viscous 15ml cup MM ONE (03:35)
[2023-02-17] MEDS ORDERED: glycopyrrolate 0.2mg/ml inj IV ONE (03:35)
[2023-02-17] MEDS ORDERED: mag hydrox/Alum hydrox/simeth 30ml oral suspension PO ONE (03:35)
[2023-02-17 03:55] VITALS: BP 150/98; PULSE 100; RESP 18; O2SAT 100
--- NOTE | 2023-02-17 03:56 | NUR ---
small cluster of hives by the IV site. made aware. Pt has taken all of those meds before and never had an issue. He thinks its so odd as well.
[2023-02-17] MEDS ORDERED: pantoprazole 40mg IV 40 MG in normal saline 100ml IV soln 100 ML IV ONE (04:20)
[2023-02-17] MEDS ORDERED: pantoprazole 40MG/NS 100ML BAG 100 ML IV ONE (04:24)
[2023-02-17] MEDS ORDERED: DEXAMETHASONE IV ONE (04:30)
[2023-02-17] MEDS ORDERED: WATER IV ONE (04:30)
[2023-02-17] MEDS ORDERED: dexamethasone inj 4 MG in dextrose 5%-water 100 ML IV ONE (04:30)
[2023-02-17] MEDS ORDERED: DEXTROSE 5% IV ONE (04:30)
[2023-02-17] MEDS ORDERED: ONDA8TAB13 PO (04:57)
[2023-02-17] MEDS ORDERED: HYDR-3965 PO (05:12)
== END 2023-02-17 05:18 | disposition home or self-care (01) ==
LOC: ER 18:20
DX: R11.2 Nausea with vomiting, unspecified (principal); R10.84 Generalized abdominal pain; E86.0 Dehydration; I48.91 Unspecified atrial fibrillation; I10 Essential (primary) hypertension; Z90.49 Acquired absence of other specified parts of digestive tract; Z72.89 Other problems related to lifestyle; Z79.899 Other long term (current) drug therapy
CPT/HCPCS: 36415; 80053; 83690; 85008; 85025; 96361; 96365; 96368; 96375; 99284; C9113; J1100; J1885; J2405; J3490; J7030; J7060

== ENCOUNTER 2023-05-04 19:11 | Inpatient (IN) | payer MEDICAID ==
[~2023-05-04] VITALS: Ht 172.7 cm; Wt 52.8 kg
[~2023-05-04 19:11] MED LIST changes: -HYDR-3965 PO; +ONDA8TAB13 PO
[2023-05-04 20:20] LABS: BASOPHILS # (AUTO) 0.1 X10'3 (0-0.2); BASOPHILS % (AUTO) 0.9 % (0-1); EOSINOPHILS % (AUTO) 0.7 % (0-6); HEMATOCRIT 42.4 % (42.0-52.0); HEMOGLOBIN 13.6 g/dl (14.0-17.9); LYMPHOCYTES # (AUTO) 2.3 X10'3 (1.1-4.8); LYMPHOCYTES % (AUTO) 40.8 % (21-51); MEAN CORPUSCULAR HEMOGLOBIN 27.8 PG (27.0-31.0); MEAN CORPUSCULAR VOLUME 86.8 FL (78-98); MEAN PLATELET VOLUME 7.1 FL (7.4-10.4); MONOCYTES # (AUTO) 0.4 X10'3 (0-0.9); MONOCYTES % (AUTO) 6.6 % (2-12); NEUTROPHILS # (AUTO) 2.9 X10'3 (1.8-7.7); PLATELET COUNT 276 X10'3 (140-440); RED BLOOD COUNT 4.88 X10'6 (4.70-6.10); WHITE BLOOD COUNT 5.6 X10'3 (4.5-11.0)
[2023-05-04 20:29] LABS: ALANINE AMINOTRANSFERASE 19 U/L (12-78); ALBUMIN 4.3 G/DL (3.4-5.0); ALKALINE PHOSPHATASE 58 IU/L (46-116); ANION GAP 23 (8-16); ASPARTATE AMINO TRANSFERASE 39 U/L (10-37); BILIRUBIN,TOTAL 0.8 MG/DL (0.1-1.0); BLOOD UREA NITROGEN 15 MG/DL (7-18); BUN/CREATININE RATIO 13.3 (10.0-20.0); CALCIUM 9.1 MG/DL (8.5-10.1); CHLORIDE 92 MMOL/L (99-107); CREATININE 1.13 MG/DL (0.60-1.10); ETHANOL 255 MG/DL (<10); GLUCOSE 161 MG/DL (70-104); LIPASE 82 U/L (16-77); POTASSIUM 3.8 MMOL/L (3.5-5.1); SODIUM 131 MMOL/L (135-145); TOTAL CARBON DIOXIDE 15.7 MMOL/L (24-32); TOTAL PROTEIN 8.4 G/DL (6.4-8.2); eCRCL 50 ML/MIN; eGFR 67 ML/MIN
[2023-05-04] MEDS ORDERED: ondansetron/PF 4mg/2ml inj IV ONE (20:30)
[2023-05-04] MEDS ORDERED: morphine 4 MG/ML inj SYRINge IV ONE (20:30)
[2023-05-04] MEDS ORDERED: normal saline 1000ml 1,000 ML IV ONE ×2 (21:00→21:10)
[2023-05-04 21:28] LABS: ACANTHOCYTES FEW; ANISOCYTOSIS 3+; ELLIPTOCYTES FEW; PLATELET ESTIMATE NORMAL
--- NOTE | 2023-05-04 23:19 | NUR ---
I have reviewed and agree with assessment by REPRODUCTIVE HEALTHCARE ASSISTANT.
[2023-05-04 23:38] LABS: ALANINE AMINOTRANSFERASE 17 U/L (12-78); ALBUMIN 3.2 G/DL (3.4-5.0); ALBUMIN/GLOBULIN RATIO 1.1 (1.1-1.5); ALKALINE PHOSPHATASE 45 IU/L (46-116); ANION GAP 17 (8-16); ASPARTATE AMINO TRANSFERASE 29 U/L (10-37); BILIRUBIN,TOTAL 0.5 MG/DL (0.1-1.0); BLOOD UREA NITROGEN 12 MG/DL (7-18); BUN/CREATININE RATIO 14.5 (10.0-20.0); CALCIUM 7.2 MG/DL (8.5-10.1); CHLORIDE 104 MMOL/L (99-107); CREATININE 0.83 MG/DL (0.60-1.10); GLUCOSE 115 MG/DL (70-104); POTASSIUM 3.5 MMOL/L (3.5-5.1); SODIUM 137 MMOL/L (135-145); TOTAL CARBON DIOXIDE 15.8 MMOL/L (24-32); TOTAL PROTEIN 6.2 G/DL (6.4-8.2); eCRCL 68 ML/MIN; eGFR > 90 ML/MIN
[2023-05-05] VITALS (8 sets, daily range): BP systolic 119–150; BP diastolic 71–88; PULSE 77–97; RESP 14–16; TEMP 97.2–98.9; O2SAT 98–100
[2023-05-05] MEDS ORDERED: LORazepam 2 mg/ml vial IV PRN (00:25)
[2023-05-05] MEDS ORDERED: magnesium Cl slow-release 64mg tablet PO PRN (00:25)
[2023-05-05] MEDS ORDERED: magnesium hydroxide 30ml (MOM) UD suspension PO PRN (00:25)
[2023-05-05] MEDS ORDERED: HYDROcodone/acetaminophen 5mg/325mg tablet PO PRN (00:25)
[2023-05-05] MEDS ORDERED: dextrose 50%-water 50ml dispensing syringe IV PRN ×3 (00:25→09:35)
[2023-05-05] MEDS ORDERED: acetaminophen 325mg tablet PO PRN (00:25)
[2023-05-05] MEDS ORDERED: magnesium 2GM in 50ml NS 50 ML IV PRN (00:25)
[2023-05-05] MEDS ORDERED: ondansetron/PF 4mg/2ml inj IV PRN (00:25)
[2023-05-05] MEDS ORDERED: potassium Cl 20 mEq SR tablet PO PRN (00:25)
[2023-05-05] MEDS ORDERED: magnesium 4gm in 100ml NS 100 ML IV PRN (00:25)
[2023-05-05] MEDS ORDERED: potassium Cl 40MEQ/1/2NS 520ml 520 ML IV PRN (00:25)
[2023-05-05] MEDS ORDERED: haloperidol lactate 5mg/ml inj IM PRN (00:25)
[2023-05-05] MEDS ORDERED: mag hydrox/Alum hydrox/simeth 30ml oral suspension PO PRN (00:25)
[2023-05-05] MEDS: dextrose 5%-1/2 normal saline 1,000 ML IV SCH ×3 (01:55→20:25)
[2023-05-05 02:06] LABS: BILIRUBIN,URINE NEGATIVE (Neg); CLARITY,URINE CLEAR (Clear); COLOR,URINE STRAW (Yellow); GLUCOSE, URINE NEGATIVE (Neg); KETONES,URINE 15 mg/dl (Neg); LEUKOCYTE ESTERASE ,URINE NEGATIVE (Neg); NITRITES, URINE NEGATIVE (Neg); OCCULT BLOOD,URINE NEGATIVE (Neg); PH,URINE 5.5 (4.8-8.0); PROTEIN,URINE NEGATIVE (Neg); UROBILINOGEN,URINE 0.2 E.U/dL (0.2-1.0)
--- NOTE | 2023-05-05 02:07 | NUR ---
Patient up to side of bed using urinal, rhythm converted from NSR to SVT at rate of 180-220. Patient found to be laying in bed, moderate distress c/o SOB, patient normotensive with adequate sp02 of 97% on room air. Patient sponanteously converted back to Sinus Tach within 30 seconds while pads were being placed on patient - rate of 110. Hospitalist called by PHUONG Teresa who was patient primary nurse, order received for 10mg IVP Cardizem once.
[2023-05-05] MEDS ORDERED: diltiazem 5mg/ml 5ml inj. IV ONE (02:10)
[2023-05-05 02:15] LABS: UA COLLECTION TYPE CLN CATCH MIDSTREAM
[2023-05-05] MEDS: HYDROcodone/acetaminophen 10/325mg tab PO PRN ×4 (02:15→23:53)
--- NOTE | 2023-05-05 02:19 | NUR ---
PT MOVED FROM ROOM 13 TO ROOM 4.
--- NOTE | 2023-05-05 02:19 | NUR ---
rhythm strip printed for event. lasted 1 min 15sec. pt still c/o sob worse with movement and still having left side abd pain. pt spo2 100 on room air and declined supplemental oxygen for comfort. educated pt that oral pain medication was administered at this time so awaiting relief. pt verbalizes understanding of plan of care. pt given call light, bed in low position and patient in position of comfort. pt still attatched to crash cart and defib pads at this time.
[2023-05-05 02:36] LABS: URINE AMPHETAMINE SCREEN NEGATIVE (Neg); URINE BARBITUATE SCREEN NEGATIVE (Neg); URINE BENZODIAZEPINES SCREEN NEGATIVE (Neg); URINE CANNABINOID SCREEN NEGATIVE (Neg); URINE COCAINE SCREEN NEGATIVE (Neg); URINE METHADONE SCREEN NEGATIVE (Neg); URINE OPIATE SCREEN POSITIVE (Neg); URINE PHENCYCLIDINE SCREEN NEGATIVE (Neg)
--- NOTE | 2023-05-05 03:03 | NUR ---
pt requesting accucheck as he states he feels like bg is dropping. bg 133.
[2023-05-05] MEDS ORDERED: TRAZ-251 PO (03:14)
[2023-05-05] MEDS ORDERED: LANTUS SQ (03:14)
[2023-05-05] MEDS ORDERED: INSU100I8 SQ (03:14)
[2023-05-05] MEDS ORDERED: ATOR10TA70 PO (03:14)
[2023-05-05] MEDS ORDERED: THIA100T66 PO (03:14)
[2023-05-05] MEDS ORDERED: HYDR25TA5 PO (03:14)
[2023-05-05] MEDS ORDERED: FLO0.4C PO (03:14)
[2023-05-05] MEDS ORDERED: NALT50TA PO (03:14)
[2023-05-05] MEDS ORDERED: FERR324T4 PO (03:14)
--- NOTE | 2023-05-05 04:18 | NUR ---
PT HAD EPISODE OF IRREGULAR RHYTHM IN 190S-200S FOR APPROX 45 SEC AFTER REPOSITIONING SELF IN BED TO RIGHT SIDE, THEN CONVERTED TO SINUS RHYTHM IN 90S. PT STATES NO CHEST PAIN OR PALPITATIONS BUT DID FEEL SHORT OF BREATH DURING EPISODE. DR KAPOOR CALLED AND RECIEVED ORDER FOR AN ECHO FOR THE MORNING.
--- NOTE | 2023-05-05 04:44 | NUR ---
PT HR SVT 180-[address] KAPOOR AT BEDSIDE PT SUSTAINED SVT AT 200 FOR APPROX [address] KAPOOR AT BEDSIDE. RECIEVED ORDER FOR CT ABD/PEL WITH CONTRAST, TO GIVE 2MG ATIVAN FROM WITHDRAWAL ORDERSET, AND 2MG MAGNESIUM IV.
[2023-05-05] MEDS ORDERED: magnesium 2GM in 50ml NS 50 ML IV ONE (04:45)
[2023-05-05] MEDS: LORazepam 2 mg/ml vial IV PRN (04:50)
[2023-05-05] MEDS ORDERED: iohexol 300mg/ml 100ml inj. ONE (04:50)
--- NOTE | 2023-05-05 05:45 | NUR ---
SPOKE WITH DR KAPOOR REGARDING PT ADMIT ORDERS FOR MEDICAL WITH NO TELE. PER DR KAPOOR, CHANGE ADMIT ORDER FOR MEDICAL WITH TELE AND ADD ON LAB TROP X1.
[2023-05-05 06:30] LABS: MAGNESIUM 2.3 MG/DL (1.5-2.4); POTASSIUM 3.5 MMOL/L (3.5-5.1)
--- NOTE | 2023-05-05 06:35 | NUR ---
PT STATES FEELS URGE TO URINATE BUT UNABLE TO. BLADDER VISUALIZED ON CT SCAN. PT TO BE STRAIGHT CATH BY CESIA [facility] TO EMPTY BLADDER.
--- NOTE | 2023-05-05 06:54 | NUR ---
ATTEMPTED STRAIGHT CATH X2. SECOND TIME WITH 16F COUDE. PATIENT VOIDED [address] CATH. WILL NOTIFY
--- NOTE | 2023-05-05 07:23 | NUR ---
CALLED RESIDENT KRYSTA WHITTEN. STATED BLADDER SCANNED AND FOUND GREATER THAN 1470ML OF URINE. RESIDENT STATED TO TRY AGAIN WITH A SALINAS CATHETER. JANET GUTIERREZ NOTIFIED AND WILL ATTEMPT F/C.
[2023-05-05] MEDS ORDERED: pantoprazole 40mg Tablet.DR PO SCH (07:30)
[2023-05-05] MEDS: K and/or MAG REPLACEMENT MC SCH ×2 (08:00→20:19)
[2023-05-05] MEDS ORDERED: pantoprazole 40 MG vial IV SCH (08:00)
--- NOTE | 2023-05-05 08:00 | NUR ---
JANET CHARGE NURSE PLACED 14F SALINAS CATHETER FOR URINE RETENTION.
--- NOTE | 2023-05-05 08:13 | NUR ---
Patient in room ED 13. I have received report from Jayda [facility] and had the opportunity to ask questions Jayda will check patient blood sugar and bring him to the floor via gurney. Will assume patient care when patient comes to the floor.
[2023-05-05] MEDS ORDERED: MESSAGE TO PHARMACY PO ONE (09:35)
[2023-05-05] MEDS ORDERED: glucagon, human recombinant 1mg kit SUBCUT PRN (09:35)
[2023-05-05] MEDS ORDERED: DEXTROSE 15 GM of carb/4 tabs (each vial/BOTTLE has 4 tablets) PO PRN ×2 (09:35)
[2023-05-05] MEDS: HYDROchlorothiazide 25mg tablet PO SCH (09:53)
[2023-05-05] MEDS: tamsulosin 0.4mg capsule PO SCH (09:54)
[2023-05-05] MEDS: docusate sod 100mg capsule PO SCH ×2 (09:54→20:52)
[2023-05-05] MEDS: enoxaparin 40mg/0.4ml syringe SUBCUT SCH (09:59)
[2023-05-05] MEDS: normal saline 1000ml 1,000 ML IV SCH ×2 (10:00→19:42)
[2023-05-05 10:59] LABS: BASOPHILS # (AUTO) 0.1 X10'3 (0-0.2); BASOPHILS % (AUTO) 0.9 % (0-1); EOSINOPHILS # (AUTO) 0.2 X10'3 (0-0.9); EOSINOPHILS % (AUTO) 3.3 % (0-6); HEMATOCRIT 35.4 % (42.0-52.0); HEMOGLOBIN 11.4 g/dl (14.0-17.9); LYMPHOCYTES # (AUTO) 1.9 X10'3 (1.1-4.8); MEAN CORPUSCULAR HEMOGLOBIN 27.7 PG (27.0-31.0); MEAN CORPUSCULAR HGB CONC 32.2 g/dL (33.0-36.5); MEAN CORPUSCULAR VOLUME 85.9 FL (78-98); MEAN PLATELET VOLUME 7.2 FL (7.4-10.4); MONOCYTES # (AUTO) 0.6 X10'3 (0-0.9); MONOCYTES % (AUTO) 11.2 % (2-12); NEUTROPHILS # (AUTO) 2.7 X10'3 (1.8-7.7); NEUTROPHILS % (AUTO) 49.6 % (42-75); PLATELET COUNT 220 X10'3 (140-440); RED BLOOD COUNT 4.12 X10'6 (4.70-6.10); WHITE BLOOD COUNT 5.5 X10'3 (4.5-11.0)
[2023-05-05] MEDS ORDERED: HYDROmorphone inj. 0.5 MG/0.5 ML DISP.SYRIN IV PRN (11:05)
--- NOTE | 2023-05-05 11:07 | NUR ---
Paged Echo that the order was canceled
[2023-05-05 11:14] LABS: ALANINE AMINOTRANSFERASE 16 U/L (12-78); ALBUMIN 3.4 G/DL (3.4-5.0); ALKALINE PHOSPHATASE 46 IU/L (46-116); ANION GAP 12 (8-16); ASPARTATE AMINO TRANSFERASE 37 U/L (10-37); BLOOD UREA NITROGEN 11 MG/DL (7-18); BUN/CREATININE RATIO 13.4 (10.0-20.0); CALCIUM 7.8 MG/DL (8.5-10.1); CHLORIDE 99 MMOL/L (99-107); CREATININE 0.82 MG/DL (0.60-1.10); GLUCOSE 234 MG/DL (70-104); POTASSIUM 3.6 MMOL/L (3.5-5.1); SODIUM 133 MMOL/L (135-145); TOTAL CARBON DIOXIDE 22.5 MMOL/L (24-32); TOTAL PROTEIN 6.7 G/DL (6.4-8.2); eCRCL 69 ML/MIN; eGFR > 90 ML/MIN
[2023-05-05 11:25] LABS: HEMOGLOBIN A1C 8.4 % (4.5-6.2)
[2023-05-05] MEDS: folic acid 1mg/0.2ml inj IV SCH (11:27)
[2023-05-05] MEDS: thiamine 100mg/ml 2ml inj. IV SCH ×4 (11:27→21:13)
[2023-05-05] MEDS: morphine 4 MG/ML inj SYRINge IV PRN ×3 (11:27→21:22)
[2023-05-05] MEDS: pantoprazole 40MG/NS 100ML BAG 100 ML IV SCH ×2 (11:33→22:43)
--- NOTE | 2023-05-05 18:00 | NUR ---
received report from Am shift nurse Jocelyn [facility].
--- NOTE | 2023-05-05 18:34 | NUR ---
Problems reprioritized. Patient report given, questions answered & plan of care reviewed with Lani [facility].
[2023-05-05] MEDS: traZODone 50mg tablet PO SCH (20:52)
[2023-05-05] MEDS: insulin glargine (Lantus) pen - multi-dose SQ SCH (21:45)
[2023-05-06] MEDS: insulin Lispro (HumaLOG) vial - multi-dose SQ SCH ×4 (00:11→20:00)
[2023-05-06] MEDS: LORazepam 2 mg/ml vial IV PRN (00:26)
[2023-05-06] MEDS: morphine 4 MG/ML inj SYRINge IV PRN ×3 (01:20→19:51)
[2023-05-06] MEDS: normal saline 1000ml 1,000 ML IV SCH ×2 (05:51→15:41)
[2023-05-06 06:04] LABS: BASOPHILS % (AUTO) 0.5 % (0-1); EOSINOPHILS # (AUTO) 0.1 X10'3 (0-0.9); EOSINOPHILS % (AUTO) 2.9 % (0-6); HEMATOCRIT 32.8 % (42.0-52.0); HEMOGLOBIN 10.7 g/dl (14.0-17.9); LYMPHOCYTES % (AUTO) 41.1 % (21-51); MEAN CORPUSCULAR HEMOGLOBIN 28.2 PG (27.0-31.0); MEAN CORPUSCULAR HGB CONC 32.5 g/dL (33.0-36.5); MEAN CORPUSCULAR VOLUME 86.6 FL (78-98); MEAN PLATELET VOLUME 7.6 FL (7.4-10.4); MONOCYTES # (AUTO) 0.5 X10'3 (0-0.9); MONOCYTES % (AUTO) 9.6 % (2-12); NEUTROPHILS # (AUTO) 2.2 X10'3 (1.8-7.7); NEUTROPHILS % (AUTO) 45.9 % (42-75); PLATELET COUNT 191 X10'3 (140-440); RED BLOOD COUNT 3.79 X10'6 (4.70-6.10); RED CELL DISTRIBUTION WIDTH 23.6 % (11.5-14.5); WHITE BLOOD COUNT 4.9 X10'3 (4.5-11.0)
[2023-05-06 06:09] LABS: ALANINE AMINOTRANSFERASE 16 U/L (12-78); ALBUMIN 3.3 G/DL (3.4-5.0); ALBUMIN/GLOBULIN RATIO 1.1 (1.1-1.5); ALKALINE PHOSPHATASE 45 IU/L (46-116); ANION GAP 6 (8-16); ASPARTATE AMINO TRANSFERASE 26 U/L (10-37); BILIRUBIN,TOTAL 1.5 MG/DL (0.1-1.0); BLOOD UREA NITROGEN 3 MG/DL (7-18); BUN/CREATININE RATIO 4.2 (10.0-20.0); CHLORIDE 102 MMOL/L (99-107); CREATININE 0.71 MG/DL (0.60-1.10); GLUCOSE 79 MG/DL (70-104); MAGNESIUM 1.6 MG/DL (1.5-2.4); SODIUM 137 MMOL/L (135-145); TOTAL CARBON DIOXIDE 28.6 MMOL/L (24-32); TOTAL PROTEIN 6.4 G/DL (6.4-8.2); eCRCL 79 ML/MIN; eGFR > 90 ML/MIN
[2023-05-06 06:18] LABS: POTASSIUM 2.8 MMOL/L (3.5-5.1)
[2023-05-06 06:21] VITALS: BP 124/90; PULSE 88; RESP 14; TEMP 98.6; O2SAT 100
[2023-05-06] MEDS: dextrose 5%-1/2 normal saline 1,000 ML IV SCH ×2 (06:25→16:25)
[2023-05-06 06:49] LABS: PLATELET ESTIMATE NORMAL
[2023-05-06 06:50] LABS: ANISOCYTOSIS 3+; POIKILOCYTOSIS FEW
[2023-05-06] MEDS: HYDROcodone/acetaminophen 10/325mg tab PO PRN ×3 (07:33→17:14)
[2023-05-06 08:00] VITALS: RESP 16
[2023-05-06] MEDS: K and/or MAG REPLACEMENT MC SCH ×2 (08:00→20:00)
[2023-05-06] MEDS: HYDROchlorothiazide 25mg tablet PO SCH (08:09)
[2023-05-06] MEDS: multivitamins, therapeutics tablet PO SCH (08:09)
[2023-05-06] MEDS: tamsulosin 0.4mg capsule PO SCH (08:10)
[2023-05-06] MEDS: ferrous sulfate 325mg tablet PO SCH (08:10)
[2023-05-06] MEDS: naltrexone 50mg tablet PO SCH (08:10)
[2023-05-06] MEDS: atorvastatin 10mg tablet PO SCH (08:10)
[2023-05-06] MEDS: docusate sod 100mg capsule PO SCH ×2 (08:11→20:00)
[2023-05-06] MEDS: potassium Cl 20 mEq SR tablet PO PRN ×3 (08:12→17:12)
[2023-05-06] MEDS: thiamine 100mg/ml 2ml inj. IV SCH ×3 (08:12→22:31)
[2023-05-06] MEDS: folic acid 1mg/0.2ml inj IV SCH (08:12)
[2023-05-06] MEDS: enoxaparin 40mg/0.4ml syringe SUBCUT SCH (08:13)
[2023-05-06] MEDS: pantoprazole 40MG/NS 100ML BAG 100 ML IV SCH ×2 (08:34→22:32)
[2023-05-06 10:53] VITALS: BP 143/84; PULSE 100; RESP 18; TEMP 98.2; O2SAT 100
--- NOTE | 2023-05-06 10:53 | NUR ---
Noted pt with a low BMI of 16.0 using wt of 47.6 kg (105 lbs). Pt seen at bedside, reports UBW 110-115 lbs and denies any wt loss. RN at bedside obtained a new weight, pt 52.8 kg (116 lbs) which is 100% reported UBW. Pt reports decreased PO intake over the last two days however denies any changes in PO prior to that. Current documented wt in EMR likely not accurate. Per EMR pt with T2DM, current A1c 8.4% which is down from 10.6% 11/25 per EMR. Pt denies questions about DM management at this time. States he is in pain and appears tired. Written DM education with RD contact information left at bedside. Pt encouraged to reach out if needed. Will continue to follow. Addendum: 05/06/23 at [address] Amended: Links added.
[2023-05-06 18:30] VITALS: BP 133/80; PULSE 97; RESP 14; TEMP 97.9; O2SAT 100
--- NOTE | 2023-05-06 19:03 | NUR ---
Problems reprioritized. Patient report given, questions answered & plan of care reviewed with Aysha [facility].
[2023-05-06 22:00] VITALS: BP 133/73; PULSE 120; RESP 16; TEMP 98.8; O2SAT 100
[2023-05-06] MEDS: traZODone 50mg tablet PO SCH (22:32)
[2023-05-06] MEDS: insulin glargine (Lantus) pen - multi-dose SQ SCH (22:34)
[2023-05-07] MEDS: HYDROcodone/acetaminophen 10/325mg tab PO PRN ×3 (00:18→13:53)
[2023-05-07] MEDS: normal saline 1000ml 1,000 ML IV SCH ×2 (01:40→11:40)
[2023-05-07] MEDS: dextrose 5%-1/2 normal saline 1,000 ML IV SCH ×2 (02:25→12:25)
[2023-05-07 04:50] LABS: BASOPHILS % (AUTO) 0.6 % (0-1); EOSINOPHILS # (AUTO) 0.1 X10'3 (0-0.9); EOSINOPHILS % (AUTO) 1.5 % (0-6); HEMOGLOBIN 10.8 g/dl (14.0-17.9); LYMPHOCYTES # (AUTO) 2.6 X10'3 (1.1-4.8); LYMPHOCYTES % (AUTO) 48.1 % (21-51); MEAN CORPUSCULAR HEMOGLOBIN 27.6 PG (27.0-31.0); MEAN CORPUSCULAR HGB CONC 31.8 g/dL (33.0-36.5); MEAN CORPUSCULAR VOLUME 86.8 FL (78-98); MEAN PLATELET VOLUME 7.7 FL (7.4-10.4); MONOCYTES # (AUTO) 0.5 X10'3 (0-0.9); MONOCYTES % (AUTO) 8.9 % (2-12); NEUTROPHILS # (AUTO) 2.2 X10'3 (1.8-7.7); NEUTROPHILS % (AUTO) 40.9 % (42-75); PLATELET COUNT 198 X10'3 (140-440); RED BLOOD COUNT 3.91 X10'6 (4.70-6.10); RED CELL DISTRIBUTION WIDTH 24.2 % (11.5-14.5); WHITE BLOOD COUNT 5.4 X10'3 (4.5-11.0)
[2023-05-07 05:13] LABS: ALANINE AMINOTRANSFERASE 21 U/L (12-78); ALBUMIN 3.3 G/DL (3.4-5.0); ALBUMIN/GLOBULIN RATIO 0.9 (1.1-1.5); ALKALINE PHOSPHATASE 57 IU/L (46-116); ANION GAP 7 (8-16); ASPARTATE AMINO TRANSFERASE 24 U/L (10-37); BILIRUBIN,TOTAL 0.8 MG/DL (0.1-1.0); CHLORIDE 102 MMOL/L (99-107); GLUCOSE 120 MG/DL (70-104); MAGNESIUM 1.3 MG/DL (1.5-2.4); POTASSIUM 3.9 MMOL/L (3.5-5.1); SODIUM 136 MMOL/L (135-145); TOTAL CARBON DIOXIDE 27.5 MMOL/L (24-32); TOTAL PROTEIN 6.8 G/DL (6.4-8.2); eCRCL 78 ML/MIN; eGFR > 90 ML/MIN
[2023-05-07 05:27] LABS: BUN/CREATININE RATIO 1.3 (10.0-20.0)
[2023-05-07 05:34] LABS: BLOOD UREA NITROGEN 1 MG/DL (7-18)
[2023-05-07 05:37] LABS: ANISOCYTOSIS 3+; PLATELET ESTIMATE NORMAL
[2023-05-07 05:40] LABS: ELLIPTOCYTES FEW; HYPOCHROMASIA 1+; TARGET CELLS FEW
[2023-05-07 05:41] LABS: POIKILOCYTOSIS FEW
[2023-05-07 06:24] VITALS: BP 119/80; PULSE 112; RESP 16; TEMP 97.6; O2SAT 100
--- NOTE | 2023-05-07 06:49 | NUR ---
Patient in room ORTHO 4010. I have received report from Aysha RN and had the opportunity to ask questions and assume patient care.
[2023-05-07] MEDS: ferrous sulfate 325mg tablet PO SCH (07:58)
[2023-05-07] MEDS: docusate sod 100mg capsule PO SCH (07:58)
[2023-05-07] MEDS: multivitamins, therapeutics tablet PO SCH (07:58)
[2023-05-07] MEDS: atorvastatin 10mg tablet PO SCH (07:58)
[2023-05-07] MEDS: naltrexone 50mg tablet PO SCH (07:58)
[2023-05-07] MEDS: pantoprazole 40MG/NS 100ML BAG 100 ML IV SCH (07:59)
[2023-05-07] MEDS: thiamine 100mg/ml 2ml inj. IV SCH ×2 (07:59→13:47)
[2023-05-07] MEDS: tamsulosin 0.4mg capsule PO SCH (07:59)
[2023-05-07] MEDS: folic acid 1mg/0.2ml inj IV SCH (07:59)
[2023-05-07] MEDS: HYDROchlorothiazide 25mg tablet PO SCH (07:59)
[2023-05-07 08:00] VITALS: RESP 16
[2023-05-07] MEDS: K and/or MAG REPLACEMENT MC SCH (08:00)
[2023-05-07] MEDS: enoxaparin 40mg/0.4ml syringe SUBCUT SCH (08:02)
--- NOTE | 2023-05-07 08:15 | NUR ---
PAGER ID: [phone] MESSAGE: Felipe Gregorio re: [id number] Ancelmo Roth Patient requesting to have a regular carb control diet to see if he can tolerate it this morning. Thanks
[2023-05-07] MEDS: morphine 4 MG/ML inj SYRINge IV PRN ×2 (10:05→15:12)
[2023-05-07 10:48] VITALS: BP 128/76; PULSE 80; RESP 15; TEMP 98.6; O2SAT 100
[2023-05-07] MEDS ORDERED: ONDA4TAB12 PO (12:22)
[2023-05-07] MEDS ORDERED: HYDR-3965 PO (12:22)
[2023-05-07] MEDS ORDERED: LIPA1TAB3 PO (12:25)
[2023-05-07] MEDS: insulin Lispro (HumaLOG) vial - multi-dose SQ SCH (13:57)
[2023-05-07 15:12] VITALS: RESP 16
--- NOTE | 2023-05-07 17:53 | NUR ---
Patient discharged home, brother came to pick patient up. Patient left with all belongings and walked out after discharge, IV was taken out and canula whole and intact at discharge. Patient expressed verbal understanding of discharge teaching at this time.
[2023-05-07] MEDS ORDERED: pantoprazole 40mg Tablet.DR PO SCH (20:00)
[2023-05-09] MEDS ORDERED: thiamine 100mg tablet PO SCH (08:00)
[2023-05-09] MEDS ORDERED: folic acid 1mg tablet PO SCH (08:00)
== END 2023-05-07 17:00 | disposition home or self-care (01) | DRG 282 ==
LOC: ER 19:11 → ED HOLD 05-05 00:27 → ORTHO 4S 05-05 08:29
PROVIDERS: ADMIT Internal Medicine; ATTEND Internal Medicine
PROC: BW211ZZ Computerized Tomography (CT Scan) of Abdomen and Pelvis using Low Osmolar Contrast (ICD-10-PCS; principal; 2023-05-05)
DX: K85.20 Alcohol induced acute pancreatitis without necrosis or infection (principal); E87.20 Acidosis, unspecified; I47.10 Supraventricular tachycardia, unspecified; E11.9 Type 2 diabetes mellitus without complications; E87.1 Hypo-osmolality and hyponatremia; D64.9 Anemia, unspecified; I10 Essential (primary) hypertension; K86.0 Alcohol-induced chronic pancreatitis; N13.30 Unspecified hydronephrosis; I48.91 Unspecified atrial fibrillation; F10.239 Alcohol dependence with withdrawal, unspecified; R33.9 Retention of urine, unspecified; E78.00 Pure hypercholesterolemia, unspecified; Y90.8 Blood alcohol level of 240 mg/100 ml or more; F10.229 Alcohol dependence with intoxication, unspecified; Z82.49 Family history of ischemic heart disease and other diseases of the circulatory system; Z83.3 Family history of diabetes mellitus; Z83.438 Family history of other disorder of lipoprotein metabolism and other lipidemia; Z90.49 Acquired absence of other specified parts of digestive tract; Z79.899 Other long term (current) drug therapy
CPT/HCPCS: 36415; 74177; 80053; 80305; 80320; 81003; 82800; 82948; 83036; 83690; 83735; 84132; 84484; 85008; 85025; 87081; 99291; A4340; C1758; C9113; G0378; J1650; J1815; J2060; J2270; J2405; J3411; J3475; J3490; J7030; Q9967

== ENCOUNTER 2023-05-16 03:39 | Inpatient (IN) | payer MEDICAID ==
[2023-05-16] VITALS (16 sets, daily range): BP systolic 107–134; BP diastolic 61–87; PULSE 92–135; RESP 15–20; TEMP 97.2–98.4; O2SAT 96–100
[~2023-05-16] VITALS: Ht 172.7 cm; Wt 47.0 kg
[~2023-05-16 03:39] MED LIST changes: +ATOR10TA70 PO; +FERR324T4 PO; -FERR325T29 PO; +FLO0.4C PO; +HYDR-3965 PO; +HYDR25TA5 PO; +INSU100I8 SQ; -INSU100V56 SQ; +LANTUS SQ; -LIPA1CAP28 PO; +LIPA1TAB3 PO; -LISI5TAB22 PO; -MAGN400T56 PO; +NALT50TA PO; -ONDA8TAB13 PO; -PANT-47 PO; -POTA-207 PO; +THIA100T66 PO; -THIA50TA10 PO; +TRAZ-251 PO
[2023-05-16 04:14] LABS: HEMOGLOBIN 12.8 g/dl (14.0-17.9)
[2023-05-16 04:16] LABS: BASOPHILS # (AUTO) 0.1 X10'3 (0-0.2); BASOPHILS % (AUTO) 1.3 % (0-1); EOSINOPHILS # (AUTO) 0.3 X10'3 (0-0.9); EOSINOPHILS % (AUTO) 2.7 % (0-6); HEMATOCRIT 40.3 % (42.0-52.0); LYMPHOCYTES % (AUTO) 32.3 % (21-51); MEAN CORPUSCULAR HEMOGLOBIN 27.8 PG (27.0-31.0); MEAN CORPUSCULAR HGB CONC 31.8 g/dL (33.0-36.5); MEAN CORPUSCULAR VOLUME 87.4 FL (78-98); MONOCYTES # (AUTO) 0.8 X10'3 (0-0.9); MONOCYTES % (AUTO) 8.9 % (2-12); NEUTROPHILS % (AUTO) 54.8 % (42-75); PLATELET COUNT 386 X10'3 (140-440); RED BLOOD COUNT 4.61 X10'6 (4.70-6.10); RED CELL DISTRIBUTION WIDTH 24.1 % (11.5-14.5); WHITE BLOOD COUNT 9.2 X10'3 (4.5-11.0)
[2023-05-16 04:24] LABS: ALANINE AMINOTRANSFERASE 25 U/L (12-78); ALBUMIN 3.9 G/DL (3.4-5.0); ALBUMIN/GLOBULIN RATIO 0.9 (1.1-1.5); ALKALINE PHOSPHATASE 57 IU/L (46-116); ANION GAP 20 (8-16); ASPARTATE AMINO TRANSFERASE 54 U/L (10-37); BILIRUBIN,TOTAL 0.6 MG/DL (0.1-1.0); BLOOD UREA NITROGEN 13 MG/DL (7-18); BUN/CREATININE RATIO 11.9 (10.0-20.0); CHLORIDE 97 MMOL/L (99-107); CREATININE 1.09 MG/DL (0.60-1.10); GLUCOSE 178 MG/DL (70-104); POTASSIUM 3.8 MMOL/L (3.5-5.1); SODIUM 134 MMOL/L (135-145); TOTAL CARBON DIOXIDE 17.2 MMOL/L (24-32); TOTAL PROTEIN 8.1 G/DL (6.4-8.2); eCRCL 54 ML/MIN; eGFR 70 ML/MIN
[2023-05-16 04:31] LABS: LIPASE 28 U/L (16-77)
[2023-05-16 04:32] LABS: PRO BRAIN NATRIURETIC PEPTIDE < 30 PG/ML (0-125)
[2023-05-16] MEDS ORDERED: morphine 4 MG/ML inj SYRINge IV ONE (04:35)
[2023-05-16] MEDS ORDERED: ondansetron/PF 4mg/2ml inj IV ONE (04:35)
[2023-05-16] MEDS ORDERED: normal saline 1000ml 1,000 ML IV ONE ×2 (04:35)
[2023-05-16 05:29] LABS: PLATELET ESTIMATE NORMAL
[2023-05-16 05:30] LABS: ANISOCYTOSIS 3+; ELLIPTOCYTES FEW; HYPOCHROMASIA 1+
[2023-05-16] MEDS ORDERED: nitroGLYCERIN 0.4mg/hour patch TD ONE (07:40)
[2023-05-16] MEDS ORDERED: magnesium Cl slow-release 64mg tablet PO PRN (07:50)
[2023-05-16] MEDS ORDERED: mag hydrox/Alum hydrox/simeth 30ml oral suspension PO PRN (07:50)
[2023-05-16] MEDS ORDERED: morphine 2 MG/ML inj. syringe IV PRN (07:50)
[2023-05-16] MEDS ORDERED: magnesium hydroxide 30ml (MOM) UD suspension PO PRN (07:50)
[2023-05-16] MEDS ORDERED: potassium Cl 20 mEq SR tablet PO PRN (07:50)
[2023-05-16] MEDS ORDERED: MESSAGE TO PHARMACY PO ONE (07:50)
[2023-05-16] MEDS ORDERED: magnesium 4gm in 100ml NS 100 ML IV PRN (07:50)
[2023-05-16] MEDS ORDERED: docusate sod 100mg capsule PO PRN (07:50)
[2023-05-16] MEDS ORDERED: HYDROcodone/acetaminophen 10/325mg tab PO PRN (07:50)
[2023-05-16] MEDS ORDERED: potassium Cl 40MEQ/1/2NS 520ml 520 ML IV PRN (07:50)
[2023-05-16] MEDS ORDERED: HYDROcodone/acetaminophen 5mg/325mg tablet PO PRN (07:50)
[2023-05-16] MEDS ORDERED: glucagon, human recombinant 1mg kit SUBCUT PRN (07:50)
[2023-05-16] MEDS ORDERED: dextrose 50%-water 50ml dispensing syringe IV PRN ×2 (07:50)
[2023-05-16] MEDS ORDERED: acetaminophen 325mg tablet PO PRN (07:50)
[2023-05-16] MEDS ORDERED: DEXTROSE 15 GM of carb/4 tabs (each vial/BOTTLE has 4 tablets) PO PRN ×2 (07:50)
[2023-05-16] MEDS ORDERED: regadenoson 0.4mg/5ml syringe IV PRN (07:50)
[2023-05-16] MEDS ORDERED: ondansetron/PF 4mg/2ml inj IV PRN (07:50)
[2023-05-16] MEDS ORDERED: nitroGLYCERIN 0.4mg SUBLingual tab SL PRN ×2 (07:50)
[2023-05-16] MEDS ORDERED: metoprolol tartrate 1mg/ml inj IV PRN (07:50)
[2023-05-16] MEDS ORDERED: aminophylline 250mg/10ml inj. IV PRN (07:50)
[2023-05-16] MEDS: ferrous sulfate 325mg tablet PO SCH (08:19)
[2023-05-16] MEDS: multivitamins, therapeutics tablet PO SCH (08:19)
[2023-05-16] MEDS: HYDROchlorothiazide 25mg tablet PO SCH (08:19)
[2023-05-16] MEDS: thiamine 100mg tablet PO SCH (08:19)
[2023-05-16] MEDS: folic acid 1mg tablet PO SCH (08:19)
[2023-05-16] MEDS: tamsulosin 0.4mg capsule PO SCH (08:20)
[2023-05-16] MEDS: atorvastatin 10mg tablet PO SCH (08:20)
[2023-05-16] MEDS: heparin, porcine 5000 units/ml vial SQ SCH ×2 (08:21→20:13)
[2023-05-16] MEDS: normal saline 1000ml 1,000 ML IV SCH ×2 (08:45→21:53)
[2023-05-16] MEDS: morphine 2 MG/ML inj. syringe IV PRN ×2 (10:54→20:12)
[2023-05-16] MEDS ORDERED: iohexol 300mg/ml 100ml inj. ONE (15:36)
[2023-05-16] MEDS ORDERED: insulin glargine (Lantus) pen - multi-dose SQ SCH (21:00)
[2023-05-16] MEDS ORDERED: traZODone 50mg tablet PO SCH (21:00)
[2023-05-16] MEDS: insulin Lispro (HumaLOG) vial - multi-dose SQ SCH (21:51)
[2023-05-16 23:21] LABS: BILIRUBIN,URINE NEGATIVE (Neg); CLARITY,URINE SLIGHTLY CLOUDY (Clear); COLOR,URINE YELLOW (Yellow); GLUCOSE, URINE >=1000 mg/dl (Neg); KETONES,URINE 15 mg/dl (Neg); LEUKOCYTE ESTERASE ,URINE NEGATIVE (Neg); NITRITES, URINE POSITIVE (Neg); OCCULT BLOOD,URINE TRACE-INTACT (Neg); PROTEIN,URINE NEGATIVE (Neg); UROBILINOGEN,URINE 0.2 E.U/dL (0.2-1.0)
[2023-05-16 23:26] LABS: UA COLLECTION TYPE URINAL
[2023-05-16 23:28] LABS: BACTERIA,URINE 4+ /HPF (Neg); RBC,URINE 0-2 /HPF (0-2); SQUAMOUS EPITHELIAL CELL,UR FEW /LPF (FEW); WBC,URINE 0-4 /HPF (0-4)
[2023-05-16 23:29] LABS: MUCUS STRANDS FEW /LPF (Neg)
[2023-05-17] MEDS ORDERED: LORazepam 2 mg/ml vial IV PRN (00:05)
[2023-05-17 00:19] VITALS: BP 108/67; PULSE 89; RESP 16; O2SAT 98
[2023-05-17] MEDS: morphine 2 MG/ML inj. syringe IV PRN ×4 (00:21→13:29)
[2023-05-17 02:00] VITALS: BP 112/72; PULSE 75; RESP 16; TEMP 97.3; O2SAT 100
[2023-05-17 05:04] VITALS: BP 122/79; PULSE 74; RESP 18; TEMP 98.3; O2SAT 99
[2023-05-17 07:00] VITALS: BP 121/72; PULSE 78; RESP 17; TEMP 98; O2SAT 100
[2023-05-17] MEDS ORDERED: thiamine 100mg tablet PO SCH (08:00)
[2023-05-17] MEDS ORDERED: CefTRIAXone/D5W-Rocephin 1gm 50 ML IV SCH (08:00)
[2023-05-17 08:11] LABS: BASOPHILS # (AUTO) 0.1 X10'3 (0-0.2); BASOPHILS % (AUTO) 0.7 % (0-1); EOSINOPHILS # (AUTO) 0.2 X10'3 (0-0.9); EOSINOPHILS % (AUTO) 2.9 % (0-6); HEMATOCRIT 33.2 % (42.0-52.0); HEMOGLOBIN 10.8 g/dl (14.0-17.9); LYMPHOCYTES # (AUTO) 2.5 X10'3 (1.1-4.8); LYMPHOCYTES % (AUTO) 35.4 % (21-51); MEAN CORPUSCULAR HGB CONC 32.6 g/dL (33.0-36.5); MEAN CORPUSCULAR VOLUME 85.9 FL (78-98); MEAN PLATELET VOLUME 6.8 FL (7.4-10.4); MONOCYTES # (AUTO) 0.7 X10'3 (0-0.9); MONOCYTES % (AUTO) 9.7 % (2-12); NEUTROPHILS # (AUTO) 3.7 X10'3 (1.8-7.7); NEUTROPHILS % (AUTO) 51.3 % (42-75); PLATELET COUNT 279 X10'3 (140-440); RED BLOOD COUNT 3.86 X10'6 (4.70-6.10); WHITE BLOOD COUNT 7.1 X10'3 (4.5-11.0)
[2023-05-17 08:37] LABS: ALANINE AMINOTRANSFERASE 24 U/L (12-78); ALBUMIN 3.4 G/DL (3.4-5.0); ALBUMIN/GLOBULIN RATIO 0.9 (1.1-1.5); ALKALINE PHOSPHATASE 64 IU/L (46-116); ANION GAP 9 (8-16); ASPARTATE AMINO TRANSFERASE 33 U/L (10-37); BLOOD UREA NITROGEN 7 MG/DL (7-18); BUN/CREATININE RATIO 9.5 (10.0-20.0); CALCIUM 9.2 MG/DL (8.5-10.1); CHLORIDE 98 MMOL/L (99-107); CHOL/HDL RATIO 1.8 (0.00-4.99); CHOLESTEROL 108 MG/DL (0-200); CREATININE 0.74 MG/DL (0.60-1.10); GLUCOSE 108 MG/DL (70-104); HDL CHOLESTEROL 61 MG/DL (35-60); LDL CHOLESTEROL 26 MG/DL (50-100); MAGNESIUM 1.3 MG/DL (1.5-2.4); PHOSPHORUS 2.3 MG/DL (2.3-4.5); SODIUM 135 MMOL/L (135-145); TOTAL CARBON DIOXIDE 28.3 MMOL/L (24-32); TOTAL PROTEIN 7.2 G/DL (6.4-8.2); TRIGLYCERIDES 183 MG/DL (20-135); eCRCL 75 ML/MIN; eGFR > 90 ML/MIN
[2023-05-17 08:45] LABS: POTASSIUM 2.8 MMOL/L (3.5-5.1)
[2023-05-17] MEDS: ferrous sulfate 325mg tablet PO SCH (08:48)
[2023-05-17] MEDS: tamsulosin 0.4mg capsule PO SCH (08:48)
[2023-05-17] MEDS: thiamine 100mg tablet PO SCH (08:49)
[2023-05-17] MEDS: HYDROchlorothiazide 25mg tablet PO SCH (08:49)
[2023-05-17] MEDS: folic acid 1mg tablet PO SCH (08:49)
[2023-05-17] MEDS: atorvastatin 10mg tablet PO SCH (08:49)
[2023-05-17] MEDS: multivitamins, therapeutics tablet PO SCH (08:49)
[2023-05-17] MEDS: heparin, porcine 5000 units/ml vial SQ SCH (08:50)
[2023-05-17] MEDS: potassium Cl 20 mEq SR tablet PO PRN ×2 (09:23→13:28)
[2023-05-17] MEDS: insulin Lispro (HumaLOG) vial - multi-dose SQ SCH ×2 (09:27→13:37)
[2023-05-17 11:54] VITALS: BP 120/81; PULSE 114; RESP 20; TEMP 98.4; O2SAT 100
[2023-05-17] MEDS ORDERED: SULF1TAB49 PO (13:34)
[2023-05-17 14:29] VITALS: RESP 16
[2023-05-19] MEDS ORDERED: LORazepam 2 mg/ml vial IV PRN (00:05)
[2023-05-19] MEDS ORDERED: LORazepam 1 MG tablet PO PRN (00:05)
[2023-05-21] MEDS ORDERED: LORazepam 1 MG tablet PO PRN (00:05)
[2023-05-21] MEDS ORDERED: LORazepam 2 mg/ml vial IV PRN (00:05)
== END 2023-05-17 16:35 | disposition home or self-care (01) | DRG 203 ==
LOC: ER 03:41 → OBSVTOIN 07:53 → ED HOLD 07:53 → PCU 3S 14:00
PROVIDERS: ADMIT Family Medicine; ATTEND Family Medicine
PROC: 4A02XM4 Measurement of Cardiac Total Activity, External Approach (ICD-10-PCS; principal; 2023-05-16)
PROC: 3E033HZ Introduction of Radioactive Substance into Peripheral Vein, Percutaneous Approach (ICD-10-PCS; 2023-05-16)
PROC: BW211ZZ Computerized Tomography (CT Scan) of Abdomen and Pelvis using Low Osmolar Contrast (ICD-10-PCS; 2023-05-16)
DX: R07.9 Chest pain, unspecified (principal); E87.1 Hypo-osmolality and hyponatremia; E11.9 Type 2 diabetes mellitus without complications; E78.00 Pure hypercholesterolemia, unspecified; D64.9 Anemia, unspecified; I10 Essential (primary) hypertension; N40.0 Benign prostatic hyperplasia without lower urinary tract symptoms; R10.9 Unspecified abdominal pain; I48.91 Unspecified atrial fibrillation; Z90.49 Acquired absence of other specified parts of digestive tract; Z82.49 Family history of ischemic heart disease and other diseases of the circulatory system; Z83.3 Family history of diabetes mellitus; Z83.438 Family history of other disorder of lipoprotein metabolism and other lipidemia
CPT/HCPCS: 36415; 71045; 74177; 78452; 80053; 80061; 81001; 82948; 83690; 83735; 83880; 84100; 84484; 85008; 85025; 87077; 87081; 87088; 87186; 93005; 93017; 99285; A6258; A9500; G0378; J0280; J0696; J1644; J1815; J2270; J2405; J3490; J7030; Q9967

== ENCOUNTER 2023-05-24 23:58 | Emergency (ER) | payer MEDICAID ==
[~2023-05-24] VITALS: Ht 172.7 cm; Wt 50.0 kg
[~2023-05-24 23:58] MED LIST changes: -NALT50TA PO; +SULF1TAB49 PO
[2023-05-25 00:07] VITALS: TEMP 97.7
[2023-05-25 00:40] LABS: BASOPHILS # (AUTO) 0.1 X10'3 (0-0.2); EOSINOPHILS # (AUTO) 0.1 X10'3 (0-0.9); LYMPHOCYTES # (AUTO) 4.3 X10'3 (1.1-4.8); NEUTROPHILS # (AUTO) 1.7 X10'3 (1.8-7.7)
[2023-05-25 00:42] LABS: BASOPHILS % (AUTO) 1.5 % (0-1); EOSINOPHILS % (AUTO) 1.2 % (0-6); HEMATOCRIT 43.7 % (42.0-52.0); LYMPHOCYTES % (AUTO) 65.5 % (21-51); MEAN CORPUSCULAR VOLUME 87.5 FL (78-98); MEAN PLATELET VOLUME 6.9 FL (7.4-10.4); MONOCYTES # (AUTO) 0.3 X10'3 (0-0.9); MONOCYTES % (AUTO) 5.2 % (2-12); NEUTROPHILS % (AUTO) 26.6 % (42-75); PLATELET COUNT 346 X10'3 (140-440); RED CELL DISTRIBUTION WIDTH 24.2 % (11.5-14.5); WHITE BLOOD COUNT 6.5 X10'3 (4.5-11.0)
[2023-05-25 00:50] LABS: ALANINE AMINOTRANSFERASE 26 U/L (12-78); ALBUMIN/GLOBULIN RATIO 0.9 (1.1-1.5); ALKALINE PHOSPHATASE 74 IU/L (46-116); ANION GAP 24 (8-16); ASPARTATE AMINO TRANSFERASE 62 U/L (10-37); BILIRUBIN,TOTAL 0.7 MG/DL (0.1-1.0); BLOOD UREA NITROGEN 12 MG/DL (7-18); BUN/CREATININE RATIO 11.3 (10.0-20.0); CALCIUM 9.3 MG/DL (8.5-10.1); CHLORIDE 98 MMOL/L (99-107); CREATININE 1.06 MG/DL (0.60-1.10); GLUCOSE 146 MG/DL (70-104); POTASSIUM 3.6 MMOL/L (3.5-5.1); SODIUM 145 MMOL/L (135-145); TOTAL CARBON DIOXIDE 23.3 MMOL/L (24-32); TOTAL PROTEIN 8.6 G/DL (6.4-8.2); eCRCL 56 ML/MIN; eGFR 73 ML/MIN
[2023-05-25 01:02] LABS: PRO BRAIN NATRIURETIC PEPTIDE < 30 PG/ML (0-125)
[2023-05-25 01:30] LABS: PLATELET ESTIMATE NORMAL; TOTAL CELLS COUNTED 100
[2023-05-25 01:35] LABS: ANISOCYTOSIS 3+; HYPOCHROMASIA 1+
[2023-05-25 01:43] LABS: ELLIPTOCYTES FEW
[2023-05-25 02:54] LABS: LIPASE 39 U/L (16-77)
[2023-05-25] MEDS ORDERED: ketorolac trometh. 30mg/ml inj. IV ONE (03:25)
[2023-05-25] MEDS ORDERED: normal saline 1000ml 1,000 ML IV ONE (03:25)
[2023-05-25 03:35] LABS: ETHANOL 233 MG/DL (<10)
[2023-05-25 04:03] VITALS: BP 134/81; PULSE 92; O2SAT 100
[2023-05-25 04:24] VITALS: RESP 18
== END 2023-05-25 04:34 | disposition home or self-care (01) ==
LOC: ER 23:59
DX: R07.9 Chest pain, unspecified (principal); F10.129 Alcohol abuse with intoxication, unspecified; Y90.9 Presence of alcohol in blood, level not specified
CPT/HCPCS: 36415; 71045; 80053; 80320; 83690; 83880; 84484; 85007; 85025; 93005; 96361; 96374; 99285; J1885; J7030

== ENCOUNTER 2023-06-05 00:28 | Emergency (ER) | payer MEDICAID ==
[~2023-06-05] VITALS: Ht 172.7 cm; Wt 49.0 kg
[~2023-06-05 00:28] MED LIST changes: -SULF1TAB49 PO
[2023-06-05] MEDS ORDERED: LIDOcaine Viscous 15ml cup MM PRN (01:45)
[2023-06-05] MEDS ORDERED: morphine 4 MG/ML inj SYRINge IV ONE ×2 (01:45→03:55)
[2023-06-05] MEDS ORDERED: ondansetron/PF 4mg/2ml inj IV ONE ×2 (01:45→03:55)
[2023-06-05 01:53] LABS: BASOPHILS # (AUTO) 0.1 X10'3 (0-0.2); BASOPHILS % (AUTO) 1.2 % (0-1); EOSINOPHILS # (AUTO) 0.1 X10'3 (0-0.9); EOSINOPHILS % (AUTO) 1.5 % (0-6); HEMATOCRIT 43.9 % (42.0-52.0); LYMPHOCYTES % (AUTO) 54.4 % (21-51); MEAN CORPUSCULAR HEMOGLOBIN 27.4 PG (27.0-31.0); MEAN CORPUSCULAR HGB CONC 31.8 g/dL (33.0-36.5); MEAN CORPUSCULAR VOLUME 85.9 FL (78-98); MEAN PLATELET VOLUME 6.7 FL (7.4-10.4); MONOCYTES # (AUTO) 0.5 X10'3 (0-0.9); MONOCYTES % (AUTO) 9.5 % (2-12); NEUTROPHILS # (AUTO) 1.9 X10'3 (1.8-7.7); NEUTROPHILS % (AUTO) 33.4 % (42-75); PLATELET COUNT 293 X10'3 (140-440); RED BLOOD COUNT 5.11 X10'6 (4.70-6.10); RED CELL DISTRIBUTION WIDTH 23.4 % (11.5-14.5); WHITE BLOOD COUNT 5.6 X10'3 (4.5-11.0)
[2023-06-05] MEDS: mag hydrox/Alum hydrox/simeth 30ml oral suspension PO ONE ×2 (01:58→02:31)
[2023-06-05 02:03] LABS: ANION GAP 18 (8-16); BILIRUBIN,TOTAL 0.8 MG/DL (0.1-1.0); BLOOD UREA NITROGEN 10 MG/DL (7-18); BUN/CREATININE RATIO 13.5 (10.0-20.0); CALCIUM 9.1 MG/DL (8.5-10.1); CHLORIDE 97 MMOL/L (99-107); CREATININE 0.74 MG/DL (0.60-1.10); GLUCOSE 93 MG/DL (70-104); POTASSIUM 3.4 MMOL/L (3.5-5.1); SODIUM 136 MMOL/L (135-145); TOTAL CARBON DIOXIDE 21.2 MMOL/L (24-32); TOTAL PROTEIN 8.2 G/DL (6.4-8.2); eCRCL 78 ML/MIN; eGFR > 90 ML/MIN
[2023-06-05 02:04] LABS: ALANINE AMINOTRANSFERASE 24 U/L (12-78); ALKALINE PHOSPHATASE 53 IU/L (46-116); ASPARTATE AMINO TRANSFERASE 37 U/L (10-37)
[2023-06-05 02:10] LABS: PRO BRAIN NATRIURETIC PEPTIDE < 30 PG/ML (0-125)
[2023-06-05 02:46] LABS: ANISOCYTOSIS 3+; ELLIPTOCYTES FEW; PLATELET ESTIMATE NORMAL; TOTAL CELLS COUNTED 100
[2023-06-05 04:52] LABS: LIPASE 91 U/L (16-77)
[2023-06-05] MEDS ORDERED: HYDR-3965 PO (05:51)
[2023-06-05] MEDS ORDERED: ONDA4TAB12 PO (05:51)
[2023-06-05 05:52] VITALS: BP 103/76; PULSE 78; TEMP 98.3; O2SAT 100
[2023-06-05] MEDS ORDERED: morphine 2 MG/ML inj. syringe IM ONE (06:05)
[2023-06-05 06:16] VITALS: RESP 18
[2023-06-08] MEDS ORDERED: INSU100I8 SQ (13:50)
[2023-06-08] MEDS ORDERED: POTA-366 PO (13:50)
[2023-06-08] MEDS ORDERED: LIPA1TAB3 PO (13:50)
[2023-06-08] MEDS ORDERED: HYDR-3964 PO (13:50)
[2023-06-08] MEDS ORDERED: MAGN400C PO (13:50)
== END 2023-06-05 06:24 | disposition home or self-care (01) ==
LOC: ER 00:31
DX: K86.9 Disease of pancreas, unspecified (principal); R10.13 Epigastric pain; G89.29 Other chronic pain; Z72.89 Other problems related to lifestyle; I48.91 Unspecified atrial fibrillation; E78.00 Pure hypercholesterolemia, unspecified; I10 Essential (primary) hypertension; Z79.899 Other long term (current) drug therapy; Z79.4 Long term (current) use of insulin
CPT/HCPCS: 36415; 71045; 74176; 80053; 83690; 83880; 84484; 85007; 85025; 93005; 96372; 96374; 96375; 96376; 99285; J2270; J2405; A4314; C1758

== ENCOUNTER 2023-06-18 20:47 | Inpatient (IN) | payer MEDICAID ==
[~2023-06-18] VITALS: Ht 172.7 cm; Wt 63.6 kg
[~2023-06-18 20:47] MED LIST changes: +HYDR-3964 PO; -HYDR-3965 PO; -HYDR25TA5 PO; +MAGN400C PO; -ONDA4TAB12 PO; +POTA-366 PO
[2023-06-18] MEDS ORDERED: normal saline 1000ML IV soln IVB ONE (22:40)
[2023-06-18] MEDS ORDERED: thiamine 100mg/ml 2ml inj. IV ONE (22:40)
[2023-06-18 22:56] LABS: ALANINE AMINOTRANSFERASE 17 U/L (12-78); ALBUMIN 3.7 G/DL (3.4-5.0); ALBUMIN/GLOBULIN RATIO 0.9 (1.1-1.5); ALKALINE PHOSPHATASE 62 IU/L (46-116); ANION GAP 13 (8-16); ASPARTATE AMINO TRANSFERASE 19 U/L (10-37); BILIRUBIN,TOTAL 0.4 MG/DL (0.1-1.0); BLOOD UREA NITROGEN 5 MG/DL (7-18); BUN/CREATININE RATIO 6.5 (10.0-20.0); CALCIUM 9.6 MG/DL (8.5-10.1); CHLORIDE 102 MMOL/L (99-107); CREATININE 0.77 MG/DL (0.60-1.10); GLUCOSE 97 MG/DL (70-104); POTASSIUM 3.5 MMOL/L (3.5-5.1); SODIUM 139 MMOL/L (135-145); TOTAL CARBON DIOXIDE 23.6 MMOL/L (24-32); TOTAL PROTEIN 7.7 G/DL (6.4-8.2); eCRCL 98 ML/MIN; eGFR > 90 ML/MIN
[2023-06-18 22:56] LABS: BILIRUBIN,URINE NEGATIVE (Neg); CLARITY,URINE CLEAR (Clear); COLOR,URINE STRAW (Yellow); GLUCOSE, URINE NEGATIVE (Neg); KETONES,URINE NEGATIVE (Neg); LEUKOCYTE ESTERASE ,URINE NEGATIVE (Neg); NITRITES, URINE NEGATIVE (Neg); OCCULT BLOOD,URINE NEGATIVE (Neg); PROTEIN,URINE NEGATIVE (Neg); UROBILINOGEN,URINE 0.2 E.U/dL (0.2-1.0)
[2023-06-18 22:59] LABS: LIPASE 91 U/L (16-77)
[2023-06-18 23:01] LABS: UA COLLECTION TYPE VOIDED
[2023-06-18 23:02] LABS: EOSINOPHILS # (AUTO) 0.1 X10'3 (0-0.9); HEMOGLOBIN 11.9 g/dl (14.0-17.9); MEAN PLATELET VOLUME 7.1 FL (7.4-10.4)
[2023-06-18 23:04] LABS: BASOPHILS # (AUTO) 0.1 X10'3 (0-0.2); BASOPHILS % (AUTO) 1.3 % (0-1); EOSINOPHILS % (AUTO) 1.7 % (0-6); HEMATOCRIT 36.6 % (42.0-52.0); LYMPHOCYTES # (AUTO) 2.2 X10'3 (1.1-4.8); LYMPHOCYTES % (AUTO) 44.1 % (21-51); MEAN CORPUSCULAR HEMOGLOBIN 28.1 PG (27.0-31.0); MEAN CORPUSCULAR HGB CONC 32.6 g/dL (33.0-36.5); MEAN CORPUSCULAR VOLUME 86.3 FL (78-98); MONOCYTES # (AUTO) 0.3 X10'3 (0-0.9); MONOCYTES % (AUTO) 7.1 % (2-12); NEUTROPHILS # (AUTO) 2.3 X10'3 (1.8-7.7); NEUTROPHILS % (AUTO) 45.8 % (42-75); PLATELET COUNT 311 X10'3 (140-440); RED BLOOD COUNT 4.24 X10'6 (4.70-6.10); RED CELL DISTRIBUTION WIDTH 22.3 % (11.5-14.5); WHITE BLOOD COUNT 4.9 X10'3 (4.5-11.0)
[2023-06-18 23:19] LABS: ANISOCYTOSIS 3+; PLATELET ESTIMATE NORMAL
[2023-06-18 23:24] LABS: POIKILOCYTOSIS 1+
[2023-06-18 23:25] LABS: ELLIPTOCYTES 1+; TARGET CELLS FEW
[2023-06-19] MEDS ORDERED: iohexol 300mg/ml 100ml inj. ONE (00:38)
[2023-06-19] MEDS ORDERED: LidoCAINE 2% Topical Jelly 11mL syringe TOP ONE (02:40)
[2023-06-19] MEDS ORDERED: magnesium hydroxide 30ml (MOM) UD suspension PO PRN (03:10)
[2023-06-19] MEDS ORDERED: dextrose 50%-water 50ml dispensing syringe IV PRN ×3 (03:10→03:20)
[2023-06-19] MEDS ORDERED: ondansetron/PF 4mg/2ml inj IV PRN (03:10)
[2023-06-19] MEDS ORDERED: LORazepam 2 mg/ml vial IV PRN (03:10)
[2023-06-19] MEDS ORDERED: diphenhydrAMINE 50 mg/ml inj IV PRN (03:10)
[2023-06-19] MEDS ORDERED: ondansetron 4mg rapidly disintigrating tab PO PRN (03:10)
[2023-06-19] MEDS ORDERED: haloperidol 5mg tablet PO PRN (03:10)
[2023-06-19] MEDS ORDERED: haloperidol lactate 5mg/ml inj IM PRN (03:10)
[2023-06-19] MEDS ORDERED: acetaminophen 325mg tablet PO PRN ×2 (03:10)
[2023-06-19] MEDS ORDERED: acetaminophen 650mg rectal suppository RC PRN (03:10)
[2023-06-19] MEDS ORDERED: bisacodyl 10mg suppository rectal RC PRN (03:10)
[2023-06-19] MEDS ORDERED: diphenhydrAMINE 25mg capsule PO PRN (03:10)
[2023-06-19] MEDS ORDERED: mag hydrox/Alum hydrox/simeth 30ml oral suspension PO PRN (03:10)
[2023-06-19] MEDS ORDERED: glucagon, human recombinant 1mg kit SUBCUT PRN (03:20)
[2023-06-19] MEDS ORDERED: MESSAGE TO PHARMACY PO ONE (03:20)
[2023-06-19] MEDS ORDERED: DEXTROSE 15 GM of carb/4 tabs (each vial/BOTTLE has 4 tablets) PO PRN ×2 (03:20)
[2023-06-19] MEDS: normal saline 1000ml 1,000 ML IV SCH ×2 (03:57→13:23)
[2023-06-19] MEDS: morphine 2 MG/ML inj. syringe IV PRN ×3 (04:03→12:55)
[2023-06-19 04:33] LABS: ETHANOL 261 MG/DL (<10); MAGNESIUM 1.7 MG/DL (1.5-2.4); PHOSPHORUS 1.9 MG/DL (2.3-4.5); PRO BRAIN NATRIURETIC PEPTIDE < 30 PG/ML (0-125)
[2023-06-19 07:30] LABS: APTT 24 SECONDS (22-32); INR 1.1 INR; PROTHROMBIN TIME 11.4 SECONDS (9.0-12.0)
[2023-06-19] MEDS: heparin, porcine 5000 units/ml vial SQ SCH ×2 (08:09→21:09)
[2023-06-19] MEDS: docusate sod 100mg capsule PO SCH ×2 (08:17→21:09)
[2023-06-19] MEDS: thiamine 100mg/ml 2ml inj. IV SCH ×3 (08:22→21:09)
[2023-06-19] MEDS: pantoprazole 40MG/NS 100ML BAG 100 ML IV SCH (08:22)
[2023-06-19] MEDS: folic acid 1mg/0.2ml inj IV SCH (08:43)
[2023-06-19] MEDS: insulin Lispro (HumaLOG) vial - multi-dose SQ SCH (13:04)
[2023-06-19] MEDS ORDERED: dextrose 5%-1/4 normal saline 1,000 ML IV SCH (16:10)
[2023-06-19] MEDS: dextrose 5%-1/2 normal saline 1,000 ML IV SCH ×2 (16:26→17:53)
[2023-06-19 17:51] VITALS: BP 135/84; PULSE 81; RESP 18; TEMP 97.4; O2SAT 98
[2023-06-19 18:00] VITALS: BP 135/84; PULSE 81; RESP 18; TEMP 97.9; O2SAT 98
[2023-06-19 20:00] VITALS: RESP 20; O2SAT 95
[2023-06-19] MEDS ORDERED: temazepam 15mg capsule PO PRN (21:00)
[2023-06-19] MEDS: HYDROcodone/acetaminophen 5mg/325mg tablet PO PRN (21:16)
[2023-06-19 22:00] VITALS: BP 137/95; PULSE 81; RESP 16; TEMP 97.1; O2SAT 97
[2023-06-20] MEDS: HYDROcodone/acetaminophen 5mg/325mg tablet PO PRN ×4 (01:39→21:12)
[2023-06-20] MEDS: dextrose 5%-1/2 normal saline 1,000 ML IV SCH (05:12)
[2023-06-20 06:00] VITALS: BP 126/89; PULSE 73; RESP 16; TEMP 98.1; O2SAT 100
[2023-06-20 06:53] LABS: BASOPHILS % (AUTO) 0.8 % (0-1); EOSINOPHILS # (AUTO) 0.1 X10'3 (0-0.9); EOSINOPHILS % (AUTO) 1.9 % (0-6); HEMATOCRIT 29.8 % (42.0-52.0); HEMOGLOBIN 9.6 g/dl (14.0-17.9); LYMPHOCYTES # (AUTO) 2.5 X10'3 (1.1-4.8); LYMPHOCYTES % (AUTO) 44.6 % (21-51); MEAN CORPUSCULAR HEMOGLOBIN 27.9 PG (27.0-31.0); MEAN CORPUSCULAR HGB CONC 32.2 g/dL (33.0-36.5); MEAN CORPUSCULAR VOLUME 86.7 FL (78-98); MONOCYTES # (AUTO) 0.3 X10'3 (0-0.9); MONOCYTES % (AUTO) 5.9 % (2-12); NEUTROPHILS # (AUTO) 2.6 X10'3 (1.8-7.7); NEUTROPHILS % (AUTO) 46.8 % (42-75); PLATELET COUNT 247 X10'3 (140-440); RED BLOOD COUNT 3.44 X10'6 (4.70-6.10); RED CELL DISTRIBUTION WIDTH 22.8 % (11.5-14.5); WHITE BLOOD COUNT 5.6 X10'3 (4.5-11.0)
[2023-06-20 07:10] LABS: ALANINE AMINOTRANSFERASE 7 U/L (12-78); ALBUMIN 2.6 G/DL (3.4-5.0); ALBUMIN/GLOBULIN RATIO 0.8 (1.1-1.5); ALKALINE PHOSPHATASE 40 IU/L (46-116); ANION GAP 7 (8-16); ASPARTATE AMINO TRANSFERASE 17 U/L (10-37); BILIRUBIN,TOTAL 0.5 MG/DL (0.1-1.0); BLOOD UREA NITROGEN 4 MG/DL (7-18); BUN/CREATININE RATIO 4.8 (10.0-20.0); CALCIUM 8.1 MG/DL (8.5-10.1); CHLORIDE 102 MMOL/L (99-107); CHOL/HDL RATIO 1.4 (0.00-4.99); CHOLESTEROL 117 MG/DL (0-200); CREATININE 0.83 MG/DL (0.60-1.10); GLUCOSE 267 MG/DL (70-104); HDL CHOLESTEROL 84 MG/DL (35-60); LDL CHOLESTEROL 23 MG/DL (50-100); POTASSIUM 3.6 MMOL/L (3.5-5.1); SODIUM 134 MMOL/L (135-145); TOTAL CARBON DIOXIDE 24.9 MMOL/L (24-32); TOTAL PROTEIN 5.8 G/DL (6.4-8.2); TRIGLYCERIDES 75 MG/DL (20-135); eCRCL 90 ML/MIN; eGFR > 90 ML/MIN
[2023-06-20 08:00] VITALS: RESP 16; O2SAT 100
[2023-06-20] MEDS: docusate sod 100mg capsule PO SCH ×2 (08:00→20:00)
[2023-06-20] MEDS: heparin, porcine 5000 units/ml vial SQ SCH ×2 (08:58→21:09)
[2023-06-20] MEDS: thiamine 100mg/ml 2ml inj. IV SCH ×3 (09:29→21:09)
[2023-06-20] MEDS: folic acid 1mg/0.2ml inj IV SCH (09:30)
[2023-06-20] MEDS: pantoprazole 40MG/NS 100ML BAG 100 ML IV SCH (09:30)
[2023-06-20 10:00] VITALS: BP 123/82; PULSE 80; RESP 16; TEMP 98; O2SAT 99
[2023-06-20 18:00] VITALS: BP 132/80; PULSE 71; RESP 15; TEMP 98.2; O2SAT 100
[2023-06-20] MEDS ORDERED: normal saline 1000ml 1,000 ML IV SCH (18:30)
[2023-06-20] MEDS: insulin Lispro (HumaLOG) vial - multi-dose SQ SCH (21:38)
[2023-06-20 22:00] VITALS: BP 133/80; PULSE 70; RESP 14; TEMP 97.6; O2SAT 100
[2023-06-21] MEDS ORDERED: LORazepam 1 MG tablet PO PRN (03:10)
[2023-06-21] MEDS ORDERED: LORazepam 2 mg/ml vial IV PRN (03:10)
[2023-06-21] MEDS: HYDROcodone/acetaminophen 5mg/325mg tablet PO PRN ×2 (04:26→11:03)
[2023-06-21 06:00] VITALS: BP 115/72; PULSE 77; RESP 18; TEMP 98.1; O2SAT 99
[2023-06-21 07:18] LABS: BASOPHILS % (AUTO) 0.6 % (0-1); EOSINOPHILS # (AUTO) 0.1 X10'3 (0-0.9); EOSINOPHILS % (AUTO) 2.3 % (0-6); HEMATOCRIT 30.7 % (42.0-52.0); HEMOGLOBIN 9.9 g/dl (14.0-17.9); LYMPHOCYTES # (AUTO) 2.8 X10'3 (1.1-4.8); LYMPHOCYTES % (AUTO) 44.3 % (21-51); MEAN CORPUSCULAR HEMOGLOBIN 28.1 PG (27.0-31.0); MEAN CORPUSCULAR HGB CONC 32.3 g/dL (33.0-36.5); MEAN CORPUSCULAR VOLUME 86.9 FL (78-98); MEAN PLATELET VOLUME 7.3 FL (7.4-10.4); MONOCYTES # (AUTO) 0.4 X10'3 (0-0.9); MONOCYTES % (AUTO) 5.5 % (2-12); NEUTROPHILS % (AUTO) 47.3 % (42-75); PLATELET COUNT 239 X10'3 (140-440); RED BLOOD COUNT 3.54 X10'6 (4.70-6.10); RED CELL DISTRIBUTION WIDTH 21.7 % (11.5-14.5); WHITE BLOOD COUNT 6.4 X10'3 (4.5-11.0)
[2023-06-21 07:34] LABS: ALANINE AMINOTRANSFERASE 12 U/L (12-78); ALBUMIN 2.8 G/DL (3.4-5.0); ALBUMIN/GLOBULIN RATIO 0.8 (1.1-1.5); ALKALINE PHOSPHATASE 54 IU/L (46-116); ANION GAP 7 (8-16); ASPARTATE AMINO TRANSFERASE 16 U/L (10-37); BILIRUBIN,TOTAL 0.4 MG/DL (0.1-1.0); BLOOD UREA NITROGEN 7 MG/DL (7-18); BUN/CREATININE RATIO 8.6 (10.0-20.0); CALCIUM 9.2 MG/DL (8.5-10.1); CHLORIDE 100 MMOL/L (99-107); CREATININE 0.81 MG/DL (0.60-1.10); GLUCOSE 276 MG/DL (70-104); POTASSIUM 3.8 MMOL/L (3.5-5.1); SODIUM 132 MMOL/L (135-145); TOTAL CARBON DIOXIDE 25.2 MMOL/L (24-32); TOTAL PROTEIN 6.4 G/DL (6.4-8.2); eCRCL 93 ML/MIN; eGFR > 90 ML/MIN
[2023-06-21 08:00] VITALS: RESP 18; O2SAT 99
[2023-06-21] MEDS: docusate sod 100mg capsule PO SCH (08:00)
[2023-06-21] MEDS: pantoprazole 40MG/NS 100ML BAG 100 ML IV SCH (08:05)
[2023-06-21] MEDS: folic acid 1mg/0.2ml inj IV SCH (08:05)
[2023-06-21] MEDS: thiamine 100mg/ml 2ml inj. IV SCH ×2 (08:06→15:40)
[2023-06-21] MEDS: heparin, porcine 5000 units/ml vial SQ SCH (08:42)
[2023-06-21 10:00] VITALS: BP_SYST 101; BP_SYST 134; BP_DIAS 52; BP_DIAS 83; PULSE 60; PULSE 80; RESP 16; RESP 18; TEMP 98.7; O2SAT 100; O2SAT 97
[2023-06-21] MEDS: insulin Lispro (HumaLOG) vial - multi-dose SQ SCH ×2 (10:18→14:15)
[2023-06-21 11:03] VITALS: RESP 16
[2023-06-22] MEDS ORDERED: pantoprazole 40mg Tablet.DR PO SCH (07:30)
[2023-06-23] MEDS ORDERED: LORazepam 1 MG tablet PO PRN (03:10)
[2023-06-23] MEDS ORDERED: LORazepam 2 mg/ml vial IV PRN (03:10)
[2023-06-23] MEDS ORDERED: thiamine 100mg tablet PO SCH (08:00)
[2023-06-23] MEDS ORDERED: folic acid 1mg tablet PO SCH (08:00)
== END 2023-06-21 16:00 | disposition home or self-care (01) | DRG 282 ==
LOC: ER 20:49 → ED HOLD 06-19 03:16 → ORTHO 4S 06-19 17:15
PROVIDERS: ADMIT Family Medicine; ATTEND Internal Medicine
PROC: BW211ZZ Computerized Tomography (CT Scan) of Abdomen and Pelvis using Low Osmolar Contrast (ICD-10-PCS; principal; 2023-06-19)
DX: K85.20 Alcohol induced acute pancreatitis without necrosis or infection (principal); D63.8 Anemia in other chronic diseases classified elsewhere; E11.22 Type 2 diabetes mellitus with diabetic chronic kidney disease; E11.65 Type 2 diabetes mellitus with hyperglycemia; E86.1 Hypovolemia; I48.91 Unspecified atrial fibrillation; E78.00 Pure hypercholesterolemia, unspecified; N18.9 Chronic kidney disease, unspecified; F10.229 Alcohol dependence with intoxication, unspecified; I12.9 Hypertensive chronic kidney disease with stage 1 through stage 4 chronic kidney disease, or unspecified chronic kidney disease; G89.4 Chronic pain syndrome; N40.1 Benign prostatic hyperplasia with lower urinary tract symptoms; R33.8 Other retention of urine; K86.0 Alcohol-induced chronic pancreatitis; Z81.1 Family history of alcohol abuse and dependence; Z82.49 Family history of ischemic heart disease and other diseases of the circulatory system; Z83.42 Family history of familial hypercholesterolemia; Z83.3 Family history of diabetes mellitus; Z79.891 Long term (current) use of opiate analgesic; Z90.49 Acquired absence of other specified parts of digestive tract; Z79.899 Other long term (current) drug therapy
CPT/HCPCS: 36415; 70450; 74177; 80053; 80061; 80320; 81003; 82948; 83690; 83735; 83880; 84100; 84484; 85008; 85025; 85610; 85730; 87081; 93005; 97161; 97530; 99285; A4314; C9113; G0378; J1644; J1815; J2060; J2270; J3411; J3490; J7030; J7120; Q9967

== ENCOUNTER 2023-07-05 14:19 | Inpatient (IN) | payer MEDICAID ==
[~2023-07-05] VITALS: Ht 172.7 cm; Wt 50.0 kg
[2023-07-05] MEDS ORDERED: fentaNYL/PF 50MCG/1 ML 2ML syringe IV ONE (14:40)
[2023-07-05] MEDS ORDERED: aspirin 81mg tab.chew PO ONE (14:40)
[2023-07-05] MEDS ORDERED: morphine 4 MG/ML inj SYRINge IV ONE (15:10)
[2023-07-05] MEDS ORDERED: nitroGLYCERIN 0.4mg SUBLingual tab SL PRN (15:10)
[2023-07-05] MEDS ORDERED: ondansetron/PF 4mg/2ml inj IV ONE (15:10)
[2023-07-05 15:31] LABS: BASOPHILS # (AUTO) 0.1 X10'3 (0-0.2); BASOPHILS % (AUTO) 0.8 % (0-1); EOSINOPHILS # (AUTO) 0.1 X10'3 (0-0.9); EOSINOPHILS % (AUTO) 0.7 % (0-6); HEMATOCRIT 45.3 % (42.0-52.0); HEMOGLOBIN 14.3 g/dl (14.0-17.9); LYMPHOCYTES # (AUTO) 1.9 X10'3 (1.1-4.8); LYMPHOCYTES % (AUTO) 19.6 % (21-51); MEAN CORPUSCULAR HEMOGLOBIN 27.7 PG (27.0-31.0); MEAN CORPUSCULAR HGB CONC 31.5 g/dL (33.0-36.5); MEAN PLATELET VOLUME 7.4 FL (7.4-10.4); MONOCYTES # (AUTO) 0.3 X10'3 (0-0.9); MONOCYTES % (AUTO) 3.1 % (2-12); NEUTROPHILS # (AUTO) 7.3 X10'3 (1.8-7.7); NEUTROPHILS % (AUTO) 75.8 % (42-75); PLATELET COUNT 289 X10'3 (140-440); RED BLOOD COUNT 5.15 X10'6 (4.70-6.10); WHITE BLOOD COUNT 9.7 X10'3 (4.5-11.0)
[2023-07-05 15:40] LABS: ALANINE AMINOTRANSFERASE 113 U/L (12-78); ALBUMIN 4.8 G/DL (3.4-5.0); ALKALINE PHOSPHATASE 76 IU/L (46-116); ANION GAP 26 (8-16); ASPARTATE AMINO TRANSFERASE 217 U/L (10-37); BLOOD UREA NITROGEN 14 MG/DL (7-18); BUN/CREATININE RATIO 12.6 (10.0-20.0); CALCIUM 9.2 MG/DL (8.5-10.1); CHLORIDE 94 MMOL/L (99-107); CREATININE 1.11 MG/DL (0.60-1.10); GLUCOSE 106 MG/DL (70-104); SODIUM 138 MMOL/L (135-145); TOTAL CARBON DIOXIDE 18.3 MMOL/L (24-32); TOTAL PROTEIN 9.4 G/DL (6.4-8.2); eCRCL 53 ML/MIN; eGFR 69 ML/MIN
[2023-07-05 15:47] LABS: PRO BRAIN NATRIURETIC PEPTIDE < 30 PG/ML (0-125)
[2023-07-05 15:50] LABS: POTASSIUM 3.5 MMOL/L (3.5-5.1)
[2023-07-05 16:21] LABS: PROTHROMBIN TIME 9.9 SECONDS (9.0-12.0)
[2023-07-05 16:23] LABS: APTT 20 SECONDS (22-32); INR 0.9 INR
[2023-07-05] MEDS ORDERED: adenosine 3mg/ml 2ml vial IV ONE ×2 (16:55)
[2023-07-05] MEDS ORDERED: verapamil 2.5 mg/ml inj IV ONE (17:00)
[2023-07-05] MEDS ORDERED: metoprolol tartrate 1mg/ml inj IV ONE (17:05)
[2023-07-05] MEDS ORDERED: folic acid 1mg/0.2ml inj IV ONE (17:10)
[2023-07-05] MEDS ORDERED: LORazepam 2 mg/ml vial IV ONE ×2 (17:10→19:20)
[2023-07-05] MEDS ORDERED: thiamine 100mg/ml 2ml inj. IV ONE (17:10)
[2023-07-05] MEDS ORDERED: normal saline 1000ml 1,000 ML IV ONE (17:10)
[2023-07-05 17:22] LABS: MAGNESIUM 1.7 MG/DL (1.5-2.4)
[2023-07-05] MEDS ORDERED: diltiazem 5mg/ml 5ml inj. IV ONE ×2 (17:29→17:30)
[2023-07-05] MEDS: diltiazem-NS 100mg/100ml 100 ML IV SCH ×2 (17:35→21:05)
[2023-07-05] MEDS ORDERED: normal saline 1000ML IV soln IVB ONE (17:35)
[2023-07-05] MEDS ORDERED: ondansetron/PF 4mg/2ml inj IV PRN (20:30)
[2023-07-05] MEDS ORDERED: magnesium 4gm in 100ml NS 100 ML IV PRN (20:30)
[2023-07-05] MEDS ORDERED: potassium Cl 20 mEq SR tablet PO PRN (20:30)
[2023-07-05] MEDS ORDERED: potassium Cl 40MEQ/1/2NS 520ml 520 ML IV PRN (20:30)
[2023-07-05] MEDS ORDERED: acetaminophen 325mg tablet PO PRN ×2 (20:30)
[2023-07-05] MEDS ORDERED: magnesium 2GM in 50ml NS 50 ML IV PRN (20:30)
[2023-07-05] MEDS ORDERED: haloperidol 5mg tablet PO PRN (20:35)
[2023-07-05] MEDS ORDERED: LORazepam 2 mg/ml vial IV PRN (20:35)
[2023-07-05] MEDS ORDERED: LORazepam 1 MG tablet PO PRN (20:35)
[2023-07-05] MEDS ORDERED: haloperidol lactate 5mg/ml inj IM PRN (20:35)
[2023-07-05 20:59] LABS: LIPASE 16 U/L (16-77)
[2023-07-05] MEDS: normal saline 1000ml 1,000 ML IV SCH (21:12)
[2023-07-05] MEDS: thiamine 100mg/ml 2ml inj. IV SCH (22:23)
[2023-07-05] MEDS ORDERED: MESSAGE TO PHARMACY PO ONE (23:10)
[2023-07-05] MEDS ORDERED: glucagon, human recombinant 1mg kit SUBCUT PRN (23:10)
[2023-07-05] MEDS ORDERED: dextrose 50%-water 50ml dispensing syringe IV PRN ×2 (23:10)
[2023-07-05] MEDS ORDERED: DEXTROSE 15 GM of carb/4 tabs (each vial/BOTTLE has 4 tablets) PO PRN ×2 (23:10)
[2023-07-05] MEDS: morphine 2 MG/ML inj. syringe IV PRN (23:32)
[2023-07-06] MEDS: normal saline 1000ml 1,000 ML IV SCH ×2 (04:24→17:35)
[2023-07-06 07:39] LABS: BASOPHILS % (AUTO) 0.5 % (0-1); EOSINOPHILS # (AUTO) 0.1 X10'3 (0-0.9); EOSINOPHILS % (AUTO) 0.7 % (0-6); HEMATOCRIT 36.3 % (42.0-52.0); HEMOGLOBIN 11.6 g/dl (14.0-17.9); LYMPHOCYTES # (AUTO) 1.6 X10'3 (1.1-4.8); LYMPHOCYTES % (AUTO) 20.6 % (21-51); MEAN CORPUSCULAR HEMOGLOBIN 27.6 PG (27.0-31.0); MEAN CORPUSCULAR HGB CONC 31.9 g/dL (33.0-36.5); MEAN CORPUSCULAR VOLUME 86.6 FL (78-98); MEAN PLATELET VOLUME 7.2 FL (7.4-10.4); MONOCYTES # (AUTO) 0.6 X10'3 (0-0.9); NEUTROPHILS # (AUTO) 5.5 X10'3 (1.8-7.7); NEUTROPHILS % (AUTO) 70.2 % (42-75); PLATELET COUNT 178 X10'3 (140-440); RED CELL DISTRIBUTION WIDTH 20.4 % (11.5-14.5); WHITE BLOOD COUNT 7.9 X10'3 (4.5-11.0)
[2023-07-06 07:53] LABS: ALANINE AMINOTRANSFERASE 64 U/L (12-78); ALBUMIN 3.5 G/DL (3.4-5.0); ALBUMIN/GLOBULIN RATIO 0.9 (1.1-1.5); ALKALINE PHOSPHATASE 65 IU/L (46-116); ANION GAP 20 (8-16); ASPARTATE AMINO TRANSFERASE 61 U/L (10-37); BILIRUBIN,TOTAL 1.3 MG/DL (0.1-1.0); BLOOD UREA NITROGEN 15 MG/DL (7-18); BUN/CREATININE RATIO 18.5 (10.0-20.0); CALCIUM 7.5 MG/DL (8.5-10.1); CHLORIDE 99 MMOL/L (99-107); CREATININE 0.81 MG/DL (0.60-1.10); GLUCOSE 178 MG/DL (70-104); LIPASE 19 U/L (16-77); MAGNESIUM 1.3 MG/DL (1.5-2.4); PHOSPHORUS 2.1 MG/DL (2.3-4.5); POTASSIUM 4.2 MMOL/L (3.5-5.1); SODIUM 133 MMOL/L (135-145); TOTAL PROTEIN 7.3 G/DL (6.4-8.2); eCRCL 73 ML/MIN; eGFR > 90 ML/MIN
[2023-07-06 07:58] LABS: TOTAL CARBON DIOXIDE 13.7 MMOL/L (24-32)
[2023-07-06] MEDS: pantoprazole 40 MG vial IV SCH (08:37)
[2023-07-06] MEDS: multivitamins, therapeutics tablet PO SCH (08:38)
[2023-07-06] MEDS: thiamine 100mg/ml 2ml inj. IV SCH ×3 (08:38→20:28)
[2023-07-06 08:51] LABS: ANISOCYTOSIS 3+; PLATELET ESTIMATE NORMAL
[2023-07-06 08:54] LABS: POIKILOCYTOSIS FEW
[2023-07-06 08:55] LABS: HYPOCHROMASIA 1+
[2023-07-06] MEDS: folic acid 1mg/0.2ml inj IV SCH (09:38)
[2023-07-06] MEDS ORDERED: HYDR-3686 PO (12:42)
[2023-07-06] MEDS ORDERED: LISI5TAB22 PO (12:42)
[2023-07-06] MEDS ORDERED: HYDR25TA5 PO (12:42)
[2023-07-06] MEDS ORDERED: NALT50TA PO (12:42)
[2023-07-06] MEDS: diltiazem-NS 100mg/100ml 100 ML IV SCH (13:09)
[2023-07-06] MEDS: insulin Lispro (HumaLOG) vial - multi-dose SQ SCH (14:58)
[2023-07-06] MEDS ORDERED: diltiazem SR 60mg capsule (twice daily) PO SCH (17:20)
[2023-07-06] MEDS: HYDROcodone/acetaminophen 5mg/325mg tablet PO PRN (17:35)
[2023-07-06 18:43] LABS: HEMOGLOBIN A1C 9.6 % (4.5-6.2)
[2023-07-06 19:40] VITALS: BP 132/76; PULSE 80; RESP 14; TEMP 98.5; O2SAT 100
[2023-07-06] MEDS: diltiazem CD 120mg capsule (once-daily) PO SCH (20:25)
[2023-07-06] MEDS: enoxaparin 40mg/0.4ml syringe SQ SCH (20:28)
[2023-07-06] MEDS: insulin glargine (Lantus) pen - multi-dose SQ SCH (20:47)
[2023-07-06] MEDS: morphine 2 MG/ML inj. syringe IV PRN (20:58)
[2023-07-06 22:00] VITALS: BP 100/71; PULSE 84; RESP 20; TEMP 97.6; O2SAT 100
[2023-07-06] MEDS: magnesium Cl slow-release 64mg tablet PO PRN (23:51)
[2023-07-06] MEDS: sodium bicarbonate 1meq/ml inj 150 ML in sodium chloride 0.45% 1,000 ML IV SCH (23:51)
[2023-07-07] VITALS (8 sets, daily range): BP systolic 112–120; BP diastolic 68–76; PULSE 75–82; RESP 13–18; TEMP 97–98.1; O2SAT 98–100
[2023-07-07] MEDS: morphine 2 MG/ML inj. syringe IV PRN (02:09)
[2023-07-07] MEDS: HYDROcodone/acetaminophen 5mg/325mg tablet PO PRN ×4 (06:34→20:34)
[2023-07-07 07:43] LABS: BASOPHILS % (AUTO) 1.1 % (0-1); EOSINOPHILS # (AUTO) 0.1 X10'3 (0-0.9); EOSINOPHILS % (AUTO) 1.8 % (0-6); HEMATOCRIT 30.4 % (42.0-52.0); HEMOGLOBIN 9.8 g/dl (14.0-17.9); LYMPHOCYTES % (AUTO) 48.9 % (21-51); MEAN CORPUSCULAR HEMOGLOBIN 27.3 PG (27.0-31.0); MEAN CORPUSCULAR HGB CONC 32.1 g/dL (33.0-36.5); MEAN CORPUSCULAR VOLUME 85.2 FL (78-98); MEAN PLATELET VOLUME 7.2 FL (7.4-10.4); MONOCYTES # (AUTO) 0.3 X10'3 (0-0.9); MONOCYTES % (AUTO) 8.2 % (2-12); NEUTROPHILS # (AUTO) 1.7 X10'3 (1.8-7.7); PLATELET COUNT 135 X10'3 (140-440); RED BLOOD COUNT 3.57 X10'6 (4.70-6.10); RED CELL DISTRIBUTION WIDTH 19.9 % (11.5-14.5); WHITE BLOOD COUNT 4.2 X10'3 (4.5-11.0)
[2023-07-07 08:22] LABS: ALANINE AMINOTRANSFERASE 45 U/L (12-78); ALBUMIN 3.2 G/DL (3.4-5.0); ALKALINE PHOSPHATASE 55 IU/L (46-116); ANION GAP 9 (8-16); ASPARTATE AMINO TRANSFERASE 29 U/L (10-37); BLOOD UREA NITROGEN 4 MG/DL (7-18); BUN/CREATININE RATIO 5.9 (10.0-20.0); CALCIUM 8.1 MG/DL (8.5-10.1); CHLORIDE 100 MMOL/L (99-107); CREATININE 0.68 MG/DL (0.60-1.10); GLUCOSE 132 MG/DL (70-104); LIPASE 27 U/L (16-77); MAGNESIUM 1.4 MG/DL (1.5-2.4); SODIUM 134 MMOL/L (135-145); TOTAL CARBON DIOXIDE 24.7 MMOL/L (24-32); TOTAL PROTEIN 6.4 G/DL (6.4-8.2); eCRCL 87 ML/MIN; eGFR > 90 ML/MIN
[2023-07-07 08:41] LABS: POTASSIUM 2.7 MMOL/L (3.5-5.1)
[2023-07-07 08:42] LABS: PHOSPHORUS 0.9 MG/DL (2.3-4.5)
[2023-07-07] MEDS: pantoprazole 40 MG vial IV SCH (08:48)
[2023-07-07] MEDS: thiamine 100mg/ml 2ml inj. IV SCH ×3 (08:52→20:39)
[2023-07-07] MEDS: diltiazem CD 120mg capsule (once-daily) PO SCH (08:53)
[2023-07-07] MEDS: multivitamins, therapeutics tablet PO SCH (08:53)
[2023-07-07] MEDS: potassium Cl 20 mEq SR tablet PO PRN ×2 (08:59→20:35)
[2023-07-07] MEDS: magnesium Cl slow-release 64mg tablet PO PRN ×2 (08:59→20:38)
[2023-07-07] MEDS: sodium bicarbonate 1meq/ml inj 150 ML in sodium chloride 0.45% 1,000 ML IV SCH (09:20)
[2023-07-07] MEDS: folic acid 1mg/0.2ml inj IV SCH (09:58)
[2023-07-07] MEDS: insulin Lispro (HumaLOG) vial - multi-dose SQ SCH ×2 (10:46→21:26)
[2023-07-07] MEDS ORDERED: sodium phosphate inj. 30 MMOL in dextrose 5%-water 250 ML IV ONE (11:15)
[2023-07-07] MEDS: normal saline 1000ml 1,000 ML IV SCH (15:24)
[2023-07-07] MEDS: enoxaparin 40mg/0.4ml syringe SQ SCH (20:39)
[2023-07-07] MEDS: insulin glargine (Lantus) pen - multi-dose SQ SCH (21:25)
[2023-07-08 02:00] VITALS: BP 101/74; PULSE 71; RESP 16; TEMP 97.5; O2SAT 97
[2023-07-08] MEDS: morphine 2 MG/ML inj. syringe IV PRN (02:21)
[2023-07-08] MEDS: potassium Cl 20 mEq SR tablet PO PRN (05:22)
[2023-07-08] MEDS: HYDROcodone/acetaminophen 5mg/325mg tablet PO PRN ×2 (05:23→09:15)
[2023-07-08] MEDS: normal saline 1000ml 1,000 ML IV SCH (05:31)
[2023-07-08 06:05] VITALS: BP 122/73; PULSE 73; RESP 11; TEMP 97.7; O2SAT 100
[2023-07-08] MEDS: thiamine 100mg/ml 2ml inj. IV SCH (07:56)
[2023-07-08] MEDS: multivitamins, therapeutics tablet PO SCH (07:56)
[2023-07-08] MEDS: pantoprazole 40 MG vial IV SCH (07:56)
[2023-07-08] MEDS: folic acid 1mg/0.2ml inj IV SCH (08:00)
[2023-07-08] MEDS: diltiazem CD 120mg capsule (once-daily) PO SCH (08:45)
[2023-07-08] MEDS: insulin Lispro (HumaLOG) vial - multi-dose SQ SCH (09:11)
[2023-07-08] MEDS ORDERED: CARCD120C PO (10:48)
[2023-07-08] MEDS ORDERED: ASPI-1265 PO (10:48)
== END 2023-07-08 12:00 | disposition home or self-care (01) | DRG 201 ==
LOC: ER 14:19 → ED HOLD 20:33 → PCU 3S 07-06 19:32
PROVIDERS: ADMIT Internal Medicine; ATTEND Family Medicine
DX: I47.10 Supraventricular tachycardia, unspecified (principal); E87.20 Acidosis, unspecified; E87.1 Hypo-osmolality and hyponatremia; E83.39 Other disorders of phosphorus metabolism; D64.9 Anemia, unspecified; E11.9 Type 2 diabetes mellitus without complications; E78.00 Pure hypercholesterolemia, unspecified; K31.89 Other diseases of stomach and duodenum; R07.9 Chest pain, unspecified; K92.1 Melena; R10.13 Epigastric pain; F10.239 Alcohol dependence with withdrawal, unspecified; E87.6 Hypokalemia; E83.42 Hypomagnesemia; I48.91 Unspecified atrial fibrillation; I10 Essential (primary) hypertension; K86.1 Other chronic pancreatitis; Z81.1 Family history of alcohol abuse and dependence; Z83.438 Family history of other disorder of lipoprotein metabolism and other lipidemia; Z83.3 Family history of diabetes mellitus; Z82.49 Family history of ischemic heart disease and other diseases of the circulatory system; Z79.899 Other long term (current) drug therapy; Z90.49 Acquired absence of other specified parts of digestive tract
CPT/HCPCS: 36415; 71045; 80053; 82948; 83036; 83690; 83735; 83880; 84100; 84484; 85008; 85025; 85610; 85730; 93005; 93306; 99285; A4620; C9113; G0378; J0153; J1650; J1815; J2060; J2270; J2405; J3010; J3411; J3490; J7030; J7060

== ENCOUNTER 2023-07-25 08:42 | Inpatient (IN) | payer MEDICAID ==
[2023-07-25] VITALS (7 sets, daily range): BP systolic 104–114; BP diastolic 65–85; PULSE 60–88; RESP 18–20; TEMP 98.3–99.5; O2SAT 96–98
[~2023-07-25] VITALS: Ht 157.5 cm; Wt 50.0 kg
[~2023-07-25 08:42] MED LIST changes: +ASPI-1265 PO; +CARCD120C PO; -FERR324T4 PO; +HYDR-3686 PO; -HYDR-3964 PO; +LISI5TAB22 PO; -POTA-366 PO
[2023-07-25 09:17] LABS: BASOPHILS # (AUTO) 0.1 X10'3 (0-0.2); BASOPHILS % (AUTO) 1.1 % (0-1); EOSINOPHILS % (AUTO) 0.4 % (0-6); HEMOGLOBIN 13.3 g/dl (14.0-17.9); LYMPHOCYTES # (AUTO) 3.3 X10'3 (1.1-4.8); LYMPHOCYTES % (AUTO) 38.3 % (21-51); MEAN PLATELET VOLUME 7.3 FL (7.4-10.4); MONOCYTES # (AUTO) 0.6 X10'3 (0-0.9); MONOCYTES % (AUTO) 6.3 % (2-12); NEUTROPHILS # (AUTO) 4.7 X10'3 (1.8-7.7); NEUTROPHILS % (AUTO) 53.9 % (42-75); PLATELET COUNT 337 X10'3 (140-440); RED BLOOD COUNT 4.84 X10'6 (4.70-6.10); WHITE BLOOD COUNT 8.7 X10'3 (4.5-11.0)
[2023-07-25] MEDS: morphine 4 MG/ML inj SYRINge IV PRN (09:27)
[2023-07-25] MEDS: ondansetron/PF 4mg/2ml inj IV ONE (09:27)
[2023-07-25] MEDS: normal saline 1000ML IV soln IVB ONE ×2 (09:27→11:25)
[2023-07-25 09:33] LABS: ALBUMIN 4.1 G/DL (3.4-5.0); ANION GAP 31 (8-16); BLOOD UREA NITROGEN 16 MG/DL (7-18); BUN/CREATININE RATIO 13.8 (10.0-20.0); CALCIUM 9.1 MG/DL (8.5-10.1); CHLORIDE 92 MMOL/L (99-107); CREATININE 1.16 MG/DL (0.60-1.10); ETHANOL 89 MG/DL (<10); GLUCOSE 188 MG/DL (70-104); LIPASE 28 U/L (16-77); MAGNESIUM 1.6 MG/DL (1.5-2.4); POTASSIUM 3.6 MMOL/L (3.5-5.1); PRO BRAIN NATRIURETIC PEPTIDE < 30 PG/ML (0-125); SODIUM 133 MMOL/L (135-145); eCRCL 51 ML/MIN; eGFR 65 ML/MIN
[2023-07-25] MEDS: folic acid 1mg/0.2ml inj IV ONE (09:34)
[2023-07-25] MEDS: thiamine 100mg/ml 2ml inj. IV ONE (09:34)
[2023-07-25] MEDS: magnesium 2GM in 50ml NS 50 ML IV ONE (09:34)
[2023-07-25 09:51] LABS: HEMATOCRIT 41.1 % (42.0-52.0); MEAN CORPUSCULAR HEMOGLOBIN 27.6 PG (27.0-31.0); MEAN CORPUSCULAR HGB CONC 32.4 g/dL (33.0-36.5); MEAN CORPUSCULAR VOLUME 85.1 FL (78-98); RED CELL DISTRIBUTION WIDTH 18.9 % (11.5-14.5)
[2023-07-25] MEDS: famotidine/PF 10 mg/ml inj IV ONE (09:53)
[2023-07-25] MEDS: sucralfate 1 gm tablet PO ONE (09:53)
[2023-07-25] MEDS: LIDOcaine Viscous 15ml cup MM ONE (09:54)
[2023-07-25] MEDS: mag hydrox/Alum hydrox/simeth 30ml oral suspension PO ONE (09:54)
[2023-07-25] MEDS: diltiazem 5mg/ml 5ml inj. IV ONE (11:18)
[2023-07-25 11:30] LABS: ALANINE AMINOTRANSFERASE 16 U/L (12-78); ALBUMIN 3.3 G/DL (3.4-5.0); ALBUMIN/GLOBULIN RATIO 0.9 (1.1-1.5); ALKALINE PHOSPHATASE 51 IU/L (46-116); ANION GAP 24 (8-16); ASPARTATE AMINO TRANSFERASE 38 U/L (10-37); BILIRUBIN,TOTAL 0.6 MG/DL (0.1-1.0); BLOOD UREA NITROGEN 13 MG/DL (7-18); BUN/CREATININE RATIO 14.1 (10.0-20.0); CALCIUM 7.2 MG/DL (8.5-10.1); CHLORIDE 101 MMOL/L (99-107); CREATININE 0.92 MG/DL (0.60-1.10); GLUCOSE 142 MG/DL (70-104); POTASSIUM 4.2 MMOL/L (3.5-5.1); SODIUM 138 MMOL/L (135-145); TOTAL PROTEIN 6.8 G/DL (6.4-8.2); eCRCL 64 ML/MIN; eGFR 85 ML/MIN
[2023-07-25] MEDS: morphine 4 MG/ML inj SYRINge IV ONE (11:47)
[2023-07-25] MEDS ORDERED: haloperidol lactate 5mg/ml inj IM PRN (11:50)
[2023-07-25] MEDS ORDERED: haloperidol 5mg tablet PO PRN (11:50)
[2023-07-25] MEDS ORDERED: LORazepam 2 mg/ml vial IV PRN (11:50)
[2023-07-25] MEDS ORDERED: cloNIDine 0.1 mg tablet PO PRN (11:50)
[2023-07-25] MEDS ORDERED: LORazepam 1 MG tablet PO PRN (11:50)
[2023-07-25] MEDS ORDERED: potassium Cl 20 mEq SR tablet PO PRN ×2 (11:55)
[2023-07-25] MEDS ORDERED: morphine 2 MG/ML inj. syringe IV PRN (11:55)
[2023-07-25] MEDS ORDERED: magnesium Cl slow-release 64mg tablet PO PRN (11:55)
[2023-07-25] MEDS ORDERED: magnesium 2GM in 50ml NS 50 ML IV PRN (11:55)
[2023-07-25] MEDS ORDERED: potassium Cl 40MEQ/1/2NS 520ml 520 ML IV PRN (11:55)
[2023-07-25] MEDS ORDERED: magnesium 4gm in 100ml NS 100 ML IV PRN (11:55)
[2023-07-25] MEDS ORDERED: acetaminophen 325mg tablet PO PRN (11:55)
[2023-07-25] MEDS ORDERED: dextrose 50%-water 50ml dispensing syringe IV PRN ×2 (12:00)
[2023-07-25] MEDS ORDERED: insulin Lispro (HumaLOG) vial - multi-dose SQ SCH (12:00)
[2023-07-25] MEDS: MESSAGE TO PHARMACY PO ONE (12:00)
[2023-07-25] MEDS ORDERED: DEXTROSE 15 GM of carb/4 tabs (each vial/BOTTLE has 4 tablets) PO PRN ×2 (12:00)
[2023-07-25] MEDS ORDERED: glucagon, human recombinant 1mg kit SUBCUT PRN (12:00)
[2023-07-25] MEDS: diltiazem-NS 100mg/100ml 100 ML IV SCH (12:15)
[2023-07-25] MEDS: normal saline 1000ml 1,000 ML IV SCH (12:16)
[2023-07-25 12:40] LABS: PRO BRAIN NATRIURETIC PEPTIDE < 30 PG/ML (0-125)
[2023-07-25] MEDS: atenolol 50mg tablet PO SCH (12:41)
[2023-07-25] MEDS: amiodarone 200mg tablet PO ONE (13:12)
[2023-07-25] MEDS: thiamine 100mg/ml 2ml inj. IV SCH (16:52)
[2023-07-25] MEDS: morphine 2 MG/ML inj. syringe IV PRN ×2 (16:54→21:10)
[2023-07-25] MEDS: ondansetron/PF 4mg/2ml inj IV PRN (16:54)
[2023-07-25] MEDS: pantoprazole 40mg Tablet.DR PO SCH (20:16)
[2023-07-25] MEDS: enoxaparin 40mg/0.4ml syringe SQ SCH (20:16)
[2023-07-25] MEDS: insulin glargine (Lantus) pen - multi-dose SQ SCH (20:38)
[2023-07-25] MEDS ORDERED: HYDROmorphone 1 mg/ml syringe IV PRN (22:10)
[2023-07-25] MEDS ORDERED: HYDROmorphone inj. 0.5 MG/0.5 ML DISP.SYRIN IV PRN (22:10)
[2023-07-25] MEDS ORDERED: morphine 4 MG/ML inj SYRINge IV PRN (22:10)
[2023-07-26 02:00] VITALS: BP 97/64; PULSE 66; RESP 18; TEMP 98.3; O2SAT 98
[2023-07-26] MEDS: acetaminophen 325mg tablet PO PRN (03:27)
[2023-07-26 07:00] VITALS: BP 90/55; PULSE 61; RESP 15; TEMP 98.2; O2SAT 99
[2023-07-26 07:09] LABS: LYMPHOCYTES # (AUTO) 3.3 X10'3 (1.1-4.8); WHITE BLOOD COUNT 5.9 X10'3 (4.5-11.0)
[2023-07-26 07:10] LABS: PROTHROMBIN TIME 10.8 SECONDS (9.0-12.0)
[2023-07-26 07:12] LABS: BASOPHILS % (AUTO) 0.8 % (0-1); EOSINOPHILS % (AUTO) 0.8 % (0-6); HEMATOCRIT 31.4 % (42.0-52.0); HEMOGLOBIN 9.9 g/dl (14.0-17.9); LYMPHOCYTES % (AUTO) 56.3 % (21-51); MEAN CORPUSCULAR HEMOGLOBIN 27.2 PG (27.0-31.0); MEAN CORPUSCULAR HGB CONC 31.6 g/dL (33.0-36.5); MONOCYTES # (AUTO) 0.6 X10'3 (0-0.9); NEUTROPHILS # (AUTO) 1.9 X10'3 (1.8-7.7); NEUTROPHILS % (AUTO) 32.1 % (42-75); PLATELET COUNT 247 X10'3 (140-440); RED BLOOD COUNT 3.65 X10'6 (4.70-6.10); RED CELL DISTRIBUTION WIDTH 19.6 % (11.5-14.5)
[2023-07-26 07:17] LABS: ALANINE AMINOTRANSFERASE 17 U/L (12-78); ALBUMIN 3.2 G/DL (3.4-5.0); ALKALINE PHOSPHATASE 49 IU/L (46-116); ANION GAP 7 (8-16); ASPARTATE AMINO TRANSFERASE 35 U/L (10-37); BILIRUBIN,TOTAL 1.4 MG/DL (0.1-1.0); BLOOD UREA NITROGEN 6 MG/DL (7-18); CALCIUM 7.9 MG/DL (8.5-10.1); CHLORIDE 100 MMOL/L (99-107); CREATININE 0.75 MG/DL (0.60-1.10); GLUCOSE 104 MG/DL (70-104); LIPASE 49 U/L (16-77); MAGNESIUM 1.5 MG/DL (1.5-2.4); PHOSPHORUS 1.4 MG/DL (2.3-4.5); POTASSIUM 3.5 MMOL/L (3.5-5.1); SODIUM 134 MMOL/L (135-145); TOTAL CARBON DIOXIDE 27.2 MMOL/L (24-32); TOTAL PROTEIN 6.5 G/DL (6.4-8.2); eCRCL 79 ML/MIN; eGFR > 90 ML/MIN
[2023-07-26 08:00] VITALS: BP 120/73; PULSE 69; RESP 16; TEMP 97.2; O2SAT 100
[2023-07-26 08:04] LABS: TOTAL CELLS COUNTED 100
[2023-07-26 08:06] LABS: ANISOCYTOSIS 2+; BURR CELLS FEW; ELLIPTOCYTES FEW; PLATELET ESTIMATE NORMAL
[2023-07-26] MEDS: folic acid 1mg/0.2ml inj IV SCH (08:25)
[2023-07-26] MEDS ORDERED: PANT40TA54 PO (10:36)
[2023-07-26] MEDS ORDERED: ATEN50TA41 PO (10:36)
[2023-07-26] MEDS ORDERED: INSU100I8 SQ (10:36)
[2023-07-26 13:28] VITALS: RESP 16
== END 2023-07-26 14:07 | disposition home or self-care (01) | DRG 241 ==
LOC: ER 08:43 → ED HOLD 11:56 → EDBEDREQ 12:57 → PCU 3S 13:52
PROVIDERS: ADMIT Internal Medicine; ATTEND Internal Medicine
DX: K29.20 Alcoholic gastritis without bleeding (principal); E87.20 Acidosis, unspecified; R07.89 Other chest pain; I10 Essential (primary) hypertension; I48.91 Unspecified atrial fibrillation; K86.1 Other chronic pancreatitis; I48.92 Unspecified atrial flutter; E78.00 Pure hypercholesterolemia, unspecified; E11.9 Type 2 diabetes mellitus without complications; F41.9 Anxiety disorder, unspecified; F10.229 Alcohol dependence with intoxication, unspecified; Z79.4 Long term (current) use of insulin; Z79.82 Long term (current) use of aspirin; Z79.899 Other long term (current) drug therapy; Z83.3 Family history of diabetes mellitus; Z82.49 Family history of ischemic heart disease and other diseases of the circulatory system; Z83.438 Family history of other disorder of lipoprotein metabolism and other lipidemia
CPT/HCPCS: 36415; 71045; 80048; 80053; 80320; 82948; 83036; 83690; 83735; 83880; 84100; 84484; 85007; 85025; 85610; 87081; 93005; 99285; G0378; J1650; J1815; J2270; J2405; J3411; J3475; J3490; J7030

== ENCOUNTER 2023-08-11 12:51 | Emergency (ER) | payer MEDICAID ==
[~2023-08-11] VITALS: Ht 172.7 cm; Wt 110.0 kg
[~2023-08-11 12:51] MED LIST changes: +ATEN50TA41 PO; +PANT40TA54 PO
[2023-08-11 12:56] VITALS: TEMP 97
[2023-08-11 13:56] LABS: BASOPHILS # (AUTO) 0.1 X10'3 (0-0.2); BASOPHILS % (AUTO) 1.5 % (0-1); EOSINOPHILS % (AUTO) 0.3 % (0-6); HEMATOCRIT 42.4 % (42.0-52.0); HEMOGLOBIN 13.4 g/dl (14.0-17.9); LYMPHOCYTES # (AUTO) 1.5 X10'3 (1.1-4.8); LYMPHOCYTES % (AUTO) 23.2 % (21-51); MEAN CORPUSCULAR HEMOGLOBIN 27.6 PG (27.0-31.0); MEAN CORPUSCULAR HGB CONC 31.6 g/dL (33.0-36.5); MEAN CORPUSCULAR VOLUME 87.3 FL (78-98); MEAN PLATELET VOLUME 7.3 FL (7.4-10.4); MONOCYTES # (AUTO) 0.3 X10'3 (0-0.9); MONOCYTES % (AUTO) 4.3 % (2-12); NEUTROPHILS # (AUTO) 4.7 X10'3 (1.8-7.7); NEUTROPHILS % (AUTO) 70.7 % (42-75); PLATELET COUNT 278 X10'3 (140-440); RED BLOOD COUNT 4.85 X10'6 (4.70-6.10); RED CELL DISTRIBUTION WIDTH 21.4 % (11.5-14.5); WHITE BLOOD COUNT 6.7 X10'3 (4.5-11.0)
[2023-08-11 14:19] LABS: ALBUMIN 4.4 G/DL (3.4-5.0); ANION GAP 23 (8-16); BLOOD UREA NITROGEN 17 MG/DL (7-18); BUN/CREATININE RATIO 17.3 (10.0-20.0); CALCIUM 9.3 MG/DL (8.5-10.1); CHLORIDE 93 MMOL/L (99-107); CREATININE 0.98 MG/DL (0.60-1.10); GLUCOSE 190 MG/DL (70-104); PRO BRAIN NATRIURETIC PEPTIDE 44 PG/ML (0-125); SODIUM 135 MMOL/L (135-145); TOTAL CARBON DIOXIDE 19.5 MMOL/L (24-32); eCRCL 82 ML/MIN; eGFR 79 ML/MIN
[2023-08-11 14:22] LABS: POTASSIUM 4.7 MMOL/L (3.5-5.1)
[2023-08-11 14:29] LABS: PLATELET ESTIMATE NORMAL
[2023-08-11 14:30] LABS: ANISOCYTOSIS 3+; ELLIPTOCYTES FEW
[2023-08-11 14:31] LABS: STOMATOCYTES FEW
[2023-08-11] MEDS: HYDROcodone/acetaminophen 10/325mg tab PO ONE (14:56)
[2023-08-11 15:32] VITALS: BP 122/83; PULSE 69; RESP 16; O2SAT 99
== END 2023-08-11 15:35 | disposition home or self-care (01) ==
LOC: ER 12:52
DX: R10.12 Left upper quadrant pain (principal); R07.89 Other chest pain; R06.00 Dyspnea, unspecified; I48.91 Unspecified atrial fibrillation; E78.00 Pure hypercholesterolemia, unspecified; I10 Essential (primary) hypertension; Z79.899 Other long term (current) drug therapy; Z90.49 Acquired absence of other specified parts of digestive tract; Z79.4 Long term (current) use of insulin; Z79.2 Long term (current) use of antibiotics
CPT/HCPCS: 36415; 71045; 80048; 83880; 84484; 85008; 85025; 93005; 99285

== ENCOUNTER 2023-08-27 15:17 | Emergency (ER) | payer MEDICAID ==
[~2023-08-27] VITALS: Ht 172.7 cm; Wt 46.7 kg
[2023-08-27 15:20] VITALS: BP 128/84; PULSE 103; RESP 16; TEMP 98; O2SAT 99
== END 2023-08-27 17:33 | disposition left against medical advice (07) ==
LOC: ER 15:18
DX: M54.9 Dorsalgia, unspecified (principal); R11.2 Nausea with vomiting, unspecified; R19.7 Diarrhea, unspecified; Z53.21 Procedure and treatment not carried out due to patient leaving prior to being seen by health care provider
CPT/HCPCS: 99281

== ENCOUNTER 2023-09-25 08:07 | Inpatient (IN) | payer MEDICAID ==
[~2023-09-25] VITALS: Ht 172.7 cm; Wt 46.0 kg
[2023-09-25 08:35] LABS: BASOPHILS # (AUTO) 0.1 X10'3 (0-0.2); BASOPHILS % (AUTO) 0.8 % (0-1); EOSINOPHILS # (AUTO) 0.2 X10'3 (0-0.9); EOSINOPHILS % (AUTO) 3.5 % (0-6); HEMATOCRIT 40.8 % (42.0-52.0); HEMOGLOBIN 12.9 g/dl (14.0-17.9); LYMPHOCYTES # (AUTO) 3.1 X10'3 (1.1-4.8); LYMPHOCYTES % (AUTO) 46.8 % (21-51); MEAN CORPUSCULAR HEMOGLOBIN 27.1 PG (27.0-31.0); MEAN CORPUSCULAR HGB CONC 31.7 g/dL (33.0-36.5); MEAN CORPUSCULAR VOLUME 85.4 FL (78-98); MEAN PLATELET VOLUME 7.6 FL (7.4-10.4); MONOCYTES # (AUTO) 0.7 X10'3 (0-0.9); MONOCYTES % (AUTO) 10.9 % (2-12); NEUTROPHILS # (AUTO) 2.5 X10'3 (1.8-7.7); PLATELET COUNT 189 X10'3 (140-440); RED BLOOD COUNT 4.77 X10'6 (4.70-6.10); RED CELL DISTRIBUTION WIDTH 22.1 % (11.5-14.5); WHITE BLOOD COUNT 6.7 X10'3 (4.5-11.0)
[2023-09-25 08:50] LABS: ALANINE AMINOTRANSFERASE 26 U/L (12-78); ALBUMIN 4.1 G/DL (3.4-5.0); ALBUMIN/GLOBULIN RATIO 0.9 (1.1-1.5); ALKALINE PHOSPHATASE 70 IU/L (46-116); ANION GAP 23 (8-16); ASPARTATE AMINO TRANSFERASE 61 U/L (10-37); BILIRUBIN,TOTAL 0.6 MG/DL (0.1-1.0); BLOOD UREA NITROGEN 13 MG/DL (7-18); CALCIUM 8.5 MG/DL (8.5-10.1); CHLORIDE 92 MMOL/L (99-107); GLUCOSE 206 MG/DL (70-104); POTASSIUM 3.3 MMOL/L (3.5-5.1); SODIUM 132 MMOL/L (135-145); TOTAL CARBON DIOXIDE 16.9 MMOL/L (24-32); TOTAL PROTEIN 8.8 G/DL (6.4-8.2); eGFR 77 ML/MIN
[2023-09-25] MEDS: famotidine/PF 10 mg/ml inj IV ONE (08:51)
[2023-09-25] MEDS: diltiazem 5mg/ml 5ml inj. IV ONE ×2 (08:51→09:18)
[2023-09-25] MEDS: ondansetron/PF 4mg/2ml inj IV ONE (08:51)
[2023-09-25] MEDS: normal saline 1000ML IV soln IVB ONE (08:52)
[2023-09-25 09:00] LABS: PRO BRAIN NATRIURETIC PEPTIDE 86 PG/ML (0-125)
[2023-09-25] MEDS ORDERED: diltiazem-D5W 125mg/125ml 125 ML IV PRN (09:50)
[2023-09-25] MEDS: diltiazem-NS 100mg/100ml 125 ML IV PRN (10:05)
[2023-09-25] MEDS ORDERED: magnesium 4gm in 100ml NS 100 ML IV PRN (10:40)
[2023-09-25] MEDS ORDERED: potassium Cl 40MEQ/1/2NS 520ml 520 ML IV PRN (10:40)
[2023-09-25] MEDS ORDERED: magnesium 2GM in 50ml NS 50 ML IV PRN (10:40)
[2023-09-25] MEDS ORDERED: potassium Cl 20 mEq SR tablet PO PRN (10:40)
[2023-09-25] MEDS ORDERED: ondansetron/PF 4mg/2ml inj IV PRN (10:40)
[2023-09-25] MEDS: normal saline 1000ml 1,000 ML IV SCH (10:56)
[2023-09-25 12:11] VITALS: BP 130/82; PULSE 78; TEMP 97; O2SAT 100
[2023-09-25 12:16] LABS: POTASSIUM 4.2 MMOL/L (3.5-5.1)
[2023-09-25 13:31] LABS: ETHANOL 58 MG/DL (<10); LIPASE 27 U/L (16-77)
[2023-09-25] MEDS: acetaminophen 325mg tablet PO PRN (14:58)
[2023-09-25 15:00] VITALS: BP 124/74; PULSE 89; RESP 19; TEMP 97.8; O2SAT 98
[2023-09-25 18:00] VITALS: BP 118/72; PULSE 71; RESP 14; TEMP 97.6; O2SAT 100
[2023-09-25] MEDS: K and/or MAG REPLACEMENT MC SCH (19:25)
[2023-09-25 20:00] VITALS: RESP 14; O2SAT 100
[2023-09-25] MEDS ORDERED: glucagon, human recombinant 1mg kit SUBCUT PRN (20:50)
[2023-09-25] MEDS ORDERED: dextrose 50%-water 50ml dispensing syringe IV PRN ×2 (20:50)
[2023-09-25] MEDS ORDERED: DEXTROSE 15 GM of carb/4 tabs (each vial/BOTTLE has 4 tablets) PO PRN ×2 (20:50)
[2023-09-25 21:13] LABS: HEMOGLOBIN A1C 9.9 % (4.5-6.2)
[2023-09-25] MEDS: HYDROcodone/acetaminophen 5mg/325mg tablet PO PRN (21:32)
[2023-09-25] MEDS: insulin glargine (Lantus) pen - multi-dose SQ SCH (21:48)
[2023-09-25] MEDS: insulin Lispro (HumaLOG) vial - multi-dose SQ SCH (21:51)
[2023-09-25 22:00] VITALS: BP 121/72; PULSE 68; RESP 16; TEMP 97.5; O2SAT 94
[2023-09-26] VITALS (15 sets, daily range): BP systolic 101–128; BP diastolic 67–83; PULSE 60–85; RESP 10–19; TEMP 97–98.1; O2SAT 99–100
[2023-09-26 07:57] LABS: BASOPHILS % (AUTO) 0.7 % (0-1); EOSINOPHILS # (AUTO) 0.2 X10'3 (0-0.9); EOSINOPHILS % (AUTO) 3.3 % (0-6); HEMOGLOBIN 10.5 g/dl (14.0-17.9); LYMPHOCYTES # (AUTO) 2.2 X10'3 (1.1-4.8); LYMPHOCYTES % (AUTO) 45.7 % (21-51); MEAN CORPUSCULAR HEMOGLOBIN 27.4 PG (27.0-31.0); MEAN CORPUSCULAR HGB CONC 32.8 g/dL (33.0-36.5); MEAN CORPUSCULAR VOLUME 83.6 FL (78-98); MEAN PLATELET VOLUME 7.6 FL (7.4-10.4); MONOCYTES # (AUTO) 0.7 X10'3 (0-0.9); NEUTROPHILS # (AUTO) 1.7 X10'3 (1.8-7.7); NEUTROPHILS % (AUTO) 36.3 % (42-75); PLATELET COUNT 137 X10'3 (140-440); RED BLOOD COUNT 3.82 X10'6 (4.70-6.10); RED CELL DISTRIBUTION WIDTH 22.2 % (11.5-14.5); WHITE BLOOD COUNT 4.8 X10'3 (4.5-11.0)
[2023-09-26 08:09] LABS: ANION GAP 7 (8-16); BLOOD UREA NITROGEN 8 MG/DL (7-18); BUN/CREATININE RATIO 12.7 (10.0-20.0); CALCIUM 8.7 MG/DL (8.5-10.1); CHLORIDE 99 MMOL/L (99-107); CREATININE 0.63 MG/DL (0.60-1.10); GLUCOSE 140 MG/DL (70-104); MAGNESIUM 1.6 MG/DL (1.5-2.4); POTASSIUM 3.1 MMOL/L (3.5-5.1); SODIUM 133 MMOL/L (135-145); TOTAL CARBON DIOXIDE 27.3 MMOL/L (24-32); eCRCL 85 ML/MIN; eGFR > 90 ML/MIN
[2023-09-26] MEDS: potassium Cl 20 mEq SR tablet PO PRN (09:23)
[2023-09-26] MEDS ORDERED: hydrOXYzine 25 MG tablet PO PRN (18:30)
[2023-09-26] MEDS: tamsulosin 0.4mg capsule PO SCH (19:20)
[2023-09-26] MEDS: folic acid 1mg tablet PO SCH (19:20)
[2023-09-26] MEDS: atenolol 25mg tablet PO SCH (19:20)
[2023-09-26] MEDS: aspirin 81mg tab.chew PO SCH (19:20)
[2023-09-26] MEDS: pantoprazole 40mg Tablet.DR PO SCH (19:20)
[2023-09-26] MEDS: diltiazem CD 120mg capsule (once-daily) PO SCH (19:21)
[2023-09-26] MEDS: atorvastatin 10mg tablet PO SCH (19:21)
[2023-09-26] MEDS: lisinopril 5mg tablet PO SCH (19:21)
[2023-09-26] MEDS: thiamine 100mg tablet PO SCH (19:21)
[2023-09-26] MEDS: traZODone 50mg tablet PO SCH (21:10)
[2023-09-26] MEDS: simethicone 80mg chew tab PO PRN (21:11)
[2023-09-26] MEDS: insulin Lispro (HumaLOG) vial - multi-dose SQ SCH (21:13)
[2023-09-26] MEDS: insulin glargine (Lantus) pen - multi-dose SQ SCH (21:13)
[2023-09-26] MEDS: PROTEASE PO SCH (21:14)
[2023-09-26] MEDS: LIPASE PO SCH (21:14)
[2023-09-26] MEDS: AMYLASE PO SCH (21:14)
[2023-09-27] MEDS ORDERED: normal saline 1000ml 1,000 ML IV SCH ×2 (00:10→02:33)
[2023-09-27 02:00] VITALS: BP 84/61; PULSE 60; RESP 12; TEMP 97.9; O2SAT 99
[2023-09-27] MEDS: normal saline 1000ml 1,000 ML IV SCH (05:46)
[2023-09-27 06:00] VITALS: BP 103/69; PULSE 62; RESP 15; TEMP 97.1; O2SAT 97
[2023-09-27 07:27] LABS: BASOPHILS % (AUTO) 0.6 % (0-1); EOSINOPHILS # (AUTO) 0.1 X10'3 (0-0.9); EOSINOPHILS % (AUTO) 3.3 % (0-6); HEMATOCRIT 31.9 % (42.0-52.0); HEMOGLOBIN 10.2 g/dl (14.0-17.9); LYMPHOCYTES # (AUTO) 2.4 X10'3 (1.1-4.8); MEAN CORPUSCULAR HGB CONC 32.1 g/dL (33.0-36.5); MEAN CORPUSCULAR VOLUME 84.2 FL (78-98); MEAN PLATELET VOLUME 7.6 FL (7.4-10.4); MONOCYTES # (AUTO) 0.5 X10'3 (0-0.9); MONOCYTES % (AUTO) 11.1 % (2-12); NEUTROPHILS # (AUTO) 1.5 X10'3 (1.8-7.7); PLATELET COUNT 138 X10'3 (140-440); RED BLOOD COUNT 3.79 X10'6 (4.70-6.10); RED CELL DISTRIBUTION WIDTH 22.2 % (11.5-14.5); WHITE BLOOD COUNT 4.6 X10'3 (4.5-11.0)
[2023-09-27 07:55] LABS: ALBUMIN 2.7 G/DL (3.4-5.0); ANION GAP 8 (8-16); BLOOD UREA NITROGEN 4 MG/DL (7-18); BUN/CREATININE RATIO 5.8 (10.0-20.0); CALCIUM 8.5 MG/DL (8.5-10.1); CHLORIDE 103 MMOL/L (99-107); CREATININE 0.69 MG/DL (0.60-1.10); GLUCOSE 234 MG/DL (70-104); MAGNESIUM 1.3 MG/DL (1.5-2.4); POTASSIUM 3.7 MMOL/L (3.5-5.1); SODIUM 135 MMOL/L (135-145); TOTAL CARBON DIOXIDE 24.4 MMOL/L (24-32); eCRCL 78 ML/MIN; eGFR > 90 ML/MIN
[2023-09-27 08:00] VITALS: RESP 15; O2SAT 97
[2023-09-27 08:12] LABS: PLATELET ESTIMATE DECREASED; TOTAL CELLS COUNTED 100
[2023-09-27 08:13] LABS: ANISOCYTOSIS 3+; TARGET CELLS FEW
[2023-09-27] MEDS: magnesium oxide 400mg tablet PO SCH (09:34)
[2023-09-27] MEDS: multivitamins, therapeutics tablet PO SCH (09:35)
[2023-09-27 11:00] VITALS: BP 112/75; PULSE 74; RESP 16; TEMP 98.2; O2SAT 99
[2023-09-27] MEDS: insulin Lispro (HumaLOG) vial - multi-dose SQ SCH (12:00)
[2023-09-27] MEDS ORDERED: LIPASE/PROTEASE/AMYLASE 10,500 units CAPSULE.DR PO SCH (12:06)
[2023-09-27] MEDS: magnesium Cl slow-release 64mg tablet PO PRN (12:18)
== END 2023-09-27 13:25 | disposition home or self-care (01) | DRG 201 ==
LOC: ER 08:08 → ED HOLD 10:53 → PCU 3S 12:05
PROVIDERS: ADMIT Internal Medicine; ATTEND Internal Medicine
DX: I48.91 Unspecified atrial fibrillation (principal); E87.20 Acidosis, unspecified; K86.1 Other chronic pancreatitis; I10 Essential (primary) hypertension; E11.9 Type 2 diabetes mellitus without complications; K21.9 Gastro-esophageal reflux disease without esophagitis; N40.0 Benign prostatic hyperplasia without lower urinary tract symptoms; E78.00 Pure hypercholesterolemia, unspecified; F10.20 Alcohol dependence, uncomplicated; Z79.899 Other long term (current) drug therapy; Z79.4 Long term (current) use of insulin; Z90.49 Acquired absence of other specified parts of digestive tract; Z81.1 Family history of alcohol abuse and dependence; Z83.3 Family history of diabetes mellitus; Z82.49 Family history of ischemic heart disease and other diseases of the circulatory system; Z83.42 Family history of familial hypercholesterolemia; Z79.82 Long term (current) use of aspirin
CPT/HCPCS: 36415; 71045; 80048; 80053; 80320; 83036; 83690; 83735; 83880; 84132; 84484; 85007; 85025; 93005; 99291; G0378; J1815; J2405; J3490; J7030

== ENCOUNTER 2023-10-06 13:11 | Emergency (ER) | payer MEDICAID ==
[~2023-10-06] VITALS: Ht 172.7 cm; Wt 46.2 kg
[2023-10-06 14:08] LABS: ALANINE AMINOTRANSFERASE 33 U/L (12-78); ALBUMIN 4.2 G/DL (3.4-5.0); ALBUMIN/GLOBULIN RATIO 0.9 (1.1-1.5); ALKALINE PHOSPHATASE 68 IU/L (46-116); ANION GAP 22 (8-16); ASPARTATE AMINO TRANSFERASE 61 U/L (10-37); BILIRUBIN,TOTAL 0.5 MG/DL (0.1-1.0); BLOOD UREA NITROGEN 17 MG/DL (7-18); BUN/CREATININE RATIO 19.3 (10.0-20.0); CALCIUM 9.4 MG/DL (8.5-10.1); CHLORIDE 95 MMOL/L (99-107); CREATININE 0.88 MG/DL (0.60-1.10); GLUCOSE 112 MG/DL (70-104); POTASSIUM 3.8 MMOL/L (3.5-5.1); SODIUM 134 MMOL/L (135-145); TOTAL CARBON DIOXIDE 17.5 MMOL/L (24-32); TOTAL PROTEIN 8.9 G/DL (6.4-8.2); eCRCL 61 ML/MIN; eGFR 90 ML/MIN
[2023-10-06 14:14] LABS: PRO BRAIN NATRIURETIC PEPTIDE < 30 PG/ML (0-125)
[2023-10-06 14:31] LABS: LIPASE 20 U/L (16-77)
[2023-10-06 15:43] LABS: BASOPHILS # (AUTO) 0.1 X10'3 (0-0.2); EOSINOPHILS # (AUTO) 0.1 X10'3 (0-0.9); EOSINOPHILS % (AUTO) 1.1 % (0-6); HEMATOCRIT 38.2 % (42.0-52.0); HEMOGLOBIN 11.9 g/dl (14.0-17.9); LYMPHOCYTES % (AUTO) 37.9 % (21-51); MEAN CORPUSCULAR HGB CONC 31.1 g/dL (33.0-36.5); MEAN CORPUSCULAR VOLUME 83.7 FL (78-98); MONOCYTES # (AUTO) 0.3 X10'3 (0-0.9); MONOCYTES % (AUTO) 6.2 % (2-12); NEUTROPHILS # (AUTO) 2.8 X10'3 (1.8-7.7); NEUTROPHILS % (AUTO) 52.8 % (42-75); PLATELET COUNT 394 X10'3 (140-440); RED BLOOD COUNT 4.56 X10'6 (4.70-6.10); RED CELL DISTRIBUTION WIDTH 22.8 % (11.5-14.5); WHITE BLOOD COUNT 5.2 X10'3 (4.5-11.0)
[2023-10-06 16:04] LABS: BILIRUBIN,URINE NEGATIVE (Neg); CLARITY,URINE CLEAR (Clear); COLOR,URINE YELLOW (Yellow); GLUCOSE, URINE NEGATIVE (Neg); KETONES,URINE 40 mg/dl (Neg); LEUKOCYTE ESTERASE ,URINE NEGATIVE (Neg); NITRITES, URINE NEGATIVE (Neg); OCCULT BLOOD,URINE NEGATIVE (Neg); PROTEIN,URINE NEGATIVE (Neg); UROBILINOGEN,URINE 0.2 E.U/dL (0.2-1.0)
[2023-10-06 16:10] LABS: ANISOCYTOSIS 3+; ELLIPTOCYTES FEW; PLATELET ESTIMATE NORMAL; SCHISTOCYTES FEW
[2023-10-06 16:11] LABS: UA COLLECTION TYPE CLN CATCH MIDSTREAM
[2023-10-06] MEDS: morphine 4 MG/ML inj SYRINge IV ONE (19:03)
[2023-10-06] MEDS: ondansetron/PF 4mg/2ml inj IV ONE (19:03)
[2023-10-06 19:21] VITALS: BP 121/83; PULSE 102; RESP 14; O2SAT 100
[2023-10-06 20:18] VITALS: TEMP 97.1
[2023-10-09] MEDS ORDERED: CIPR-259 PO (09:29)
[2023-10-09] MEDS ORDERED: ONDA4TAB12 PO (09:55)
== END 2023-10-06 20:23 | disposition home or self-care (01) ==
LOC: ER 13:12
DX: R10.10 Upper abdominal pain, unspecified (principal); F10.20 Alcohol dependence, uncomplicated; E78.00 Pure hypercholesterolemia, unspecified; I10 Essential (primary) hypertension; I48.91 Unspecified atrial fibrillation; E11.9 Type 2 diabetes mellitus without complications; Z79.899 Other long term (current) drug therapy; Z90.49 Acquired absence of other specified parts of digestive tract; Z79.2 Long term (current) use of antibiotics; Y90.9 Presence of alcohol in blood, level not specified
CPT/HCPCS: 36415; 80053; 81003; 83690; 83880; 84484; 85008; 85025; 93005; 96374; 96375; 99285; J2270; J2405; 99284

== ENCOUNTER 2023-10-18 10:15 | Inpatient (IN) | payer MEDICAID ==
[~2023-10-18] VITALS: Ht 172.7 cm; Wt 50.0 kg
[~2023-10-18 10:15] MED LIST changes: +ONDA4TAB12 PO
[2023-10-18 11:02] LABS: BASOPHILS # (AUTO) 0.1 X10'3 (0-0.2); BASOPHILS % (AUTO) 1.9 % (0-1); EOSINOPHILS # (AUTO) 0.2 X10'3 (0-0.9); EOSINOPHILS % (AUTO) 2.9 % (0-6); HEMATOCRIT 42.1 % (42.0-52.0); HEMOGLOBIN 13.4 g/dl (14.0-17.9); LYMPHOCYTES # (AUTO) 2.4 X10'3 (1.1-4.8); LYMPHOCYTES % (AUTO) 44.8 % (21-51); MEAN CORPUSCULAR HEMOGLOBIN 26.6 PG (27.0-31.0); MEAN CORPUSCULAR HGB CONC 31.8 g/dL (33.0-36.5); MEAN CORPUSCULAR VOLUME 83.6 FL (78-98); MEAN PLATELET VOLUME 6.9 FL (7.4-10.4); MONOCYTES # (AUTO) 0.4 X10'3 (0-0.9); MONOCYTES % (AUTO) 8.1 % (2-12); NEUTROPHILS # (AUTO) 2.3 X10'3 (1.8-7.7); NEUTROPHILS % (AUTO) 42.3 % (42-75); PLATELET COUNT 320 X10'3 (140-440); RED BLOOD COUNT 5.04 X10'6 (4.70-6.10); RED CELL DISTRIBUTION WIDTH 23.4 % (11.5-14.5); WHITE BLOOD COUNT 5.4 X10'3 (4.5-11.0)
[2023-10-18 12:49] LABS: ANION GAP 20 (8-16); CHLORIDE 95 MMOL/L (99-107); POTASSIUM 3.4 MMOL/L (3.5-5.1); PRO BRAIN NATRIURETIC PEPTIDE < 30 PG/ML (0-125); SODIUM 133 MMOL/L (135-145); TOTAL CARBON DIOXIDE 18.2 MMOL/L (24-32)
[2023-10-18 12:51] LABS: ALBUMIN 4.3 G/DL (3.4-5.0); BLOOD UREA NITROGEN 14 MG/DL (7-18); BUN/CREATININE RATIO 16.7 (10.0-20.0); CALCIUM 9.5 MG/DL (8.5-10.1); CREATININE 0.84 MG/DL (0.60-1.10); ETHANOL 196 MG/DL (<10); GLUCOSE 129 MG/DL (70-104); eCRCL 63 ML/MIN; eGFR > 90 ML/MIN
[2023-10-18] MEDS ORDERED: phenobarbital inj 130 MG in normal saline 100ml IV soln 99 ML IV SCH (13:20)
[2023-10-18] MEDS: phenobarbital sod 130mg/ml inj. IV ONE (13:31)
[2023-10-18] MEDS: diltiazem 5mg/ml 5ml inj. IV ONE ×6 (15:35→20:02)
[2023-10-18] MEDS: magnesium 2GM in 50ml NS 50 ML IV ONE (15:39)
[2023-10-18] MEDS ORDERED: diltiazem-D5W 125mg/125ml 125 ML IV SCH (15:55)
[2023-10-18] MEDS: diltiazem-NS 100mg/100ml 100 ML IV SCH ×2 (16:12→16:50)
[2023-10-18] MEDS ORDERED: potassium Cl 40MEQ/1/2NS 520ml 520 ML IV PRN ×2 (16:30→16:40)
[2023-10-18] MEDS ORDERED: magnesium 4gm in 100ml NS 100 ML IV PRN (16:40)
[2023-10-18] MEDS ORDERED: morphine 2 MG/ML inj. syringe IV PRN (16:40)
[2023-10-18] MEDS ORDERED: magnesium Cl slow-release 64mg tablet PO PRN (16:40)
[2023-10-18] MEDS ORDERED: acetaminophen 325mg tablet PO PRN ×2 (16:40)
[2023-10-18] MEDS ORDERED: potassium Cl 20 mEq SR tablet PO PRN ×2 (16:40)
[2023-10-18] MEDS ORDERED: HYDROcodone/acetaminophen 10/325mg tab PO PRN (16:40)
[2023-10-18] MEDS ORDERED: magnesium 2GM in 50ml NS 50 ML IV PRN (16:40)
[2023-10-18] MEDS ORDERED: haloperidol lactate 5mg/ml inj IM PRN (16:45)
[2023-10-18] MEDS ORDERED: LORazepam 1 MG tablet PO PRN (16:45)
[2023-10-18] MEDS ORDERED: haloperidol 5mg tablet PO PRN (16:45)
[2023-10-18] MEDS ORDERED: glucagon, human recombinant 1mg kit SUBCUT PRN (16:50)
[2023-10-18] MEDS ORDERED: DEXTROSE 15 GM of carb/4 tabs (each vial/BOTTLE has 4 tablets) PO PRN ×2 (16:50)
[2023-10-18] MEDS ORDERED: dextrose 50%-water 50ml dispensing syringe IV PRN ×2 (16:50)
[2023-10-18] MEDS ORDERED: adenosine 3mg/ml 2ml vial IV ONE (17:00)
[2023-10-18] MEDS: INSULIN LISPRO 100 UNIT/ML INSULN.PEN MULTI-DOSE SQ SCH (17:00)
[2023-10-18] MEDS: potassium Cl 20mEq in NS 1,000 ML IV SCH (17:02)
[2023-10-18] MEDS: ondansetron/PF 4mg/2ml inj IV PRN (18:03)
[2023-10-18] MEDS: morphine 2 MG/ML inj. syringe IV PRN (18:11)
[2023-10-18] MEDS: LORazepam 2 mg/ml vial IV PRN (18:12)
[2023-10-18] MEDS: heparin, porcine 5000 units/ml vial SQ SCH (20:36)
[2023-10-18] MEDS: pantoprazole 40mg Tablet.DR PO STA (20:36)
[2023-10-18] MEDS: thiamine 100mg/ml 2ml inj. IV SCH (22:01)
[2023-10-18 22:45] VITALS: BP 131/83; PULSE 78; RESP 14; TEMP 98.2; O2SAT 100
[2023-10-18 23:00] VITALS: RESP 16; O2SAT 99
[2023-10-19 02:00] VITALS: BP 110/68; PULSE 90; RESP 14; TEMP 97; O2SAT 99
[2023-10-19 06:00] VITALS: BP 122/69; PULSE 93; RESP 15; TEMP 98.3; O2SAT 99
[2023-10-19] MEDS: HYDROcodone/acetaminophen 5mg/325mg tablet PO PRN (06:09)
[2023-10-19 06:20] LABS: BASOPHILS # (AUTO) 0.1 X10'3 (0-0.2); BASOPHILS % (AUTO) 0.8 % (0-1); EOSINOPHILS # (AUTO) 0.1 X10'3 (0-0.9); HEMATOCRIT 31.4 % (42.0-52.0); HEMOGLOBIN 9.8 g/dl (14.0-17.9); LYMPHOCYTES # (AUTO) 1.8 X10'3 (1.1-4.8); LYMPHOCYTES % (AUTO) 26.7 % (21-51); MEAN CORPUSCULAR HEMOGLOBIN 26.2 PG (27.0-31.0); MEAN CORPUSCULAR HGB CONC 31.3 g/dL (33.0-36.5); MEAN CORPUSCULAR VOLUME 83.6 FL (78-98); MEAN PLATELET VOLUME 7.1 FL (7.4-10.4); MONOCYTES % (AUTO) 14.4 % (2-12); NEUTROPHILS # (AUTO) 3.9 X10'3 (1.8-7.7); NEUTROPHILS % (AUTO) 57.1 % (42-75); PLATELET COUNT 256 X10'3 (140-440); RED BLOOD COUNT 3.75 X10'6 (4.70-6.10); RED CELL DISTRIBUTION WIDTH 23.2 % (11.5-14.5); WHITE BLOOD COUNT 6.8 X10'3 (4.5-11.0)
[2023-10-19 06:47] LABS: ALANINE AMINOTRANSFERASE 43 U/L (12-78); ALBUMIN 3.1 G/DL (3.4-5.0); ALBUMIN/GLOBULIN RATIO 0.9 (1.1-1.5); ALKALINE PHOSPHATASE 54 IU/L (46-116); AMYLASE 73 U/L (25-115); ANION GAP 13 (8-16); ASPARTATE AMINO TRANSFERASE 83 U/L (10-37); BILIRUBIN,TOTAL 2.1 MG/DL (0.1-1.0); BLOOD UREA NITROGEN 9 MG/DL (7-18); BUN/CREATININE RATIO 11.3 (10.0-20.0); CHLORIDE 99 MMOL/L (99-107); GLUCOSE 130 MG/DL (70-104); LIPASE 16 U/L (16-77); MAGNESIUM 1.4 MG/DL (1.5-2.4); PHOSPHORUS 1.6 MG/DL (2.3-4.5); POTASSIUM 4.1 MMOL/L (3.5-5.1); SODIUM 128 MMOL/L (135-145); TOTAL PROTEIN 6.5 G/DL (6.4-8.2); eCRCL 73 ML/MIN; eGFR > 90 ML/MIN
[2023-10-19 07:27] LABS: ANISOCYTOSIS 3+; PLATELET ESTIMATE NORMAL
[2023-10-19 07:28] LABS: ELLIPTOCYTES FEW; HYPOCHROMASIA 1+
[2023-10-19 07:29] LABS: BURR CELLS FEW
[2023-10-19 07:55] VITALS: RESP 15; O2SAT 99
[2023-10-19] MEDS: folic acid 1mg/0.2ml inj IV SCH (08:26)
[2023-10-19] MEDS: multivitamins, therapeutics tablet PO SCH (08:27)
[2023-10-19] MEDS: pantoprazole 40mg Tablet.DR PO SCH (08:28)
[2023-10-19] MEDS: magnesium 4gm in 100ml NS 100 ML IV ONE (09:15)
[2023-10-19] MEDS ORDERED: Neutra Phos packet PO PRN (10:10)
[2023-10-19] MEDS ORDERED: sodium phosphate inj. 15 MMOL in dextrose 5%-water 250 ML IV PRN (10:10)
[2023-10-19] MEDS ORDERED: sodium phosphate inj. 30 MMOL in dextrose 5%-water 250 ML IV PRN (10:10)
[2023-10-19] MEDS: normal saline 1000ml 1,000 ML IV SCH (11:13)
[2023-10-19] MEDS ORDERED: POTA-206 PO (12:44)
[2023-10-19] MEDS: sodium phosphate inj. 30 MMOL in dextrose 5%-water 250 ML IV ONE (12:52)
[2023-10-22] MEDS ORDERED: thiamine 100mg tablet PO SCH (08:00)
[2023-10-23] MEDS ORDERED: folic acid 1mg tablet PO SCH (08:00)
== END 2023-10-19 15:28 | disposition home or self-care (01) | DRG 201 ==
LOC: ER 10:16 → ED HOLD 16:43 → PCU 3S 22:30
PROVIDERS: ADMIT Internal Medicine; ATTEND Family Medicine
DX: I48.91 Unspecified atrial fibrillation (principal); E11.9 Type 2 diabetes mellitus without complications; K86.1 Other chronic pancreatitis; I10 Essential (primary) hypertension; F10.229 Alcohol dependence with intoxication, unspecified; E78.00 Pure hypercholesterolemia, unspecified; Z82.49 Family history of ischemic heart disease and other diseases of the circulatory system; Z83.3 Family history of diabetes mellitus; Z83.438 Family history of other disorder of lipoprotein metabolism and other lipidemia
CPT/HCPCS: 36415; 71045; 80048; 80053; 80320; 82150; 82948; 83690; 83735; 83880; 84100; 84484; 85008; 85025; 87081; 93005; 99291; C1751; G0378; J0153; J1644; J1815; J2060; J2270; J2405; J2560; J3411; J3475; J3480; J3490; J7030; J7060

== ENCOUNTER 2023-11-18 16:44 | Emergency (ER) | payer MEDICAID ==
[~2023-11-18] VITALS: Ht 172.7 cm; Wt 36.2 kg
[~2023-11-18 16:44] MED LIST changes: +POTA-206 PO
[2023-11-18 17:17] VITALS: BP 104/78; PULSE 84; RESP 14; TEMP 97.8; O2SAT 100
[2023-11-18 18:58] LABS: BASOPHILS # (AUTO) 0.1 X10'3 (0-0.2); BASOPHILS % (AUTO) 1.8 % (0-1); EOSINOPHILS # (AUTO) 0.1 X10'3 (0-0.9); EOSINOPHILS % (AUTO) 3.1 % (0-6); HEMATOCRIT 38.6 % (42.0-52.0); HEMOGLOBIN 12.4 g/dl (14.0-17.9); LYMPHOCYTES # (AUTO) 2.6 X10'3 (1.1-4.8); LYMPHOCYTES % (AUTO) 55.7 % (21-51); MEAN CORPUSCULAR HEMOGLOBIN 25.7 PG (27.0-31.0); MEAN CORPUSCULAR VOLUME 80.1 FL (78-98); MEAN PLATELET VOLUME 6.9 FL (7.4-10.4); MONOCYTES # (AUTO) 0.4 X10'3 (0-0.9); MONOCYTES % (AUTO) 7.9 % (2-12); NEUTROPHILS # (AUTO) 1.5 X10'3 (1.8-7.7); NEUTROPHILS % (AUTO) 31.5 % (42-75); PLATELET COUNT 239 X10'3 (140-440); RED BLOOD COUNT 4.83 X10'6 (4.70-6.10); RED CELL DISTRIBUTION WIDTH 25.3 % (11.5-14.5); WHITE BLOOD COUNT 4.7 X10'3 (4.5-11.0)
[2023-11-18 19:04] LABS: ALANINE AMINOTRANSFERASE 49 U/L (12-78); ALKALINE PHOSPHATASE 64 IU/L (46-116); ANION GAP 14 (8-16); ASPARTATE AMINO TRANSFERASE 127 U/L (10-37); BILIRUBIN,TOTAL 1.2 MG/DL (0.1-1.0); BLOOD UREA NITROGEN 8 MG/DL (7-18); BUN/CREATININE RATIO 9.6 (10.0-20.0); CHLORIDE 99 MMOL/L (99-107); CREATININE 0.83 MG/DL (0.60-1.10); GLUCOSE 155 MG/DL (70-104); POTASSIUM 3.3 MMOL/L (3.5-5.1); SODIUM 137 MMOL/L (135-145); TOTAL CARBON DIOXIDE 24.5 MMOL/L (24-32); TOTAL PROTEIN 8.1 G/DL (6.4-8.2); eCRCL 51 ML/MIN; eGFR > 90 ML/MIN
[2023-11-18 19:05] LABS: LIPASE 31 U/L (16-77)
[2023-11-18 19:06] LABS: ETHANOL 326 MG/DL (<10)
[2023-11-18 20:06] LABS: TOTAL CELLS COUNTED 100
[2023-11-18 20:08] LABS: ANISOCYTOSIS 3+; PLATELET ESTIMATE NORMAL; SMUDGE CELLS 1+
[2023-11-18 20:14] LABS: POIKILOCYTOSIS FEW
[2023-11-18 20:15] LABS: ELLIPTOCYTES FEW; HYPOCHROMASIA 1+; TARGET CELLS FEW
== END 2023-11-18 21:28 | disposition left against medical advice (07) ==
LOC: ER 16:45
DX: R10.32 Left lower quadrant pain (principal); R53.1 Weakness; R42 Dizziness and giddiness; Z53.21 Procedure and treatment not carried out due to patient leaving prior to being seen by health care provider
CPT/HCPCS: 74176; 80053; 80320; 83690; 85007; 85025; 99284

== ENCOUNTER 2023-12-18 15:36 | Emergency (ER) | payer MEDICAID ==
[~2023-12-18] VITALS: Ht 172.7 cm; Wt 45.5 kg
[~2023-12-18 15:36] MED LIST changes: +ONDA-243 PO; -ONDA4TAB12 PO
[2023-12-18 15:42] VITALS: TEMP 97.7
[2023-12-18 16:48] LABS: ALANINE AMINOTRANSFERASE 31 U/L (12-78); ALBUMIN 4.1 G/DL (3.4-5.0); ALBUMIN/GLOBULIN RATIO 0.9 (1.1-1.5); ALKALINE PHOSPHATASE 51 IU/L (46-116); ANION GAP 26 (8-16); ASPARTATE AMINO TRANSFERASE 39 U/L (10-37); BILIRUBIN,TOTAL 0.8 MG/DL (0.1-1.0); BLOOD UREA NITROGEN 23 MG/DL (7-18); BUN/CREATININE RATIO 22.5 (10.0-20.0); CALCIUM 9.8 MG/DL (8.5-10.1); CHLORIDE 89 MMOL/L (99-107); CREATININE 1.02 MG/DL (0.60-1.10); GLUCOSE 199 MG/DL (70-104); LIPASE 63 U/L (16-77); POTASSIUM 5.2 MMOL/L (3.5-5.1); SODIUM 128 MMOL/L (135-145); TOTAL PROTEIN 8.5 G/DL (6.4-8.2); eCRCL 52 ML/MIN; eGFR 76 ML/MIN
[2023-12-18 16:52] LABS: TOTAL CARBON DIOXIDE 13.2 MMOL/L (24-32)
[2023-12-18 17:25] LABS: BASOPHILS # (AUTO) 0.1 X10'3 (0-0.2); EOSINOPHILS % (AUTO) 0.1 % (0-6); HEMATOCRIT 38.9 % (42.0-52.0); HEMOGLOBIN 12.2 g/dl (14.0-17.9); LYMPHOCYTES # (AUTO) 1.9 X10'3 (1.1-4.8); LYMPHOCYTES % (AUTO) 22.9 % (21-51); MEAN CORPUSCULAR HEMOGLOBIN 24.8 PG (27.0-31.0); MEAN CORPUSCULAR HGB CONC 31.3 g/dL (33.0-36.5); MEAN CORPUSCULAR VOLUME 79.3 FL (78-98); MEAN PLATELET VOLUME 7.5 FL (7.4-10.4); MONOCYTES # (AUTO) 0.9 X10'3 (0-0.9); MONOCYTES % (AUTO) 10.3 % (2-12); NEUTROPHILS # (AUTO) 5.6 X10'3 (1.8-7.7); NEUTROPHILS % (AUTO) 65.7 % (42-75); PLATELET COUNT 337 X10'3 (140-440); RED BLOOD COUNT 4.91 X10'6 (4.70-6.10); RED CELL DISTRIBUTION WIDTH 25.7 % (11.5-14.5); WHITE BLOOD COUNT 8.5 X10'3 (4.5-11.0)
[2023-12-18] MEDS: morphine 4 MG/ML inj SYRINge IV ONE (17:38)
[2023-12-18] MEDS: ondansetron/PF 4mg/2ml inj IV ONE (17:38)
[2023-12-18 17:49] LABS: PLATELET ESTIMATE NORMAL
[2023-12-18 17:50] LABS: ANISOCYTOSIS 3+; MICROCYTOSIS 1+
[2023-12-18 17:51] LABS: HYPOCHROMASIA 1+; POLYCHROMASIA FEW
[2023-12-18 17:53] LABS: TARGET CELLS FEW
[2023-12-18] MEDS: normal saline 1000ml 1,000 ML IVB ONE (18:40)
[2023-12-18] MEDS ORDERED: HYDR-3965 PO (19:08)
[2023-12-18] MEDS ORDERED: ONDA-243 PO (19:08)
[2023-12-18 19:26] VITALS: BP 107/64; PULSE 67; RESP 14; O2SAT 99
== END 2023-12-18 19:29 | disposition home or self-care (01) ==
LOC: ER 15:36
DX: R11.10 Vomiting, unspecified (principal); R10.84 Generalized abdominal pain; E78.00 Pure hypercholesterolemia, unspecified; I10 Essential (primary) hypertension; Z79.82 Long term (current) use of aspirin; Z79.899 Other long term (current) drug therapy; Z79.4 Long term (current) use of insulin; Z90.49 Acquired absence of other specified parts of digestive tract
CPT/HCPCS: 36415; 80053; 83690; 85008; 85025; 96361; 96374; 96375; 99285; J2270; J2405; J7030

== ENCOUNTER 2024-01-06 15:42 | Inpatient (IN) | payer MEDICAID ==
[~2024-01-06] VITALS: Ht 172.7 cm; Wt 45.1 kg
[2024-01-06 16:51] LABS: HEMOGLOBIN 11.9 g/dl (14.0-17.9); LYMPHOCYTES # (AUTO) 2.2 X10'3 (1.1-4.8); WHITE BLOOD COUNT 5.4 X10'3 (4.5-11.0)
[2024-01-06 16:53] LABS: BASOPHILS # (AUTO) 0.1 X10'3 (0-0.2); BASOPHILS % (AUTO) 1.3 % (0-1); EOSINOPHILS # (AUTO) 0.1 X10'3 (0-0.9); EOSINOPHILS % (AUTO) 2.1 % (0-6); HEMATOCRIT 37.8 % (42.0-52.0); LYMPHOCYTES % (AUTO) 40.9 % (21-51); MEAN CORPUSCULAR HEMOGLOBIN 25.3 PG (27.0-31.0); MEAN CORPUSCULAR HGB CONC 31.6 g/dL (33.0-36.5); MEAN CORPUSCULAR VOLUME 79.9 FL (78-98); MEAN PLATELET VOLUME 7.2 FL (7.4-10.4); MONOCYTES # (AUTO) 0.5 X10'3 (0-0.9); MONOCYTES % (AUTO) 8.9 % (2-12); NEUTROPHILS # (AUTO) 2.5 X10'3 (1.8-7.7); NEUTROPHILS % (AUTO) 46.8 % (42-75); PLATELET COUNT 278 X10'3 (140-440); RED BLOOD COUNT 4.73 X10'6 (4.70-6.10); RED CELL DISTRIBUTION WIDTH 26.7 % (11.5-14.5)
[2024-01-06 16:57] LABS: ALANINE AMINOTRANSFERASE 81 U/L (12-78); ALKALINE PHOSPHATASE 73 IU/L (46-116); ANION GAP 21 (8-16); ASPARTATE AMINO TRANSFERASE 189 U/L (10-37); BILIRUBIN,TOTAL 0.6 MG/DL (0.1-1.0); BLOOD UREA NITROGEN 15 MG/DL (7-18); BUN/CREATININE RATIO 17.4 (10.0-20.0); CHLORIDE 94 MMOL/L (99-107); CREATININE 0.86 MG/DL (0.60-1.10); ETHANOL 286 MG/DL (<10); GLUCOSE 118 MG/DL (70-104); LIPASE 15 U/L (16-77); POTASSIUM 3.7 MMOL/L (3.5-5.1); SODIUM 133 MMOL/L (135-145); TOTAL CARBON DIOXIDE 18.1 MMOL/L (24-32); TOTAL PROTEIN 8.2 G/DL (6.4-8.2); eCRCL 61 ML/MIN; eGFR > 90 ML/MIN
[2024-01-06 17:33] LABS: PLATELET ESTIMATE NORMAL
[2024-01-06 17:34] LABS: ANISOCYTOSIS 3+; HYPOCHROMASIA 1+; MICROCYTOSIS 1+; POIKILOCYTOSIS 1+; POLYCHROMASIA FEW
[2024-01-07] MEDS: ondansetron/PF 4mg/2ml inj IV ONE (00:07)
[2024-01-07] MEDS: HYDROmorphone 1 mg/ml syringe IV ONE (00:08)
[2024-01-07] MEDS: normal saline 1000ml 1,000 ML IV ONE ×2 (00:08→01:52)
[2024-01-07] MEDS: diltiazem 5mg/ml 5ml inj. IV ONE ×4 (00:16→01:54)
[2024-01-07] MEDS: magnesium sulf-water 2g/50mL 50 ML IV ONE (00:24)
[2024-01-07] MEDS ORDERED: diltiazem-NS 100mg/100ml 100 ML IV SCH (00:25)
[2024-01-07 01:10] LABS: MAGNESIUM 1.4 MG/DL (1.5-2.4)
[2024-01-07] MEDS: diltiazem-NS 100mg/100ml 100 ML IV SCH (01:31)
[2024-01-07] MEDS: LORazepam 2 mg/ml vial IV ONE ×2 (02:07→02:25)
[2024-01-07] MEDS ORDERED: acetaminophen 325mg tablet PO PRN (02:30)
[2024-01-07] MEDS ORDERED: potassium Cl 20 mEq SR tablet PO PRN ×2 (02:30)
[2024-01-07] MEDS ORDERED: metoclopramide 5 mg/ml inj IV PRN (02:30)
[2024-01-07] MEDS ORDERED: ondansetron/PF 4mg/2ml inj IV PRN (02:30)
[2024-01-07] MEDS ORDERED: haloperidol lactate 5mg/ml inj IM PRN (02:30)
[2024-01-07] MEDS ORDERED: magnesium hydroxide 30ml (MOM) UD suspension PO PRN (02:30)
[2024-01-07] MEDS ORDERED: magnesium Cl slow-release 64mg tablet PO PRN (02:30)
[2024-01-07] MEDS ORDERED: haloperidol 5mg tablet PO PRN (02:30)
[2024-01-07] MEDS ORDERED: magnesium sulf-water 4G/100mL 100 ML IV PRN (02:30)
[2024-01-07] MEDS: normal saline 1000ml 1,000 ML IV SCH (03:19)
[2024-01-07] MEDS ORDERED: ONDA-243 PO (03:33)
[2024-01-07] MEDS ORDERED: PANT-47 PO (03:33)
[2024-01-07] MEDS ORDERED: ASPI-1265 PO (03:33)
[2024-01-07] MEDS ORDERED: LIPA1TAB3 PO (03:33)
[2024-01-07] MEDS ORDERED: POTA-192 PO (03:33)
[2024-01-07] MEDS ORDERED: MAGN400C PO (03:33)
[2024-01-07] MEDS ORDERED: CARSR60C PO (03:33)
[2024-01-07] MEDS ORDERED: ATEN-169 PO (03:33)
[2024-01-07] MEDS ORDERED: INSU100I61 (03:33)
[2024-01-07 04:04] LABS: RED BLOOD COUNT 4.68 X10'6 (4.70-6.10); RETICULOCYTE % (AUTO) 1.1 % (0.5-1.5)
[2024-01-07 04:10] LABS: MAGNESIUM 1.8 MG/DL (1.5-2.4); POTASSIUM 4.6 MMOL/L (3.5-5.1)
[2024-01-07 04:21] LABS: BILIRUBIN,URINE NEGATIVE (Neg); CLARITY,URINE CLEAR (Clear); COLOR,URINE STRAW (Yellow); GLUCOSE, URINE NEGATIVE (Neg); KETONES,URINE 40 mg/dl (Neg); LEUKOCYTE ESTERASE ,URINE NEGATIVE (Neg); NITRITES, URINE NEGATIVE (Neg); OCCULT BLOOD,URINE TRACE-INTACT (Neg); PROTEIN,URINE NEGATIVE (Neg); UROBILINOGEN,URINE 0.2 E.U/dL (0.2-1.0)
[2024-01-07 04:21] LABS: % IRON SATURATION 11 % (11-46); IRON 55 UG/DL (53-167); TOTAL IRON BINDING CAPACITY 501 UG/DL (259-388)
[2024-01-07 04:22] LABS: UA COLLECTION TYPE NON-SPECIFIED
[2024-01-07 04:28] LABS: BACTERIA,URINE FEW /HPF (Neg); MUCUS STRANDS FEW /LPF (Neg); RBC,URINE 0-2 /HPF (0-2); SQUAMOUS EPITHELIAL CELL,UR FEW /LPF (FEW); WBC,URINE 0-4 /HPF (0-4)
[2024-01-07] MEDS: morphine 2 MG/ML inj. syringe IV PRN ×2 (04:28→07:40)
[2024-01-07 04:35] LABS: URINE AMPHETAMINE SCREEN NEGATIVE (Neg); URINE BARBITUATE SCREEN NEGATIVE (Neg); URINE BENZODIAZEPINES SCREEN POSITIVE (Neg); URINE CANNABINOID SCREEN NEGATIVE (Neg); URINE COCAINE SCREEN NEGATIVE (Neg); URINE METHADONE SCREEN NEGATIVE (Neg); URINE OPIATE SCREEN POSITIVE (Neg); URINE PHENCYCLIDINE SCREEN NEGATIVE (Neg)
[2024-01-07] MEDS: K and/or MAG REPLACEMENT MC SCH (06:22)
[2024-01-07] MEDS: docusate sod 100mg capsule PO SCH (07:39)
[2024-01-07] MEDS: multivitamins, therapeutics tablet PO SCH (07:40)
[2024-01-07] MEDS: metoprolol succinate 25mg (24-HOUR) SR. Tablet PO SCH (07:40)
[2024-01-07] MEDS: pantoprazole 40mg Tablet.DR PO SCH (07:40)
[2024-01-07] MEDS: enoxaparin 40mg/0.4ml syringe SUBCUT SCH (07:42)
[2024-01-07] MEDS ORDERED: pantoprazole 40 MG vial IV SCH (08:00)
[2024-01-07 11:00] VITALS: BP 117/69; PULSE 73; RESP 16; TEMP 97.5; O2SAT 100
[2024-01-07 14:06] VITALS: RESP 16; O2SAT 99
[2024-01-07 15:00] VITALS: BP 122/75; PULSE 92; RESP 14; TEMP 98.1; O2SAT 92
[2024-01-07] MEDS ORDERED: dextrose 50%-water 50ml dispensing syringe IV PRN ×2 (15:15)
[2024-01-07] MEDS ORDERED: DEXTROSE 15 GM of carb/4 tabs (each vial/BOTTLE has 4 tablets) PO PRN ×2 (15:15)
[2024-01-07] MEDS ORDERED: glucagon, human recombinant 1mg kit SUBCUT PRN (15:15)
[2024-01-07] MEDS: INSULIN LISPRO 100 UNIT/ML INSULN.PEN MULTI-DOSE SQ SCH (17:47)
[2024-01-07 18:00] VITALS: BP 114/71; PULSE 82; RESP 16; TEMP 97.5; O2SAT 99
[2024-01-07] MEDS: diltiazem SR 60mg capsule (twice daily) PO SCH (19:03)
[2024-01-07 20:05] VITALS: RESP 18; O2SAT 98
[2024-01-07] MEDS: traZODone 50mg tablet PO SCH (20:54)
[2024-01-07] MEDS: LORazepam 2 mg/ml vial IV PRN (20:54)
[2024-01-07 22:00] VITALS: BP 103/72; PULSE 74; RESP 14; TEMP 98; O2SAT 100
[2024-01-07] MEDS: LIPASE PO SCH (23:02)
[2024-01-07] MEDS: AMYLASE PO SCH (23:02)
[2024-01-07] MEDS: PROTEASE PO SCH (23:02)
[2024-01-08 02:00] VITALS: BP 96/53; PULSE 60; RESP 18; TEMP 97.6; O2SAT 100
[2024-01-08 06:00] VITALS: BP 103/73; PULSE 61; RESP 12; TEMP 97.7; O2SAT 100
[2024-01-08 06:06] LABS: BASOPHILS % (AUTO) 0.7 % (0-1); EOSINOPHILS # (AUTO) 0.1 X10'3 (0-0.9); EOSINOPHILS % (AUTO) 3.6 % (0-6); HEMATOCRIT 29.9 % (42.0-52.0); HEMOGLOBIN 9.4 g/dl (14.0-17.9); LYMPHOCYTES # (AUTO) 1.9 X10'3 (1.1-4.8); LYMPHOCYTES % (AUTO) 45.3 % (21-51); MEAN CORPUSCULAR HEMOGLOBIN 25.2 PG (27.0-31.0); MEAN CORPUSCULAR HGB CONC 31.2 g/dL (33.0-36.5); MEAN CORPUSCULAR VOLUME 80.5 FL (78-98); MEAN PLATELET VOLUME 6.8 FL (7.4-10.4); MONOCYTES # (AUTO) 0.4 X10'3 (0-0.9); MONOCYTES % (AUTO) 9.6 % (2-12); NEUTROPHILS # (AUTO) 1.7 X10'3 (1.8-7.7); NEUTROPHILS % (AUTO) 40.8 % (42-75); PLATELET COUNT 194 X10'3 (140-440); RED BLOOD COUNT 3.72 X10'6 (4.70-6.10); RED CELL DISTRIBUTION WIDTH 25.9 % (11.5-14.5); WHITE BLOOD COUNT 4.2 X10'3 (4.5-11.0)
[2024-01-08 06:20] LABS: PROTHROMBIN TIME 10.6 SECONDS (9.0-12.0)
[2024-01-08 06:27] LABS: ALANINE AMINOTRANSFERASE 41 U/L (12-78); ALBUMIN 3.1 G/DL (3.4-5.0); ALBUMIN/GLOBULIN RATIO 0.9 (1.1-1.5); ALKALINE PHOSPHATASE 55 IU/L (46-116); ANION GAP 10 (8-16); ASPARTATE AMINO TRANSFERASE 33 U/L (10-37); BILIRUBIN,TOTAL 1.1 MG/DL (0.1-1.0); BLOOD UREA NITROGEN 5 MG/DL (7-18); BUN/CREATININE RATIO 6.4 (10.0-20.0); CALCIUM 8.6 MG/DL (8.5-10.1); CHLORIDE 105 MMOL/L (99-107); CREATININE 0.78 MG/DL (0.60-1.10); GLUCOSE 195 MG/DL (70-104); LIPASE 145 U/L (16-77); MAGNESIUM 1.4 MG/DL (1.5-2.4); PHOSPHORUS 1.6 MG/DL (2.3-4.5); POTASSIUM 3.5 MMOL/L (3.5-5.1); SODIUM 135 MMOL/L (135-145); TOTAL PROTEIN 6.5 G/DL (6.4-8.2); eCRCL 67 ML/MIN; eGFR > 90 ML/MIN
[2024-01-08 08:00] VITALS: RESP 13; O2SAT 100
[2024-01-08] MEDS ORDERED: non-formulary drug (Multivitamin (Multi Vitamin Daily) 1 TAB) PO SCH (08:00)
[2024-01-08] MEDS: aspirin 81mg tab.chew PO SCH (08:42)
[2024-01-08] MEDS: potassium chloride 10mEq ER tablet PO SCH (08:43)
[2024-01-08] MEDS: tamsulosin 0.4mg capsule PO SCH (08:46)
[2024-01-08] MEDS: magnesium oxide 400mg tablet PO SCH (08:47)
[2024-01-08] MEDS: thiamine 100mg tablet PO SCH (08:47)
[2024-01-08] MEDS: LIPASE/PROTEASE/AMYLASE 10,500 units CAPSULE.DR PO SCH ×2 (08:48→17:58)
[2024-01-08] MEDS: folic acid 1mg tablet PO SCH (08:48)
[2024-01-08] MEDS: atorvastatin 10mg tablet PO SCH (08:50)
[2024-01-08] MEDS: atenolol 50mg tablet PO SCH (08:51)
[2024-01-08 11:00] VITALS: BP 99/63; PULSE 66; RESP 15; TEMP 97.2; O2SAT 100
[2024-01-08] MEDS ORDERED: HYDROcodone/acetaminophen 5mg/325mg tablet PO PRN (11:40)
[2024-01-08] MEDS ORDERED: LORazepam 2 mg/ml vial IV PRN ×2 (11:40)
[2024-01-08] MEDS ORDERED: LORazepam 1 MG tablet PO PRN (11:40)
[2024-01-08] MEDS: LORazepam 1 MG tablet PO PRN (12:41)
[2024-01-08 15:00] VITALS: BP 106/65; PULSE 65; RESP 18; TEMP 97.2; O2SAT 100
[2024-01-08] MEDS: HYDROcodone/acetaminophen 10/325mg tab PO PRN (16:13)
[2024-01-08] MEDS: lactose-reduced food (Ensure Enlive) - 237ml bottle PO SCH (18:00)
[2024-01-08 20:00] VITALS: RESP 13; O2SAT 100
[2024-01-08] MEDS: LORazepam 2 mg/ml vial IV PRN (21:02)
[2024-01-09] VITALS (7 sets, daily range): BP systolic 100–115; BP diastolic 61–74; PULSE 51–87; RESP 13–23; TEMP 97.2–98.6; O2SAT 98–100
[2024-01-09] MEDS ORDERED: LORazepam 1 MG tablet PO PRN (02:30)
[2024-01-09] MEDS ORDERED: LORazepam 2 mg/ml vial IV PRN (02:30)
[2024-01-09 06:05] LABS: BASOPHILS % (AUTO) 0.9 % (0-1); EOSINOPHILS # (AUTO) 0.1 X10'3 (0-0.9); EOSINOPHILS % (AUTO) 2.8 % (0-6); HEMATOCRIT 27.6 % (42.0-52.0); HEMOGLOBIN 8.7 g/dl (14.0-17.9); LYMPHOCYTES # (AUTO) 2.2 X10'3 (1.1-4.8); LYMPHOCYTES % (AUTO) 49.7 % (21-51); MEAN CORPUSCULAR HEMOGLOBIN 25.3 PG (27.0-31.0); MEAN CORPUSCULAR HGB CONC 31.7 g/dL (33.0-36.5); MEAN CORPUSCULAR VOLUME 79.8 FL (78-98); MEAN PLATELET VOLUME 7.4 FL (7.4-10.4); MONOCYTES # (AUTO) 0.4 X10'3 (0-0.9); MONOCYTES % (AUTO) 7.9 % (2-12); NEUTROPHILS # (AUTO) 1.7 X10'3 (1.8-7.7); NEUTROPHILS % (AUTO) 38.7 % (42-75); PLATELET COUNT 184 X10'3 (140-440); RED BLOOD COUNT 3.45 X10'6 (4.70-6.10); RED CELL DISTRIBUTION WIDTH 25.5 % (11.5-14.5); WHITE BLOOD COUNT 4.4 X10'3 (4.5-11.0)
[2024-01-09 06:10] LABS: PROTHROMBIN TIME 10.7 SECONDS (9.0-12.0)
[2024-01-09 06:15] LABS: ALANINE AMINOTRANSFERASE 32 U/L (12-78); ALBUMIN 2.8 G/DL (3.4-5.0); ALBUMIN/GLOBULIN RATIO 0.9 (1.1-1.5); ALKALINE PHOSPHATASE 62 IU/L (46-116); ANION GAP 5 (8-16); ASPARTATE AMINO TRANSFERASE 19 U/L (10-37); BILIRUBIN,TOTAL 0.4 MG/DL (0.1-1.0); BLOOD UREA NITROGEN 0 MG/DL (7-18); CALCIUM 8.7 MG/DL (8.5-10.1); CHLORIDE 103 MMOL/L (99-107); CREATININE 0.86 MG/DL (0.60-1.10); GLUCOSE 296 MG/DL (70-104); LIPASE 66 U/L (16-77); MAGNESIUM 1.1 MG/DL (1.5-2.4); PHOSPHORUS 2.4 MG/DL (2.3-4.5); POTASSIUM 3.3 MMOL/L (3.5-5.1); SODIUM 131 MMOL/L (135-145); TOTAL CARBON DIOXIDE 22.9 MMOL/L (24-32); eCRCL 61 ML/MIN; eGFR > 90 ML/MIN
[2024-01-09] MEDS: magnesium sulf-water 2g/50mL 50 ML IV PRN (11:07)
[2024-01-09] MEDS: metoprolol succinate 25mg (24-HOUR) SR. Tablet PO SCH (11:20)
[2024-01-09] MEDS: LIPASE/PROTEASE/AMYLASE 10,500 units CAPSULE.DR PO SCH (12:30)
[2024-01-09] MEDS: potassium Cl 40MEQ/1/2NS 520ml 520 ML IV PRN (13:37)
[2024-01-09 18:00] LABS: OCCULT BLOOD STOOL NEGATIVE (Neg)
[2024-01-09 18:05] LABS: MAGNESIUM 1.5 MG/DL (1.5-2.4); POTASSIUM 4.1 MMOL/L (3.5-5.1)
[2024-01-09] MEDS: mag hydrox/Alum hydrox/simeth 30ml oral suspension PO PRN (23:17)
[2024-01-10 02:00] VITALS: BP 136/70; PULSE 62; RESP 15; TEMP 97.3; O2SAT 100
[2024-01-10 06:00] VITALS: BP 99/59; PULSE 67; RESP 15; TEMP 98; O2SAT 96
[2024-01-10 06:03] LABS: BASOPHILS % (AUTO) 0.6 % (0-1); EOSINOPHILS # (AUTO) 0.1 X10'3 (0-0.9); EOSINOPHILS % (AUTO) 2.2 % (0-6); HEMATOCRIT 26.7 % (42.0-52.0); HEMOGLOBIN 8.3 g/dl (14.0-17.9); LYMPHOCYTES # (AUTO) 2.3 X10'3 (1.1-4.8); LYMPHOCYTES % (AUTO) 49.3 % (21-51); MEAN CORPUSCULAR HEMOGLOBIN 24.8 PG (27.0-31.0); MEAN CORPUSCULAR HGB CONC 31.2 g/dL (33.0-36.5); MEAN CORPUSCULAR VOLUME 79.3 FL (78-98); MEAN PLATELET VOLUME 7.4 FL (7.4-10.4); MONOCYTES # (AUTO) 0.3 X10'3 (0-0.9); MONOCYTES % (AUTO) 7.4 % (2-12); NEUTROPHILS # (AUTO) 1.9 X10'3 (1.8-7.7); NEUTROPHILS % (AUTO) 40.5 % (42-75); PLATELET COUNT 175 X10'3 (140-440); RED BLOOD COUNT 3.37 X10'6 (4.70-6.10); RED CELL DISTRIBUTION WIDTH 26.1 % (11.5-14.5); WHITE BLOOD COUNT 4.7 X10'3 (4.5-11.0)
[2024-01-10 06:12] LABS: PROTHROMBIN TIME 10.8 SECONDS (9.0-12.0)
[2024-01-10 06:17] LABS: ALANINE AMINOTRANSFERASE 27 U/L (12-78); ALBUMIN 2.8 G/DL (3.4-5.0); ALBUMIN/GLOBULIN RATIO 0.9 (1.1-1.5); ALKALINE PHOSPHATASE 74 IU/L (46-116); ANION GAP 8 (8-16); ASPARTATE AMINO TRANSFERASE 20 U/L (10-37); BILIRUBIN,TOTAL 0.3 MG/DL (0.1-1.0); BLOOD UREA NITROGEN 9 MG/DL (7-18); BUN/CREATININE RATIO 10.5 (10.0-20.0); CALCIUM 9.1 MG/DL (8.5-10.1); CHLORIDE 98 MMOL/L (99-107); CREATININE 0.86 MG/DL (0.60-1.10); MAGNESIUM 1.2 MG/DL (1.5-2.4); POTASSIUM 4.1 MMOL/L (3.5-5.1); SODIUM 130 MMOL/L (135-145); TOTAL CARBON DIOXIDE 23.9 MMOL/L (24-32); TOTAL PROTEIN 5.8 G/DL (6.4-8.2); eCRCL 61 ML/MIN; eGFR > 90 ML/MIN
[2024-01-10 06:22] LABS: GLUCOSE 409 MG/DL (70-104)
[2024-01-10] MEDS ORDERED: potassium Cl 20 mEq SR tablet PO PRN ×2 (07:25)
[2024-01-10] MEDS ORDERED: magnesium sulf-water 2g/50mL 50 ML IV PRN (07:25)
[2024-01-10] MEDS ORDERED: magnesium sulf-water 4G/100mL 100 ML IV PRN (07:25)
[2024-01-10] MEDS ORDERED: potassium Cl 40MEQ/1/2NS 520ml 520 ML IV PRN (07:25)
[2024-01-10] MEDS: thiamine 100mg tablet PO SCH (07:40)
[2024-01-10] MEDS: INSULIN LISPRO 100 UNIT/ML INSULN.PEN MULTI-DOSE SQ SCH (07:48)
[2024-01-10] MEDS: magnesium Cl slow-release 64mg tablet PO PRN (07:53)
[2024-01-10 08:00] VITALS: RESP 15; O2SAT 100
[2024-01-10 11:00] VITALS: BP 98/63; PULSE 91; RESP 14; TEMP 97.8; O2SAT 96
[2024-01-10] MEDS ORDERED: INSU100I61 SUBCUT (12:53)
[2024-01-10] MEDS ORDERED: PANT-47 PO (12:53)
[2024-01-10] MEDS ORDERED: HYDR-3965 PO (12:53)
[2024-01-10] MEDS ORDERED: FERR324T4 PO (12:55)
[2024-01-11] MEDS ORDERED: LORazepam 1 MG tablet PO PRN (02:30)
[2024-01-11] MEDS ORDERED: LORazepam 2 mg/ml vial IV PRN (02:30)
[2024-01-11] MEDS ORDERED: folic acid 1mg tablet PO SCH (08:00)
== END 2024-01-10 15:01 | disposition home or self-care (01) | DRG 201 ==
LOC: ER 15:43 → ED HOLD 01-07 02:40 → PCU 3S 01-07 11:40
PROVIDERS: ADMIT Internal Medicine Critical Care Medicine; ATTEND Internal Medicine
DX: I48.91 Unspecified atrial fibrillation (principal); D63.8 Anemia in other chronic diseases classified elsewhere; K70.10 Alcoholic hepatitis without ascites; E87.8 Other disorders of electrolyte and fluid balance, not elsewhere classified; E11.65 Type 2 diabetes mellitus with hyperglycemia; F10.20 Alcohol dependence, uncomplicated; E78.00 Pure hypercholesterolemia, unspecified; I10 Essential (primary) hypertension; I48.92 Unspecified atrial flutter; K86.0 Alcohol-induced chronic pancreatitis; E87.1 Hypo-osmolality and hyponatremia; Z79.4 Long term (current) use of insulin; Z79.899 Other long term (current) drug therapy; Z79.82 Long term (current) use of aspirin
CPT/HCPCS: 36415; 74176; 80053; 80305; 80320; 81001; 82272; 82948; 83540; 83550; 83690; 83735; 84100; 84132; 84466; 85008; 85025; 85045; 85610; 87081; 93005; 97116; 97161; 99291; 99292; G0378; J1170; J1650; J1815; J2060; J2270; J2405; J3480; J3490; J7030

== ENCOUNTER 2024-01-16 05:05 | Inpatient (IN) | payer MEDICAID ==
[~2024-01-16] VITALS: Ht 172.7 cm; Wt 48.3 kg
[~2024-01-16 05:05] MED LIST changes: +ATEN-169 PO; -ATEN50TA41 PO; -ATOR10TA70 PO; -CARCD120C PO; +CARSR60C PO; +FERR324T4 PO; +HYDR-3965 PO; +INSU100I61 SUBCUT; -INSU100I8 SQ; +PANT-47 PO; -PANT40TA54 PO; +POTA-192 PO; -POTA-206 PO
[2024-01-16] MEDS: normal saline 1000ml 1,000 ML IV ONE (05:32)
[2024-01-16] MEDS: ondansetron/PF 4mg/2ml inj IV ONE (05:40)
[2024-01-16 05:48] LABS: BASOPHILS # (AUTO) 0.1 X10'3 (0-0.2); BASOPHILS % (AUTO) 1.1 % (0-1); EOSINOPHILS % (AUTO) 0.8 % (0-6); HEMATOCRIT 42.8 % (42.0-52.0); HEMOGLOBIN 13.7 g/dl (14.0-17.9); LYMPHOCYTES # (AUTO) 2.5 X10'3 (1.1-4.8); LYMPHOCYTES % (AUTO) 47.7 % (21-51); MEAN CORPUSCULAR HEMOGLOBIN 25.4 PG (27.0-31.0); MEAN CORPUSCULAR HGB CONC 31.9 g/dL (33.0-36.5); MEAN CORPUSCULAR VOLUME 79.5 FL (78-98); MEAN PLATELET VOLUME 8.4 FL (7.4-10.4); MONOCYTES # (AUTO) 0.3 X10'3 (0-0.9); MONOCYTES % (AUTO) 4.9 % (2-12); NEUTROPHILS # (AUTO) 2.3 X10'3 (1.8-7.7); NEUTROPHILS % (AUTO) 45.5 % (42-75); PLATELET COUNT 173 X10'3 (140-440); RED BLOOD COUNT 5.38 X10'6 (4.70-6.10); RED CELL DISTRIBUTION WIDTH 26.8 % (11.5-14.5); WHITE BLOOD COUNT 5.2 X10'3 (4.5-11.0)
[2024-01-16] MEDS: fentaNYL/PF 50MCG/1 ML 2ML syringe IV ONE (06:11)
[2024-01-16] MEDS: proCHLORperazine 10 MG/2 ml inj IV ONE (06:12)
[2024-01-16 06:20] LABS: ALBUMIN 4.4 G/DL (3.4-5.0); ANION GAP 26 (8-16); BLOOD UREA NITROGEN 17 MG/DL (7-18); BUN/CREATININE RATIO 19.5 (10.0-20.0); CALCIUM 9.9 MG/DL (8.5-10.1); CHLORIDE 92 MMOL/L (99-107); CREATININE 0.87 MG/DL (0.60-1.10); ETHANOL 215 MG/DL (<10); GLUCOSE 120 MG/DL (70-104); LIPASE 21 U/L (16-77); MAGNESIUM 1.8 MG/DL (1.5-2.4); PRO BRAIN NATRIURETIC PEPTIDE < 30 PG/ML (0-125); SODIUM 137 MMOL/L (135-145); TOTAL CARBON DIOXIDE 19.1 MMOL/L (24-32); eCRCL 92 ML/MIN; eGFR > 90 ML/MIN
[2024-01-16 06:45] LABS: POTASSIUM 4.2 MMOL/L (3.5-5.1)
[2024-01-16] MEDS: adenosine 3mg/ml 2ml vial IV ONE ×2 (07:25)
[2024-01-16] MEDS: magnesium sulf-water 4G/100mL 100 ML IV ONE (07:26)
[2024-01-16] MEDS: diltiazem 5mg/ml 5ml inj. IV ONE (07:40)
[2024-01-16] MEDS: diltiazem-NS 100mg/100ml 100 ML IV ONE ×2 (07:41→07:55)
[2024-01-16] MEDS ORDERED: ketamine 50mg/5ml syringe IV ONE ×4 (08:15→08:30)
[2024-01-16] MEDS: ketamine 10mg/ml 20ml inj vial IV ONE ×2 (08:47)
[2024-01-16 09:06] VITALS: PULSE 111; RESP 18
[2024-01-16] MEDS: metoprolol tartrate 1mg/ml inj IV ONE (10:10)
[2024-01-16] MEDS: amiodarone/D5 360MG/200ML BAG 200 ML IV ONE (10:40)
[2024-01-16] MEDS: amiodarone 150mg/dext, iso-os 100 ML IV ONE ×2 (10:53→14:56)
[2024-01-16] MEDS: metoprolol tartrate 25mg tablet PO ONE (13:41)
[2024-01-16] MEDS: metoprolol succinate 25mg (24-HOUR) SR. Tablet PO STA (13:41)
[2024-01-16] MEDS: LORazepam 2 mg/ml vial IV ONE (14:38)
[2024-01-16] MEDS ORDERED: potassium Cl 40MEQ/1/2NS 520ml 520 ML IV PRN (14:40)
[2024-01-16] MEDS ORDERED: ondansetron/PF 4mg/2ml inj IV PRN (14:40)
[2024-01-16] MEDS ORDERED: acetaminophen 325mg tablet PO PRN ×2 (14:40)
[2024-01-16] MEDS ORDERED: magnesium sulf-water 4G/100mL 100 ML IV PRN (14:40)
[2024-01-16] MEDS ORDERED: magnesium sulf-water 2g/50mL 50 ML IV PRN (14:40)
[2024-01-16] MEDS ORDERED: magnesium hydroxide 30ml (MOM) UD suspension PO PRN (14:40)
[2024-01-16] MEDS ORDERED: amiodarone inj. 450 MG in dextrose 5%-water 241 ML IV SCH (14:40)
[2024-01-16] MEDS ORDERED: DEXTROSE 15 GM of carb/4 tabs (each vial/BOTTLE has 4 tablets) PO PRN ×2 (14:40)
[2024-01-16] MEDS ORDERED: potassium Cl 20 mEq SR tablet PO PRN ×2 (14:40)
[2024-01-16] MEDS ORDERED: HYDROcodone/acetaminophen 5mg/325mg tablet PO PRN (14:40)
[2024-01-16] MEDS ORDERED: morphine 2 MG/ML inj. syringe IV PRN ×2 (14:40)
[2024-01-16] MEDS ORDERED: glucagon, human recombinant 1mg kit SUBCUT PRN (14:40)
[2024-01-16] MEDS ORDERED: mag hydrox/Alum hydrox/simeth 30ml oral suspension PO PRN (14:40)
[2024-01-16] MEDS ORDERED: haloperidol lactate 5mg/ml inj IM PRN (14:40)
[2024-01-16] MEDS ORDERED: dextrose 50%-water 50ml dispensing syringe IV PRN ×2 (14:40)
[2024-01-16] MEDS ORDERED: haloperidol 5mg tablet PO PRN (14:40)
[2024-01-16] MEDS: amiodarone/D5 360MG/200ML BAG 200 ML IV SCH (15:13)
[2024-01-16] MEDS: heparin, porcine 5000 units/ml vial SQ SCH (16:00)
[2024-01-16] MEDS: INSULIN LISPRO 100 UNIT/ML INSULN.PEN MULTI-DOSE SQ SCH ×2 (17:11→17:12)
[2024-01-16 19:15] VITALS: BP 106/69; PULSE 64; RESP 10; TEMP 97.9; O2SAT 99
[2024-01-16 20:00] VITALS: RESP 14; O2SAT 99
[2024-01-16] MEDS: K and/or MAG REPLACEMENT MC SCH (20:00)
[2024-01-16] MEDS: docusate sod 100mg capsule PO SCH (20:45)
[2024-01-16] MEDS: LORazepam 2 mg/ml vial IV PRN (20:45)
[2024-01-16] MEDS: HYDROcodone/acetaminophen 10/325mg tab PO PRN (20:45)
[2024-01-16 22:00] VITALS: BP 123/70; PULSE 67; RESP 18; TEMP 97; O2SAT 96
[2024-01-16 23:00] VITALS: BP 100/71; PULSE 78; RESP 19
[2024-01-16 23:30] VITALS: BP 106/65; PULSE 77; RESP 20
[2024-01-17] VITALS (13 sets, daily range): BP systolic 100–131; BP diastolic 54–74; PULSE 66–85; RESP 14–18; TEMP 98–98.4; O2SAT 97–98
[2024-01-17 06:23] LABS: BASOPHILS % (AUTO) 0.5 % (0-1); EOSINOPHILS % (AUTO) 0.7 % (0-6); HEMATOCRIT 30.9 % (42.0-52.0); LYMPHOCYTES # (AUTO) 2.4 X10'3 (1.1-4.8); LYMPHOCYTES % (AUTO) 38.3 % (21-51); MEAN CORPUSCULAR HEMOGLOBIN 25.4 PG (27.0-31.0); MEAN CORPUSCULAR HGB CONC 32.3 g/dL (33.0-36.5); MEAN CORPUSCULAR VOLUME 78.8 FL (78-98); MEAN PLATELET VOLUME 7.3 FL (7.4-10.4); MONOCYTES # (AUTO) 0.9 X10'3 (0-0.9); NEUTROPHILS % (AUTO) 46.5 % (42-75); PLATELET COUNT 236 X10'3 (140-440); RED BLOOD COUNT 3.92 X10'6 (4.70-6.10); RED CELL DISTRIBUTION WIDTH 26.8 % (11.5-14.5); WHITE BLOOD COUNT 6.4 X10'3 (4.5-11.0)
[2024-01-17 06:29] LABS: PROTHROMBIN TIME 10.1 SECONDS (9.0-12.0)
[2024-01-17 06:33] LABS: ALANINE AMINOTRANSFERASE 46 U/L (12-78); ALBUMIN 3.5 G/DL (3.4-5.0); ALKALINE PHOSPHATASE 73 IU/L (46-116); ANION GAP 7 (8-16); ASPARTATE AMINO TRANSFERASE 30 U/L (10-37); BILIRUBIN,TOTAL 1.2 MG/DL (0.1-1.0); BLOOD UREA NITROGEN 18 MG/DL (7-18); BUN/CREATININE RATIO 18.4 (10.0-20.0); CALCIUM 9.1 MG/DL (8.5-10.1); CHLORIDE 95 MMOL/L (99-107); CREATININE 0.98 MG/DL (0.60-1.10); GLUCOSE 305 MG/DL (70-104); LIPASE 21 U/L (16-77); MAGNESIUM 1.8 MG/DL (1.5-2.4); PHOSPHORUS 2.2 MG/DL (2.3-4.5); POTASSIUM 4.1 MMOL/L (3.5-5.1); SODIUM 126 MMOL/L (135-145); TOTAL CARBON DIOXIDE 24.4 MMOL/L (24-32); eCRCL 58 ML/MIN; eGFR 79 ML/MIN
[2024-01-17] MEDS: multivitamins, therapeutics tablet PO SCH (07:30)
[2024-01-17] MEDS: amiodarone 200mg tablet PO SCH (09:49)
[2024-01-17] MEDS: normal saline 1000ml 1,000 ML IV SCH (09:50)
[2024-01-17 15:16] LABS: ALBUMIN 3.4 G/DL (3.4-5.0); ANION GAP 3 (8-16); BLOOD UREA NITROGEN 13 MG/DL (7-18); BUN/CREATININE RATIO 13.4 (10.0-20.0); CALCIUM 9.4 MG/DL (8.5-10.1); CHLORIDE 98 MMOL/L (99-107); CREATININE 0.97 MG/DL (0.60-1.10); GLUCOSE 142 MG/DL (70-104); POTASSIUM 3.7 MMOL/L (3.5-5.1); SODIUM 130 MMOL/L (135-145); TOTAL CARBON DIOXIDE 28.9 MMOL/L (24-32); eCRCL 58 ML/MIN; eGFR 80 ML/MIN
[2024-01-17] MEDS ORDERED: AMI200T PO (15:56)
[2024-01-18] MEDS ORDERED: LORazepam 2 mg/ml vial IV PRN (14:40)
[2024-01-18] MEDS ORDERED: LORazepam 1 MG tablet PO PRN (14:40)
[2024-01-20] MEDS ORDERED: thiamine 100mg tablet PO SCH (08:00)
[2024-01-20] MEDS ORDERED: LORazepam 2 mg/ml vial IV PRN (14:40)
[2024-01-20] MEDS ORDERED: LORazepam 1 MG tablet PO PRN (14:40)
[2024-01-21] MEDS ORDERED: folic acid 1mg tablet PO SCH (08:00)
== END 2024-01-17 16:30 | disposition home or self-care (01) | DRG 201 ==
LOC: ER 05:06 → ED HOLD 14:51 → PCU 3S 19:19
PROVIDERS: ADMIT Family Medicine; ATTEND Family Medicine
DX: I48.91 Unspecified atrial fibrillation (principal); E11.9 Type 2 diabetes mellitus without complications; I47.10 Supraventricular tachycardia, unspecified; I48.92 Unspecified atrial flutter; F10.239 Alcohol dependence with withdrawal, unspecified; E78.00 Pure hypercholesterolemia, unspecified; I10 Essential (primary) hypertension; I25.2 Old myocardial infarction; Z79.82 Long term (current) use of aspirin; Z79.4 Long term (current) use of insulin; Z79.899 Other long term (current) drug therapy; Z90.49 Acquired absence of other specified parts of digestive tract; Z82.49 Family history of ischemic heart disease and other diseases of the circulatory system
CPT/HCPCS: 36415; 71045; 80048; 80053; 80320; 82948; 83690; 83735; 83880; 84100; 84484; 85025; 85610; 87081; 93005; 94760; 96365; 96367; 96375; 99291; A4358; A4620; G0378; J0153; J0282; J0780; J1644; J1815; J2060; J2405; J3010; J3475; J3490; J7030

== ENCOUNTER 2024-03-07 18:58 | Inpatient (IN) | payer MEDICAID ==
[~2024-03-07] VITALS: Ht 172.7 cm; Wt 46.3 kg
[~2024-03-07 18:58] MED LIST changes: +AMI200T PO; -CARSR60C PO; -HYDR-3965 PO
[2024-03-07 20:49] LABS: BASOPHILS # (AUTO) 0.1 X10'3 (0-0.2); BASOPHILS % (AUTO) 1.1 % (0-1); EOSINOPHILS # (AUTO) 0.2 X10'3 (0-0.9); EOSINOPHILS % (AUTO) 4.1 % (0-6); HEMATOCRIT 32.1 % (42.0-52.0); HEMOGLOBIN 10.2 g/dl (14.0-17.9); LYMPHOCYTES # (AUTO) 2.5 X10'3 (1.1-4.8); MEAN CORPUSCULAR HEMOGLOBIN 25.7 PG (27.0-31.0); MEAN CORPUSCULAR HGB CONC 31.9 g/dL (33.0-36.5); MEAN CORPUSCULAR VOLUME 80.6 FL (78-98); MEAN PLATELET VOLUME 6.3 FL (7.4-10.4); MONOCYTES # (AUTO) 0.5 X10'3 (0-0.9); MONOCYTES % (AUTO) 9.4 % (2-12); NEUTROPHILS # (AUTO) 1.9 X10'3 (1.8-7.7); NEUTROPHILS % (AUTO) 37.4 % (42-75); PLATELET COUNT 189 X10'3 (140-440); RED BLOOD COUNT 3.99 X10'6 (4.70-6.10); RED CELL DISTRIBUTION WIDTH 26.9 % (11.5-14.5); WHITE BLOOD COUNT 5.2 X10'3 (4.5-11.0)
[2024-03-07 21:07] LABS: ALANINE AMINOTRANSFERASE 12 U/L (12-78); ALBUMIN 3.8 G/DL (3.4-5.0); ALKALINE PHOSPHATASE 57 IU/L (46-116); ANION GAP 15 (8-16); ASPARTATE AMINO TRANSFERASE 14 U/L (10-37); BILIRUBIN,TOTAL 0.4 MG/DL (0.1-1.0); BLOOD UREA NITROGEN 4 MG/DL (7-18); BUN/CREATININE RATIO 5.6 (10.0-20.0); CALCIUM 9.1 MG/DL (8.5-10.1); CHLORIDE 100 MMOL/L (99-107); CREATININE 0.72 MG/DL (0.60-1.10); ETHANOL 161 MG/DL (<10); GLUCOSE 140 MG/DL (70-104); LIPASE 246 U/L (16-77); POTASSIUM 3.4 MMOL/L (3.5-5.1); SODIUM 137 MMOL/L (135-145); TOTAL CARBON DIOXIDE 21.8 MMOL/L (24-32); TOTAL PROTEIN 7.5 G/DL (6.4-8.2); eCRCL 75 ML/MIN; eGFR > 90 ML/MIN
[2024-03-07] MEDS: HYDROmorphone/PF 0.2 MG/ML SYRINGE IV STA (21:22)
[2024-03-07] MEDS: normal saline 1000ml 1,000 ML IV STA (21:22)
[2024-03-07] MEDS: ondansetron/PF 4mg/2ml inj IV STA (21:22)
[2024-03-07 22:10] LABS: PLATELET ESTIMATE NORMAL
[2024-03-07 22:11] LABS: ANISOCYTOSIS 3+; ELLIPTOCYTES FEW; HYPOCHROMASIA 1+; POLYCHROMASIA FEW
[2024-03-07] MEDS: morphine 4 MG/ML inj SYRINge IV STA (22:32)
[2024-03-07] MEDS: ringers solution, lacted 1,000 ML IV STA (23:21)
[2024-03-08] MEDS ORDERED: iohexol 300mg/ml 100ml inj. ONE (01:28)
[2024-03-08] MEDS: morphine 4 MG/ML inj SYRINge IV ONE (03:12)
[2024-03-08] MEDS: MEROPENEM 1GM/NS 100ML IVPB 100 ML IV SCH (03:41)
[2024-03-08] MEDS ORDERED: HYDROmorphone inj. 0.5 MG/0.5 ML DISP.SYRIN IV PRN (03:45)
[2024-03-08] MEDS ORDERED: potassium Cl 20 mEq SR tablet PO PRN ×2 (03:45)
[2024-03-08] MEDS ORDERED: magnesium hydroxide 30ml (MOM) UD suspension PO PRN (03:45)
[2024-03-08] MEDS ORDERED: morphine 2 MG/ML inj. syringe IV PRN (03:45)
[2024-03-08] MEDS ORDERED: magnesium Cl slow-release 64mg tablet PO PRN (03:45)
[2024-03-08] MEDS ORDERED: potassium Cl 40MEQ/1/2NS 520ml 520 ML IV PRN (03:45)
[2024-03-08] MEDS ORDERED: ondansetron/PF 4mg/2ml inj IV PRN (03:45)
[2024-03-08] MEDS ORDERED: acetaminophen 325mg tablet PO PRN (03:45)
[2024-03-08] MEDS ORDERED: mag hydrox/Alum hydrox/simeth 30ml oral suspension PO PRN (03:45)
[2024-03-08] MEDS: normal saline 1000ml 1,000 ML IV SCH (04:36)
[2024-03-08] MEDS ORDERED: haloperidol lactate 5mg/ml inj IM PRN (04:40)
[2024-03-08] MEDS ORDERED: dextrose 50%-water 50ml dispensing syringe IV PRN ×2 (04:40)
[2024-03-08] MEDS ORDERED: LORazepam 2 mg/ml vial IV PRN (04:40)
[2024-03-08] MEDS ORDERED: DEXTROSE 15 GM of carb/4 tabs (each vial/BOTTLE has 4 tablets) PO PRN ×2 (04:40)
[2024-03-08] MEDS ORDERED: glucagon, human recombinant 1mg kit SUBCUT PRN (04:40)
[2024-03-08 05:02] LABS: MAGNESIUM 1.4 MG/DL (1.5-2.4)
[2024-03-08] MEDS: dextrose 50%-water 50ml dispensing syringe IV PRN (05:14)
[2024-03-08 05:30] LABS: HEMOGLOBIN A1C 8.9 % (4.5-6.2)
[2024-03-08] MEDS: INSULIN LISPRO 100 UNIT/ML INSULN.PEN MULTI-DOSE SQ SCH (06:49)
[2024-03-08] MEDS: K and/or MAG REPLACEMENT MC SCH (07:29)
[2024-03-08] MEDS: docusate sod 100mg capsule PO SCH (07:30)
[2024-03-08] MEDS ORDERED: LIPASE/PROTEASE/AMYLASE 16,800 UNIT CAPSULE.DR PO SCH (07:30)
[2024-03-08] MEDS: pantoprazole 40 MG vial IV SCH (07:39)
[2024-03-08] MEDS: thiamine 100mg/ml 2ml inj. IV SCH (07:39)
[2024-03-08] MEDS ORDERED: HYDROmorphone 1 mg/ml syringe IV PRN (07:45)
[2024-03-08] MEDS: heparin, porcine 5000 units/ml vial SQ SCH (07:53)
[2024-03-08] MEDS ORDERED: LIPASE/PROTEASE/AMYLASE 4,200 unit CAPSULE.DR PO SCH ×2 (07:59→08:01)
[2024-03-08] MEDS ORDERED: enoxaparin 40mg/0.4ml syringe SUBCUT SCH (08:00)
[2024-03-08] MEDS: folic acid 1mg/0.2ml inj IV SCH (08:19)
[2024-03-08] MEDS: HYDROmorphone 1 mg/ml syringe IV PRN (08:37)
[2024-03-08] MEDS: LIPASE/PROTEASE/AMYLASE 4,200 unit CAPSULE.DR PO SCH (08:41)
[2024-03-08 08:47] LABS: APTT 23 SECONDS (22-32); PROTHROMBIN TIME 10.9 SECONDS (9.0-12.0)
[2024-03-08 08:47] LABS: BILIRUBIN,URINE NEGATIVE (Neg); CLARITY,URINE CLEAR (Clear); COLOR,URINE STRAW (Yellow); GLUCOSE, URINE >=1000 mg/dl (Neg); KETONES,URINE NEGATIVE (Neg); LEUKOCYTE ESTERASE ,URINE NEGATIVE (Neg); NITRITES, URINE NEGATIVE (Neg); OCCULT BLOOD,URINE NEGATIVE (Neg); PROTEIN,URINE NEGATIVE (Neg); UROBILINOGEN,URINE 0.2 E.U/dL (0.2-1.0)
[2024-03-08 08:54] LABS: UA COLLECTION TYPE CLN CATCH MIDSTREAM
[2024-03-08 08:55] LABS: BACTERIA,URINE NONE SEEN /HPF (Neg); MUCUS STRANDS NONE SEEN /LPF (Neg); RBC,URINE NONE SEEN /HPF (0-2); SQUAMOUS EPITHELIAL CELL,UR FEW /LPF (FEW); WBC,URINE NONE SEEN /HPF (0-4)
[2024-03-08 09:14] LABS: URINE AMPHETAMINE SCREEN NEGATIVE (Neg); URINE BARBITUATE SCREEN NEGATIVE (Neg); URINE BENZODIAZEPINES SCREEN NEGATIVE (Neg); URINE CANNABINOID SCREEN NEGATIVE (Neg); URINE COCAINE SCREEN NEGATIVE (Neg); URINE METHADONE SCREEN NEGATIVE (Neg); URINE OPIATE SCREEN POSITIVE (Neg); URINE PHENCYCLIDINE SCREEN NEGATIVE (Neg)
[2024-03-08] MEDS ORDERED: metroNIDAZOLE-Flagyl 500mg/NS 100 ML IV SCH (12:00)
[2024-03-08 19:00] VITALS: BP 129/80; PULSE 91; RESP 16; O2SAT 92
[2024-03-08] MEDS ORDERED: CefTRIAXone/D5W-Rocephin 1gm 50 ML IV SCH (20:00)
[2024-03-08 20:20] LABS: MAGNESIUM 1.3 MG/DL (1.5-2.4); POTASSIUM 4.1 MMOL/L (3.5-5.1)
[2024-03-08] MEDS: insulin glargine (Lantus) pen - multi-dose SQ SCH (21:00)
[2024-03-08] MEDS: magnesium sulf-water 4G/100mL 100 ML IV PRN (21:41)
[2024-03-09] MEDS: magnesium sulf-water 2g/50mL 50 ML IV PRN (00:32)
[2024-03-09 08:00] VITALS: RESP 16; O2SAT 91
[2024-03-09 08:03] LABS: EOSINOPHILS # (AUTO) 0.2 X10'3 (0-0.9); EOSINOPHILS % (AUTO) 4.7 % (0-6); HEMATOCRIT 28.6 % (42.0-52.0); HEMOGLOBIN 8.7 g/dl (14.0-17.9); LYMPHOCYTES # (AUTO) 1.8 X10'3 (1.1-4.8); LYMPHOCYTES % (AUTO) 52.4 % (21-51); MEAN CORPUSCULAR HEMOGLOBIN 25.2 PG (27.0-31.0); MEAN CORPUSCULAR HGB CONC 30.4 g/dL (33.0-36.5); MONOCYTES # (AUTO) 0.3 X10'3 (0-0.9); MONOCYTES % (AUTO) 9.3 % (2-12); NEUTROPHILS # (AUTO) 1.2 X10'3 (1.8-7.7); NEUTROPHILS % (AUTO) 32.6 % (42-75); PLATELET COUNT 148 X10'3 (140-440); RED BLOOD COUNT 3.44 X10'6 (4.70-6.10); RED CELL DISTRIBUTION WIDTH 26.2 % (11.5-14.5); WHITE BLOOD COUNT 3.5 X10'3 (4.5-11.0)
[2024-03-09 08:40] LABS: ALANINE AMINOTRANSFERASE 13 U/L (12-78); ALBUMIN 2.9 G/DL (3.4-5.0); ALKALINE PHOSPHATASE 48 IU/L (46-116); ANION GAP 12 (8-16); ASPARTATE AMINO TRANSFERASE 24 U/L (10-37); BILIRUBIN,TOTAL 0.4 MG/DL (0.1-1.0); BLOOD UREA NITROGEN 3 MG/DL (7-18); BUN/CREATININE RATIO 4.2 (10.0-20.0); CALCIUM 7.6 MG/DL (8.5-10.1); CHLORIDE 104 MMOL/L (99-107); CREATININE 0.72 MG/DL (0.60-1.10); GLUCOSE 113 MG/DL (70-104); MAGNESIUM 2.2 MG/DL (1.5-2.4); POTASSIUM 3.7 MMOL/L (3.5-5.1); SODIUM 135 MMOL/L (135-145); TOTAL CARBON DIOXIDE 19.5 MMOL/L (24-32); TOTAL PROTEIN 5.9 G/DL (6.4-8.2); eCRCL 75 ML/MIN; eGFR > 90 ML/MIN
[2024-03-09 09:43] LABS: PLATELET ESTIMATE NORMAL
[2024-03-09 09:44] LABS: ANISOCYTOSIS 3+; HYPOCHROMASIA 1+; POLYCHROMASIA 1+; TARGET CELLS FEW; TEAR DROP CELLS FEW
[2024-03-09 09:45] LABS: ROULEAUX 1+; SCHISTOCYTES FEW
[2024-03-09 09:46] LABS: ELLIPTOCYTES FEW
[2024-03-09 10:00] VITALS: BP 132/70; PULSE 58; RESP 16; TEMP 97.9; O2SAT 91
[2024-03-09 10:30] VITALS: RESP 16
[2024-03-09] MEDS ORDERED: HYDR-3965 PO (13:13)
[2024-03-10] MEDS ORDERED: LORazepam 2 mg/ml vial IV PRN (04:40)
[2024-03-12] MEDS ORDERED: LORazepam 2 mg/ml vial IV PRN (04:40)
== END 2024-03-09 14:40 | disposition home or self-care (01) | DRG 282 ==
LOC: ER 18:59 → ED HOLD 03-08 03:48 → ORTHO 4S 03-08 19:20
PROVIDERS: ADMIT Student in an Organized Health Care Education/Training Program; ATTEND Internal Medicine
PROC: BW211ZZ Computerized Tomography (CT Scan) of Abdomen and Pelvis using Low Osmolar Contrast (ICD-10-PCS; principal; 2024-03-08)
DX: K85.90 Acute pancreatitis without necrosis or infection, unspecified (principal); E87.20 Acidosis, unspecified; I10 Essential (primary) hypertension; I48.91 Unspecified atrial fibrillation; K86.1 Other chronic pancreatitis; E11.9 Type 2 diabetes mellitus without complications; E78.00 Pure hypercholesterolemia, unspecified; Z79.82 Long term (current) use of aspirin; Z79.4 Long term (current) use of insulin; Z79.899 Other long term (current) drug therapy; Z90.49 Acquired absence of other specified parts of digestive tract
CPT/HCPCS: 36415; 71045; 74177; 80053; 80305; 80320; 81001; 82948; 83036; 83605; 83690; 83735; 84132; 85008; 85025; 85610; 85730; 87040; 87081; 97116; 97161; 99285; G0378; J1170; J1644; J1815; J2185; J2270; J2405; J2470; J3411; J3475; J3490; J7030; J7120; Q9967

== ENCOUNTER 2024-03-16 17:22 | Inpatient (IN) | payer MEDICAID ==
[~2024-03-16] VITALS: Ht 172.7 cm; Wt 36.0 kg
[~2024-03-16 17:22] MED LIST changes: -ASPI-1265 PO; -ATEN-169 PO; -FERR324T4 PO; -FLO0.4C PO; +HYDR-3965 PO; -ONDA-243 PO
[2024-03-16 19:21] LABS: BASOPHILS # (AUTO) 0.1 X10'3 (0-0.2); BASOPHILS % (AUTO) 1.6 % (0-1); EOSINOPHILS # (AUTO) 0.2 X10'3 (0-0.9); EOSINOPHILS % (AUTO) 4.5 % (0-6); HEMOGLOBIN 11.8 g/dl (14.0-17.9); LYMPHOCYTES # (AUTO) 1.8 X10'3 (1.1-4.8); LYMPHOCYTES % (AUTO) 35.8 % (21-51); MEAN CORPUSCULAR HEMOGLOBIN 24.8 PG (27.0-31.0); MEAN CORPUSCULAR HGB CONC 31.1 g/dL (33.0-36.5); MEAN CORPUSCULAR VOLUME 79.9 FL (78-98); MEAN PLATELET VOLUME 6.5 FL (7.4-10.4); MONOCYTES # (AUTO) 0.4 X10'3 (0-0.9); MONOCYTES % (AUTO) 7.9 % (2-12); NEUTROPHILS # (AUTO) 2.5 X10'3 (1.8-7.7); NEUTROPHILS % (AUTO) 50.2 % (42-75); PLATELET COUNT 359 X10'3 (140-440); RED BLOOD COUNT 4.76 X10'6 (4.70-6.10); RED CELL DISTRIBUTION WIDTH 24.5 % (11.5-14.5)
[2024-03-16 19:38] LABS: ALANINE AMINOTRANSFERASE 95 U/L (12-78); ALBUMIN 3.9 G/DL (3.4-5.0); ALKALINE PHOSPHATASE 82 IU/L (46-116); ANION GAP 17 (8-16); ASPARTATE AMINO TRANSFERASE 410 U/L (10-37); BILIRUBIN,TOTAL 1.4 MG/DL (0.1-1.0); BLOOD UREA NITROGEN 11 MG/DL (7-18); BUN/CREATININE RATIO 15.5 (10.0-20.0); CALCIUM 8.7 MG/DL (8.5-10.1); CHLORIDE 95 MMOL/L (99-107); CREATININE 0.71 MG/DL (0.60-1.10); GLUCOSE 183 MG/DL (70-104); LIPASE 20 U/L (16-77); POTASSIUM 3.6 MMOL/L (3.5-5.1); SODIUM 132 MMOL/L (135-145); TOTAL CARBON DIOXIDE 19.7 MMOL/L (24-32); TOTAL PROTEIN 7.8 G/DL (6.4-8.2); eCRCL 59 ML/MIN; eGFR > 90 ML/MIN
[2024-03-16 20:26] LABS: ANISOCYTOSIS 3+; PLATELET ESTIMATE NORMAL
[2024-03-16 20:35] LABS: ELLIPTOCYTES FEW; HYPOCHROMASIA 2+; MICROCYTOSIS 1+; POIKILOCYTOSIS 1+; TARGET CELLS FEW; TEAR DROP CELLS FEW
[2024-03-16 21:28] LABS: ETHANOL 219 MG/DL (<10)
[2024-03-16] MEDS ORDERED: CARCD120C PO (22:17)
[2024-03-16] MEDS ORDERED: ATOR10TA70 PO (22:17)
[2024-03-16] MEDS ORDERED: EMPA10TA PO (22:17)
[2024-03-16] MEDS ORDERED: PANT20TA18 PO (22:17)
[2024-03-16] MEDS ORDERED: magnesium hydroxide 30ml (MOM) UD suspension PO PRN (22:35)
[2024-03-16] MEDS ORDERED: magnesium sulf-water 2g/50mL 50 ML IV PRN (22:35)
[2024-03-16] MEDS ORDERED: acetaminophen 325mg tablet PO PRN (22:35)
[2024-03-16] MEDS ORDERED: potassium Cl 40MEQ/1/2NS 520ml 520 ML IV PRN (22:35)
[2024-03-16] MEDS ORDERED: potassium Cl 20 mEq SR tablet PO PRN (22:35)
[2024-03-16] MEDS ORDERED: haloperidol lactate 5mg/ml inj IM PRN (22:35)
[2024-03-16] MEDS ORDERED: magnesium sulf-water 4G/100mL 100 ML IV PRN (22:35)
[2024-03-16] MEDS ORDERED: magnesium Cl slow-release 64mg tablet PO PRN (22:35)
[2024-03-16] MEDS ORDERED: dextrose 50%-water 50ml dispensing syringe IV PRN ×3 (22:35→22:55)
[2024-03-16] MEDS ORDERED: mag hydrox/Alum hydrox/simeth 30ml oral suspension PO PRN (22:35)
[2024-03-16] MEDS ORDERED: LORazepam 2 mg/ml vial IV PRN (22:35)
[2024-03-16] MEDS ORDERED: normal saline 1000ml 1,000 ML IV SCH (22:35)
[2024-03-16 22:48] LABS: APTT 23 SECONDS (22-32); INR 1.1 INR; PROTHROMBIN TIME 11.6 SECONDS (9.0-12.0)
[2024-03-16 22:52] LABS: MAGNESIUM 1.3 MG/DL (1.5-2.4); PHOSPHORUS 2.8 MG/DL (2.3-4.5)
[2024-03-16] MEDS ORDERED: glucagon, human recombinant 1mg kit SUBCUT PRN (22:55)
[2024-03-16] MEDS ORDERED: DEXTROSE 15 GM of carb/4 tabs (each vial/BOTTLE has 4 tablets) PO PRN ×2 (22:55)
[2024-03-16] MEDS: ondansetron/PF 4mg/2ml inj IV PRN (23:05)
[2024-03-16] MEDS: HYDROmorphone/PF 0.2 MG/ML SYRINGE IV PRN (23:06)
[2024-03-16] MEDS: pantoprazole 40MG/NS 100ML BAG 100 ML IV SCH (23:06)
[2024-03-16] MEDS: normal saline 1000ml 1,000 ML IV ONE (23:24)
[2024-03-17] VITALS (7 sets, daily range): BP systolic 121–157; BP diastolic 69–91; PULSE 72–94; RESP 13–18; TEMP 97.1–98.1; O2SAT 90–100
[2024-03-17] MEDS: LIPASE/PROTEASE/AMYLASE 10,500 units CAPSULE.DR PO SCH
[2024-03-17] MEDS: folic acid 1mg/0.2ml inj IV SCH (00:46)
[2024-03-17] MEDS: HYDROmorphone inj. 0.5 MG/0.5 ML DISP.SYRIN IV PRN ×2 (01:26→14:31)
[2024-03-17 02:45] LABS: BILIRUBIN,URINE NEGATIVE (Neg); CLARITY,URINE CLEAR (Clear); COLOR,URINE STRAW (Yellow); GLUCOSE, URINE NEGATIVE (Neg); KETONES,URINE 15 mg/dl (Neg); LEUKOCYTE ESTERASE ,URINE NEGATIVE (Neg); NITRITES, URINE NEGATIVE (Neg); OCCULT BLOOD,URINE NEGATIVE (Neg); PROTEIN,URINE NEGATIVE (Neg); UROBILINOGEN,URINE 0.2 E.U/dL (0.2-1.0)
[2024-03-17 02:53] LABS: UA COLLECTION TYPE NON-SPECIFIED
[2024-03-17 03:06] LABS: URINE AMPHETAMINE SCREEN NEGATIVE (Neg); URINE BARBITUATE SCREEN NEGATIVE (Neg); URINE BENZODIAZEPINES SCREEN NEGATIVE (Neg); URINE CANNABINOID SCREEN NEGATIVE (Neg); URINE COCAINE SCREEN NEGATIVE (Neg); URINE METHADONE SCREEN NEGATIVE (Neg); URINE OPIATE SCREEN POSITIVE (Neg); URINE PHENCYCLIDINE SCREEN NEGATIVE (Neg)
[2024-03-17] MEDS: normal saline 1000ml 1,000 ML IV ONE (03:07)
[2024-03-17] MEDS: magnesium sulf-water 2g/50mL 50 ML IV ONE (03:18)
[2024-03-17] MEDS: LORazepam 2 mg/ml vial IV PRN (04:37)
[2024-03-17] MEDS: ringers solution, lacted 1,000 ML IV SCH (05:51)
[2024-03-17] MEDS: INSULIN LISPRO 100 UNIT/ML INSULN.PEN MULTI-DOSE SQ SCH (07:00)
[2024-03-17] MEDS: K and/or MAG REPLACEMENT MC SCH (08:00)
[2024-03-17] MEDS: diltiazem CD 120mg capsule (once-daily) PO SCH (08:17)
[2024-03-17] MEDS: enoxaparin 40mg/0.4ml syringe SUBCUT SCH (08:17)
[2024-03-17] MEDS: lisinopril 5mg tablet PO SCH (08:18)
[2024-03-17 08:25] LABS: BASOPHILS # (AUTO) 0.1 X10'3 (0-0.2); BASOPHILS % (AUTO) 1.1 % (0-1); EOSINOPHILS # (AUTO) 0.4 X10'3 (0-0.9); EOSINOPHILS % (AUTO) 6.8 % (0-6); HEMATOCRIT 33.5 % (42.0-52.0); HEMOGLOBIN 10.4 g/dl (14.0-17.9); LYMPHOCYTES # (AUTO) 2.6 X10'3 (1.1-4.8); LYMPHOCYTES % (AUTO) 41.8 % (21-51); MEAN CORPUSCULAR VOLUME 80.8 FL (78-98); MONOCYTES # (AUTO) 0.5 X10'3 (0-0.9); MONOCYTES % (AUTO) 8.7 % (2-12); NEUTROPHILS # (AUTO) 2.6 X10'3 (1.8-7.7); NEUTROPHILS % (AUTO) 41.6 % (42-75); PLATELET COUNT 290 X10'3 (140-440); RED BLOOD COUNT 4.15 X10'6 (4.70-6.10); RED CELL DISTRIBUTION WIDTH 24.1 % (11.5-14.5); WHITE BLOOD COUNT 6.1 X10'3 (4.5-11.0)
[2024-03-17 09:07] LABS: ANISOCYTOSIS 3+; PLATELET ESTIMATE NORMAL; POLYCHROMASIA FEW
[2024-03-17 09:09] LABS: ALANINE AMINOTRANSFERASE 58 U/L (12-78); ALBUMIN 3.3 G/DL (3.4-5.0); ALKALINE PHOSPHATASE 65 IU/L (46-116); ANION GAP 9 (8-16); ASPARTATE AMINO TRANSFERASE 124 U/L (10-37); BLOOD UREA NITROGEN 9 MG/DL (7-18); BUN/CREATININE RATIO 11.5 (10.0-20.0); CALCIUM 8.4 MG/DL (8.5-10.1); CHLORIDE 103 MMOL/L (99-107); CREATININE 0.78 MG/DL (0.60-1.10); GLUCOSE 142 MG/DL (70-104); POTASSIUM 4.3 MMOL/L (3.5-5.1); SODIUM 136 MMOL/L (135-145); TOTAL CARBON DIOXIDE 23.7 MMOL/L (24-32); TOTAL PROTEIN 6.5 G/DL (6.4-8.2); eCRCL 54 ML/MIN; eGFR > 90 ML/MIN
[2024-03-17] MEDS: thiamine 100mg/ml 2ml inj. IV SCH (09:16)
[2024-03-17] MEDS ORDERED: FLU VACC TS2024-25(6MOS UP)/PF 45 MCG/0.5 ML SYRINGE IMVAC ONE (10:00)
[2024-03-17] MEDS: traZODone 50mg tablet PO SCH (20:59)
[2024-03-17] MEDS: insulin glargine (Lantus) pen - multi-dose SQ SCH (21:03)
[2024-03-18 06:00] VITALS: BP 139/88; PULSE 72; RESP 18; TEMP 98.8; O2SAT 99
[2024-03-18 07:48] LABS: BASOPHILS % (AUTO) 0.8 % (0-1); EOSINOPHILS # (AUTO) 0.3 X10'3 (0-0.9); EOSINOPHILS % (AUTO) 7.3 % (0-6); HEMATOCRIT 30.5 % (42.0-52.0); HEMOGLOBIN 9.5 g/dl (14.0-17.9); LYMPHOCYTES # (AUTO) 1.8 X10'3 (1.1-4.8); LYMPHOCYTES % (AUTO) 41.9 % (21-51); MEAN CORPUSCULAR HEMOGLOBIN 25.2 PG (27.0-31.0); MEAN CORPUSCULAR HGB CONC 31.2 g/dL (33.0-36.5); MEAN CORPUSCULAR VOLUME 80.8 FL (78-98); MONOCYTES # (AUTO) 0.4 X10'3 (0-0.9); MONOCYTES % (AUTO) 10.2 % (2-12); NEUTROPHILS # (AUTO) 1.7 X10'3 (1.8-7.7); NEUTROPHILS % (AUTO) 39.8 % (42-75); PLATELET COUNT 276 X10'3 (140-440); RED BLOOD COUNT 3.78 X10'6 (4.70-6.10); RED CELL DISTRIBUTION WIDTH 24.4 % (11.5-14.5); WHITE BLOOD COUNT 4.3 X10'3 (4.5-11.0)
[2024-03-18 08:00] VITALS: RESP 18; O2SAT 99
[2024-03-18 08:16] LABS: ALANINE AMINOTRANSFERASE 40 U/L (12-78); ALBUMIN/GLOBULIN RATIO 0.9 (1.1-1.5); ALKALINE PHOSPHATASE 63 IU/L (46-116); ANION GAP 6 (8-16); ASPARTATE AMINO TRANSFERASE 49 U/L (10-37); BLOOD UREA NITROGEN 2 MG/DL (7-18); BUN/CREATININE RATIO 2.6 (10.0-20.0); CALCIUM 8.6 MG/DL (8.5-10.1); CHLORIDE 102 MMOL/L (99-107); CREATININE 0.78 MG/DL (0.60-1.10); GLUCOSE 135 MG/DL (70-104); SODIUM 136 MMOL/L (135-145); TOTAL CARBON DIOXIDE 27.9 MMOL/L (24-32); TOTAL PROTEIN 6.2 G/DL (6.4-8.2); eCRCL 54 ML/MIN; eGFR > 90 ML/MIN
[2024-03-18] MEDS: potassium Cl 20 mEq SR tablet PO PRN (08:32)
[2024-03-18] MEDS: morphine 2 MG/ML inj. syringe IV PRN (10:47)
[2024-03-18 11:00] VITALS: BP 115/74; PULSE 95; RESP 16; TEMP 98.4; O2SAT 100
[2024-03-21] MEDS ORDERED: folic acid 1mg tablet PO SCH (08:00)
[2024-03-21] MEDS ORDERED: thiamine 100mg tablet PO SCH (08:00)
== END 2024-03-18 12:14 | disposition home or self-care (01) | DRG 282 ==
LOC: ER 17:24 → ED HOLD 22:37 → EDBEDREQ 03-17 00:42 → PCU 3S 03-17 01:00
PROVIDERS: ADMIT Internal Medicine Sleep Medicine; ATTEND Internal Medicine
DX: K85.90 Acute pancreatitis without necrosis or infection, unspecified (principal); K70.10 Alcoholic hepatitis without ascites; E11.9 Type 2 diabetes mellitus without complications; E78.00 Pure hypercholesterolemia, unspecified; F10.229 Alcohol dependence with intoxication, unspecified; I10 Essential (primary) hypertension; I25.2 Old myocardial infarction; I48.91 Unspecified atrial fibrillation; Z87.891 Personal history of nicotine dependence
CPT/HCPCS: 36415; 74176; 80053; 80305; 80320; 81003; 82948; 83690; 83735; 84100; 85008; 85025; 85610; 85730; 87081; 90686; 93005; 97116; 97161; 97530; 99285; A4340; C1758; G0378; J1171; J1650; J1815; J2060; J2270; J2405; J2470; J3411; J3490; J7030; J7120